=== PATIENT | female | born 1965 | race Caucasian/White ===

== ENCOUNTER 2019-03-12 17:58 | Inpatient (IN) ==
[2019-03-12] MEDS ORDERED: 0.9 % SODIUM CHLORIDE 1,000 ML IV ONE ×2 (18:23→22:12)
[2019-03-12] MEDS ORDERED: INSULIN REGULAR, HUMAN 1 UNIT/0.01 ML UNIT IV ONE (18:41)
[2019-03-12] MEDS ORDERED: cefTRIAXone 1 GM VIAL IV ONE (18:57)
--- NOTE | 2019-03-12 19:05 | Emergency Department Note ---
Weakness HPI - General Chief complaint: Weakness Stated complaint: possible dehydration Time Seen by Provider: 03/12/19 18:20 Source: patient Mode of arrival: wheelchair Limitations: no limitations - History of Present Illness HPI Narrative: Patient is a 54-year-old female who returns to the emergency department today with her with a concern of worsening confusion and weakness for the last 5 days. Patient was seen here in the emergency department yesterday by William and Dr. La. Her states that she has had sepsis in the past. Patient has a history of paraplegia for last 10 years. 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 She has recurrent urinary tract infections and has a suprapubic urinary catheter. She is followed by Dr. Monson and has undergone urinary bladder irrigations in the past with gentamicin. The has noticed that her urine is a little bit more cloudy than normal. The patient apparently developed a fever today and currently has a temperature of 101.3. Her appetite has been decreased. Patient denies any cough, shortness of breath, difficulty breathing, chest pain, sore throat, nausea, or vomiting. - Related Data Home Medications Medication Instructions Recorded Confirmed Acetaminophen [Tylenol] 1,000 mg PO BID 01/23/15 02/17/19 Baclofen 20 mg PO TID 01/23/15 03/12/19 Calcium Polycarbophil [Fibercon] 625 mg PO BID 01/23/15 03/12/19 Cyanocobalamin/Folic Acid [Vitamin 1 each PO BID 01/23/15 03/12/19 [id number] Acid Tablet] Ferrous Gluconate [Iron] 240 mg PO BID 01/23/15 03/12/19 Insulin Aspart [Novolog] 0 unit SQ ACHS 01/23/15 03/12/19 Loperamide [Imodium] 4 mg PO PRN PRN 01/23/15 03/12/19 Metoclopramide [Reglan] 5 mg PO PRN PRN 01/23/15 03/12/19 Omeprazole [PriLOSEC] 20 mg PO BIDAC 01/23/15 03/12/19 Pregabalin [Lyrica] 50 mg PO QIDP 01/23/15 03/12/19 Vitamin D3 1,000 unit PO DAILY 01/23/15 03/12/19 metFORMIN [Glucophage] 500 mg PO BIDCC 01/23/15 03/12/19 Bisacodyl [Magic Bullet] 10 mg RC PRN PRN 02/27/16 03/12/19 nystatin 100,000 unit/gram topical 1 applic TOPICAL BID 10/22/17 03/12/19 ointment silver 1 applic TOPICAL QDAY ml 10/22/17 03/12/19 cyanocobalamin (vitamin B-12) 1,000 mcg PO QDAY 02/18/18 02/17/19 1,000 mcg tablet sertraline 25 mg tablet 50 mg PO QDAY 09/29/18 03/12/19 Furosemide [Lasix] 20 mg PO DAILY 03/12/19 03/12/19 Insulin Detemir [Levemir] 30 unit SQ HS 03/12/19 03/12/19 Ipratropium/Albuterol [Duoneb] 3 ml NEB Q4-6HP PRN 03/12/19 03/12/19 Spironolactone [Aldactone] 50 mg PO DAILY 03/12/19 03/12/19 oxyCODONE HCL [Oxycodone HCl] 5 mg PO Q4-6HP PRN 03/12/19 03/12/19 traMADol [Ultram] 50 - 100 mg PO Q4HP PRN 03/12/19 03/12/19 Previous Rx's Medication Instructions Recorded adhesive tape See Dose Instructions .ROUTE 08/27/16 .MEDSUPPLY #1 each gauze bandage See Dose Instructions .ROUTE 08/27/16 .MEDSUPPLY #100 each MDD 4 urinary bag See Dose Instructions .ROUTE 08/27/16 .MEDSUPPLY #2 each oxybutynin chloride 5 mg 5 mg PO QDAY #30 tab 12/13/18 tablet,extended release 24 hr Allergies Allergy/AdvReac Type Severity Reaction Status Date / Time piperacillin [From Zosyn] Allergy Mild Rash Verified 03/11/19 09:42 tazobactam [From Zosyn] Allergy Mild Rash Verified 03/11/19 09:42 azithromycin AdvReac Mild Nausea Verified 03/11/19 09:42 cefuroxime AdvReac Mild Nausea Verified 03/11/19 09:42 Erythromycin Base AdvReac Mild Vomiting Verified 03/11/19 09:42 nitrofurantoin AdvReac Mild Nausea Verified 03/11/19 09:42 Penicillins AdvReac Mild Nausea Verified 03/11/19 09:42 lorazepam [From Ativan] AdvReac Unknown Unknown Verified 03/11/19 09:42 Review of Systems All systems ED: reviewed and negative except as stated. Past Medical History - Social History smoking status: Never smoker Physical Exam Limitations: no limitations General appearance: alert, in no apparent distress Eye: Present: normal appearance, PERRL ENT: Present: normal oropharynx, mucous membranes moist Neck: Absent: lymphadenopathy Chest: Present: normal inspection, symmetric chest wall rise Respiratory: Present: normal lung sounds bilaterally. Absent: respiratory distress, rales/crackles, wheezes, stridor, accessory muscle use, prolonged expiratory phase Cardiovascular: Present: normal rhythm, tachycardia, +S1, +S2 Abdominal: Present: soft, normal bowel sounds. Absent: distention, tenderness Extremities: Present: normal inspection, normal capillary refill, pedal edema (2+) Back: Present: normal inspection Neurological: Present: alert, oriented X3, CN II-XII intact Psychiatric: Present: normal affect, normal mood Skin: Present: other (There is a small stage II ulcer at the left hip near the gluteal fold. This measures approximately 1 cm x 1 cm. Small amount of serosanguineous drainage. There is a well-defined erythema surrounding the left hip that measures 30 cm x 25 cm. The area is warm to touch.) Course Vital Signs Temperature 101.3 F H 03/12/19 18:00 Pulse Rate 124 H 03/12/19 18:00 Respiratory Rate 17 03/12/19 18:00 Blood Pressure 155/59 03/12/19 18:00 Pulse Oximetry (%) 93 03/12/19 18:00 Temperature 101.4 F H 03/12/19 20:10 Pulse Rate 114 H 03/12/19 21:01 Respiratory Rate 21 03/12/19 21:01 Blood Pressure 107/42 03/12/19 21:01 Pulse Oximetry (%) 92 03/12/19 21:01 Weakness - MDM Narrative Medical decision making narrative: Reviewed the labs and chest x-ray from yesterday as well as the emergency department notes. Patient does have fever here in the emergency department and cellulitis of the left hip. Wound was cultured and sent to the lab. 1 g Rocephin given IV after blood cultures obtained. Blood glucose was 432, and gave the patient 10 units of regular insulin IV. Checked a blood glucose level after insulin given and result of 296. Also ordered a liter of normal saline IV. Patient was given acetaminophen for fever. The lactic acid came back elevated at 4.0. Her white count today is normal but slightly elevated from yesterday. The urinalysis from yesterday shows a urinary tract infection, and the culture is currently pending at this time. With her elevated lactic acid, fever, hyperglycemia, and tachycardia patient will likely need admission to the hospital for IV antibiotics and further management. She also has cellulitis of the left hip which is seen on examination today. Spoke with Dr. Bonner at 2047 who will admit the patient to the ICU. We will order cefepime and vancomycin to be given for better gram-negative coverage. - Lab Data Lab results reviewed: Yes I reviewed the patient's lab results. Result diagrams: 03/12/19 18:25 03/12/19 18:24 Lab Results 03/12/19 03/12/19 03/12/19 Range/Units 18:24 18:24 18:24 WBC (4.5-11.0) K/mcL RBC (4.00-5.20) M/mcL Hgb (12.0-15.0) g/dL Hct (36.0-48.0) % MCV (80.0-100.0) fL MCH (26.0-34.0) pg MCHC (31.0-36.0) g/dL RDW (11.5-14.5) % Plt Count (140-440) K/mcL MPV (7.4-10.4) fL Gran % (38.0-78.0) % Lymph % (Auto) (15.5-49.0) % Reeves % (Auto) (1.0-12.0) % Eos % (Auto) (0.0-7.0) % Baso % (Auto) (0.0-2.0) % Gran # (1.8-8.0) K/mcL Lymph # (Auto) (1.5-4.8) K/mcL Reeves # (Auto) (0.1-0.9) K/mcL Eos # (Auto) (0.0-0.7) K/mcL Baso # (Auto) (0.0-0.3) K/mcL VBG Lactic Acid 4.0 H* (0.5-2.0) mmol/L Sodium 133 (133-145) mmol/L Potassium 4.8 (3.3-5.1) mmol/L Chloride 97 (96-108) mmol/L Carbon Dioxide 21 L (22-30) mmol/L Anion Gap 15.0 (8-16) BUN 28 H (6-20) mg/dl Creatinine 0.7 (0.6-1.1) mg/dl GFR Calculation 98 Glucose 432 H (70-105) mg/dL Calcium 8.7 (8.6-10.4) mg/dl Total Bilirubin 2.0 H (0.0-1.0) mg/dL AST 22 (0-37) U/l ALT 16 (0-40) U/l Alkaline Phosphatase 201 H (39-117) U/L Total Protein 5.8 L (5.9-8.4) gm/dL Albumin 3.1 L (3.2-5.2) gm/dL Globulin 2.7 (2.2-3.7) gm/dL Albumin/Globulin Ratio 1.1 (1.0-2.3) Procalcitonin 0.29 (<0.10) ng/mL 03/12/19 Range/Units 18:25 WBC 7.2 (4.5-11.0) K/mcL RBC 4.17 (4.00-5.20) M/mcL Hgb 11.8 L (12.0-15.0) g/dL Hct 35.4 L (36.0-48.0) % MCV 85.0 (80.0-100.0) fL MCH 28.3 (26.0-34.0) pg MCHC 33.3 (31.0-36.0) g/dL RDW 16.2 H (11.5-14.5) % Plt Count 61 L (140-440) K/mcL MPV 9.3 (7.4-10.4) fL Gran % 89.6 H (38.0-78.0) % Lymph % (Auto) 7.5 L (15.5-49.0) % Reeves % (Auto) 2.8 (1.0-12.0) % Eos % (Auto) 0.1 (0.0-7.0) % Baso % (Auto) 0 (0.0-2.0) % Gran # 6.5 (1.8-8.0) K/mcL Lymph # (Auto) 0.5 L (1.5-4.8) K/mcL Reeves # (Auto) 0.2 (0.1-0.9) K/mcL Eos # (Auto) 0 (0.0-0.7) K/mcL Baso # (Auto) 0 (0.0-0.3) K/mcL VBG Lactic Acid (0.5-2.0) mmol/L Sodium (133-145) mmol/L Potassium (3.3-5.1) mmol/L Chloride (96-108) mmol/L Carbon Dioxide (22-30) mmol/L Anion Gap (8-16) BUN (6-20) mg/dl Creatinine (0.6-1.1) mg/dl GFR Calculation Glucose (70-105) mg/dL Calcium (8.6-10.4) mg/dl Total Bilirubin (0.0-1.0) mg/dL AST (0-37) U/l ALT (0-40) U/l Alkaline Phosphatase (39-117) U/L Total Protein (5.9-8.4) gm/dL Albumin (3.2-5.2) gm/dL Globulin (2.2-3.7) gm/dL Albumin/Globulin Ratio (1.0-2.3) Procalcitonin (<0.10) ng/mL - EKG Data EKG attestation: Yes I reviewed and interpreted this EKG., Yes There are no EKG findings of acute coronary syndrome, Yes This EKG will be read by net application architect EKG shows normal: sinus rhythm Rate: tachycardia Disposition Pt seen by B[employer]AME MAN/PA only: Yes Clinical Impression: Sepsis, Cellulitis, Hyperglycemia due to type 2 diabetes mellitus Disposition: Xfer As Inpt ([facility]) Condition: Fair Referrals: Carole Carrero MD [Primary Care Provider] -
[2019-03-12 19:28] LABS: Basophils # (Auto) 0 K/mcL (0.0-0.3); Basophils % (Auto) 0 % (0.0-2.0); Eosinophils # (Auto) 0 K/mcL (0.0-0.7); Eosinophils % (Auto) 0.1 % (0.0-7.0); Granulocytes % (Auto) 89.6 % (38.0-78.0); Hematocrit 35.4 % (36.0-48.0); Hemoglobin 11.8 g/dL (12.0-15.0); Lymphocytes # (Auto) 0.5 K/mcL (1.5-4.8); Lymphocytes % (Auto) 7.5 % (15.5-49.0); Mean Corpuscular HGB Conc 33.3 g/dL (31.0-36.0); Mean Platelet Volume 9.3 fL (7.4-10.4); Monocytes # (Auto) 0.2 K/mcL (0.1-0.9); Monocytes % (Auto) 2.8 % (1.0-12.0); Platelet Count 61 K/mcL (140-440); RBC 4.17 M/mcL (4.00-5.20); Red Cell Distribution Width 16.2 % (11.5-14.5); WBC 7.2 K/mcL (4.5-11.0)
[2019-03-12] MEDS ORDERED: ACETAMINOPHEN 325 MG TABLET PO ONE (19:39)
[2019-03-12 19:47] LABS: ALT/SGPT 16 U/l (0-40); AST/SGOT 22 U/l (0-37); Albumin 3.1 gm/dL (3.2-5.2); Albumin/Globulin Ratio 1.1 (1.0-2.3); Alkaline Phosphatase 201 U/L (39-117); Blood Urea Nitrogen 28 mg/dl (6-20); Calcium 8.7 mg/dl (8.6-10.4); Carbon Dioxide 21 mmol/L (22-30); Chloride 97 mmol/L (96-108); Globulin 2.7 gm/dL (2.2-3.7); Glomerular Filtration Rate 98; Glucose 432 mg/dL (70-105)
[2019-03-12] MEDS ORDERED: VANCOMYCIN 1,000 MG in 0.9 % SODIUM CHLORIDE 250 ML IV ONE (20:50)
[2019-03-12] MEDS ORDERED: CEFEPIME 1 GM VIAL IV ONE (20:51)
[2019-03-12] MEDS ORDERED: NOREPINEPHRINE BITARTRATE 8 MG in 0.9 % SODIUM CHLORIDE 242 ML IV SCH (21:30)
--- NOTE | 2019-03-12 21:36 | Internal Med History&Physical ---
Medical - H&P: [facility] Patient information: Note initiated : 03/12/19 at 9:31 pm Service Date, if different from initiated Date: [] Patient: Ebony Arroyo a 54 y/o F admitted on for possible dehydration. Chief Complaint: [] Chief complaint: Fever weakness confusion History of present illness: Ms. Arroyo is a 54 year old F with a history of paraplegia 10 years ago and chronically bedridden with suprapubic catheter and recurrent UTIs who presents the second time in 24 hours to the ER along with her Franky with fever weakness change in mental status. She was evaluated the day prior and was found to have UTI. Patient however was stable and was discharged. Her symptoms continued to worsen with increasing confusion lethargy, malaise and fever of 101 prompting her to bring her to the ER. Initial work-up was consistent with severe sepsis with fever , elevated lactate, hypotension and pyuria. She also had right hip bruising and erythema that was noted by her . She denies recent fall. He is the primary caregiver and also receives help from home health services. She transfers with use of Santosh lift. 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 Monson. Her catheter was changed 10 days ago. Hospitalist service was consulted in light of above At the time evaluation patient is accompanied with her . He was able to answer most the question. Patient is fatigued lethargic and was unable to provide a detailed history but was able to participate in review of systems. She denies chest pain or shortness of breath but endorses to diarrhea. Denies abdominal pain headache photophobia. She denies falls. She endorses to loss of appetite Review of systems A 10 point review system was performed and is negative except for ones discussed above Medical - H&P: PMH Medical history: Abdi's syndrome (Chronic) Hyperlipidemia (Chronic) Vitamin B12 deficiency (Chronic) Vitamin D deficiency, unspecified (Chronic) Chronic right shoulder pain (Chronic) Candidiasis of urogenital sites (Chronic) GERD (gastroesophageal reflux disease) (Chronic) Lumbar strain (Chronic) Hyponatremia (Chronic) Sprain shoulder/arm (Chronic) Eustachian tube dysfunction (Chronic) Neurogenic bladder (Chronic) Thoracic back sprain (Chronic) Cervical spondylosis (Chronic) Cervical disc disease (Chronic) frist of 3 sarwat today, return in approx 1 month for next Carpal tunnel syndrome (Chronic) Essential (primary) hypertension (Chronic) Paraplegia (Chronic) Diabetes mellitus type II, controlled (Chronic) Skin abrasion (Chronic) Kidney stone (Acute) 06/2011 Surgical History H/O plastic surgery (Acute) buttocks 11/2009 History of back surgery (Acute) tumor 08/2009 Hx of tonsillectomy (Acute) S/P carpal tunnel release (Acute) right hand S/P cholecystectomy (Acute) 08/2001 Family History Mother Hypertension Social History smoking status: Never smoker alcohol intake frequency: does not drink substance use type: does not use to Franky Pittman Medical - H&P: Meds Home Medications Medication Instructions Recorded Confirmed Type Baclofen 20 mg PO TID 01/23/15 03/13/19 History Calcium Polycarbophil [Fibercon] 625 mg PO BID 01/23/15 03/13/19 History Insulin Aspart [Novolog] 0 unit SQ ACHS 01/23/15 03/13/19 History Loperamide [Imodium] 4 mg PO PRN PRN 01/23/15 03/12/19 History Metoclopramide [Reglan] 5 mg PO QID PRN 01/23/15 03/13/19 History Omeprazole [PriLOSEC] 40 mg PO BIDAC 01/23/15 03/13/19 History Pregabalin [Lyrica] 50 mg PO QIDP 01/23/15 03/13/19 History Vitamin D3 1,000 unit PO DAILY 01/23/15 03/13/19 History metFORMIN [Glucophage] 500 mg PO BIDCC 01/23/15 03/13/19 History Bisacodyl [Magic Bullet] 10 mg RC PRN PRN 02/27/16 03/13/19 History adhesive tape See Dose Instructions .ROUTE 08/27/16 02/17/19 Rx .MEDSUPPLY #1 each gauze bandage See Dose Instructions .ROUTE 08/27/16 02/17/19 Rx .MEDSUPPLY #100 each MDD 4 urinary bag See Dose Instructions .ROUTE 08/27/16 02/17/19 Rx .MEDSUPPLY #2 each nystatin 100,000 unit/gram topical 1 applic TOPICAL BID 10/22/17 03/13/19 Hist ory ointment silver 1 applic TOPICAL QDAY ml 10/22/17 03/13/19 History cyanocobalamin (vitamin B-12) 1,000 mcg PO QDAY 02/18/18 03/13/19 History 1,000 mcg tablet sertraline 25 mg tablet 50 mg PO QDAY 09/29/18 03/13/19 History oxybutynin chloride 5 mg 5 mg PO QDAY #30 tab 12/13/18 03/13/19 Rx tablet,extended release 24 hr Furosemide [Lasix] 20 mg PO DAILY 03/12/19 03/13/19 History Insulin Detemir [Levemir] 0 unit SQ HS 03/12/19 03/13/19 History Ipratropium/Albuterol [Duoneb] 3 ml NEB Q4-6HP PRN 03/12/19 03/13/19 History Spironolactone [Aldactone] 50 mg PO DAILY 03/12/19 03/13/19 History oxyCODONE HCL [Oxycodone HCl] 5 mg PO Q4-6HP PRN 03/12/19 03/13/19 History Benzonatate [Tessalon] 100 mg PO BID PRN 03/13/19 03/13/19 History Ferrous Sulfate [Iron] 325 mg PO BID 03/13/19 03/13/19 History Allergies Allergy/AdvReac Type Severity Reaction Status Date / Time piperacillin [From Zosyn] Allergy Mild Rash Verified 03/11/19 09:42 tazobactam [From Zosyn] Allergy Mild Rash Verified 03/11/19 09:42 azithromycin AdvReac Mild Nausea Verified 03/11/19 09:42 cefuroxime AdvReac Mild Nausea Verified 03/11/19 09:42 Erythromycin Base AdvReac Mild Vomiting Verified 03/11/19 09:42 nitrofurantoin AdvReac Mild Nausea Verified 03/11/19 09:42 Penicillins AdvReac Mild Nausea Verified 03/11/19 09:42 lorazepam [From Ativan] AdvReac Unknown Unknown Verified 03/11/19 09:42 Medical - H&P: Exam - Constitutional Vitals: Temp Pulse Resp BP Pulse Ox 101.4 F H 114 H 21 107/42 92 03/12/19 20:10 03/12/19 21:01 03/12/19 21:01 03/12/19 21:01 03/12/19 21:01 General appearance: no acute distress Exam: Fatigue lethargic Head normocephalic Oral cavity dry No ear nose discharge Neck no lymphadenopathy S1-S2 tachycardia around mid 120s Diminished breath sounds bases Abdomen suprapubic catheter but nontender to palpation Lower extremity right hip area of bruising/petechiae lateral hip. No cyanosis clubbing or joint swelling or erythema Skin no suspicious lesion Psych fatigue lethargic but no agitation anxiety Neuro paraplegic, symmetrical upper extremity movement. Responding to commands Medical - H&P: Reslt - Labs CBC & Chem 7: 03/13/19 03:54 03/13/19 03:54 Labs: Short CBC 03/12/19 Range/Units 18:25 WBC 7.2 (4.5-11.0) K/mcL Hgb 11.8 L (12.0-15.0) g/dL Hct 35.4 L (36.0-48.0) % Plt Count 61 L (140-440) K/mcL BMP 03/12/19 18:24 Sodium 133 Potassium 4.8 Chloride 97 Carbon Dioxide 21 L BUN 28 H Creatinine 0.7 Glucose 432 H Calcium 8.7 Liver Function 03/12/19 Range/Units 18:24 Total Bilirubin 2.0 H (0.0-1.0) mg/dL AST 22 (0-37) U/l ALT 16 (0-40) U/l Alkaline Phosphatase 201 H (39-117) U/L Albumin 3.1 L (3.2-5.2) gm/dL Medical - H&P: A/P (1) Severe sepsis with acute organ dysfunction Current visit: Yes Status: Acute * Septic shock with acute organ dysfunction-elevated lactate at 4/fever tachycardia. Start crystalloids and vasopressors. Broad antibiotic coverage for empiric gram-negative/enterococci coverage. Keep map at goal. Monitor urine output. Secure central venous access * Complicated UTI secondary to hardware-continue antibiotic coverage. Replace catheter * Right lateral hip cellulitis-continue antibiotic coverage * Acute mental status change secondary to sepsis endorgan dysfunction * Poorly controlled diabetes continue basal prandial insulin * Neuropathy continue Lyrica * Anxiety disorder continue sertraline * History of paraplegia continue baclofen for spasm * GERD continue PPI * Full code * Prophylaxis heparin Plan * ICU admit in light of septic shock and acute end organ dysfunction, initial [place] 2 score 16 * Broad antibiotic coverage * Septic shock management guidelines with pressors crystalloids * Central venous access/SCV O2/lactate trending * Prior medical condition management as above Time spent on history and physical 70 minutes Additional 35 minutes critical care time spent on management of septic shock
[2019-03-12] MEDS ORDERED: CEFEPIME 2 GM in DEXTROSE 5% IN WATER 50 ML IV SCH (22:05)
[2019-03-12] MEDS ORDERED: POTASSIUM CHLORIDE 20 MEQ PACKET PO PRN (22:05)
[2019-03-12] MEDS ORDERED: MAGNESIUM SULFATE 2 GM/50 ML BAG IV PRN (22:05)
[2019-03-12] MEDS ORDERED: DEXTROSE 31 GM ORAL.SUSP PO PRN (22:05)
[2019-03-12] MEDS ORDERED: VANCOMYCIN PER PHARMACY IV SCH (22:05)
[2019-03-12] MEDS ORDERED: ACETAMINOPHEN 325 MG TABLET PO PRN (22:05)
[2019-03-12] MEDS ORDERED: BISACODYL 10 MG SUPP.RECT PR PRN (22:05)
[2019-03-12] MEDS ORDERED: ONDANSETRON 4 MG ODT TABLET SL PRN (22:05)
[2019-03-12] MEDS ORDERED: ACETAMINOPHEN 650 MG/65 ML BOTTLE IV PRN (22:05)
[2019-03-12] MEDS ORDERED: MELATONIN 3 MG TABLET PO PRN (22:05)
[2019-03-12] MEDS ORDERED: DEXTROSE 50% 50 ML VIAL IV PRN (22:05)
[2019-03-12] MEDS ORDERED: ONDANSETRON 4 MG/2 ML VIAL IV PRN (22:05)
[2019-03-12] MEDS ORDERED: ACETAMINOPHEN 1,000 MG/100 ML BOTTLE IV ONE (22:26)
[2019-03-12] MEDS: NOREPINEPHRINE BITARTRATE 16 MG in 0.9 % SODIUM CHLORIDE 234 ML IV SCH (22:57)
[2019-03-13] MEDS: 0.9 % SODIUM CHLORIDE 250 ML IV SCH ×3 (01:31→19:13)
[2019-03-13] MEDS: SENNOSIDES/DOCUSATE SODIUM 1 TAB TABLET PO SCH ×2 (01:32→20:40)
[2019-03-13] MEDS: 0.9 % SODIUM CHLORIDE 10 ML SYRINGE IV SCH ×4 (01:33→22:45)
[2019-03-13] MEDS: DOCUSATE SODIUM 100 MG CAPSULE PO SCH ×3 (01:41→20:40)
[2019-03-13] MEDS: 0.9 % SODIUM CHLORIDE 1,000 ML IV SCH ×3 (02:08→22:45)
[2019-03-13] MEDS: INSULIN LISPRO 1 UNIT/0.01 ML UNIT SQ SCH ×5 (02:21→21:05)
[2019-03-13 04:59] LABS: Hemoglobin 11.2 g/dL (12.0-15.0); Mean Platelet Volume 8.2 fL (7.4-10.4); Platelet Count 92 K/mcL (140-440); Red Cell Distribution Width 16.4 % (11.5-14.5); WBC 17.7 K/mcL (4.5-11.0)
[2019-03-13 05:31] LABS: Anisocytosis 1+ (NONE SEEN); Band Neutrophils % 8 % (0-10); Lymphocytes % 1 % (15-49); Metamyelocytes % 1 % (0-0); Platelet Estimate DECREASED (NORMAL); Polychromasia 1+ (NONE SEEN); RBC Morphology ABNORMAL (NORMAL); Segmented Neutrophils % 90 % (38-78)
[2019-03-13] MEDS ORDERED: ACETAMINOPHEN 1,000 MG/100 ML BOTTLE IV ONE (05:35)
--- NOTE | 2019-03-13 05:40 | XRay Report ---
CLINICAL INFORMATION:Central line placement TECHNIQUE: AP portable chest x-ray COMPARISON: Previous examination dated 03/11/2016 FINDINGS:Left central venous catheter with its tip in the superior vena cava. No pneumothorax. Examination is not marked as to whether it is supine or semierect upright. The left pneumothorax is not visualized. Left lung is suboptimally evaluated. Right lung is negative. IMPRESSION: Left central venous catheter with its tip in superior vena cava Interpreted and Authenticated by: David Hilario 03/13/19
[2019-03-13 05:41] LABS: ALT/SGPT 14 U/l (0-40); AST/SGOT 26 U/l (0-37); Albumin 2.6 gm/dL (3.2-5.2); Alkaline Phosphatase 161 U/L (39-117); Bilirubin,Total 2.8 mg/dL (0.0-1.0); Blood Urea Nitrogen 32 mg/dl (6-20); Calcium 7.9 mg/dl (8.6-10.4); Chloride 105 mmol/L (96-108); Glomerular Filtration Rate 109; Glucose 304 mg/dL (70-105); Lactate Dehydrogenase 237 U/L (94-250); Triglycerides 158 mg/dl (<150); Uric Acid 5.1 mg/dL (2.5-8.0)
[2019-03-13 05:43] LABS: Albumin/Globulin Ratio 1.2 (1.0-2.3); Carbon Dioxide 16 mmol/L (22-30); Globulin 2.2 gm/dL (2.2-3.7); Phosphorous 1.2 mg/dL (2.7-4.5)
[2019-03-13] MEDS ORDERED: CEFEPIME 2 GM in DEXTROSE 5% IN WATER 50 ML IV SCH (08:00)
[2019-03-13] MEDS: NOREPINEPHRINE BITARTRATE 16 MG in 0.9 % SODIUM CHLORIDE 234 ML IV SCH (08:38)
[2019-03-13] MEDS: CEFEPIME 2 GM VIAL IV SCH ×3 (08:57→22:45)
[2019-03-13] MEDS: VANCOMYCIN 1,000 MG in 0.9 % SODIUM CHLORIDE 250 ML IV SCH ×2 (09:09→20:39)
--- NOTE | 2019-03-13 09:48 | Ultrasound Report ---
CLINICAL INFORMATION: Renal failure. History of horseshoe kidney and bilateral stones TECHNIQUE: Grayscale and color flow Doppler spectral imaging COMPARISON: Previous CT scan dated 06/11/2018 FINDINGS: Horseshoe kidney configuration with lower pole connection. Right kidney measures 9.5 x 4.4 x 5.8 cm in length. Left kidney measures 8.2 x 4.2 x 5.6 cm in length. Renal parenchyma is echogenic with medical renal disease. No solid or cystic mass. Previous CT scan demonstrated a small nonobstructing right renal stone. A 12 mm nonobstructing left renal stone is also identified. This was in the left renal pelvis. Neither of these calculi are identified on present examination. There is no hydronephrosis. There is a suprapubic bladder catheter in place. Bladder is not evaluated IMPRESSION: 1. Horseshoe kidney. Renal parenchyma is echogenic consistent with medical renal disease 2. Renal calculi were identified on previous CT scan. These are not identified on present examination. There is no hydronephrosis. 3. No solid or cystic renal mass Interpreted and Authenticated by: David Hilario 03/13/19
[2019-03-13] MEDS: HEPARIN 5,000 UNIT/ML VIAL SQ SCH ×2 (10:10→20:40)
[2019-03-13] MEDS: MULTIVIT,THER IRON,CA,FA & MIN 1 TABLET PO SCH (10:10)
[2019-03-13] MEDS: sitaGLIPtin 100 MG TABLET PO SCH (10:10)
--- NOTE | 2019-03-13 10:43 | Procedure Note ---
Procedures - Central Line Placement Left IJ Consent obtained: verbal consent, written consent Time out performed: Yes Patient placed on monitor/pulse ox: Yes MD prep: mask, sterile gown, sterile gloves, cap Central line prep: 2% Chlorhexidine scrub Local anesthesia used: lidocaine 1% Ultrasound used for placement: Yes Central line lumen inserted: quad, 16 cm Post procedure: sutured in place, good blood return, all ports aspirated, flushed, capped Post procedure x-ray: tip of catheter in good position, no pneumothorax seen Patient tolerated procedure: well, no complications Complications: none
--- NOTE | 2019-03-13 10:47 | Internal Med Progress Note ---
Medical - PN: Subj Patient information: Note initiated : 03/13/19 at 10:43 am Service Date, if different from initiated Date: [] Patient: Ebony Arroyo a 54 y/o F admitted on 03/12/19 for possible dehydration. Chief Complaint: [] Interval history: Ms. Arroyo is a 54 year old F with a history of paraplegia 10 years ago and chronically bedridden with suprapubic catheter and recurrent UTIs who presents the second time in 24 hours to the ER along with her Franky with fever weakness change in mental status. She was evaluated the day prior and was found to have UTI. Patient however was stable and was discharged. Her symptoms continued to worsen with increasing confusion lethargy, malaise and fever of 101 prompting her to bring her to the ER. Initial work-up was consistent with severe sepsis with fever , elevated lactate, hypotension and pyuria. She also had right hip bruising and erythema that was noted by her . She denies recent fall. He is the primary caregiver and also receives help from home health services. She transfers with use of Santosh lift. 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 Monson. Her catheter was changed 10 days ago. Hospitalist service was consulted in light of above At the time evaluation patient is accompanied with her . He was able to answer most the question. Patient is fatigued lethargic and was unable to pro vide a detailed history but was able to participate in review of systems. She denies chest pain or shortness of breath but endorses to diarrhea. Denies abdominal pain headache photophobia. She denies falls. She endorses to loss of appetite 03/13-patient remains on vasopressors however clinically improving since previous day. at bedside. Lactic acid down from 6-2.7. White count up to 17.7. Improving BUN/creatinine. Low phosphorus and magnesium currently on replacement. Elevated bilirubin secondary to septic shock. - Constitutional Vitals: Vital Signs Temp Pulse Resp BP Pulse Ox 98.6 F 77 16 106/48 97 03/13/19 10:01 03/13/19 10:01 03/13/19 10:01 03/13/19 10:01 03/13/19 10:01 Period Temp Pulse Resp BP Sys/Porter Pulse Ox Last 24 Hr 55.7 F-103 F 77-124 13-30 72-157/29-110 90-97 Intake and Output 03/12/19 03/13/19 03/13/19 21:59 05:59 13:59 Intake Total 1000 1755 925 Output Total 95 30 Balance 1000 1660 895 Weight 146 lb Intake & Output: Intake & Output 03/12/19 03/13/19 03/13/19 21:59 05:59 13:59 Intake Total 1000 1755 925 Output Total 95 30 Balance 1000 1660 895 Weight 146 lb Intake: IV 1000 1275 205 Sodium Chloride 0.9% 1,000 ml @ 1000 1000 Wide Open IV [facility] Rx#: [id number] OFIRMEV 1,000 mg In 100 ml @ 0 74 mls/hr IV .STK-MED ONE Rx#: [id number] Levophed 16 mg In Sodium 5 140 Chloride 0.9% 234 ml @ 10 MCG/ MIN 9.375 mls/hr IV Q24H [facility] Rx #:[id number] Vancomycin 1,000 mg In Sodium 196 Chloride 0.9% 250 ml @ 250 mls/ hr IV ONCE ONE Rx#:[id number] Oral 480 720 Output: Urine Catheter Amount 95 30 Other: Meal Breakfast Percent of Meal Consumed 100% Feeding Ability Assist with Tray Set Up Urine Appearance Cloudy Cloudy Cloudy Urine Color Bright Yellow Dark Twyla Light Twyla General appearance: no acute distress Exam: Resting comfortably Currently on pressors For his draining clear urine Denies abdominal pain tenderness Paraplegic No telemetry events Medical - PN: Obj Da - Labs CBC & Chem 7: 03/13/19 03:54 03/13/19 03:54 Labs: Abnormal Lab Results 03/13/19 03/13/19 03/13/19 05:47 03:54 03:54 WBC 17.7 H Hgb 11.2 L Hct 34.0 L RDW 16.4 H Plt Count 92 L Gran % Lymph % (Auto) Lymph # (Auto) Seg Neutrophils % 90 H Lymphocytes % 1 L Metamyelocytes % 1 H Polychromasia 1+ A Anisocytosis 1+ A VBG Lactic Acid 2.7 H Carbon Dioxide 16 L BUN 32 H Creatinine 0.5 L Glucose 304 H Calcium 7.9 L Phosphorus 1.2 L Magnesium 1.3 L Total Bilirubin 2.8 H Direct Bilirubin 2.0 H GGT 193 H Alkaline Phosphatase 161 H Total Protein 4.8 L Albumin 2.6 L Triglycerides 158 H 03/13/19 03/12/19 03/12/19 00:49 18:25 18:24 WBC Hgb 11.8 L Hct 35.4 L RDW 16.2 H Plt Count 61 L Gran % 89.6 H Lymph % (Auto) 7.5 L Lymph # (Auto) 0.5 L Seg Neutrophils % Lymphocytes % Metamyelocytes % Polychromasia Anisocytosis VBG Lactic Acid 6.0 H* 4.0 H* Carbon Dioxide BUN Creatinine Glucose Calcium Phosphorus Magnesium Total Bilirubin Direct Bilirubin GGT Alkaline Phosphatase Total Protein Albumin Triglycerides 03/12/19 18:24 WBC Hgb Hct RDW Plt Count Gran % Lymph % (Auto) Lymph # (Auto) Seg Neutrophils % Lymphocytes % Metamyelocytes % Polychromasia Anisocytosis VBG Lactic Acid Carbon Dioxide 21 L BUN 28 H Creatinine Glucose 432 H Calcium Phosphorus Magnesium Total Bilirubin 2.0 H Direct Bilirubin GGT Alkaline Phosphatase 201 H Total Protein 5.8 L Albumin 3.1 L Triglycerides Meds: Medications Acetaminophen (Tylenol) 650 mg PO Q4-6HP PRN; Protocol PRN Reason: Per Pain Protocol/Fever > 101 Bisacodyl (Dulcolax) 10 mg [place] Q2-3DAYS PRN PRN Reason: Constipation Cefepime HCl (Maxipime) 2 gm IV Q8H ON LICENSE OF [facility] Last Admin: 03/13/19 08:57 Dose: 2 gm Documented by: Dextrose (Dextrose 50%) 0 ml IV UD PRN PRN Reason: Hypoglycemia Diagnostic Test (Pha) (Accu-Chek) 1 each FS ACHS ON LICENSE OF [facility] Last Admin: 03/13/19 08:23 Dose: 1 each Documented by: Docusate Sodium (Colace) 100 mg PO BID ON LICENSE OF [facility] Last Admin: 03/13/19 10:10 Dose: 100 mg Documented by: Glucose (Insta-Glucose) 15 gm PO PRN PRN PRN Reason: Hypoglycemia Heparin Sodium (Porcine) (Heparin) 5,000 unit SQ Q12 ON LICENSE OF [facility] Last Admin: 03/13/19 10:10 Dose: 5,000 unit Documented by: Sodium Chloride (Sodium Chloride 0.9%) 250 mls @ 20 mls/hr IV .[id number] ON LICENSE OF [facility] Last Admin: 03/13/19 01:31 Dose: Not Given Documented by: Sodium Chloride (Sodium Chloride 0.9%) 1,000 mls @ 100 mls/hr IV .Q10H ON LICENSE OF [facility] Last Admin: 03/13/19 02:08 Dose: 100 mls/hr Documented by: Acetaminophen (Ofirmev) 650 mg in 65 mls @ 130 mls/hr IV Q6HP PRN; Protocol PRN Reason: Per Pain Protocol/Fever > 101 Last Infusion: 03/13/19 06:18 Dose: Infused Documented by: Magnesium Sulfate (Magnesium Sulfate) 2 gm in 50 mls @ 50 mls/hr IV UD PRN PRN Reason: MG = or < 1.7 Last Admin: 03/13/19 08:24 Dose: 50 mls/hr Documented by: Norepinephrine Bitartrate 16 (mg/ Sodium Chloride) 250 mls @ 9.375 mls/hr IV Q24H ON LICENSE OF [facility]; Protocol Last Titration: 03/13/19 10:11 Dose: 9 mcg/min, 8.438 mls/hr Documented by: Vancomycin HCl 1,000 mg/ (Sodium Chloride) 250 mls @ 250 mls/hr IV Q12H ON LICENSE OF [facility] Last Admin: 03/13/19 09:09 Dose: 250 mls/hr Documented by: Insulin Human Lispro (Humalog) 0 unit SQ ACHS ON LICENSE OF [facility]; Protocol Last Admin: 03/13/19 08:54 Dose: 6 units Documented by: Iron Carb/Multivit/[employer]/Folic Acid (Multivitamin W/Minerals) 1 tab PO DAILY ON LICENSE OF [facility] Last Admin: 03/13/19 10:10 Dose: 1 tab Documented by: Melatonin (Melatonin 3mg Tablet) 3 mg PO HSP PRN PRN Reason: Insomnia Ondansetron HCl (Zofran Odt) 4 mg SL Q4-6HP PRN; Protocol PRN Reason: Nausea And Vomiting Ondansetron HCl (Zofran) 4 mg IV Q4-6HP PRN; Protocol PRN Reason: Nausea And Vomiting Potassium Chloride (Klor-Con) 40 meq PO DAILYP PRN PRN Reason: K+ < 3.5 Senna/Docusate Sodium (Senna Plus Tablet) 1 tab PO HS ON LICENSE OF [facility] Last Admin: 03/13/19 01:32 Dose: Not Given Documented by: Sitagliptin Phosphate (Januvia) 100 mg PO DAILY ON LICENSE OF [facility] Last Admin: 03/13/19 10:10 Dose: 100 mg Documented by: Sodium Chloride (Saline Flush) 10 ml IV Q8 ON LICENSE OF [facility] Last Admin: 03/13/19 06:00 Dose: 10 ml Documented by: Vancomycin HCl (Vancomycin Per Pharmacy) 1 order IV UD ON LICENSE OF [facility]; Protocol Medical - PN: A/P - Time Spent With Patient Total time spent is greater than 50% in coordination of care (as documented) at patient's floor/unit and/or counseling patient: Greater than 35 minutes (Critical care time) (1) Severe sepsis with acute organ dysfunction Status: Acute Assessment and plan: * Septic shock with acute organ dysfunction-downtrending venous lactate from 6- 2.7. White count 17,000. Continue vasopressors. Check venous blood gas broad antibiotic coverage for empiric gram-negative/enterococci coverage. Keep map at goal. Monitor urine output. Secure central venous access * Complicated UTI secondary to hardware-continue antibiotic coverage. Replace catheter * Right lateral hip cellulitis-continue antibiotic coverage * Acute mental status change secondary to sepsis endorgan dysfunction * Poorly controlled diabetes continue basal prandial insulin * Neuropathy continue Lyrica * Anxiety disorder continue sertraline * History of paraplegia continue baclofen for spasm * GERD continue PPI * Full code * Prophylaxis heparin Plan * Continue critical care * Broad antibiotic coverage * SCV O2/lactic acid trending * Continue vasopressors * Broad antibiotic coverage * Prior medical condition management as above Current Visit: Yes Medical - PN: Qual - VTE Deep Vein Thrombosis/Pulmonary Embolism Present on Admission: No
[2019-03-13] MEDS ORDERED: LOPERAMIDE 2 MG CAPSULE PO PRN (11:13)
[2019-03-13] MEDS ORDERED: METOCLOPRAMIDE 10 MG TABLET PO PRN (11:13)
[2019-03-13] MEDS ORDERED: IPRATROPIUM/ALBUTEROL 3 ML AMPUL.NEB NEB PRN (11:13)
[2019-03-13] MEDS ORDERED: BENZONATATE 100 MG CAPSULE PO PRN (11:13)
[2019-03-13] MEDS ORDERED: oxyCODONE HCL 5 MG TABLET PO PRN (11:30)
[2019-03-13 12:01] LABS: ABG Methemoglobin 0.3 % (0.4-1.5); Total Hemoglobin 11.3 gm/dL (12.0-15.0); VBG Base Excess -7.4 (-2.0-2.0); VBG Oxygen Saturation 92.9 % (40.0-70.0); VBG PCO2 30.7 mmHg (41.0-51.0); VBG PH 7.36 U (7.32-7.42); VBG PO2 105 mmHg (25-40); VBG Total CO2 17.9 mmol/L (25.0-29.0)
[2019-03-13] MEDS: INSULIN GLARGINE, HUMAN 1 UNIT/0.01 ML SQ SCH (14:02)
[2019-03-13] MEDS: PREGABALIN 25 MG CAPSULE PO SCH ×3 (14:02→20:39)
[2019-03-13] MEDS: BACLOFEN 10 MG TABLET PO SCH ×2 (15:12→20:39)
[2019-03-13] MEDS: OMEPRAZOLE 20 MG CAPSULE PO SCH (17:22)
[2019-03-14] MEDS: 0.9 % SODIUM CHLORIDE 250 ML IV SCH ×3 (03:08→22:12)
[2019-03-14 05:01] LABS: Hematocrit 32.3 % (36.0-48.0); Mean Cell Volume 82.8 fL (80.0-100.0); Mean Platelet Volume 7.9 fL (7.4-10.4); Platelet Count 74 K/mcL (140-440); Red Cell Distribution Width 16.8 % (11.5-14.5); WBC 12.9 K/mcL (4.5-11.0)
[2019-03-14 05:22] LABS: ALT/SGPT 14 U/l (0-40); AST/SGOT 18 U/l (0-37); Albumin 2.3 gm/dL (3.2-5.2); Albumin/Globulin Ratio 0.9 (1.0-2.3); Alkaline Phosphatase 140 U/L (39-117); Bilirubin,Total 2.1 mg/dL (0.0-1.0); Calcium 7.7 mg/dl (8.6-10.4); Carbon Dioxide 18 mmol/L (22-30); Chloride 106 mmol/L (96-108); Globulin 2.5 gm/dL (2.2-3.7); Glucose 342 mg/dL (70-105); Lactate Dehydrogenase 160 U/L (94-250); Triglycerides 170 mg/dl (<150); Uric Acid 4.4 mg/dL (2.5-8.0)
[2019-03-14 05:26] LABS: Bilirubin,Direct 1.2 mg/dL (0.0-0.3); Blood Urea Nitrogen 23 mg/dl (6-20); Glomerular Filtration Rate 129; Phosphorous 1.2 mg/dL (2.7-4.5)
[2019-03-14] MEDS: CEFEPIME 2 GM VIAL IV SCH ×3 (05:33→22:02)
[2019-03-14] MEDS: 0.9 % SODIUM CHLORIDE 10 ML SYRINGE IV SCH ×3 (05:33→22:02)
[2019-03-14 05:57] LABS: Anisocytosis 1+ (NONE SEEN); Band Neutrophils % 13 % (0-10); Eosinophils % (Manual) 1 % (0-7); Lymphocytes % 9 % (15-49); Monocytes % (Manual) 4 % (1-12); Platelet Estimate DECREASED (NORMAL); RBC Fragments OCC (NONE SEEN); RBC Morphology ABNORM (NORMAL); Segmented Neutrophils % 73 % (38-78)
[2019-03-14] MEDS: OMEPRAZOLE 20 MG CAPSULE PO SCH ×2 (07:33→17:14)
[2019-03-14] MEDS: INSULIN LISPRO 1 UNIT/0.01 ML UNIT SQ SCH ×5 (07:36→21:07)
[2019-03-14] MEDS: 0.9 % SODIUM CHLORIDE 1,000 ML IV SCH (09:24)
[2019-03-14] MEDS: HEPARIN 5,000 UNIT/ML VIAL SQ SCH ×2 (09:25→21:06)
[2019-03-14] MEDS: PREGABALIN 25 MG CAPSULE PO SCH ×4 (09:25→21:07)
[2019-03-14] MEDS: SERTRALINE 50 MG TABLET PO SCH (09:25)
[2019-03-14] MEDS: BACLOFEN 10 MG TABLET PO SCH ×3 (09:25→21:03)
[2019-03-14] MEDS: VANCOMYCIN 1,000 MG in 0.9 % SODIUM CHLORIDE 250 ML IV SCH ×2 (09:25→11:25)
[2019-03-14] MEDS: sitaGLIPtin 100 MG TABLET PO SCH (09:25)
[2019-03-14] MEDS: DOCUSATE SODIUM 100 MG CAPSULE PO SCH ×2 (09:25→21:03)
[2019-03-14] MEDS: INSULIN GLARGINE, HUMAN 1 UNIT/0.01 ML SQ SCH (09:25)
[2019-03-14] MEDS: MULTIVIT,THER IRON,CA,FA & MIN 1 TABLET PO SCH (09:25)
--- NOTE | 2019-03-14 10:00 | Internal Med Progress Note ---
Medical - PN: Subj Patient information: Note initiated : 03/14/19 at 9:57 am Service Date, if different from initiated Date: [] Patient: Ebony Arroyo a 54 y/o F admitted on 03/12/19 for possible dehydration. Chief Complaint: [] Interval history: Ms. Arroyo is a 54 year old F with a history of paraplegia 10 years ago and chronically bedridden with suprapubic catheter and recurrent UTIs who presents the second time in 24 hours to the ER along with her Franky with fever weakness change in mental status. She was evaluated the day prior and was found to have UTI. Patient however was stable and was discharged. Her symptoms continued to worsen with increasing confusion lethargy, malaise and fever of 101 prompting her to bring her to the ER. Initial work-up was consistent with severe sepsis with fever , elevated lactate, hypotension and pyuria. She also had right hip bruising and erythema that was noted by her . She denies recent fall. He is the primary caregiver and also receives help from home health services. She transfers with use of Santosh lift. 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 Monson. Her catheter was changed 10 days ago. Hospitalist service was consulted in light of above At the time evaluation patient is accompanied with her . He was able to answer most the question. Patient is fatigued lethargic and was unable to prov edwin a detailed history but was able to participate in review of systems. She denies chest pain or shortness of breath but endorses to diarrhea. Denies abdominal pain headache photophobia. She denies falls. She endorses to loss of appetite 03/13-patient remains on vasopressors however clinically improving since previous day. at bedside. Lactic acid down from 6-2.7. White count up to 17.7. Improving BUN/creatinine. Low phosphorus and magnesium currently on replacement. Elevated bilirubin secondary to septic shock. 03/14-patient currently on pressors. White count downtrending. Weaning Levophed. More alert lucid and respond to commands. Left hip bruising area progressing. Platelets 74. Central venous oxygen sats 92 at goal. Good urine output. DC IV fluids. Continue ICU care. No family at bedside - Constitutional Vitals: Vital Signs Temp Pulse Resp BP Pulse Ox 98.3 F 89 15 120/59 95 03/14/19 07:31 03/14/19 08:01 03/14/19 08:01 03/14/19 08:01 03/14/19 08:01 Period Temp Pulse Resp BP Sys/Porter Pulse Ox Last 24 Hr 72.6 F-99.7 F 64-89 12-24 92-139/39-69 92-98 Intake and Output 03/13/19 03/14/19 03/14/19 21:59 05:59 13:59 Intake Total 322 1758 1034 Output Total 471 955 95 Balance -149 803 939 Weight 151 lb 11.2 oz Intake & Output: Intake & Output 03/13/19 03/14/19 03/14/19 21:59 05:59 13:59 Intake Total 322 1758 1034 Output Total 471 955 95 Balance -149 803 939 Weight 151 lb 11.2 oz Intake: IV 82 1278 1034 Sodium Chloride 0.9% 1,000 ml @ 995 1000 100 mls/hr IV .Q10H [facility] Rx#: [id number] Sodium Chloride 0.9% 250 ml @ 52 20 mls/hr IV .[id number] [facility] Rx#: [id number] Levophed 16 mg In Sodium 30 33 34 Chloride 0.9% 234 ml @ 10 MCG/ MIN 9.375 mls/hr IV Q24H [facility] Rx #:[id number] Vancomycin 1,000 mg In Sodium 250 Chloride 0.9% 250 ml @ 250 mls/ hr IV Q12H [facility] Rx#:[id number] Oral 240 480 Output: Urine Catheter Amount 471 955 95 Other: Meal Dinner Percent of Meal Consumed 75% Urine Appearance Cloudy Cloudy Urine Color Light Twyla Light Twyla General appearance: no acute distress Exam: Alert oriented Nonlabored breathing No anxiety Nondistended abdomen suprapubic catheter Area of bruising left hip No telemetry events Medical - PN: Obj Da - Labs CBC & Chem 7: 03/14/19 04:05 03/14/19 04:05 Labs: Abnormal Lab Results 03/14/19 03/14/19 03/13/19 04:05 04:05 11:40 WBC 12.9 H RBC 3.90 L Hgb 11.0 L Hct 32.3 L RDW 16.8 H Plt Count 74 L Gran % Lymph % (Auto) Lymph # (Auto) Seg Neutrophils % Band Neutrophils % 13 H Lymphocytes % 9 L Metamyelocytes % RBC Morphology Abnorm A Polychromasia Anisocytosis 1+ A RBC Fragments Occ A ABG Methemoglobin 0.3 L VBG pCO2 30.7 L VBG pO2 105 H VBG HCO3 17.0 L VBG Total CO2 17.9 L VBG O2 Saturation 92.9 H VBG Base Excess -7.4 L VBG Lactic Acid Carboxyhemoglobin 4.8 H Total Hemoglobin 11.3 L Carbon Dioxide 18 L BUN 23 H Creatinine 0.3 L Glucose 342 H Calcium 7.7 L Phosphorus 1.2 L Magnesium Total Bilirubin 2.1 H Direct Bilirubin 1.2 H GGT 165 H Alkaline Phosphatase 140 H Total Protein 4.8 L Albumin 2.3 L Albumin/Globulin Ratio 0.9 L Triglycerides 170 H 03/13/19 03/13/19 03/13/19 05:47 03:54 03:54 WBC 17.7 H RBC Hgb 11.2 L Hct 34.0 L RDW 16.4 H Plt Count 92 L Gran % Lymph % (Auto) Lymph # (Auto) Seg Neutrophils % 90 H Band Neutrophils % Lymphocytes % 1 L Metamyelocytes % 1 H RBC Morphology Polychromasia 1+ A Anisocytosis 1+ A RBC Fragments ABG Methemoglobin VBG pCO2 VBG pO2 VBG HCO3 VBG Total CO2 VBG O2 Saturation VBG Base Excess VBG Lactic Acid 2.7 H Carboxyhemoglobin Total Hemoglobin Carbon Dioxide 16 L BUN 32 H Creatinine 0.5 L Glucose 304 H Calcium 7.9 L Phosphorus 1.2 L Magnesium 1.3 L Total Bilirubin 2.8 H Direct Bilirubin 2.0 H GGT 193 H Alkaline Phosphatase 161 H Total Protein 4.8 L Albumin 2.6 L Albumin/Globulin Ratio Triglycerides 158 H 03/13/19 03/12/19 03/12/19 00:49 18:25 18:24 WBC RBC Hgb 11.8 L Hct 35.4 L RDW 16.2 H Plt Count 61 L Gran % 89.6 H Lymph % (Auto) 7.5 L Lymph # (Auto) 0.5 L Seg Neutrophils % Band Neutrophils % Lymphocytes % Metamyelocytes % RBC Morphology Polychromasia Anisocytosis RBC Fragments ABG Methemoglobin VBG pCO2 VBG pO2 VBG HCO3 VBG Total CO2 VBG O2 Saturation VBG Base Excess VBG Lactic Acid 6.0 H* 4.0 H* Carboxyhemoglobin Total Hemoglobin Carbon Dioxide BUN Creatinine Glucose Calcium Phosphorus Magnesium Total Bilirubin Direct Bilirubin GGT Alkaline Phosphatase Total Protein Albumin Albumin/Globulin Ratio Triglycerides 03/12/19 18:24 WBC RBC Hgb Hct RDW Plt Count Gran % Lymph % (Auto) Lymph # (Auto) Seg Neutrophils % Band Neutrophils % Lymphocytes % Metamyelocytes % RBC Morphology Polychromasia Anisocytosis RBC Fragments ABG Methemoglobin VBG pCO2 VBG pO2 VBG HCO3 VBG Total CO2 VBG O2 Saturation VBG Base Excess VBG Lactic Acid Carboxyhemoglobin Total Hemoglobin Carbon Dioxide 21 L BUN 28 H Creatinine Glucose 432 H Calcium Phosphorus Magnesium Total Bilirubin 2.0 H Direct Bilirubin GGT Alkaline Phosphatase 201 H Total Protein 5.8 L Albumin 3.1 L Albumin/Globulin Ratio Triglycerides Meds: Medications Acetaminophen (Tylenol) 650 mg PO Q4-6HP PRN; Protocol PRN Reason: Per Pain Protocol/Fever > 101 Albuterol/Ipratropium (Duoneb) 3 ml NEB Q4-6HP PRN PRN Reason: Shortness Of Breath Baclofen (Lioresal) 20 mg PO TID [facility] Last Admin: 03/14/19 09:25 Dose: 20 mg Documented by: Benzonatate (Tessalon) 100 mg PO BIDP PRN PRN Reason: Cough Bisacodyl (Dulcolax) 10 mg [place] Q2-3DAYS PRN PRN Reason: Constipation Cefepime HCl (Maxipime) 2 gm IV Q8H [facility] Last Admin: 03/14/19 05:33 Dose: 2 gm Documented by: Dextrose (Dextrose 50%) 0 ml IV UD PRN PRN Reason: Hypoglycemia Diagnostic Test (Pha) (Accu-Chek) 1 each FS ACHS [facility] Last Admin: 03/14/19 07:07 Dose: 1 each Documented by: Docusate Sodium (Colace) 100 mg PO BID [facility] Last Admin: 03/14/19 09:25 Dose: 100 mg Documented by: Glucose (Insta-Glucose) 15 gm PO PRN PRN PRN Reason: Hypoglycemia Heparin Sodium (Porcine) (Heparin) 5,000 unit SQ Q12 [facility] Last Admin: 03/14/19 09:25 Dose: 5,000 unit Documented by: Sodium Chloride (Sodium Chloride 0.9%) 250 mls @ 20 mls/hr IV .[id number] [facility] Last Admin: 03/14/19 03:08 Dose: Not Given Documented by: Sodium Chloride (Sodium Chloride 0.9%) 1,000 mls @ 100 mls/hr IV .Q10H [facility] Last Admin: 03/14/19 09:24 Dose: 100 mls/hr Documented by: Acetaminophen (Ofirmev) 650 mg in 65 mls @ 130 mls/hr IV Q6HP PRN; Protocol PRN Reason: Per Pain Protocol/Fever > 101 Last Infusion: 03/13/19 06:18 Dose: Infused Documented by: Magnesium Sulfate (Magnesium Sulfate) 2 gm in 50 mls @ 50 mls/hr IV UD PRN PRN Reason: MG = or < 1.7 Last Infusion: 03/13/19 09:24 Dose: Infused Documented by: Norepinephrine Bitartrate 16 (mg/ Sodium Chloride) 250 mls @ 9.375 mls/hr IV Q24H [facility]; Protocol Last Titration: 03/14/19 07:10 Dose: 5 mcg/min, 4.688 mls/hr Documented by: Vancomycin HCl 1,000 mg/ (Sodium Chloride) 250 mls @ 250 mls/hr IV DAILY [facility] Last Admin: 03/14/19 09:25 Dose: 250 mls/hr Documented by: Insulin Glargine (Lantus) 15 unit SQ DAILY [facility] Last Admin: 03/14/19 09:25 Dose: 15 units Documented by: Insulin Human Lispro (Humalog) 0 unit SQ ACHS [facility]; Protocol Last Admin: 03/14/19 07:36 Dose: 6 units Documented by: Iron Carb/Multivit/[place]/Folic Acid (Multivitamin W/Minerals) 1 tab PO DAILY [facility] Last Admin: 03/14/19 09:25 Dose: 1 tab Documented by: Loperamide HCl (Imodium) 4 mg PO PRN PRN PRN Reason: Diarrhea Melatonin (Melatonin 3mg Tablet) 3 mg PO HSP PRN PRN Reason: Insomnia Metoclopramide HCl (Reglan) 5 mg PO QIDP PRN PRN Reason: Nausea Omeprazole (Prilosec) 40 mg PO BIDAC [facility] Last Admin: 03/14/19 07:33 Dose: 40 mg Documented by: Ondansetron HCl (Zofran Odt) 4 mg SL Q4-6HP PRN; Protocol PRN Reason: Nausea And Vomiting Ondansetron HCl (Zofran) 4 mg IV Q4-6HP PRN; Protocol PRN Reason: Nausea And Vomiting Oxycodone HCl (Roxicodone) 5 mg PO Q4-6HP PRN PRN Reason: Pain Potassium Chloride (Klor-Con) 40 meq PO DAILYP PRN PRN Reason: K+ < 3.5 Pregabalin (Lyrica) 50 mg PO QID [facility] Last Admin: 03/14/19 09:25 Dose: 50 mg Documented by: Senna/Docusate Sodium (Senna Plus Tablet) 1 tab PO HS [facility] Last Admin: 03/13/19 20:40 Dose: 1 tab Documented by: Sertraline HCl (Zoloft) 50 mg PO DAILY [facility] Last Admin: 03/14/19 09:25 Dose: 50 mg Documented by: Sitagliptin Phosphate (Januvia) 100 mg PO DAILY [facility] Last Admin: 03/14/19 09:25 Dose: 100 mg Documented by: Sodium Chloride (Saline Flush) 10 ml IV Q8 [facility] Last Admin: 03/14/19 05:33 Dose: 10 ml Documented by: Vancomycin HCl (Vancomycin Per Pharmacy) 1 order IV UD [facility]; Protocol - ABG Interpretation ABG results: 03/13/19 11:40 ABG Methemoglobin 0.3 L VBG pH 7.36 VBG pCO2 30.7 L VBG pO2 105 H VBG HCO3 17.0 L VBG Total CO2 17.9 L VBG O2 Saturation 92.9 H VBG Base Excess -7.4 L Medical - PN: A/P - Time Spent With Patient Total time spent is greater than 50% in coordination of care (as documented) at patient's floor/unit and/or counseling patient: 25 - 35 minutes (1) Severe sepsis with acute organ dysfunction Status: Acute Assessment and plan: * Septic shock with acute organ dysfunction-d improved SCV O2/downtrending lactate. Downtrending white count. Weaning pressors. Continue antibiotic coverage. * Complicated UTI secondary to hardware-continue antibiotic coverage. Replace catheter * Pressure ulcer gluteal area-wound care consulted * Right lateral hip cellulitis-continue antibiotic coverage * Acute mental status change - * Poorly controlled diabetes continue basal prandial insulin * Neuropathy continue Lyrica * Anxiety disorder continue sertraline * History of paraplegia continue baclofen for spasm * GERD continue PPI * Full code * Prophylaxis heparin Plan * wean pressors * Broad antibiotic coverage * Wound care * SCV O2/lactic acid trending * Prior medical condition management as above Current Visit: Yes Medical - PN: Qual - VTE Deep Vein Thrombosis/Pulmonary Embolism Present on Admission: No
[2019-03-14 10:52] LABS: ABG Methemoglobin 0.3 % (0.4-1.5); Total Hemoglobin 8.1 gm/dL (12.0-15.0); VBG Base Excess -5.6 (-2.0-2.0); VBG HCO3 19.2 mmol/L (24.0-28.0); VBG Oxygen Saturation 90.5 % (40.0-70.0); VBG PCO2 34.6 mmHg (41.0-51.0); VBG PH 7.36 U (7.32-7.42); VBG PO2 74 mmHg (25-40); VBG Total CO2 20.3 mmol/L (25.0-29.0)
[2019-03-14] MEDS: NOREPINEPHRINE BITARTRATE 16 MG in 0.9 % SODIUM CHLORIDE 234 ML IV SCH (12:06)
[2019-03-14] MEDS: SENNOSIDES/DOCUSATE SODIUM 1 TAB TABLET PO SCH (21:03)
[2019-03-15 05:37] LABS: Hematocrit 29.1 % (36.0-48.0); Hemoglobin 9.8 g/dL (12.0-15.0); Mean Corpuscular HGB Conc 33.8 g/dL (31.0-36.0); Mean Platelet Volume 7.6 fL (7.4-10.4); Platelet Count 68 K/mcL (140-440); RBC 3.51 M/mcL (4.00-5.20); Red Cell Distribution Width 17.1 % (11.5-14.5); WBC 7.6 K/mcL (4.5-11.0)
[2019-03-15 05:50] LABS: ALT/SGPT 16 U/l (0-40); AST/SGOT 25 U/l (0-37); Albumin 2.4 gm/dL (3.2-5.2); Albumin/Globulin Ratio 1.1 (1.0-2.3); Alkaline Phosphatase 152 U/L (39-117); Bilirubin,Total 1.3 mg/dL (0.0-1.0); Blood Urea Nitrogen 22 mg/dl (6-20); Calcium 7.6 mg/dl (8.6-10.4); Carbon Dioxide 20 mmol/L (22-30); Globulin 2.2 gm/dL (2.2-3.7); Glomerular Filtration Rate 129; Glucose 174 mg/dL (70-105); Lactate Dehydrogenase 175 U/L (94-250); Triglycerides 209 mg/dl (<150); Uric Acid 4.3 mg/dL (2.5-8.0)
[2019-03-15 05:52] LABS: Bilirubin,Direct 0.7 mg/dL (0.0-0.3); Chloride 111 mmol/L (96-108)
[2019-03-15] MEDS: CEFEPIME 2 GM VIAL IV SCH ×3 (06:00→22:37)
[2019-03-15] MEDS: 0.9 % SODIUM CHLORIDE 10 ML SYRINGE IV SCH ×3 (06:00→22:37)
[2019-03-15 08:33] LABS: Anisocytosis 1+ (NONE SEEN); Band Neutrophils % 2 % (0-10); Eosinophils % (Manual) 1 % (0-7); Hypochromasia FEW (NONE SEEN); Lymphocytes % 10 % (15-49); Monocytes % (Manual) 3 % (1-12); Ovalocytes FEW (NONE SEEN); Platelet Estimate DECREASED (NORMAL); RBC Morphology ABNORM (NORMAL); Segmented Neutrophils % 84 % (38-78)
[2019-03-15] MEDS ORDERED: FUROSEMIDE 20 MG/2 ML VIAL IV ONE (08:58)
[2019-03-15] MEDS: OMEPRAZOLE 20 MG CAPSULE PO SCH ×2 (09:37→17:14)
[2019-03-15] MEDS: SERTRALINE 50 MG TABLET PO SCH (09:37)
[2019-03-15] MEDS: sitaGLIPtin 100 MG TABLET PO SCH (09:37)
[2019-03-15] MEDS: PREGABALIN 25 MG CAPSULE PO SCH ×4 (09:37→20:20)
[2019-03-15] MEDS: BACLOFEN 10 MG TABLET PO SCH ×3 (09:37→20:20)
[2019-03-15] MEDS: VANCOMYCIN 1,000 MG in 0.9 % SODIUM CHLORIDE 250 ML IV SCH (09:37)
[2019-03-15] MEDS: INSULIN GLARGINE, HUMAN 1 UNIT/0.01 ML SQ SCH (09:37)
[2019-03-15] MEDS: MULTIVIT,THER IRON,CA,FA & MIN 1 TABLET PO SCH (09:37)
[2019-03-15] MEDS: DOCUSATE SODIUM 100 MG CAPSULE PO SCH ×2 (09:37→20:20)
[2019-03-15] MEDS: INSULIN LISPRO 1 UNIT/0.01 ML UNIT SQ SCH ×4 (09:38→21:03)
[2019-03-15] MEDS: HEPARIN 5,000 UNIT/ML VIAL SQ SCH (10:00)
--- NOTE | 2019-03-15 10:24 | Internal Med Progress Note ---
Medical - PN: Subj Patient information: Note initiated : 03/15/19 at 10:21 am Service Date, if different from initiated Date: [] Patient: Ebony Arroyo a 54 y/o F admitted on 03/12/19 for possible dehydration. Chief Complaint: [] Interval history: Ms. Arroyo is a 54 year old F with a history of paraplegia 10 years ago and chronically bedridden with suprapubic catheter and recurrent UTIs who presents the second time in 24 hours to the ER along with her Franky with fever weakness change in mental status. She was evaluated the day prior and was found to have UTI. Patient however was stable and was discharged. Her symptoms continued to worsen with increasing confusion lethargy, malaise and fever of 101 prompting her to bring her to the ER. Initial work-up was consistent with severe sepsis with fever , elevated lactate, hypotension and pyuria. She also had right hip bruising and erythema that was noted by her . She denies recent fall. He is the primary caregiver and also receives help from home health services. She transfers with use of Santosh lift. 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 Monson. Her catheter was changed 10 days ago. Hospitalist service was consulted in light of above At the time evaluation patient is accompanied with her . He was able to answer most the question. Patient is fatigued lethargic and was unable to pro vide a detailed history but was able to participate in review of systems. She denies chest pain or shortness of breath but endorses to diarrhea. Denies abdominal pain headache photophobia. She denies falls. She endorses to loss of appetite 03/13-patient remains on vasopressors however clinically improving since previous day. at bedside. Lactic acid down from 6-2.7. White count up to 17.7. Improving BUN/creatinine. Low phosphorus and magnesium currently on replacement. Elevated bilirubin secondary to septic shock. 03/14-patient currently on pressors. White count downtrending. Weaning Levophed. More alert lucid and respond to commands. Left hip bruising area progressing. Platelets 74. Central venous oxygen sats 92 at goal. Good urine output. DC IV fluids. Continue ICU care. No family at bedside 03/15-patient is clinically stabilizing. Weaning vasopressors. On 3 mics Levophed. Continue antibiotic coverage. Bandemia resolved from 13% to 2%. White count down to 7.6. Central venous oxygen sats 90 improved blood sugars. Improved creatinine. Bilirubin down to 1.3 from 2.8. Phosphorus 1 on replacement - Constitutional Vitals: Vital Signs Temp Pulse Resp BP Pulse Ox 98 F 66 16 122/59 94 03/15/19 08:01 03/15/19 05:01 03/15/19 10:01 03/15/19 10:01 03/15/19 08:01 Period Temp Pulse Resp BP Sys/Porter Pulse Ox Last 24 Hr 98 F-98.4 F 66-100 11-22 75-159/44-90 93-99 Intake and Output 03/14/19 03/15/19 03/15/19 21:59 05:59 13:59 Intake Total 480 259 257 Output Total 382 1566 165 Balance 98 -1307 92 Weight 153 lb 11.2 oz Intake & Output: Intake & Output 03/14/19 03/15/19 03/15/19 21:59 05:59 13:59 Intake Total 480 259 257 Output Total 382 1566 165 Balance 98 -1307 92 Weight 153 lb 11.2 oz Intake: IV 259 17 Sodium Chloride 0.9% 250 ml @ 225 20 mls/hr IV .[id number] [facility] Rx#: [id number] Levophed 16 mg In Sodium 34 17 Chloride 0.9% 234 ml @ 10 MCG/ MIN 9.375 mls/hr IV Q24H [facility] Rx #:[id number] Oral 480 240 Output: Urine Catheter Amount 382 1566 165 Other: Meal Dinner Breakfast Percent of Meal Consumed 75% 85 Feeding Ability Assist with Tray Set Up Urine Appearance Clear Clear Suprapubic Sediment Urine Color Pale # Bowel Movements 1 # of times incontinent of 1 Bowels Medical - PN: Obj Da - Labs CBC & Chem 7: 03/15/19 03:45 03/15/19 03:45 Labs: Abnormal Lab Results 03/15/19 03/15/19 03/14/19 03:45 03:45 10:28 WBC RBC 3.51 L Hgb 9.8 L Hct 29.1 L RDW 17.1 H Plt Count 68 L Gran % Lymph % (Auto) Lymph # (Auto) Seg Neutrophils % 84 H Band Neutrophils % Lymphocytes % 10 L Metamyelocytes % RBC Morphology Abnorm A Polychromasia Hypochromasia Few A Anisocytosis 1+ A Ovalocytes Few A RBC Fragments ABG Methemoglobin 0.3 L VBG pCO2 34.6 L VBG pO2 74 H VBG HCO3 19.2 L VBG Total CO2 20.3 L VBG O2 Saturation 90.5 H VBG Base Excess -5.6 L VBG Lactic Acid Carboxyhemoglobin 4.2 H Total Hemoglobin 8.1 L Chloride 111 H Carbon Dioxide 20 L Anion Gap 6.0 L BUN 22 H Creatinine 0.3 L Glucose 174 H Calcium 7.6 L Phosphorus 1.0 L Magnesium Total Bilirubin 1.3 H Direct Bilirubin 0.7 H GGT 172 H Alkaline Phosphatase 152 H Total Protein 4.6 L Albumin 2.4 L Albumin/Globulin Ratio Triglycerides 209 H 03/14/19 03/14/19 03/13/19 04:05 04:05 11:40 WBC 12.9 H RBC 3.90 L Hgb 11.0 L Hct 32.3 L RDW 16.8 H Plt Count 74 L Gran % Lymph % (Auto) Lymph # (Auto) Seg Neutrophils % Band Neutrophils % 13 H Lymphocytes % 9 L Metamyelocytes % RBC Morphology Abnorm A Polychromasia Hypochromasia Anisocytosis 1+ A Ovalocytes RBC Fragments Occ A ABG Methemoglobin 0.3 L VBG pCO2 30.7 L VBG pO2 105 H VBG HCO3 17.0 L VBG Total CO2 17.9 L VBG O2 Saturation 92.9 H VBG Base Excess -7.4 L VBG Lactic Acid Carboxyhemoglobin 4.8 H Total Hemoglobin 11.3 L Chloride Carbon Dioxide 18 L Anion Gap BUN 23 H Creatinine 0.3 L Glucose 342 H Calcium 7.7 L Phosphorus 1.2 L Magnesium Total Bilirubin 2.1 H Direct Bilirubin 1.2 H GGT 165 H Alkaline Phosphatase 140 H Total Protein 4.8 L Albumin 2.3 L Albumin/Globulin Ratio 0.9 L Triglycerides 170 H 03/13/19 03/13/19 03/13/19 05:47 03:54 03:54 WBC 17.7 H RBC Hgb 11.2 L Hct 34.0 L RDW 16.4 H Plt Count 92 L Gran % Lymph % (Auto) Lymph # (Auto) Seg Neutrophils % 90 H Band Neutrophils % Lymphocytes % 1 L Metamyelocytes % 1 H RBC Morphology Polychromasia 1+ A Hypochromasia Anisocytosis 1+ A Ovalocytes RBC Fragments ABG Methemoglobin VBG pCO2 VBG pO2 VBG HCO3 VBG Total CO2 VBG O2 Saturation VBG Base Excess VBG Lactic Acid 2.7 H Carboxyhemoglobin Total Hemoglobin Chloride Carbon Dioxide 16 L Anion Gap BUN 32 H Creatinine 0.5 L Glucose 304 H Calcium 7.9 L Phosphorus 1.2 L Magnesium 1.3 L Total Bilirubin 2.8 H Direct Bilirubin 2.0 H GGT 193 H Alkaline Phosphatase 161 H Total Protein 4.8 L Albumin 2.6 L Albumin/Globulin Ratio Triglycerides 158 H 03/13/19 03/12/19 03/12/19 00:49 18:25 18:24 WBC RBC Hgb 11.8 L Hct 35.4 L RDW 16.2 H Plt Count 61 L Gran % 89.6 H Lymph % (Auto) 7.5 L Lymph # (Auto) 0.5 L Seg Neutrophils % Band Neutrophils % Lymphocytes % Metamyelocytes % RBC Morphology Polychromasia Hypochromasia Anisocytosis Ovalocytes RBC Fragments ABG Methemoglobin VBG pCO2 VBG pO2 VBG HCO3 VBG Total CO2 VBG O2 Saturation VBG Base Excess VBG Lactic Acid 6.0 H* 4.0 H* Carboxyhemoglobin Total Hemoglobin Chloride Carbon Dioxide Anion Gap BUN Creatinine Glucose Calcium Phosphorus Magnesium Total Bilirubin Direct Bilirubin GGT Alkaline Phosphatase Total Protein Albumin Albumin/Globulin Ratio Triglycerides 03/12/19 18:24 WBC RBC Hgb Hct RDW Plt Count Gran % Lymph % (Auto) Lymph # (Auto) Seg Neutrophils % Band Neutrophils % Lymphocytes % Metamyelocytes % RBC Morphology Polychromasia Hypochromasia Anisocytosis Ovalocytes RBC Fragments ABG Methemoglobin VBG pCO2 VBG pO2 VBG HCO3 VBG Total CO2 VBG O2 Saturation VBG Base Excess VBG Lactic Acid Carboxyhemoglobin Total Hemoglobin Chloride Carbon Dioxide 21 L Anion Gap BUN 28 H Creatinine Glucose 432 H Calcium Phosphorus Magnesium Total Bilirubin 2.0 H Direct Bilirubin GGT Alkaline Phosphatase 201 H Total Protein 5.8 L Albumin 3.1 L Albumin/Globulin Ratio Triglycerides Meds: Medications Acetaminophen (Tylenol) 650 mg PO Q4-6HP PRN; Protocol PRN Reason: Per Pain Protocol/Fever > 101 Albuterol/Ipratropium (Duoneb) 3 ml NEB Q4-6HP PRN PRN Reason: Shortness Of Breath Baclofen (Lioresal) 20 mg PO TID [facility] Last Admin: 03/15/19 09:37 Dose: 20 mg Documented by: Benzonatate (Tessalon) 100 mg PO BIDP PRN PRN Reason: Cough Bisacodyl (Dulcolax) 10 mg ME Q2-3DAYS PRN PRN Reason: Constipation Cefepime HCl (Maxipime) 2 gm IV Q8H [facility] Last Admin: 03/15/19 06:00 Dose: 2 gm Documented by: Dextrose (Dextrose 50%) 0 ml IV UD PRN PRN Reason: Hypoglycemia Diagnostic Test (Pha) (Accu-Chek) 1 each FS ACHS [facility] Last Admin: 03/15/19 07:23 Dose: 1 each Documented by: Docusate Sodium (Colace) 100 mg PO BID [facility] Last Admin: 03/15/19 09:37 Dose: 100 mg Documented by: Fondaparinux (Arixtra) 2.5 mg SQ DAILY [facility] Glucose (Insta-Glucose) 15 gm PO PRN PRN PRN Reason: Hypoglycemia Sodium Chloride (Sodium Chloride 0.9%) 250 mls @ 20 mls/hr IV .[id number] [facility] Last Admin: 03/14/19 22:12 Dose: 20 mls/hr Documented by: Acetaminophen (Ofirmev) 650 mg in 65 mls @ 130 mls/hr IV Q6HP PRN; Protocol PRN Reason: Per Pain Protocol/Fever > 101 Last Infusion: 03/13/19 06:18 Dose: Infused Documented by: Magnesium Sulfate (Magnesium Sulfate) 2 gm in 50 mls @ 50 mls/hr IV UD PRN PRN Reason: MG = or < 1.7 Last Infusion: 03/13/19 09:24 Dose: Infused Documented by: Norepinephrine Bitartrate 16 (mg/ Sodium Chloride) 250 mls @ 9.375 mls/hr IV Q24H [facility]; Protocol Last Titration: 03/15/19 07:22 Dose: 2 mcg/min, 1.875 mls/hr Documented by: Vancomycin HCl 1,000 mg/ (Sodium Chloride) 250 mls @ 250 mls/hr IV DAILY [facility] Last Admin: 03/15/19 09:37 Dose: 250 mls/hr Documented by: Insulin Glargine (Lantus) 15 unit SQ DAILY [facility] Last Admin: 03/15/19 09:37 Dose: 15 units Documented by: Insulin Human Lispro (Humalog) 0 unit SQ [facility]; Protocol Last Admin: 03/15/19 09:38 Dose: 2 units Documented by: Iron Carb/Multivit/Stryker/Folic Acid (Multivitamin W/Minerals) 1 tab PO DAILY [facility] Last Admin: 03/15/19 09:37 Dose: 1 tab Documented by: Loperamide HCl (Imodium) 4 mg PO PRN PRN PRN Reason: Diarrhea Melatonin (Melatonin 3mg Tablet) 3 mg PO HSP PRN PRN Reason: Insomnia Metoclopramide HCl (Reglan) 5 mg PO QIDP PRN PRN Reason: Nausea Omeprazole (Prilosec) 40 mg PO BIDAC [facility] Last Admin: 03/15/19 09:37 Dose: 40 mg Documented by: Ondansetron HCl (Zofran Odt) 4 mg SL Q4-6HP PRN; Protocol PRN Reason: Nausea And Vomiting Ondansetron HCl (Zofran) 4 mg IV Q4-6HP PRN; Protocol PRN Reason: Nausea And Vomiting Oxycodone HCl (Roxicodone) 5 mg PO Q4-6HP PRN PRN Reason: Pain Potassium Chloride (Klor-Con) 40 meq PO DAILYP PRN PRN Reason: K+ < 3.5 Potassium/Phosphorus/Sodium (Neutra Phos) 2 packet PO TID [facility] Pregabalin (Lyrica) 50 mg PO QID [facility] Last Admin: 03/15/19 09:37 Dose: 50 mg Documented by: Senna/Docusate Sodium (Senna Plus Tablet) 1 tab PO HS [facility] Last Admin: 03/14/19 21:03 Dose: 1 tab Documented by: Sertraline HCl (Zoloft) 50 mg PO DAILY [facility] Last Admin: 03/15/19 09:37 Dose: 50 mg Documented by: Sitagliptin Phosphate (Januvia) 100 mg PO DAILY [facility] Last Admin: 03/15/19 09:37 Dose: 100 mg Documented by: Sodium Chloride (Saline Flush) 10 ml IV Q8 [facility] Last Admin: 03/15/19 06:00 Dose: 10 ml Documented by: Vancomycin HCl (Vancomycin Per Pharmacy) 1 order IV UD [facility]; Protocol - ABG Interpretation ABG results: 03/13/19 03/14/19 11:40 10:28 ABG Methemoglobin 0.3 L 0.3 L VBG pH 7.36 7.36 VBG pCO2 30.7 L 34.6 L VBG pO2 105 H 74 H VBG HCO3 17.0 L 19.2 L VBG Total CO2 17.9 L 20.3 L VBG O2 Saturation 92.9 H 90.5 H VBG Base Excess -7.4 L -5.6 L Medical - PN: A/P - Time Spent With Patient Total time spent is greater than 50% in coordination of care (as documented) at patient's floor/unit and/or counseling patient: Greater than 35 minutes (Critical care time) (1) Severe sepsis with acute organ dysfunction Status: Acute Assessment and plan: * Septic shock with acute organ dysfunction including OLU/elevated bilirubin and AMS-clinically improved SCV O2/downtrending WBCs. Continue weaning pressors. Continue antibiotic coverage. * Complicated GNR UTI secondary to hardware-on ABX * Pressure ulcer gluteal area-wound care managing * Low phosphorus-start 3 times daily phosphorus * Right lateral hip cellulitis-clinically improving. Continue antibiotic cove rage * Acute mental status change -now back at baseline * Poorly controlled diabetes continue basal prandial insulin. Much improved blood sugars * Neuropathy continue Lyrica * Anxiety disorder continue sertraline * History of paraplegia continue baclofen for spasm * GERD continue PPI * Full code * Prophylaxis switched to fondaparinux in light of low platelets Plan * wean pressors * De-escalate ABX based on sensitivities * Phosphorus replacement * Wound care * May transition to medical floor once off pressors Current Visit: Yes Medical - PN: Qual - VTE Deep Vein Thrombosis/Pulmonary Embolism Present on Admission: No
[2019-03-15] MEDS: NEUTRA PHOS 1 PACKET PO SCH ×3 (12:01→20:21)
[2019-03-15] MEDS: NOREPINEPHRINE BITARTRATE 16 MG in 0.9 % SODIUM CHLORIDE 234 ML IV SCH (13:14)
[2019-03-15] MEDS: 0.9 % SODIUM CHLORIDE 250 ML IV SCH (15:02)
[2019-03-15] MEDS: SENNOSIDES/DOCUSATE SODIUM 1 TAB TABLET PO SCH (22:37)
[2019-03-16] MEDS: 0.9 % SODIUM CHLORIDE 250 ML IV SCH ×2 (02:37→12:52)
[2019-03-16 05:55] LABS: ALT/SGPT 27 U/l (0-40); AST/SGOT 48 U/l (0-37); Albumin 2.2 gm/dL (3.2-5.2); Alkaline Phosphatase 208 U/L (39-117); Bilirubin,Direct 0.7 mg/dL (0.0-0.3); Bilirubin,Total 1.3 mg/dL (0.0-1.0); Blood Urea Nitrogen 18 mg/dl (6-20); Calcium 7.4 mg/dl (8.6-10.4); Carbon Dioxide 21 mmol/L (22-30); Chloride 107 mmol/L (96-108); Globulin 2.2 gm/dL (2.2-3.7); Glomerular Filtration Rate 147; Glucose 102 mg/dL (70-105); Lactate Dehydrogenase 131 U/L (94-250); Phosphorous 2.5 mg/dL (2.7-4.5); Triglycerides 190 mg/dl (<150); Uric Acid 4.2 mg/dL (2.5-8.0)
[2019-03-16] MEDS: CEFEPIME 2 GM VIAL IV SCH (06:24)
[2019-03-16] MEDS: 0.9 % SODIUM CHLORIDE 10 ML SYRINGE IV SCH ×6 (06:24→20:37)
[2019-03-16 06:36] LABS: Hematocrit 26.6 % (36.0-48.0); Hemoglobin 8.9 g/dL (12.0-15.0); Mean Cell Volume 82.3 fL (80.0-100.0); Mean Corpuscular HGB Conc 33.6 g/dL (31.0-36.0); Mean Platelet Volume 8.4 fL (7.4-10.4); Platelet Count 47 K/mcL (140-440); RBC 3.23 M/mcL (4.00-5.20); Red Cell Distribution Width 17.5 % (11.5-14.5); WBC 2.6 K/mcL (4.5-11.0)
[2019-03-16 06:41] LABS: Anisocytosis 1+ (NONE SEEN); Eosinophils % (Manual) 8 % (0-7); Lymphocytes % 18 % (15-49); Monocytes % (Manual) 8 % (1-12); Ovalocytes 1+ (NONE SEEN); Platelet Estimate MK DECR (NORMAL); Polychromasia 1+ (NONE SEEN); RBC Morphology ABNORM (NORMAL); Segmented Neutrophils % 66 % (38-78)
[2019-03-16] MEDS: INSULIN LISPRO 1 UNIT/0.01 ML UNIT SQ SCH ×4 (07:54→20:40)
[2019-03-16] MEDS: OMEPRAZOLE 20 MG CAPSULE PO SCH ×2 (07:55→16:55)
[2019-03-16] MEDS ORDERED: FUROSEMIDE 20 MG/2 ML VIAL IV SCH (08:00)
[2019-03-16] MEDS ORDERED: NOREPINEPHRINE BITARTRATE 16 MG in 0.9 % SODIUM CHLORIDE 234 ML IV PRN (08:00)
[2019-03-16] MEDS: sitaGLIPtin 100 MG TABLET PO SCH (08:06)
[2019-03-16] MEDS: PREGABALIN 25 MG CAPSULE PO SCH ×4 (08:06→20:36)
[2019-03-16] MEDS: BACLOFEN 10 MG TABLET PO SCH ×4 (08:08→20:36)
[2019-03-16] MEDS: MULTIVIT,THER IRON,CA,FA & MIN 1 TABLET PO SCH (08:30)
[2019-03-16] MEDS: NEUTRA PHOS 1 PACKET PO SCH ×4 (08:30→20:37)
[2019-03-16] MEDS: INSULIN GLARGINE, HUMAN 1 UNIT/0.01 ML SQ SCH (08:31)
[2019-03-16] MEDS: DOCUSATE SODIUM 100 MG CAPSULE PO SCH ×2 (08:31→20:37)
[2019-03-16] MEDS: SERTRALINE 50 MG TABLET PO SCH (09:19)
[2019-03-16] MEDS ORDERED: FONDAPARINUX SODIUM 2.5 MG/0.5 ML SYRINGE SQ SCH (09:54)
[2019-03-16] MEDS ORDERED: cefTRIAXone 2 GM in DEXTROSE 5% IN WATER 50 ML IV SCH (10:30)
[2019-03-16] MEDS: VANCOMYCIN 1,000 MG in 0.9 % SODIUM CHLORIDE 250 ML IV SCH (11:03)
--- NOTE | 2019-03-16 12:36 | Internal Med Progress Note ---
Medical - PN: Subj Patient information: Note initiated : 03/16/19 at 12:33 pm Service Date, if different from initiated Date: [] Patient: Ebony Arroyo a 54 y/o F admitted on 03/12/19 for possible dehydration. Chief Complaint: [] Interval history: Ms. Arroyo is a 54 year old F with a history of paraplegia 10 years ago and chronically bedridden with suprapubic catheter and recurrent UTIs who presents the second time in 24 hours to the ER along with her Franky with fever weakness change in mental status. She was evaluated the day prior and was found to have UTI. Patient however was stable and was discharged. Her symptoms continued to worsen with increasing confusion lethargy, malaise and fever of 101 prompting her to bring her to the ER. Initial work-up was consistent with severe sepsis with fever , elevated lactate, hypotension and pyuria. She also had right hip bruising and erythema that was noted by her . She denies recent fall. He is the primary caregiver and also receives help from home health services. She transfers with use of Santosh lift. 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 Monson. Her catheter was changed 10 days ago. Hospitalist service was consulted in light of above At the time evaluation patient is accompanied with her . He was able to answer most the question. Patient is fatigued lethargic and was unable to pro vide a detailed history but was able to participate in review of systems. She denies chest pain or shortness of breath but endorses to diarrhea. Denies abdominal pain headache photophobia. She denies falls. She endorses to loss of appetite 03/13-patient remains on vasopressors however clinically improving since previous day. at bedside. Lactic acid down from 6-2.7. White count up to 17.7. Improving BUN/creatinine. Low phosphorus and magnesium currently on replacement. Elevated bilirubin secondary to septic shock. 03/14-patient currently on pressors. White count downtrending. Weaning Levophed. More alert lucid and respond to commands. Left hip bruising area progressing. Platelets 74. Central venous oxygen sats 92 at goal. Good urine output. DC IV fluids. Continue ICU care. No family at bedside 03/15-patient is clinically stabilizing. Weaning vasopressors. On 3 mics Levophed. Continue antibiotic coverage. Bandemia resolved from 13% to 2%. White count down to 7.6. Central venous oxygen sats 90 improved blood sugars. Improved creatinine. Bilirubin down to 1.3 from 2.8. Phosphorus 1 on replacement 03/16-patient off vasopressors. Doing well. E. coli on cultures. De-escalate to Rocephin for empiric coverage of cellulitis/E. coli UTI. We will further de- escalate on discharge to oral antibiotics. Continue PT OT/discharge planning per case management. - Constitutional Vitals: Vital Signs Temp Pulse Resp BP Pulse Ox 98.5 F 87 12 116/57 99 03/16/19 08:01 03/16/19 12:01 03/16/19 12:01 03/16/19 12:01 03/16/19 12:01 Period Temp Pulse Resp BP Sys/Porter Pulse Ox Last 24 Hr 97.5 F-98.5 F 61-112 10-20 84-118/43-82 89-100 Intake and Output 03/15/19 03/16/19 03/16/19 21:59 05:59 13:59 Intake Total 480 410 Output Total 342 765 280 Balance -342 -285 130 Weight 153 lb 14.4 oz Intake & Output: Intake & Output 03/15/19 03/16/19 03/16/19 21:59 05:59 13:59 Intake Total 480 410 Output Total 342 765 280 Balance -342 -285 130 Weight 153 lb 14.4 oz Intake: IV 50 Vancomycin 1,000 mg In Sodium 0 Chloride 0.9% 250 ml @ 250 mls/ hr IV DAILY [facility] Rx#:[id number] Rocephin 2 gm In Dextrose 5% in 50 Water 50 ml @ 100 mls/hr IV Q24H [facility] Rx#:[id number] Oral 480 360 Output: Urine Catheter Amount 342 765 280 Other: Meal Breakfast Percent of Meal Consumed 75% Feeding Ability Assist with Tray Set Up Urine Appearance Clear Clear Clear Urine Color Bright Yellow Pale Bright Yellow Urine Odor Suprapubic Normal Stool Size Small Moderate Stool Color Brown Brown Stool Consistency Soft Soft # Bowel Movements 1 # of times incontinent of 1 Bowels General appearance: no acute distress Exam: Alert and respond to commands Nonlabored breathing No anxiety Nontender abdomen, nondistended Medical - PN: Obj Da - Labs CBC & Chem 7: 03/16/19 04:00 03/16/19 04:00 Labs: Abnormal Lab Results 03/16/19 03/16/19 03/15/19 04:00 04:00 03:45 WBC 2.6 L RBC 3.23 L Hgb 8.9 L Hct 26.6 L RDW 17.5 H Plt Count 47 L* Seg Neutrophils % Band Neutrophils % Lymphocytes % Eosinophils % (Manual) 8 H Platelet Estimate Mk decr A RBC Morphology Abnorm A Polychromasia 1+ A Hypochromasia Anisocytosis 1+ A Ovalocytes 1+ A RBC Fragments ABG Methemoglobin VBG pCO2 VBG pO2 VBG HCO3 VBG Total CO2 VBG O2 Saturation VBG Base Excess Carboxyhemoglobin Total Hemoglobin Chloride 111 H Carbon Dioxide 21 L 20 L Anion Gap 6.0 L BUN 22 H Creatinine 0.2 L 0.3 L Glucose 174 H Calcium 7.4 L 7.6 L Phosphorus 2.5 L 1.0 L Total Bilirubin 1.3 H 1.3 H Direct Bilirubin 0.7 H 0.7 H GGT 269 H 172 H AST 48 H Alkaline Phosphatase 208 H 152 H Total Protein 4.4 L 4.6 L Albumin 2.2 L 2.4 L Albumin/Globulin Ratio Triglycerides 190 H 209 H 03/15/19 03/14/19 03/14/19 03:45 10:28 04:05 WBC RBC 3.51 L Hgb 9.8 L Hct 29.1 L RDW 17.1 H Plt Count 68 L Seg Neutrophils % 84 H Band Neutrophils % Lymphocytes % 10 L Eosinophils % (Manual) Platelet Estimate RBC Morphology Abnorm A Polychromasia Hypochromasia Few A Anisocytosis 1+ A Ovalocytes Few A RBC Fragments ABG Methemoglobin 0.3 L VBG pCO2 34.6 L VBG pO2 74 H VBG HCO3 19.2 L VBG Total CO2 20.3 L VBG O2 Saturation 90.5 H VBG Base Excess -5.6 L Carboxyhemoglobin 4.2 H Total Hemoglobin 8.1 L Chloride Carbon Dioxide 18 L Anion Gap BUN 23 H Creatinine 0.3 L Glucose 342 H Calcium 7.7 L Phosphorus 1.2 L Total Bilirubin 2.1 H Direct Bilirubin 1.2 H GGT 165 H AST Alkaline Phosphatase 140 H Total Protein 4.8 L Albumin 2.3 L Albumin/Globulin Ratio 0.9 L Triglycerides 170 H 03/14/19 04:05 WBC 12.9 H RBC 3.90 L Hgb 11.0 L Hct 32.3 L RDW 16.8 H Plt Count 74 L Seg Neutrophils % Band Neutrophils % 13 H Lymphocytes % 9 L Eosinophils % (Manual) Platelet Estimate RBC Morphology Abnorm A Polychromasia Hypochromasia Anisocytosis 1+ A Ovalocytes RBC Fragments Occ A ABG Methemoglobin VBG pCO2 VBG pO2 VBG HCO3 VBG Total CO2 VBG O2 Saturation VBG Base Excess Carboxyhemoglobin Total Hemoglobin Chloride Carbon Dioxide Anion Gap BUN Creatinine Glucose Calcium Phosphorus Total Bilirubin Direct Bilirubin GGT AST Alkaline Phosphatase Total Protein Albumin Albumin/Globulin Ratio Triglycerides Meds: Medications Acetaminophen (Tylenol) 650 mg PO Q4-6HP PRN; Protocol PRN Reason: Per Pain Protocol/Fever > 101 Last Admin: 03/15/19 19:09 Dose: 650 mg Documented by: Albuterol/Ipratropium (Duoneb) 3 ml NEB Q4-6HP PRN PRN Reason: Shortness Of Breath Baclofen (Lioresal) 20 mg PO TID [facility] Last Admin: 03/16/19 08:08 Dose: 20 mg Documented by: Benzonatate (Tessalon) 100 mg PO BIDP PRN PRN Reason: Cough Last Admin: 03/16/19 07:57 Dose: 100 mg Documented by: Bisacodyl (Dulcolax) 10 mg DE Q2-3DAYS PRN PRN Reason: Constipation Dextrose (Dextrose 50%) 0 ml IV UD PRN PRN Reason: Hypoglycemia Diagnostic Test (Pha) (Accu-Chek) 1 each FS ACHS [facility] Last Admin: 03/16/19 11:36 Dose: 1 each Documented by: Docusate Sodium (Colace) 100 mg PO BID [facility] Last Admin: 03/16/19 08:31 Dose: 100 mg Documented by: Fondaparinux (Arixtra) 2.5 mg SQ DAILY [facility] Last Admin: 03/16/19 07:56 Dose: 2.5 mg Documented by: Furosemide (Lasix) 20 mg IV BIDD [facility] Last Admin: 03/16/19 11:00 Dose: 20 mg Documented by: Glucose (Insta-Glucose) 15 gm PO PRN PRN PRN Reason: Hypoglycemia Sodium Chloride (Sodium Chloride 0.9%) 250 mls @ 20 mls/hr IV .[id number] [facility] Last Admin: 03/16/19 02:37 Dose: Not Given Documented by: Acetaminophen (Ofirmev) 650 mg in 65 mls @ 130 mls/hr IV Q6HP PRN; Protocol PRN Reason: Per Pain Protocol/Fever > 101 Last Infusion: 03/13/19 06:18 Dose: Infused Documented by: Magnesium Sulfate (Magnesium Sulfate) 2 gm in 50 mls @ 50 mls/hr IV UD PRN PRN Reason: MG = or < 1.7 Last Infusion: 03/13/19 09:24 Dose: Infused Documented by: Norepinephrine Bitartrate 16 (mg/ Sodium Chloride) 250 mls @ 9.375 mls/hr IV Q24HP PRN; Protocol PRN Reason: Hypotension Ceftriaxone Sodium 2 gm/ (Dextrose) 50 mls @ 100 mls/hr IV Q24H [facility]; Protocol Last Infusion: 03/16/19 11:36 Dose: Infused Documented by: Insulin Glargine (Lantus) 15 unit SQ DAILY [facility] Last Admin: 03/16/19 08:31 Dose: 15 units Documented by: Insulin Human Lispro (Humalog) 0 unit SQ ACHS [facility]; Protocol Last Admin: 03/16/19 11:37 Dose: 4 units Documented by: Iron Carb/Multivit/Heeia/Folic Acid (Multivitamin W/Minerals) 1 tab PO DAILY [facility] Last Admin: 03/16/19 08:30 Dose: 1 tab Documented by: Loperamide HCl (Imodium) 4 mg PO PRN PRN PRN Reason: Diarrhea Melatonin (Melatonin 3mg Tablet) 3 mg PO HSP PRN PRN Reason: Insomnia Metoclopramide HCl (Reglan) 5 mg PO QIDP PRN PRN Reason: Nausea Last Admin: 03/16/19 08:30 Dose: 5 mg Documented by: Omeprazole (Prilosec) 40 mg PO BIDAC [facility] Last Admin: 03/16/19 07:55 Dose: 40 mg Documented by: Ondansetron HCl (Zofran Odt) 4 mg SL Q4-6HP PRN; Protocol PRN Reason: Nausea And Vomiting Ondansetron HCl (Zofran) 4 mg IV Q4-6HP PRN; Protocol PRN Reason: Nausea And Vomiting Oxycodone HCl (Roxicodone) 5 mg PO Q4-6HP PRN PRN Reason: Pain Potassium Chloride (Klor-Con) 40 meq PO DAILYP PRN PRN Reason: K+ < 3.5 Potassium/Phosphorus/Sodium (Neutra Phos) 2 packet PO TID [facility] Last Admin: 03/16/19 08:30 Dose: 2 packet Documented by: Pregabalin (Lyrica) 50 mg PO QID [facility] Last Admin: 03/16/19 08:06 Dose: 50 mg Documented by: Senna/Docusate Sodium (Senna Plus Tablet) 1 tab PO HS [facility] Last Admin: 03/15/19 22:37 Dose: 1 tab Documented by: Sertraline HCl (Zoloft) 50 mg PO DAILY [facility] Last Admin: 03/16/19 09:19 Dose: 50 mg Documented by: Sitagliptin Phosphate (Januvia) 100 mg PO DAILY [facility] Last Admin: 03/16/19 08:06 Dose: 100 mg Documented by: Sodium Chloride (Saline Flush) 10 ml IV Q8 [facility] Last Admin: 03/16/19 11:00 Dose: 10 ml Documented by: - ABG Interpretation ABG results: 03/13/19 03/14/19 11:40 10:28 ABG Methemoglobin 0.3 L 0.3 L VBG pH 7.36 7.36 VBG pCO2 30.7 L 34.6 L VBG pO2 105 H 74 H VBG HCO3 17.0 L 19.2 L VBG Total CO2 17.9 L 20.3 L VBG O2 Saturation 92.9 H 90.5 H VBG Base Excess -7.4 L -5.6 L Medical - PN: A/P - Time Spent With Patient Total time spent is greater than 50% in coordination of care (as documented) at patient's floor/unit and/or counseling patient: 25 - 35 minutes (1) Severe sepsis with acute organ dysfunction Status: Acute Assessment and plan: * Septic shock with acute organ dysfunction clinically improved now off pressors. Continue antibiotic coverage. De-escalate to Rocephin * Complicated E. coli UTI secondary to hardware-on Rocephin * Pressure ulcer gluteal area-wound care managing * Low phosphorus-improving with replacement. Now 2.5 * Right lateral hip cellulitis-clinically improving. Continue Rocephin * Thrombocytopenia-chronic since 2014. Further drop due to sepsis. No signs of bleeding * Acute mental status change -now back at baseline * Poorly controlled diabetes continue basal prandial insulin. Blood sugars at goal now * Neuropathy continue Lyrica * Anxiety disorder continue sertraline * History of paraplegia continue baclofen for spasm * GERD continue PPI * Full code * Prophylaxis switched to fondaparinux in light of low platelets Plan * Transfer to medical floor * De-escalate Rocephin and further de-escalate to p.o. on discharge * Wound care * Discharge planning likely home Current Visit: Yes Medical - PN: Qual - VTE Deep Vein Thrombosis/Pulmonary Embolism Present on Admission: No
[2019-03-16] MEDS ORDERED: MELATONIN 3 MG TABLET PO PRN (14:24)
[2019-03-16] MEDS ORDERED: IPRATROPIUM/ALBUTEROL 3 ML AMPUL.NEB NEB PRN (14:24)
[2019-03-16] MEDS ORDERED: ACETAMINOPHEN 325 MG TABLET PO PRN (14:24)
[2019-03-16] MEDS ORDERED: DEXTROSE 31 GM ORAL.SUSP PO PRN (14:24)
[2019-03-16] MEDS ORDERED: METOCLOPRAMIDE 10 MG TABLET PO PRN (14:24)
[2019-03-16] MEDS ORDERED: ONDANSETRON 4 MG ODT TABLET SL PRN (14:24)
[2019-03-16] MEDS ORDERED: BENZONATATE 100 MG CAPSULE PO PRN (14:24)
[2019-03-16] MEDS ORDERED: DEXTROSE 50% 50 ML VIAL IV PRN (14:24)
[2019-03-16] MEDS ORDERED: POTASSIUM CHLORIDE 20 MEQ PACKET PO PRN (14:24)
[2019-03-16] MEDS ORDERED: 0.9 % SODIUM CHLORIDE 250 ML IV SCH (14:24)
[2019-03-16] MEDS ORDERED: MAGNESIUM SULFATE 2 GM/50 ML BAG IV PRN (14:24)
[2019-03-16] MEDS ORDERED: LOPERAMIDE 2 MG CAPSULE PO PRN (14:24)
[2019-03-16] MEDS ORDERED: ONDANSETRON 4 MG/2 ML VIAL IV PRN (14:24)
[2019-03-16] MEDS ORDERED: BISACODYL 10 MG SUPP.RECT PR PRN (14:24)
[2019-03-16] MEDS ORDERED: ACETAMINOPHEN 650 MG/65 ML BOTTLE IV PRN (14:24)
[2019-03-16] MEDS: FUROSEMIDE 20 MG/2 ML VIAL IV SCH (16:01)
[2019-03-16] MEDS ORDERED: SENNOSIDES/DOCUSATE SODIUM 1 TAB TABLET PO SCH (21:00)
[2019-03-16] MEDS: oxyCODONE HCL 5 MG TABLET PO PRN (22:03)
[2019-03-17] MEDS: 0.9 % SODIUM CHLORIDE 10 ML SYRINGE IV SCH (05:02)
[2019-03-17] MEDS: oxyCODONE HCL 5 MG TABLET PO PRN (05:49)
[2019-03-17 06:43] LABS: Hemoglobin 9.2 g/dL (12.0-15.0); Mean Cell Volume 83.3 fL (80.0-100.0); Mean Corpuscular HGB Conc 32.8 g/dL (31.0-36.0); Mean Platelet Volume 8.7 fL (7.4-10.4); Platelet Count 64 K/mcL (140-440); RBC 3.36 M/mcL (4.00-5.20); Red Cell Distribution Width 17.5 % (11.5-14.5)
[2019-03-17 07:01] LABS: ALT/SGPT 25 U/l (0-40); AST/SGOT 33 U/l (0-37); Albumin 2.4 gm/dL (3.2-5.2); Albumin/Globulin Ratio 1.1 (1.0-2.3); Alkaline Phosphatase 226 U/L (39-117); Blood Urea Nitrogen 21 mg/dl (6-20); Calcium 7.4 mg/dl (8.6-10.4); Carbon Dioxide 23 mmol/L (22-30); Chloride 105 mmol/L (96-108); Globulin 2.1 gm/dL (2.2-3.7); Glomerular Filtration Rate 147; Glucose 105 mg/dL (70-105); Lactate Dehydrogenase 147 U/L (94-250); Triglycerides 171 mg/dl (<150); Uric Acid 4.2 mg/dL (2.5-8.0)
[2019-03-17 07:08] LABS: Bilirubin,Direct 0.5 mg/dL (0.0-0.3); Phosphorous 3.6 mg/dL (2.7-4.5)
[2019-03-17] MEDS: OMEPRAZOLE 20 MG CAPSULE PO SCH (07:14)
[2019-03-17] MEDS: INSULIN LISPRO 1 UNIT/0.01 ML UNIT SQ SCH (07:14)
[2019-03-17] MEDS: FUROSEMIDE 20 MG/2 ML VIAL IV SCH (07:14)
[2019-03-17] MEDS: DOCUSATE SODIUM 100 MG CAPSULE PO SCH (08:21)
[2019-03-17] MEDS: BACLOFEN 10 MG TABLET PO SCH (08:22)
[2019-03-17] MEDS: NEUTRA PHOS 1 PACKET PO SCH (08:22)
[2019-03-17] MEDS: PREGABALIN 25 MG CAPSULE PO SCH (08:22)
[2019-03-17] MEDS ORDERED: INSULIN GLARGINE, HUMAN 1 UNIT/0.01 ML SQ SCH (09:00)
[2019-03-17] MEDS ORDERED: SERTRALINE 50 MG TABLET PO SCH (09:00)
[2019-03-17] MEDS ORDERED: cefTRIAXone 2 GM in DEXTROSE 5% IN WATER 50 ML IV SCH (09:00)
[2019-03-17] MEDS ORDERED: FONDAPARINUX SODIUM 2.5 MG/0.5 ML SYRINGE SQ SCH (09:00)
[2019-03-17] MEDS ORDERED: sitaGLIPtin 100 MG TABLET PO SCH (09:00)
[2019-03-17] MEDS ORDERED: MULTIVIT,THER IRON,CA,FA & MIN 1 TABLET PO SCH (09:00)
[2019-03-17 09:45] LABS: Anisocytosis 1+ (NONE SEEN); Eosinophils % (Manual) 3 % (0-7); Hypochromasia FEW (NONE SEEN); Lymphocytes % 24 % (15-49); Microcytosis FEW (NONE SEEN); Monocytes % (Manual) 8 % (1-12); Platelet Estimate DECREASED (NORMAL); RBC Morphology ABNORM (NORMAL); Segmented Neutrophils % 65 % (38-78)
--- NOTE | 2019-03-17 10:07 | Discharge Summary ---
Medical - DS: Prov Patient information: Note initiated : 03/17/19 at 10:04 am Service Date, if different from initiated Date: [] Patient: Ebony Arroyo 54 y/o F admitted on 03/12/19 for possible dehydration. Chief Complaint: [] Date of admission: 03/12/19 21:54 Discharge date: 03/17/19 Primary care physician: Carole Carrero Consults: 03/12/19 Consult to Physician [CONS] Stat Comment: Consulting Provider: Robert Laguna Reason For Exam: Physician to Consult Medical - DS: Meds - Discharge Medications Prescriptions: Amoxicillin/Potassium Clav [Augmentin] 875 mg PO Q12H #8 tab Transmission Status: Pending to [facility] Active and Home Medications: Home Medications Baclofen 20 mg PO TID 01/23/15 [History Confirmed 03/13/19 Last Taken 02/27/16] Calcium Polycarbophil [Fibercon] 625 mg PO BID 01/23/15 [History Confirmed 03/13/19 Last Taken 02/27/16] Insulin Aspart [Novolog] 0 unit SQ ACHS 01/23/15 [History Confirmed 03/13/19 Last Taken 02/27/16] Loperamide [Imodium] 4 mg PO PRN PRN 01/23/15 [History Confirmed 03/12/19 Last Taken 02/27/16] Metoclopramide [Reglan] 5 mg PO QID PRN 01/23/15 [History Confirmed 03/13/19 Last Taken 02/27/16] Omeprazole [Prilosec] 40 mg PO BIDAC 01/23/15 [History Confirmed 03/13/19 Last Taken 02/27/16] Pregabalin [Lyrica] 50 mg PO QIDP 01/23/15 [History Confirmed 03/13/19 Last Take n 02/27/16] Vitamin D3 1,000 unit PO DAILY 01/23/15 [History Confirmed 03/13/19 Last Taken 02/27/16] metFORMIN [Glucophage] 500 mg PO BIDCC 01/23/15 [History Confirmed 03/13/19 Last Taken 02/27/16] Bisacodyl [Magic Bullet] 10 mg RC PRN PRN 02/27/16 [History Confirmed 03/13/19 Last Taken 02/27/16] nystatin 100,000 unit/gram topical ointment 1 applic TOPICAL BID 10/22/17 [History Confirmed 03/13/19 Last Taken Unknown] silver 1 applic TOPICAL QDAY ml 10/22/17 [History Confirmed 03/13/19 Last Taken Unknown] cyanocobalamin (vitamin B-12) 1,000 mcg tablet 1,000 mcg PO QDAY 02/18/18 [History Confirmed 03/13/19 Last Taken Unknown] sertraline 25 mg tablet 50 mg PO QDAY 09/29/18 [History Confirmed 03/13/19 Last Taken Unknown] oxybutynin chloride 5 mg tablet,extended release 24 hr 5 mg PO QDAY #30 tab 12/13/18 [Rx Confirmed 03/13/19 Last Taken Unknown] Furosemide [Lasix] 20 mg PO DAILY 03/12/19 [History Confirmed 03/13/19 Last Taken Unknown] Ipratropium/Albuterol [Duoneb] 3 ml NEB Q4-6HP PRN 03/12/19 [History Confirmed 03/13/19 Last Taken Unknown] Spironolactone [Aldactone] 50 mg PO DAILY 03/12/19 [History Confirmed 03/13/19 Last Taken Unknown] oxyCODONE HCL [Oxycodone HCl] 5 mg PO Q4-6HP PRN 03/12/19 [History Confirmed 03/13/19 Last Taken Unknown] Adhesive Tape [Durapore] 0 unit .ROUTE .MEDSUPPLY 03/13/19 [History Confirmed 03/13/19 Last Taken Unknown] Benzonatate [Tessalon] 100 mg PO BID PRN 03/13/19 [History Confirmed 03/13/19 Last Taken Unknown] Ferrous Sulfate [Iron] 325 mg PO BID 03/13/19 [History Confirmed 03/13/19 Last Taken Unknown] Gauze Bandage [Band-Aid Gauze Pads] 0 unit .ROUTE .MEDSUPPLY MDD 4 03/13/19 [History Confirmed 03/13/19 Last Taken Unknown] Insulin Glargine,Hum.rec.anlog [Basaglar Kwikpen U-100] 15 unit SQ DAILY 03/13/19 [History Confirmed 03/13/19 Last Taken Unknown] Urinary Bag [[place]-C-Uns Leg Bag Small] 0 units .ROUTE .MEDSUPPLY 03/13/19 [History Confirmed 03/13/19 Last Taken Unknown] Amoxicillin/Potassium Clav [Augmentin] 875 mg PO Q12H #8 tab 03/17/19 [Rx Last Taken Unknown] Medical - DS: Hosp Hospital Course: Discharge diagnosis * Septic shock with acute organ dysfunction clinically resolved after initial treatment on pressors/crystalloids. Antibiotic de-escalate to Augmentin for additional 4 days based on E. coli on culture. * Complicated E. coli UTI secondary to hardware * Left lateral hip cellulitis-clinically improving. Likely streptococcal. Clinically improved. Continue additional 4 days Augmentin * Pressure ulcer gluteal area-patient was aggressively managed by wound care/offloading * Low phosphorus-resolved with replacement * Thrombocytopenia-chronic since 2014. Further drop due to sepsis. No signs of bleeding * Acute mental status change -now back at baseline * Poorly controlled diabetes continue basal prandial insulin. Blood sugars at goal now * Neuropathy continue Lyrica * Anxiety disorder continue sertraline * History of paraplegia continue baclofen for spasm * GERD continue PPI Brief hospital course Ms. Arroyo is a 54 year old F with a history of paraplegia 10 years ago and chronically bedridden with suprapubic catheter and recurrent UTIs who presents the second time in 24 hours to the ER along with her Franky with fever weakness change in mental status. She was evaluated the day prior and was found to have UTI. Patient however was stable and was discharged. Her symptoms continued to worsen with increasing confusion lethargy, malaise and fever of 101 prompting her to bring her to the ER. Initial work-up was consistent with severe sepsis with fever , elevated lactate, hypotension and pyuria. She also had right hip bruising and erythema that was noted by her . She denies recent fall. He is the primary caregiver and also receives help from home health services. She transfers with use of Santosh lift. 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 Monson. Her catheter was changed 10 days ago. Hospitalist service was consulted in light of above At the time evaluation patient is accompanied with her . He was able to answer most the question. Patient is fatigued lethargic and was unable to provide a detailed history but was able to participate in review of systems. She denies chest pain or shortness of breath but endorses to diarrhea. Denies abdominal pain headache photophobia. She denies falls. She endorses to loss of appetite 03/13-patient remains on vasopressors however clinically improving since previous day. at bedside. Lactic acid down from 6-2.7. White count up to 17.7. Improving BUN/creatinine. Low phosphorus and magnesium currently on replacement. Elevated bilirubin secondary to septic shock. 03/14-patient currently on pressors. White count downtrending. Weaning Levophed. More alert lucid and respond to commands. Left hip bruising area progressing. Platelets 74. Central venous oxygen sats 92 at goal. Good urine output. DC IV fluids. Continue ICU care. No family at bedside 03/15-patient is clinically stabilizing. Weaning vasopressors. On 3 mics Levophed. Continue antibiotic coverage. Bandemia resolved from 13% to 2%. White count down to 7.6. Central venous oxygen sats 90 improved blood sugars. Improved creatinine. Bilirubin down to 1.3 from 2.8. Phosphorus 1 on replacement 03/16-patient off vasopressors. Doing well. E. coli on cultures. De-escalate to Rocephin for empiric coverage of cellulitis/E. coli UTI. We will further de- escalate on discharge to oral antibiotics. Continue PT OT/discharge planning per case management. 03/17-patient doing better. No overnight events. No concerns per staff. No fever chills nausea vomiting. Discharging home suprapubic catheter in place. Discharging home with advised to continue antibiotic for additional 4 days along with follow-up primary care physician in 5 to 7 days. Discharge diagnosis: . - Time Spent with Patient Total time spent providing and/or coordinating discharge services: Greater than 30 minutes Medical - DS: Exam - Constitutional Vitals: Vital Signs Temp Pulse Pulse Resp BP BP BP 03/17/19 04:45 98.7 F 86 20 108/56 03/16/19 23:37 97.2 F 70 12 104/53 03/16/19 18:52 98.5 F 94 H 20 97/50 03/16/19 16:45 90 18 123/46 03/16/19 13:01 102 H 13 126/52 03/16/19 12:01 87 12 116/57 03/16/19 11:01 69 12 101/46 03/16/19 10:31 71 12 Pulse Ox 03/17/19 04:45 97 03/16/19 23:37 96 03/16/19 18:52 96 03/16/19 16:45 96 03/16/19 13:01 98 03/16/19 12:01 99 03/16/19 11:01 97 03/16/19 10:31 97 Intake and Output 03/16/19 03/17/19 03/17/19 21:59 05:59 13:59 Intake Total 700 420 Output Total 1050 Balance 700 -630 Intake: IV 500 Sodium Chloride 0.9% 250 ml @ 250 20 mls/hr IV .[id number] [facility] Rx#: [id number] Vancomycin 1,000 mg In Sodium 250 Chloride 0.9% 250 ml @ 250 mls/ hr IV DAILY [facility] Rx#:[id number] Oral 200 420 Output: Urine Catheter Amount 1050 Other: Meal Dinner Percent of Meal Consumed 100% Feeding Ability Assist with Tray Set Up Urine Appearance Suprapubic Sediment Urine Color Dark Yellow Suprapubic Pale Stool Size Moderate Large Stool Color Brown Brown Stool Consistency Soft Soft Loose # of times incontinent of 1 Bowels Weight 154 lb 4.8 oz Medical - DS: Data Labs on day of discharge: Labs from last 24 hours 03/17/19 03/17/19 04:00 04:00 WBC 4.0 L RBC 3.36 L Hgb 9.2 L Hct 28.0 L MCV 83.3 MCH 27.4 MCHC 32.8 RDW 17.5 H Plt Count 64 L MPV 8.7 Total Counted 100 Seg Neutrophils % 65 Band Neutrophils % Not Reportable Lymphocytes % 24 Monocytes % (Manual) 8 Eosinophils % (Manual) 3 Platelet Estimate Decreased RBC Morphology Abnorm A Hypochromasia Few A Anisocytosis 1+ A Microcytosis Few A Sodium 136 Potassium 3.4 Chloride 105 Carbon Dioxide 23 Anion Gap 8.0 BUN 21 H Creatinine 0.2 L GFR Calculation 147 Glucose 105 Uric Acid 4.2 Calcium 7.4 L Phosphorus 3.6 Magnesium 1.8 Total Bilirubin 1.0 Direct Bilirubin 0.5 H GGT 273 H AST 33 ALT 25 Alkaline Phosphatase 226 H Lactate Dehydrogenase 147 Total Protein 4.5 L Albumin 2.4 L Globulin 2.1 L Albumin/Globulin Ratio 1.1 Triglycerides 171 H Preliminary micro results at discharge 03/12/19 20:24 Blood Culture - Preliminary Blood 03/12/19 18:59 Blood Culture - Preliminary Blood 03/12/19 04:06 Urine Culture - Preliminary Urine - U-Bag Gram negative bacillus Gram negative bacillus#2 Enterococcus species Medical - DS: A/P - Patient/Caregiver Discharge Instructions Activity: increase activity as tolerated Diet: Consistent Carbohydrate Additional Instructions: Continue Augmentin for additional 4 days Frequent offloading and decubitus care Suprapubic catheter care Follow-up PCP in 5 to 7 days Return to ER if nausea vomiting diarrhea/abdominal pain fever Prescriptions: Amoxicillin/Potassium Clav [Augmentin] 875 mg PO Q12H #8 tab Transmission Status: Pending to [facility] - Problem Maintenance (1) Severe sepsis with acute organ dysfunction Status: Acute - Follow up Plan Follow up with: Carole Carrero MD [Primary Care Provider] - Disposition: Home, Self-Care Prognosis: Fair Rehab Potential: Fair I certify that the patient requires SNF services: No Overall status at discharge: patient is progressing back to baseline Medical - DS: Qual - VTE Deep Vein Thrombosis/Pulmonary Embolism Present on Admission: No
== END 2019-03-17 11:26 | disposition home or self-care (01) | DRG 871 ==
LOC: ED 17:58 → ICU 21:54 → MEDSUR 03-16 16:30
PROVIDERS: ADMIT Internal Medicine; ATTEND Internal Medicine

== ENCOUNTER 2019-04-07 23:33 | Inpatient (IN) ==
[2019-04-07] MEDS ORDERED: IOPAMIDOL 100 ML BOTTLE IV ONE (23:34)
--- NOTE | 2019-04-07 23:47 | Emergency Department Note ---
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 Patient is currently on antibiotics for infection, does not know for what but today she was suddenly having more shortness of breath. The. Home health visited with her today, they didn't think that she had pneumonia. His been given antibiotics for that. He was she was suddenly a lot more short of breath and they called the ambulance. The. When ambulance arrived, she her O2 sats were in the 70s. No nausea, vomiting, she does take oxycodone 4 times a day for pain, she seems a little somnolent at this time. History of any vomiting, she does have chronic indwelling [place]. The hospital one month ago for sepsis, then seen again a week ago, placed on antibiotics again. No further history obtainable from the patient. She denies chest pain, she's not verbalizing much. Occasionally coughs up phlegm when she is on her side. No fevers today. She denies chest pain, does feel short of breath and oxygen seems to help MD Complaint: shortness of breath - Related Data Home Medications Medication Instructions Recorded Confirmed Baclofen 20 mg PO TID 01/23/15 03/13/19 Calcium Polycarbophil [Fibercon] 625 mg PO BID 01/23/15 03/13/19 Insulin Aspart [Novolog] 0 unit SQ ACHS 01/23/15 03/13/19 Loperamide [Imodium] 4 mg PO PRN PRN 01/23/15 03/12/19 Metoclopramide [Reglan] 5 mg PO QID PRN 01/23/15 03/13/19 Omeprazole [Prilosec] 40 mg PO BIDAC 01/23/15 03/13/19 Pregabalin [Lyrica] 50 mg PO QIDP 01/23/15 03/13/19 Vitamin D3 1,000 unit PO DAILY 01/23/15 03/13/19 metFORMIN [Glucophage] 500 mg PO BIDCC 01/23/15 03/13/19 Bisacodyl [Magic Bullet] 10 mg RC PRN PRN 02/27/16 03/13/19 nystatin 100,000 unit/gram topical 1 applic TOPICAL BID 10/22/17 03/13/19 ointment silver 1 applic TOPICAL QDAY ml 10/22/17 03/13/19 cyanocobalamin (vitamin B-12) 1,000 mcg PO QDAY 02/18/18 03/13/19 1,000 mcg tablet sertraline 25 mg tablet 50 mg PO QDAY 09/29/18 03/13/19 Furosemide [Lasix] 20 mg PO DAILY 03/12/19 03/13/19 Ipratropium/Albuterol [Duoneb] 3 ml NEB Q4-6HP PRN 03/12/19 03/13/19 Spironolactone [Aldactone] 50 mg PO DAILY 03/12/19 03/13/19 oxyCODONE HCL [Oxycodone HCl] 5 mg PO Q4-6HP PRN 03/12/19 03/13/19 Adhesive Tape [Durapore] 0 unit .ROUTE .MEDSUPPLY 03/13/19 03/13/19 Benzonatate [Tessalon] 100 mg PO BID PRN 03/13/19 03/13/19 Ferrous Sulfate [Iron] 325 mg PO BID 03/13/19 03/13/19 Gauze Bandage [Band-Aid Gauze Pads] 0 unit .ROUTE .MEDSUPPLY MDD 4 03/13/19 03/13/19 Insulin Glargine,Hum.rec.anlog 15 unit SQ DAILY 03/13/19 03/13/19 [Basaglar Kwikpen U-100] Urinary Bag [Ilczlu-E-Jaa Leg Bag 0 units .ROUTE .MEDSUPPLY 03/13/19 03/13/19 Small] Previous Rx's Medication Instructions Recorded oxybutynin chloride 5 mg 5 mg PO QDAY #30 tab 12/13/18 tablet,extended release 24 hr Amoxicillin/Potassium Clav 875 mg PO Q12H #8 tab 03/17/19 [Augmentin] Levofloxacin [Levaquin] 500 mg PO DAILY #10 tab 04/03/19 Allergies Allergy/AdvReac Type Severity Reaction Status Date / Time piperacillin [From Zosyn] Allergy Mild Rash Verified 03/11/19 09:42 tazobactam [From Zosyn] Allergy Mild Rash Verified 03/11/19 09:42 azithromycin AdvReac Mild Nausea Verified 03/11/19 09:42 cefuroxime AdvReac Mild Nausea Verified 03/11/19 09:42 Erythromycin Base AdvReac Mild Vomiting Verified 03/11/19 09:42 nitrofurantoin AdvReac Mild Nausea Verified 03/11/19 09:42 Penicillins AdvReac Mild Nausea Verified 03/11/19 09:42 lorazepam [From Ativan] AdvReac Unknown Unknown Verified 03/11/19 09:42 Macrolide Antibiotics AdvReac Verified 04/07/19 23:34 Review of Systems Limitations: ROS unobtainable due to patients medical condition Constitutional: Reports: weakness. Denies: fever, chills Past Medical History - Past Medical History Source: nursing notes reviewed Medical history: Reports: chronic narcotics, pneumonia, other (Paraplegic since back surgery on her thoracic spine) Surgical history ED: Reports: back surgery, orthopedic, other Family history: Reports: non-contributory - Social History smoking status: Never smoker Alcohol use: Reports: None Drug use: Reports: none Physical Exam Limitations: no limitations General appearance: alert, grimacing, in distress, sleepy Head: atraumatic, normocephalic, normal inspection Eye: Present: normal appearance, PERRL, EOMI, visual frances intact, other (conjunctival pallor). Absent: scleral icterus, conjunctival injection, periorbital swelling, periorbital tenderness ENT: Present: normal exam, normal oropharynx, mucous membranes moist, TM's normal bilaterally Neck: Present: normal inspection, full ROM, trachea midline. Absent: tenderness, meningismus Chest: Present: normal inspection, symmetric chest wall rise. Absent: tenderness Respiratory: Present: respiratory distress, rales/crackles, accessory muscle use, decreased breath sounds. Absent: wheezes, stridor Cardiovascular: Present: regular rate, normal rhythm, tachycardia Abdominal: Present: soft, hypoactive bowel sounds. Absent: distention, tenderness, guarding Extremities: Present: pedal edema, other (chronic flexion contractures in her ankles/feet associated with flaccid lower extremities) Back: Present: normal inspection. Absent: vertebral tenderness Neurological: Present: alert, motor sensory deficit. Absent: reflexes normal Psychiatric: Present: flat affect Skin: Present: warm, dry, pallor. Absent: diaphoretic Course - Reevaluation(s) Reevaluation #1: pt is on BiPAP at this time. Did seem to help her breathing. She is resting more comfortably. More alert and responsive although she cannot talk with the IPAP mask on. Initially there was concern that she was somnolent on arrival that she had maybe taken too much of her oxycodone but she is indicating that claudio carmona wants more oxycodone. I recommended to hold off on that for now. Discussed hospital admission with Dr. Borjas Vital Signs Temperature 97.7 F 04/07/19 23:34 Pulse Rate 116 H 04/07/19 23:34 Respiratory Rate 18 04/07/19 23:34 Blood Pressure 126/56 04/07/19 23:34 Pulse Oximetry (%) 86 L 04/07/19 23:34 Temperature 97.7 F 04/07/19 23:34 Pulse Rate 110 H 04/08/19 02:01 Respiratory Rate 10 L 04/08/19 02:01 Blood Pressure 153/57 04/08/19 02:01 Pulse Oximetry (%) 94 04/08/19 02:01 Shortness of Breath/Dyspnea - Lab Data Lab results reviewed: Yes I reviewed the patient's lab results. Result diagrams: 04/07/19 23:59 04/07/19 23:59 Lab Results 04/07/19 04/07/19 04/07/19 Range/Units 23:59 23:59 23:59 WBC 4.9 (4.50-11.00) K/mcL RBC 4.21 (3.59-5.38) M/mcL Hgb 11.4 (11.2-15.7) g/dL Hct 37.8 (34.1-44.9) % MCV 89.8 (80.0-100.0) fL MCH 27.1 (26.0-34.0) pg MCHC 30.2 L (31.0-36.0) g/dL RDW 16.6 H (11.5-14.5) % Plt Count 95 L (140-440) K/mcL MPV 11.7 H (7.4-10.4) fL Gran % 70.1 (38.0-78.0) % Lymph % (Auto) 23.3 (15.5-49.0) % [place] % (Auto) 5.6 (1.0-12.0) % Eos % (Auto) 0.6 (0.0-7.0) % Baso % (Auto) 0.4 (0.0-2.0) % Gran # 3.41 (1.80-8.00) K/mcL Lymph # (Auto) 1.13 L (1.50-4.80) K/mcL [place] # (Auto) 0.27 (0.10-0.90) K/mcL Eos # (Auto) 0.03 (0.00-0.70) K/mcL Baso # (Auto) 0.02 (0.00-0.30) K/mcL D-Dimer (0.00-0.40) ug/ml Sodium 137 (133-145) mmol/L Potassium 3.6 (3.3-5.1) mmol/L Chloride 99 (96-108) mmol/L Carbon Dioxide 23 (22-30) mmol/L Anion Gap 15.0 (8-16) BUN 30 H (6-20) mg/dl Creatinine 0.5 L (0.6-1.1) mg/dl GFR Calculation 109 Glucose 321 H (70-105) mg/dL Calcium 8.4 L (8.6-10.4) mg/dl Total Bilirubin 0.9 (0.0-1.0) mg/dL AST 35 (0-37) U/l ALT 18 (0-40) U/l Alkaline Phosphatase 259 H (39-117) U/L Troponin T < 0.01 (0-0.03) ng/ml C-Reactive Protein (0.0-0.8) mg/dl NT-Pro-B Natriuret Pep 413.7 H (0-125) pg/ml Total Protein 5.4 L (5.9-8.4) gm/dL Albumin 2.8 L (3.2-5.2) gm/dL Globulin 2.6 (2.2-3.7) gm/dL Albumin/Globulin Ratio 1.1 (1.0-2.3) Procalcitonin (<0.10) ng/mL Urine Color Urine Appearance Urine pH (5.0-9.0) Ur Specific [place] (1.000-1.035) Urine Protein (NEG) mg/dL Urine Glucose (UA) (NEG) mg/dL Urine Ketones (NEG) mg/dL Urine Occult Blood (<0.03) mg/dL Urine Nitrate (NEG) Urine Bilirubin (NEG) mg/dL Urine Urobilinogen (NEG) mg/dL Ur Leukocyte Esterase (NEG) /uL Urine RBC (0-1) /hpf Urine WBC (0-4) /hpf Ur Squamous Epith Cells (0-4) /hpf Urine Bacteria (0) /hpf Hyaline Casts (0-2) /lpf Urine Mucus (0) /hpf Ur Culture Indicated? 04/07/19 04/08/19 04/08/19 Range/Units 23:59 00:02 00:02 WBC (4.50-11.00) K/mcL RBC (3.59-5.38) M/mcL Hgb (11.2-15.7) g/dL Hct (34.1-44.9) % MCV (80.0-100.0) fL MCH (26.0-34.0) pg MCHC (31.0-36.0) g/dL RDW (11.5-14.5) % Plt Count (140-440) K/mcL MPV (7.4-10.4) fL Gran % (38.0-78.0) % Lymph % (Auto) (15.5-49.0) % [place] % (Auto) (1.0-12.0) % Eos % (Auto) (0.0-7.0) % Baso % (Auto) (0.0-2.0) % Gran # (1.80-8.00) K/mcL Lymph # (Auto) (1.50-4.80) K/mcL [place] # (Auto) (0.10-0.90) K/mcL Eos # (Auto) (0.00-0.70) K/mcL Baso # (Auto) (0.00-0.30) K/mcL D-Dimer 1.62 H (0.00-0.40) ug/ml Sodium (133-145) mmol/L Potassium (3.3-5.1) mmol/L Chloride (96-108) mmol/L Carbon Dioxide (22-30) mmol/L Anion Gap (8-16) BUN (6-20) mg/dl Creatinine (0.6-1.1) mg/dl GFR Calculation Glucose (70-105) mg/dL Calcium (8.6-10.4) mg/dl Total Bilirubin (0.0-1.0) mg/dL AST (0-37) U/l ALT (0-40) U/l Alkaline Phosphatase (39-117) U/L Troponin T (0-0.03) ng/ml C-Reactive Protein 1.7 H (0.0-0.8) mg/dl NT-Pro-B Natriuret Pep (0-125) pg/ml Total Protein (5.9-8.4) gm/dL Albumin (3.2-5.2) gm/dL Globulin (2.2-3.7) gm/dL Albumin/Globulin Ratio (1.0-2.3) Procalcitonin 0.12 (<0.10) ng/mL Urine Color Urine Appearance Urine pH (5.0-9.0) Ur Specific [place] (1.000-1.035) Urine Protein (NEG) mg/dL Urine Glucose (UA) (NEG) mg/dL Urine Ketones (NEG) mg/dL Urine Occult Blood (<0.03) mg/dL Urine Nitrate (NEG) Urine Bilirubin (NEG) mg/dL Urine Urobilinogen (NEG) mg/dL Ur Leukocyte Esterase (NEG) /uL Urine RBC (0-1) /hpf Urine WBC (0-4) /hpf Ur Squamous Epith Cells (0-4) /hpf Urine Bacteria (0) /hpf Hyaline Casts (0-2) /lpf Urine Mucus (0) /hpf Ur Culture Indicated? 04/08/19 Range/Units 01:13 WBC (4.50-11.00) K/mcL RBC (3.59-5.38) M/mcL Hgb (11.2-15.7) g/dL Hct (34.1-44.9) % MCV (80.0-100.0) fL MCH (26.0-34.0) pg MCHC (31.0-36.0) g/dL RDW (11.5-14.5) % Plt Count (140-440) K/mcL MPV (7.4-10.4) fL Gran % (38.0-78.0) % Lymph % (Auto) (15.5-49.0) % [place] % (Auto) (1.0-12.0) % Eos % (Auto) (0.0-7.0) % Baso % (Auto) (0.0-2.0) % Gran # (1.80-8.00) K/mcL Lymph # (Auto) (1.50-4.80) K/mcL [place] # (Auto) (0.10-0.90) K/mcL Eos # (Auto) (0.00-0.70) K/mcL Baso # (Auto) (0.00-0.30) K/mcL D-Dimer (0.00-0.40) ug/ml Sodium (133-145) mmol/L Potassium (3.3-5.1) mmol/L Chloride (96-108) mmol/L Carbon Dioxide (22-30) mmol/L Anion Gap (8-16) BUN (6-20) mg/dl Creatinine (0.6-1.1) mg/dl GFR Calculation Glucose (70-105) mg/dL Calcium (8.6-10.4) mg/dl Total Bilirubin (0.0-1.0) mg/dL AST (0-37) U/l ALT (0-40) U/l Alkaline Phosphatase (39-117) U/L Troponin T (0-0.03) ng/ml C-Reactive Protein (0.0-0.8) mg/dl NT-Pro-B Natriuret Pep (0-125) pg/ml Total Protein (5.9-8.4) gm/dL Albumin (3.2-5.2) gm/dL Globulin (2.2-3.7) gm/dL Albumin/Globulin Ratio (1.0-2.3) Procalcitonin (<0.10) ng/mL Urine Color Yellow Urine Appearance Clear Urine pH 5.0 (5.0-9.0) Ur Specific [place] 1.026 (1.000-1.035) Urine Protein 30 A (NEG) mg/dL Urine Glucose (UA) 50 A (NEG) mg/dL Urine Ketones Neg (NEG) mg/dL Urine Occult Blood >=1.0 A (<0.03) mg/dL Urine Nitrate Neg (NEG) Urine Bilirubin Neg (NEG) mg/dL Urine Urobilinogen Neg (NEG) mg/dL Ur Leukocyte Esterase 250 A (NEG) /uL Urine RBC 58 H (0-1) /hpf Urine WBC 94 H (0-4) /hpf Ur Squamous Epith Cells 0 (0-4) /hpf Urine Bacteria 0 (0) /hpf Hyaline Casts 10 H (0-2) /lpf Urine Mucus Many A (0) /hpf Ur Culture Indicated? Yes - Radiology Data Radiology results reviewed: Yes I reviewed the patient's radiology results. - EKG Data EKG attestation: Yes I reviewed and interpreted this EKG., Yes There are no EKG findings of acute coronary syndrome EKG shows normal: Reports: sinus rhythm Rate: Reports: tachycardia Rhythm: Reports: NSR Disposition Pt seen by [facility]/PA only: No Clinical Impression: Community acquired pneumonia Disposition: Xfer As Inpt ([facility]) Condition: Fair Referrals: Carole Carrero MD [Primary Care Provider] -
[2019-04-08 00:28] LABS: Basophils # (Auto) 0.02 K/mcL (0.00-0.30); Basophils % (Auto) 0.4 % (0.0-2.0); Eosinophils # (Auto) 0.03 K/mcL (0.00-0.70); Eosinophils % (Auto) 0.6 % (0.0-7.0); Granulocytes % (Auto) 70.1 % (38.0-78.0); Hematocrit 37.8 % (34.1-44.9); Hemoglobin 11.4 g/dL (11.2-15.7); Lymphocytes # (Auto) 1.13 K/mcL (1.50-4.80); Lymphocytes % (Auto) 23.3 % (15.5-49.0); Mean Cell Volume 89.8 fL (80.0-100.0); Mean Corpuscular HGB Conc 30.2 g/dL (31.0-36.0); Mean Platelet Volume 11.7 fL (7.4-10.4); Monocytes # (Auto) 0.27 K/mcL (0.10-0.90); Monocytes % (Auto) 5.6 % (1.0-12.0); Platelet Count 95 K/mcL (140-440); RBC 4.21 M/mcL (3.59-5.38); Red Cell Distribution Width 16.6 % (11.5-14.5); WBC 4.9 K/mcL (4.50-11.00)
[2019-04-08 00:53] LABS: proBNP 413.7 pg/ml (0-125)
[2019-04-08 00:55] LABS: ALT/SGPT 18 U/l (0-40); AST/SGOT 35 U/l (0-37); Albumin 2.8 gm/dL (3.2-5.2); Albumin/Globulin Ratio 1.1 (1.0-2.3); Alkaline Phosphatase 259 U/L (39-117); Bilirubin,Total 0.9 mg/dL (0.0-1.0); Blood Urea Nitrogen 30 mg/dl (6-20); Calcium 8.4 mg/dl (8.6-10.4); Carbon Dioxide 23 mmol/L (22-30); Chloride 99 mmol/L (96-108); Globulin 2.6 gm/dL (2.2-3.7); Glomerular Filtration Rate 109; Glucose 321 mg/dL (70-105)
[2019-04-08] MEDS ORDERED: 0.9 % SODIUM CHLORIDE 500 ML IV ONE (01:02)
[2019-04-08 01:13] LABS: C-Reactive Protein 1.7 mg/dl (0.0-0.8)
[2019-04-08 02:00] LABS: Appearance,Urine CLEAR; Bacteria,Urine 0 /hpf (0); Bilirubin,Urine NEG (NEG); Color,Urine YELLOW; Culture Indicated,Urine YES; Glucose,Urine (UA) 50 mg/dL (NEG); Ketones,Urine NEG (NEG); Leukocyte Esterase,Urine 250 /uL (NEG); Mucus,Urine MANY /hpf (0); Nitrate,Urine NEG (NEG); Protein,Urine 30 mg/dL (NEG); Specific Gravity,Urine 1.026 (1.000-1.035); Urine Blood >=1.0 mg/dL (<0.03); Urine Hyaline Cast 10 /lpf (0-2); Urine RBC 58 /hpf (0-1); Urine Squamous Epithelial Cell 0 /hpf (0-4); Urine WBC 94 /hpf (0-4); Urobilinogen,Urine NEG (NEG)
[2019-04-08] MEDS ORDERED: PREGABALIN 25 MG CAPSULE PO ONE (02:11)
[2019-04-08] MEDS ORDERED: LEVOFLOXACIN 500 MG/100 ML BAG IV ONE (02:14)
[2019-04-08] MEDS ORDERED: cefTRIAXone 1 GM VIAL IV SCH ×2 (02:15→17:00)
[2019-04-08] MEDS ORDERED: NALOXONE HCL 0.4 MG/ML VIAL IV PRN (02:20)
[2019-04-08] MEDS ORDERED: ACETAMINOPHEN 325 MG TABLET PO PRN (02:20)
[2019-04-08] MEDS ORDERED: HYDROcodone/APAP 5/325MG TABLET PO PRN (02:20)
[2019-04-08] MEDS ORDERED: LACTATED RINGERS 1,000 ML IV SCH (02:30)
--- NOTE | 2019-04-08 04:01 | XRay Report ---
CLINICAL INFORMATION: dyspnea COMPARISON: 04/03/2019 FINDINGS: Heart size, mediastinum and pulmonary vessels are normal. Small patchy infiltrates noted in the right upper and both lower lungs. No effusions IMPRESSION: Small patchy infiltrates right upper and both lower lungs. Interpreted and Authenticated by: David Neal 04/08/19
--- NOTE | 2019-04-08 06:49 | Cat Scan Report ---
CLINICAL INFORMATION: Dyspnea COMPARISON: None. TECHNIQUE: ml of Isovue-370 were injected intravenously. Using SmartPrep to maximize pulmonary artery opacification, .625mm helical slices were obtained from the lung apices through the lung bases. Following reconstruction, 2.5 mm sagittal, coronal, and axial reformations were processed. The exam was reviewed at mediastinal, lung, and bone windows. The exam was performed using radiation dose optimization techniques including, but not limited to, automated exposure control, adjustment of the mA and/or kV according to patient size and use of iterative reconstruction technique. FINDINGS: Pulmonary artery opacification is suboptimal due to patient size and incooperation. Central pulmonary arteries are well-opacified without evidence of embolus. Pulmonary arteries are normal caliber. Thoracic aorta is normal diameter with diffuse intimal thickening. The heart is normal in size moderate fibrofatty calcific atherosclerotic plaque in the coronary arteries. Esophagus is mildly dilated to the level of the GE junction. A probable 10 mm diverticulum projects from the left lateral esophagus near the cervicothoracic junction. Thyroid is unremarkable. Pulmonary right normal windows show moderate patchy peribronchovascular infiltrates in the right upper and lower lobes with consolidation the posterior right lower lobe. There is also mild patchy bronchovascular infiltrates in the right middle and posterior left lower lobes. Very minimal scattered groundglass airspace disease seen in the left upper lobe.Consider aspiration or infection. No effusions. Bones and soft tissues of the chest wall unremarkable. Abdominal images show moderate cirrhosis with evidence for portal hypertension with enlargement of the portal veins and mild splenic varices. Spleen is moderately enlarged spanning 17 cm in length. Moderate ascites appreciated. Stomach is poorly evaluated due to incomplete distention does appear to be at least mild wall thickening in the gastric antrum pylorus likely due to peptic disease. IMPRESSION: 1. No evidence of pulmonary embolus. 2. Moderate patchy peribronchovascular infiltrates in the right upper and lower lobes with minimal patchy peribronchovascular infiltrates in the right middle, left lower and left upper lobes. Consider aspiration or infection. 3. Moderate dilatation of the esophagus to the level of the GE junction. Patient may have a stricture in this region. This would predispose to aspiration. 4. Moderate cirrhosis with enlargement of portal vein and tributaries and splenomegaly compatible with associated portal hypertension. Moderate ascites has increased considerably since an abdominal CT from 06/11/2018 5. Possible wall thickening of the gastric antrum and pylorus. This also merely be an artifact of under distention Suggest: referral to gastroenterology for upper endoscopy to evaluate a potential peptic stricture, Moreno's esophagus or malignancy at the GE junction and also to evaluate potential infiltrative pathology in the gastric antrum and pylorus. Interpreted and Authenticated by: David Neal 04/08/19
[2019-04-08] MEDS ORDERED: DEXTROSE 50% 50 ML VIAL IV PRN (07:50)
[2019-04-08] MEDS ORDERED: DEXTROSE 31 GM ORAL.SUSP PO PRN (07:50)
[2019-04-08] MEDS ORDERED: VANCOMYCIN PER PHARMACY IV SCH (07:50)
--- NOTE | 2019-04-08 08:14 | Internal Med History&Physical ---
Medical - H&P: HPI Patient information: Note initiated : 04/08/19 at 8:12 am Service Date, if different from initiated Date: [] Patient: Ebony Arroyo a 54 y/o F admitted on 04/08/19 for shortness of breath. Chief Complaint: [] History of present illness: Ms. Arroyo is a 54 year old F History is obtained mostly from the as patient is currently on BiPAP. Per history patient doing well yesterday morning but then yesterday afternoon she started gurgling per becoming more short of breath and more let hargic thus patient brought in the ED. She is had hospitalization for aspiration pneumonia at [facility] this year and was in the hospital January for sepsis from urinary tract infection. When EMS arrived her sats were in 70s. No reported nausea vomiting. Quite somnolent in ED. Did have a lot of sputum production ED. The ED she is eventually put on BiPAP. Review of systems. 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) use of opiate analgesic (Chronic) History of sepsis (Chronic) Diabetes mellitus type II, controlled (Chronic) NAFLD (nonalcoholic fatty liver disease) (Chronic) Anemia (Chronic) Allergy to multiple antibiotics (Chronic) Abdi's syndrome (Chronic) Essential (primary) hypertension (Chronic) Suprapubic catheter (Chronic) Rectal abnormality (Chronic) Neurogenic bladder (Chronic) Hyperlipidemia (Chronic) Vitamin B12 deficiency (Chronic) Vitamin D deficiency, unspecified (Chronic) Chronic right shoulder pain (Chronic) GERD (gastroesophageal reflux disease) (Chronic) Cervical spondylosis (Chronic) Cervical disc disease (Chronic) Paraplegia (Chronic) Kidney stone (Acute) Candidiasis of urogenital sites (Resolved) Carpal tunnel syndrome (Resolved) Lumbar strain (Resolved) Urinary tract infection associated with catheterization of urinary tract (Resolved) Past Surgical History (Last Reviewed 12/13/18 @ 10:18 by Kenyatta Feliz RN) H/O plastic surgery (Acute) History of back surgery (Acute) Hx of tonsillectomy (Acute) S/P carpal tunnel release (Acute) S/P cholecystectomy (Acute) Family History (Last Reviewed 12/13/18 @ 10:19 by Kenyatta Feliz RN) Mother Hypertension Social History (Last Updated 12/13/18 @ 11:06 by Olivier Monson MD) Denies tobacco or alcohol He is wheelchair as she is paraplegic Lives at home with her Medical - H&P: Meds Home Medications Medication Instructions Recorded Confirmed Type Baclofen 20 mg PO TID 01/23/15 04/08/19 History Insulin Aspart [Novolog] 0 unit SQ ACHS 01/23/15 04/08/19 History Metoclopramide [Reglan] 5 mg PO QID PRN 01/23/15 04/08/19 History Omeprazole [Prilosec] 20 mg PO BIDAC 01/23/15 04/08/19 History Pregabalin [Lyrica] 50 mg PO QIDP 01/23/15 04/08/19 History metFORMIN [Glucophage] 500 mg PO BIDCC 01/23/15 04/08/19 History nystatin 100,000 unit/gram topical 1 applic TOPICAL BID 10/22/17 04/08/19 History ointment sertraline 25 mg tablet 25 mg PO BID 09/29/18 04/08/19 History oxybutynin chloride 5 mg 5 mg PO QDAY #30 tab 12/13/18 04/08/19 Rx tablet,extended release 24 hr Furosemide [Lasix] 20 mg PO DAILY 03/12/19 04/08/19 History Ipratropium/Albuterol [Duoneb] 3 ml NEB Q4-6HP PRN 03/12/19 04/08/19 History Spironolactone [Aldactone] 50 mg PO DAILY 03/12/19 04/08/19 History oxyCODONE HCL [Oxycodone HCl] 5 mg PO Q6HP PRN 03/12/19 04/08/19 History Adhesive Tape [Durapore] 0 unit .ROUTE .MEDSUPPLY 03/13/19 03/13/19 History Benzonatate [Tessalon] 100 mg PO BID PRN 03/13/19 04/08/19 History Ferrous Sulfate [Iron] 325 mg PO BID 03/13/19 04/08/19 History Gauze Bandage [Band-Aid Gauze Pads] 0 unit .ROUTE .MEDSUPPLY MDD 4 03/13/19 03/13/19 History Insulin Glargine,Hum.rec.anlog 15 unit SQ DAILY 03/13/19 04/08/19 History [Basaglar Kwikpen U-100] Urinary Bag [[id number]-[id number] Leg Bag 0 units .ROUTE .MEDSUPPLY 03/13/19 03/13/19 History Small] Amoxicillin/Potassium Clav 875 mg PO Q12H #8 tab 03/17/19 04/08/19 Rx [Augmentin] Cefuroxime Axetil [Cefuroxime] 500 mg PO BID 04/08/19 04/08/19 History Fluconazole [Diflucan] 150 mg PO 2-3XW 04/08/19 04/08/19 History Pen Needle, Diabetic [Carefine Pen 04/08/19 04/08/19 History Needle] metroNIDAZOLE (PP) [Flagyl (Pp)] 500 mg PO TID 04/08/19 04/08/19 History traMADol [Ultram] 50 mg PO QIDP PRN 04/08/19 04/08/19 History Allergies Allergy/AdvReac Type Severity Reaction Status Date / Time piperacillin [From Zosyn] Allergy Mild Rash Verified 03/11/19 09:42 tazobactam [From Zosyn] Allergy Mild Rash Verified 03/11/19 09:42 azithromycin AdvReac Mild Nausea Verified 03/11/19 09:42 cefuroxime AdvReac Mild Nausea Verified 03/11/19 09:42 Erythromycin Base AdvReac Mild Vomiting Verified 03/11/19 09:42 nitrofurantoin AdvReac Mild Nausea Verified 03/11/19 09:42 Penicillins AdvReac Mild Nausea Verified 03/11/19 09:42 lorazepam [From Ativan] AdvReac Unknown Unknown Verified 03/11/19 09:42 Macrolide Antibiotics AdvReac Verified 04/07/19 23:34 Medical - H&P: Exam - Constitutional Vitals: Temp Pulse Resp BP Pulse Ox 98.0 F 80 10 L 97/50 100 04/08/19 03:45 04/08/19 07:29 04/08/19 07:29 04/08/19 06:15 04/08/19 07:29 Exam: General: Somnolent, No acute Distress Eyes/N/T: EOMI, PERRL, Head/Neck: neck supple, normocephalic atraumatic CV: RRR, No murmurs, normal s1/s2 Pulm: Diminished b/l, no wheezing Abd: soft, nontender, +BS x4 Ext: no clubbing/cyanosis, 2-3+ b/l LE edema Neuro: Somnolent but does open eyes to voice and follows commands , paraplegic lower extremities Skin: warm/dry Medical - H&P: Reslt - Labs CBC & Chem 7: 04/07/19 23:59 04/07/19 23:59 Labs: Short CBC 04/07/19 Range/Units 23:59 WBC 4.9 (4.50-11.00) K/mcL Hgb 11.4 (11.2-15.7) g/dL Hct 37.8 (34.1-44.9) % Plt Count 95 L (140-440) K/mcL BMP 04/07/19 23:59 Sodium 137 Potassium 3.6 Chloride 99 Carbon Dioxide 23 BUN 30 H Creatinine 0.5 L Glucose 321 H Calcium 8.4 L Cardiac Enzymes 04/07/19 Range/Units 23:59 Troponin T < 0.01 (0-0.03) ng/ml Liver Function 04/07/19 Range/Units 23:59 Total Bilirubin 0.9 (0.0-1.0) mg/dL AST 35 (0-37) U/l ALT 18 (0-40) U/l Alkaline Phosphatase 259 H (39-117) U/L Albumin 2.8 L (3.2-5.2) gm/dL Urine 04/08/19 Range/Units 01:13 Urine Color Yellow Urine Appearance Clear Urine pH 5.0 (5.0-9.0) Ur Specific [place] 1.026 (1.000-1.035) Urine Protein 30 A (NEG) mg/dL Urine Glucose (UA) 50 A (NEG) mg/dL Medical - H&P: A/P - Narrative A/P Narrative: A: *PNA, Aspiration: *Sepsis: *Encephalopathy: 2/2 above + possible narcotic use *Acute hypoxic respiratory failure: -on bipap *Volume depletion: *Paraplegic lower extremities with neurogenic bladder (suprapubic catheter): *cirrhosis w/thrombocytopenia: *Anxiety/depression: *GERD: * P: -cefepime/flagyl/vanco -pending BC/SC -NPO, ST eval, Barium swallow when able to also r/o stricture -f/u ABG -IVF's, f/u lactate -hold narcotics today -hold diuretics -basal and SSI -ppx: lovenox/home ppi full code Medical - H&P: Qual - Stroke Symptom Onset Unknown: No - VTE Deep Vein Thrombosis/Pulmonary Embolism Present on Admission: No
[2019-04-08] MEDS ORDERED: POLYETHYLENE GLYCOL 3350 17 GM PACKET PO PRN (08:22)
[2019-04-08] MEDS ORDERED: POTASSIUM CHLORIDE 20 MEQ TABLET PO PRN ×2 (08:22)
[2019-04-08] MEDS ORDERED: POTASSIUM CHLORIDE 40 MEQ in DEXTROSE 5% IN WATER 500 ML IV PRN (08:22)
[2019-04-08] MEDS ORDERED: MAGNESIUM SULFATE 2 GM/50 ML BAG IV PRN (08:22)
[2019-04-08] MEDS ORDERED: ONDANSETRON 4 MG/2 ML VIAL IV PRN (08:22)
[2019-04-08] MEDS ORDERED: SENNOSIDES 1 TABLET PO PRN (08:22)
[2019-04-08] MEDS: CEFEPIME 2 GM VIAL IV SCH ×3 (08:30→23:07)
[2019-04-08] MEDS: metroNIDAZOLE 500 MG/100 ML BAG IV SCH ×3 (08:58→23:19)
[2019-04-08] MEDS ORDERED: ENOXAPARIN 40 MG/0.4 ML SYRINGE SQ SCH (09:00)
[2019-04-08] MEDS: DOCUSATE SODIUM 100 MG CAPSULE PO SCH ×2 (09:32→20:53)
[2019-04-08 09:42] LABS: Anisocytosis FEW (NONE SEEN); Band Neutrophils % 3 % (0-10); Lymphocytes % 17 % (15-49); Monocytes % (Manual) 5 % (1-12); Platelet Estimate DECREASED (NORMAL); RBC Morphology ABNORM (NORMAL); Segmented Neutrophils % 75 % (38-78)
[2019-04-08] MEDS: VANCOMYCIN 1,250 MG in 0.9 % SODIUM CHLORIDE 500 ML IV SCH ×2 (10:07→20:52)
[2019-04-08] MEDS: INSULIN LISPRO 1 UNIT/0.01 ML UNIT SQ SCH ×3 (11:53→20:53)
[2019-04-08] MEDS: ONDANSETRON 4 MG/2 ML VIAL IV PRN (12:03)
[2019-04-08] MEDS: LACTATED RINGERS 1,000 ML IV SCH (12:42)
[2019-04-08] MEDS ORDERED: ALBUMIN HUMAN 12.5 GM/50 ML BAG IV ONE ×3 (13:03→22:30)
[2019-04-08] MEDS ORDERED: FUROSEMIDE 20 MG/2 ML VIAL IV ONE ×2 (13:03→22:30)
[2019-04-08] MEDS: IPRATROPIUM/ALBUTEROL 3 ML AMPUL.NEB NEB SCH ×2 (14:02→18:25)
[2019-04-08] MEDS: 0.9 % SODIUM CHLORIDE 10 ML SYRINGE IV SCH ×2 (15:00→23:07)
[2019-04-08] MEDS ORDERED: METOCLOPRAMIDE 10 MG TABLET PO PRN (22:32)
[2019-04-08] MEDS: FAMOTIDINE 20 MG TABLET PO SCH (23:15)
[2019-04-08] MEDS ORDERED: INSULIN GLARGINE, HUMAN 1 UNIT/0.01 ML SQ ONE (23:25)
[2019-04-09] MEDS ORDERED: FUROSEMIDE 20 MG/2 ML VIAL IV ONE (00:20)
[2019-04-09] MEDS ORDERED: ALBUMIN HUMAN 50 ML IV ONE (00:21)
[2019-04-09] MEDS: IPRATROPIUM/ALBUTEROL 3 ML AMPUL.NEB NEB SCH ×4 (01:51→18:48)
[2019-04-09] MEDS: LACTATED RINGERS 1,000 ML IV SCH (04:10)
[2019-04-09] MEDS: CEFEPIME 2 GM VIAL IV SCH ×3 (05:44→21:47)
[2019-04-09] MEDS: metroNIDAZOLE 500 MG/100 ML BAG IV SCH ×3 (05:44→21:47)
[2019-04-09] MEDS: 0.9 % SODIUM CHLORIDE 10 ML SYRINGE IV SCH ×3 (05:46→21:47)
[2019-04-09 07:03] LABS: Basophils # (Auto) 0.01 K/mcL (0.00-0.30); Basophils % (Auto) 0.3 % (0.0-2.0); Eosinophils # (Auto) 0.01 K/mcL (0.00-0.70); Eosinophils % (Auto) 0.3 % (0.0-7.0); Granulocytes % (Auto) 80.6 % (38.0-78.0); Hematocrit 27.2 % (34.1-44.9); Hemoglobin 8.2 g/dL (11.2-15.7); Lymphocytes # (Auto) 0.43 K/mcL (1.50-4.80); Lymphocytes % (Auto) 11.4 % (15.5-49.0); Mean Cell Volume 88.3 fL (80.0-100.0); Mean Corpuscular HGB Conc 30.1 g/dL (31.0-36.0); Mean Platelet Volume 11.8 fL (7.4-10.4); Monocytes # (Auto) 0.28 K/mcL (0.10-0.90); Monocytes % (Auto) 7.4 % (1.0-12.0); Platelet Count 58 K/mcL (140-440); RBC 3.08 M/mcL (3.59-5.38); Red Cell Distribution Width 16.8 % (11.5-14.5); WBC 3.8 K/mcL (4.50-11.00)
[2019-04-09 07:15] LABS: ALT/SGPT 11 U/l (0-40); AST/SGOT 22 U/l (0-37); Albumin 2.8 gm/dL (3.2-5.2); Albumin/Globulin Ratio 1.4 (1.0-2.3); Alkaline Phosphatase 145 U/L (39-117); Bilirubin,Direct 0.3 mg/dL (0.0-0.3); Bilirubin,Total 0.7 mg/dL (0.0-1.0); Blood Urea Nitrogen 29 mg/dl (6-20); Calcium 7.9 mg/dl (8.6-10.4); Carbon Dioxide 23 mmol/L (22-30); Chloride 103 mmol/L (96-108); Glomerular Filtration Rate 117; Glucose 229 mg/dL (70-105); Lactate Dehydrogenase 148 U/L (94-250); Phosphorous 2.9 mg/dL (2.7-4.5); Triglycerides 78 mg/dl (<150); Uric Acid 7.2 mg/dL (2.5-8.0)
[2019-04-09] MEDS: INSULIN LISPRO 1 UNIT/0.01 ML UNIT SQ SCH ×4 (07:34→20:43)
--- NOTE | 2019-04-09 07:48 | Internal Med Progress Note ---
Medical - PN: Subj Patient information: Note initiated : 04/09/19 at 7:43 am Service Date, if different from initiated Date: [] Patient: Ebony Arroyo a 54 y/o F admitted on 04/08/19 for shortness of breath. Chief Complaint: [] Interval history: Ms. Arroyo is a 54 year old F History is obtained mostly from the as patient is currently on BiPAP. Per history patient doing well yesterday morning but then yesterday afternoon she started gurgling per becoming more short of breath and more lethargic thus patient brought in the ED. She is had hospitalization for aspiration pneumonia at [facility] earlier this year and was in the hospital January for sepsis from urinary tract infection. When EMS arrived her sats were in 70s. No reported nausea vomiting. Quite somnolent in ED. Did have a lot o f sputum production ED. The ED she is eventually put on BiPAP. / Willing better. More energy. Mentation much improved. She is on 1 L nasal cannula and has good oxygen saturations. Barium swallow today. Review of Systems: denies headache/fever/chills/nausea/vomiting/chest or abdominal pain/c ough/dyspnea/diarrhea. Otherwise see above. - Constitutional Vitals: Vital Signs Temp Pulse Resp BP Pulse Ox 98.1 F 86 14 118/56 99 04/09/19 00:00 04/09/19 07:26 04/09/19 07:26 04/09/19 04:00 04/09/19 07:18 Period Temp Pulse Resp BP Sys/Porter Pulse Ox Last 24 Hr 97.5 F-98.5 F 71-111 9-21 85-122/39-65 90-100 Intake and Output 04/08/19 04/09/19 04/09/19 21:59 05:59 13:59 Intake Total 390 1705 Output Total 354 437 105 Balance 36 1268 -105 Weight 78.88 kg Intake & Output: Intake & Output 04/08/19 04/09/19 04/09/19 21:59 05:59 13:59 Intake Total 390 1705 Output Total 354 437 105 Balance 36 1268 -105 Weight 78.88 kg Intake: IV 150 1345 Lactated Ringers 1,000 ml @ 100 595 mls/hr IV .Q10H [facility] Rx#: [id number] Vancomycin 1,250 mg In Sodium 500 Chloride 0.9% 500 ml @ 333.3 mls/hr IV Q12H [facility] Rx#: [id number] Oral 240 360 Output: Urine Catheter Amount 354 437 105 Other: Meal Dinner Percent of Meal Consumed 75% Feeding Ability Total Assistance Urine Appearance Clear Clear Suprapubic Cloudy Urine Color Dark Yellow Bright Yellow Suprapubic Straw Urine Odor Normal Normal Stool Size Moderate Small Stool Color Brown Brown Stool Consistency Soft Soft Formed Formed Exam: General: awake, No acute Distress Eyes/N/T: EOMI, Head/Neck: neck supple, normocephalic atraumatic CV: RRR, No murmurs, Pulm: Diminished b/l, mild bibase rales, no wheezing Abd: soft, nontender, +BS x4 Ext: no clubbing/cyanosis, 2-3+ b/l LE edema Neuro: alert, mentation improved, paraplegic lower extremities Skin: warm/dry Medical - PN: Obj Da - Labs CBC & Chem 7: 04/09/19 05:44 04/09/19 05:44 Labs: Abnormal Lab Results 04/09/19 04/09/19 04/08/19 05:44 05:44 02:32 WBC 3.8 L RBC 3.08 L Hgb 8.2 L Hct 27.2 L MCHC 30.1 L RDW 16.8 H Plt Count 58 L MPV 11.8 H Gran % 80.6 H Lymph % (Auto) 11.4 L Lymph # (Auto) 0.43 L RBC Morphology Anisocytosis D-Dimer VBG Lactic Acid 3.3 H BUN 29 H Creatinine 0.4 L Glucose 229 H Calcium 7.9 L GGT 139 H Alkaline Phosphatase 145 H C-Reactive Protein NT-Pro-B Natriuret Pep Total Protein 4.8 L Albumin 2.8 L Globulin 2.0 L Urine Protein Urine Glucose (UA) Urine Occult Blood Ur Leukocyte Esterase Urine RBC Urine WBC Hyaline Casts Urine Mucus 04/08/19 04/08/19 04/08/19 01:13 00:02 00:02 WBC RBC Hgb Hct MCHC RDW Plt Count MPV Gran % Lymph % (Auto) Lymph # (Auto) RBC Morphology Anisocytosis D-Dimer 1.62 H VBG Lactic Acid BUN Creatinine Glucose Calcium GGT Alkaline Phosphatase C-Reactive Protein 1.7 H NT-Pro-B Natriuret Pep Total Protein Albumin Globulin Urine Protein 30 A Urine Glucose (UA) 50 A Urine Occult Blood >=1.0 A Ur Leukocyte Esterase 250 A Urine RBC 58 H Urine WBC 94 H Hyaline Casts 10 H Urine Mucus Many A 04/07/19 04/07/19 04/07/19 23:59 23:59 23:59 WBC RBC Hgb Hct MCHC 30.2 L RDW 16.6 H Plt Count 95 L MPV 11.7 H Gran % Lymph % (Auto) Lymph # (Auto) 1.13 L RBC Morphology Abnorm A Anisocytosis Few A D-Dimer VBG Lactic Acid BUN 30 H Creatinine 0.5 L Glucose 321 H Calcium 8.4 L GGT Alkaline Phosphatase 259 H C-Reactive Protein NT-Pro-B Natriuret Pep 413.7 H Total Protein 5.4 L Albumin 2.8 L Globulin Urine Protein Urine Glucose (UA) Urine Occult Blood Ur Leukocyte Esterase Urine RBC Urine WBC Hyaline Casts Urine Mucus Meds: Medications Acetaminophen (Tylenol) 650 mg PO Q6HP PRN PRN Reason: PAIN/FEVER > 101 Albuterol/Ipratropium (Duoneb) 3 ml NEB Q6HRT [facility] Last Admin: 04/09/19 07:18 Dose: 3 ml Documented by: Cefepime HCl (Maxipime) 2 gm IV Q8H [facility]; Protocol Last Admin: 04/09/19 05:44 Dose: 2 gm Documented by: Dextrose (Dextrose 50%) 0 ml IV UD PRN PRN Reason: Hypoglycemia Diagnostic Test (Pha) (Accu-Chek) 1 each FS ACHS [facility] Last Admin: 04/09/19 07:33 Dose: 1 each Documented by: Docusate Sodium (Colace) 100 mg PO BID [facility] Last Admin: 04/08/19 20:53 Dose: Not Given Documented by: Enoxaparin Sodium (Lovenox) 40 mg SQ DAILY [facility] Last Admin: 04/08/19 09:34 Dose: 40 mg Documented by: Famotidine (Pepcid) 20 mg PO BID [facility] Last Admin: 04/08/19 23:15 Dose: Not Given Documented by: Glucose (Insta-Glucose) 15 gm PO PRN PRN PRN Reason: Hypoglycemia Metronidazole (Flagyl) 500 mg in 100 mls @ 100 mls/hr IV Q8H [facility]; Protocol Last Admin: 04/09/19 05:44 Dose: 100 mls/hr Documented by: Vancomycin HCl 1,250 mg/ (Sodium Chloride) 500 mls @ 333.3 mls/hr IV Q12H [facility] Last Infusion: 04/08/19 23:00 Dose: Infused Documented by: Potassium Chloride 40 meq/ (Dextrose) 520 mls @ 130 mls/hr IV UD PRN PRN Reason: Potassium < 3 Magnesium Sulfate (Magnesium Sulfate) 2 gm in 50 mls @ 50 mls/hr IV UD PRN PRN Reason: Magnesium </= 1.6 Last Infusion: 04/08/19 15:00 Dose: Infused Documented by: Lactated Ringer's (Lactated Ringers) 1,000 mls @ 75 mls/hr IV .[id number] [facility] Stop: 04/09/19 11:02 Last Admin: 04/09/19 04:10 Dose: 75 mls/hr Documented by: Insulin Glargine (Lantus) 15 unit SQ DAILY [facility] Insulin Human Lispro (Humalog) 0 unit SQ ACHS [facility]; Protocol Last Admin: 04/09/19 07:34 Dose: 4 unit Documented by: Metoclopramide HCl (Reglan) 5 mg PO QIDP PRN PRN Reason: Nausea Naloxone HCl (Narcan) 0.1 mg IV Q2MIN PRN PRN Reason: Opiate Reversal Non-Formulary Medication (Baclofen) 20 mg PO TID [facility] Non-Formulary Medication (Pregabalin) 50 mg PO QIDP [facility] Ondansetron HCl (Zofran) 4 mg IV Q4HP PRN PRN Reason: Nausea And Vomiting Last Admin: 04/08/19 12:03 Dose: 4 mg Documented by: Ondansetron HCl (Zofran) 4 mg IV Q4HP PRN PRN Reason: Nausea And Vomiting Oxybutynin Chloride (Ditropan Xl) 5 mg PO QDAY [facility] Polyethylene Glycol (Miralax) 17 gm PO DAILYP PRN PRN Reason: Constipation Potassium Chloride (Kdur) 40 meq PO UD PRN PRN Reason: Potssium is 3-3.5 Potassium Chloride (Kdur) 40 meq PO UD PRN PRN Reason: Potassium < 3 Senna (Senokot) 2 tab PO DAILYP PRN PRN Reason: Constipation Sertraline HCl (Zoloft) 25 mg PO BID [facility] Sodium Chloride (Saline Flush) 10 ml IV Q8 [facility] Last Admin: 04/09/19 05:46 Dose: Not Given Documented by: Vancomycin HCl (Vancomycin Per Pharmacy) 1 order IV UD [facility]; Protocol Medical - PN: A/P - Time Spent With Patient Total time spent is greater than 50% in coordination of care (as documented) at patient's floor/unit and/or counseling patient: - Narrative A/P Narrative: A: *PNA, Aspiration: *Sepsis: improved *Encephalopathy: 2/2 above + possible narcotic use. IMproved *Acute hypoxic respiratory failure: -on bipap initially, now 1L NC *Volume depletion: resolved *Paraplegic lower extremities with neurogenic bladder (suprapubic catheter): *cirrhosis w/thrombocytopenia: *Anemia, chronic: *Anxiety/depression: *GERD: *Left buttock unstageable pressure ulcer on admission: P: -cefepime/flagyl/vanco(d/c soon) -pending BC/SC -Barium swallow -IS/Acapella -prn diuretics -hold narcotics -basal and SSI -wound care -ppx: lovenox (hold for PLT<50k)/home ppi full code Medical - PN: Qual - Stroke Symptom Onset Unknown: No - VTE Deep Vein Thrombosis/Pulmonary Embolism Present on Admission: No
[2019-04-09] MEDS ORDERED: PREGABALIN 25 MG CAPSULE PO PRN (09:00)
[2019-04-09] MEDS: ENOXAPARIN 40 MG/0.4 ML SYRINGE SQ SCH (10:13)
[2019-04-09] MEDS: DOCUSATE SODIUM 100 MG CAPSULE PO SCH ×2 (10:13→21:34)
[2019-04-09] MEDS: VANCOMYCIN 1,250 MG in 0.9 % SODIUM CHLORIDE 500 ML IV SCH (10:14)
--- NOTE | 2019-04-09 10:17 | XRay Report ---
CLINICAL INFORMATION: Esophageal stricture TECHNIQUE: Single contrast barium was administered under fluoroscopic observation while spot films were obtained of the esophagus during deglutition in both the upright and prone positions. FINDINGS: Tongue elevation and palate depression are normal resulting in propulsion of the barium bolus into the pharynx. The nasopharyngeus closes normally. The epiglottis and vocal cords closed normally - no evidence of ascending aspiration. Pharyngeal stripping and cricopharyngeal opening are normal. The primary peristaltic wave is disrupted by multiple high amplitude irregular discoordinated tertiary contraction suggesting nutcracker esophagus. There is a high-grade stricture at the GE junction which impeded passage of barium bolus. 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 Interpreted and Authenticated by: David Neal 04/09/19
--- NOTE | 2019-04-09 10:46 | Discharge Summary ---
Medical - DS: Prov Patient information: Note initiated : 04/09/19 at 10:43 am Service Date, if different from initiated Date: [] Patient: Ebony Arroyo 54 y/o F admitted on 04/08/19 for shortness of breath. Chief Complaint: [] Date of admission: 04/08/19 03:45 Discharge date: 04/12/19 Primary care physician: Carole Carrero Consults: 04/08/19 Consult to Physician [CONS] Stat Comment: Consulting Provider: Joshua Colvin Reason For Exam: Physician to Consult 04/08/19 11:15 Consult to Physician [CONS] Routine Comment: pressure ulcer left buttock Consulting Provider: Eliud Montaño Reason For Exam: Physician to Consult Medical - DS: Meds - Discharge Medications Prescriptions: Amoxicillin/Potassium Clav [Augmentin] 875 mg PO Q12H #8 tab Amoxicillin/Potassium Clav [Augmentin] 875 mg PO Q12H #5 tab Transmission Status: Pending to [facility] Active and Home Medications: Home Medications Baclofen 20 mg PO TID 01/23/15 [History Confirmed 04/08/19 Last Taken 02/27/16] Insulin Aspart [Novolog] 0 unit SQ ACHS 01/23/15 [History Confirmed 04/08/19 Last Taken 02/27/16] Metoclopramide [Reglan] 5 mg PO QID PRN 01/23/15 [History Confirmed 04/08/19 Last Taken 02/27/16] Omeprazole [Prilosec] 20 mg PO BIDAC 01/23/15 [History Confirmed 04/08/19 Last Taken 02/27/16] Pregabalin [Lyrica] 50 mg PO QIDP 01/23/15 [History Confirmed 04/08/19 Last Taken 02/27/16] metFORMIN [Glucophage] 500 mg PO BIDCC 01/23/15 [History Confirmed 04/08/19 Last Taken 02/27/16] nystatin 100,000 unit/gram topical ointment 1 applic TOPICAL BID 10/22/17 [History Confirmed 04/08/19 Last Taken Unknown] sertraline 25 mg tablet 25 mg PO BID 09/29/18 [History Confirmed 04/08/19 Last Taken Unknown] oxybutynin chloride 5 mg tablet,extended release 24 hr 5 mg PO QDAY #30 tab 12/13/18 [Rx Confirmed 04/08/19 Last Taken Unknown] Furosemide [Lasix] 20 mg PO DAILY 03/12/19 [History Confirmed 04/08/19 Last Taken Unknown] Ipratropium/Albuterol [Duoneb] 3 ml NEB Q4-6HP PRN 03/12/19 [History Confirmed 04/08/19 Last Taken Unknown] Spironolactone [Aldactone] 50 mg PO DAILY 03/12/19 [History Confirmed 04/08/19 Last Taken Unknown] oxyCODONE HCL [Oxycodone HCl] 5 mg PO Q6HP PRN 03/12/19 [History Confirmed 04/08/19 Last Taken Unknown] Adhesive Tape [Durapore] 0 unit .ROUTE .MEDSUPPLY 03/13/19 [History Confirmed 04/09/19 Last Taken Unknown] Benzonatate [Tessalon] 100 mg PO BID PRN 03/13/19 [History Confirmed 04/08/19 Last Taken Unknown] Ferrous Sulfate [Iron] 325 mg PO BID 03/13/19 [History Confirmed 04/08/19 Last Taken Unknown] Gauze Bandage [Band-Aid Gauze Pads] 0 unit .ROUTE .MEDSUPPLY MDD 4 03/13/19 [History Confirmed 04/09/19 Last Taken Unknown] Insulin Glargine,Hum.rec.anlog [Basaglar Kwikpen U-100] 15 unit SQ DAILY 03/13/19 [History Confirmed 04/08/19 Last Taken Unknown] Urinary Bag [Xpecgl-P-Hib Leg Bag Small] 0 units .ROUTE .MEDSUPPLY 03/13/19 [History Confirmed 04/09/19 Last Taken Unknown] Amoxicillin/Potassium Clav [Augmentin] 875 mg PO Q12H #8 tab 03/17/19 [Rx Confirmed 04/08/19 Last Taken Unknown] Cefuroxime Axetil [Cefuroxime] 500 mg PO BID 04/08/19 [History Confirmed 04/08/19 Last Taken Unknown] Fluconazole [Diflucan] 150 mg PO 2-3XW 04/08/19 [History Confirmed 04/08/19 Last Taken Unknown] Pen Needle, Diabetic [Carefine Pen Needle] 1 each MISC DAILY 04/08/19 [History Confirmed 04/09/19 Last Taken Unknown] metroNIDAZOLE (PP) [Flagyl (Pp)] 500 mg PO TID 04/08/19 [History Confirmed 04/08/19 Last Taken Unknown] traMADol [Ultram] 50 mg PO QIDP PRN 04/08/19 [History Confirmed 04/08/19 Last Taken Unknown] Medical - DS: Hosp Hospital Course: Ms. Arroyo is a 54 year old F History is obtained mostly from the as patient is currently on BiPAP. Per history patient doing well yesterday morning but then yesterday afternoon she started gurgling per becoming more short of breath and more lethargic thus patient brought in the ED. She is had hospitalization for aspiration pneumonia at [facility] earlier this year and was in the hospital January for sepsis from urinary tract infection. When EMS arrived her sats were in 70s. No reported nausea vomiting. Quite somnolent in ED. Did have a lot of sputum production ED. The ED she is eventually put on BiPAP. 04/09 Feeling better. More energy. Mentation much improved. She is on 1 L nasal cannula and has good oxygen saturations. Barium swallow showing high-grade stricture of the GE junction. Patient tolerating pured liquid diet. Will need to follow-up with GI for dilatation. 04/10 Patient did not sleep as well last night. Her chronic pain is acting up. Lyrica was entered as PRN home medications this was corrected yesterday started last night with regular dosing. Is feeling better this morning after emotional night. C. difficile pending. Poor urine output. Occasional nausea but no other complaints. Restart pain medications but at lower dose. She is on room air now. 04/11 Kneeling well. Good diuresis after Bumex yesterday. No new complaints. Slept well. some nausea 04/12 Doing well and stable for discharge. A: *PNA, Aspiration: *?UTI, on admit vs chronic findings given suprpubic cath: *Esophageal Stricture, High-grade & GE Junction: *Sepsis: improved *Encephalopathy: 2/2 above + possible narcotic use. IMproved *Acute hypoxic respiratory failure: -on bipap initially, now on room air *Volume depletion: resolved *Hypokalemia: *Paraplegic lower extremities with neurogenic bladder (suprapubic catheter): *cirrhosis w/thrombocytopenia: *Anemia, chronic: *Anxiety/depression: *GERD: *Left buttock unstageable pressure ulcer on admission: *Diarrhea: Discharge diagnosis: Aspiration pneumonia acute hypoxic respiratory failure sepsis cephalopathy Secondary discharge diagnosis: Cirrhosis anemia anxiety depression GERD volume depletion. Esophageal stricture - Time Spent with Patient Total time spent providing and/or coordinating discharge services: Greater than 30 minutes Medical - DS: Exam - Constitutional Vitals: Vital Signs Temp Pulse Pulse Resp BP Pulse Ox 04/09/19 08:01 98.1 F 99 H 15 96/41 97 04/09/19 08:00 15 97 04/09/19 07:31 83 13 97/43 100 04/09/19 07:26 86 14 04/09/19 07:18 99 04/09/19 07:01 88 13 99/47 98 04/09/19 06:31 85 13 104/53 98 04/09/19 06:01 87 13 112/60 100 04/09/19 05:30 88 19 100/52 99 04/09/19 05:00 89 13 99/51 99 04/09/19 04:46 94 H 11 L 99 04/09/19 04:00 95 H 14 118/56 98 04/09/19 03:30 95 H 20 109/54 98 04/09/19 03:00 104 H 17 121/54 96 04/09/19 02:30 111 H 21 122/56 96 04/09/19 02:00 85 18 90/52 100 04/09/19 01:30 85 17 101/49 97 04/09/19 01:00 84 18 89/47 98 04/09/19 00:30 89 15 101/46 98 04/09/19 00:00 98.1 F 80 10 L 88/45 95 04/08/19 23:30 99 H 17 108/54 96 04/08/19 22:30 97 H 19 112/54 97 04/08/19 22:24 100 H 20 108/55 97 04/08/19 22:00 88 21 97/52 99 04/08/19 21:55 86 17 97/49 98 04/08/19 21:30 95 H 21 109/52 96 04/08/19 21:00 81 18 111/52 90 04/08/19 20:30 87 13 96/53 96 04/08/19 20:13 89 18 96 04/08/19 20:00 97.8 F 94 H 13 96/48 94 04/08/19 19:34 94 H 12 93/42 96 04/08/19 19:30 95 H 13 97/40 96 04/08/19 19:00 94 H 14 91/43 97 04/08/19 18:31 94 H 18 102/46 99 04/08/19 18:30 101 H 15 04/08/19 18:01 100 H 15 113/49 97 04/08/19 17:31 74 13 104/47 97 04/08/19 17:17 82 16 96/46 97 04/08/19 17:10 83 16 85/46 95 04/08/19 17:03 75 11 L 87/42 96 04/08/19 17:01 75 12 89/44 97 04/08/19 16:31 86 12 108/50 96 04/08/19 16:01 98.5 F 84 13 101/43 95 04/08/19 15:35 87 12 95/42 96 04/08/19 15:06 109 H 17 107/53 93 04/08/19 15:04 89 20 99/42 95 04/08/19 15:01 91 H 14 96/39 95 04/08/19 14:31 99 H 14 110/44 94 04/08/19 14:23 85 15 98 04/08/19 14:02 91 H 15 04/08/19 14:01 83 15 119/65 97 04/08/19 14:00 96 H 12 97 04/08/19 13:31 71 14 92/50 97 04/08/19 13:01 73 11 L 96/49 96 04/08/19 12:31 79 9 L 100/57 96 04/08/19 11:30 73 10 L 100/54 97 04/08/19 11:00 81 12 100/56 99 Intake and Output 04/08/19 04/09/19 04/09/19 21:59 05:59 13:59 Intake Total 390 1705 Output Total 354 437 125 Balance 36 1268 -125 Intake: IV 150 1345 Lactated Ringers 1,000 ml @ 100 595 mls/hr IV .Q10H [facility] Rx#: [id number] Vancomycin 1,250 mg In Sodium 500 Chloride 0.9% 500 ml @ 333.3 mls/hr IV Q12H [facility] Rx#: [id number] Oral 240 360 Output: Urine Catheter Amount 354 437 125 Other: Meal Dinner Percent of Meal Consumed 75% Feeding Ability Total Assistance Urine Appearance Clear Clear Clear Suprapubic Cloudy Urine Color Dark Yellow Bright Yellow Bright Yellow Suprapubic Straw Urine Odor Normal Normal Normal Stool Size Moderate Small Small Stool Color Brown Brown Brown Stool Consistency Soft Soft Soft Formed Formed Formed Weight 78.88 kg Medical - DS: Data Labs on day of discharge: Labs from last 24 hours 04/09/19 04/09/19 04/09/19 08:08 05:44 05:44 WBC 3.8 L RBC 3.08 L Hgb 8.2 L Hct 27.2 L MCV 88.3 MCH 26.6 MCHC 30.1 L RDW 16.8 H Plt Count 58 L MPV 11.8 H Gran % 80.6 H Lymph % (Auto) 11.4 L [place] % (Auto) 7.4 Eos % (Auto) 0.3 Baso % (Auto) 0.3 Gran # 3.03 Lymph # (Auto) 0.43 L [place] # (Auto) 0.28 Eos # (Auto) 0.01 Baso # (Auto) 0.01 Sodium 140 Potassium 3.4 Chloride 103 Carbon Dioxide 23 Anion Gap 14.0 BUN 29 H Creatinine 0.4 L GFR Calculation 117 Glucose 229 H Uric Acid 7.2 Calcium 7.9 L Phosphorus 2.9 Magnesium 1.8 Total Bilirubin 0.7 Direct Bilirubin 0.3 GGT 139 H AST 22 ALT 11 Alkaline Phosphatase 145 H Lactate Dehydrogenase 148 Total Protein 4.8 L Albumin 2.8 L Globulin 2.0 L Albumin/Globulin Ratio 1.4 Triglycerides 78 Vancomycin Trough 20.3 H* Preliminary micro results at discharge 04/08/19 01:13 Urine Culture - Preliminary Urine - Catheterized 04/08/19 02:42 Blood Culture - Preliminary Blood 04/08/19 02:32 Blood Culture - Preliminary Blood Medical - DS: A/P - Patient/Caregiver Discharge Instructions Activity: increase activity as tolerated Diet: Dysphagia Level 4 Pureed Foods Additional Instructions: Referral to see salesperson yard goods in 5 to 10 days for esophageal dilation Prescriptions: Amoxicillin/Potassium Clav [Augmentin] 875 mg PO Q12H #8 tab Other Amb Orders: OT Discharge Order Location: None Selected Physical Therapy at Discharge - General Location: None Selected ST Discharge Order Location: None Selected - Follow up Plan Follow up with: Carole Carrero MD [Primary Care Provider] - Eliud Montaño MD [Physician] - Disposition: Home Health Service Prognosis: Undetermined Rehab Potential: Fair Overall status at discharge: patient is progressing back to baseline Medical - DS: Qual - VTE Deep Vein Thrombosis/Pulmonary Embolism Present on Admission: No
[2019-04-09] MEDS: BACLOFEN 10 MG TABLET PO SCH ×3 (10:58→21:34)
[2019-04-09] MEDS: OXYBUTYNIN CHLORIDE 5 MG TAB.XL.24H PO SCH (10:58)
[2019-04-09] MEDS: SERTRALINE 50 MG TABLET PO SCH ×2 (10:59→20:44)
[2019-04-09] MEDS: FAMOTIDINE 20 MG TABLET PO SCH ×2 (10:59→21:34)
[2019-04-09] MEDS: INSULIN GLARGINE, HUMAN 1 UNIT/0.01 ML SQ SCH (11:10)
--- NOTE | 2019-04-09 18:27 | General Surgery Consult Note ---
History of Present Illness Patient information: Note initiated : 04/09/19 at 6:20 pm Service Date, if different from initiated Date: [] Patient: Ebony Arroyo a 54 y/o F admitted on 04/08/19 for shortness of breath. Chief Complaint: [] Consult date: 04/09/19 Requesting physician: Joshua Colvin (Pressure ulcers ISCHIAL ) History of present illness: I reviewed EHR and examined this patient in ICU 120-C, along with Faustina, [employer]. This is a 54/F with paraplegia and dysphagia due to high esophageal stricture. She was emergently admitted with hypoxia and AMS due to pneumonia. She has responded well to aggressive supportive care and treatment. AMS and hypoxia has improved and she is now swallowing soft pureed diet. She will need GI evaluation and esophageal dilatation later. Patient was noted to have chronic Grade 3 Left and Grade 2 right ischial pres sure ulcers. Medications and Allergies Home Medications Medication Instructions Recorded Confirmed Type Baclofen 20 mg PO TID 01/23/15 04/08/19 History Insulin Aspart [Novolog] 0 unit SQ ACHS 01/23/15 04/08/19 History Metoclopramide [Reglan] 5 mg PO QID PRN 01/23/15 04/08/19 History Omeprazole [Prilosec] 20 mg PO BIDAC 01/23/15 04/08/19 History Pregabalin [Lyrica] 50 mg PO QIDP 01/23/15 04/08/19 History metFORMIN [Glucophage] 500 mg PO BIDCC 01/23/15 04/08/19 History nystatin 100,000 unit/gram topical 1 applic TOPICAL BID 10/22/17 04/08/19 History ointment sertraline 25 mg tablet 25 mg PO BID 09/29/18 04/08/19 History oxybutynin chloride 5 mg 5 mg PO QDAY #30 tab 12/13/18 04/08/19 Rx tablet,extended release 24 hr Furosemide [Lasix] 20 mg PO DAILY 03/12/19 04/08/19 History Ipratropium/Albuterol [Duoneb] 3 ml NEB Q4-6HP PRN 03/12/19 04/08/19 History Spironolactone [Aldactone] 50 mg PO DAILY 03/12/19 04/08/19 History oxyCODONE HCL [Oxycodone HCl] 5 mg PO Q6HP PRN 03/12/19 04/08/19 History Adhesive Tape [Durapore] 0 unit .ROUTE .MEDSUPPLY 03/13/19 04/09/19 History Benzonatate [Tessalon] 100 mg PO BID PRN 03/13/19 04/08/19 History Ferrous Sulfate [Iron] 325 mg PO BID 03/13/19 04/08/19 History Gauze Bandage [Band-Aid Gauze Pads] 0 unit .ROUTE .MEDSUPPLY MDD 4 03/13/19 04/09/19 History Insulin Glargine,Hum.rec.anlog 15 unit SQ DAILY 03/13/19 04/08/19 History [Basaglar Kwikpen U-100] Urinary Bag [Yrakhz-A-Sxr Leg Bag 0 units .ROUTE .MEDSUPPLY 03/13/19 04/09/19 History Small] Fluconazole [Diflucan] 150 mg PO 2-3XW 04/08/19 04/08/19 History Pen Needle, Diabetic [Carefine Pen 1 each MISC DAILY 04/08/19 04/09/19 History Needle] traMADol [Ultram] 50 mg PO QIDP PRN 04/08/19 04/08/19 History Amoxicillin/Potassium Clav 875 mg PO Q12H #8 tab 04/09/19 Rx [Augmentin] Allergies Allergy/AdvReac Type Severity Reaction Status Date / Time piperacillin [From Zosyn] Allergy Mild Rash Verified 03/11/19 09:42 tazobactam [From Zosyn] Allergy Mild Rash Verified 03/11/19 09:42 azithromycin AdvReac Mild Nausea Verified 03/11/19 09:42 cefuroxime AdvReac Mild Nausea Verified 03/11/19 09:42 Erythromycin Base AdvReac Mild Vomiting Verified 03/11/19 09:42 nitrofurantoin AdvReac Mild Nausea Verified 03/11/19 09:42 Penicillins AdvReac Mild Nausea Verified 03/11/19 09:42 lorazepam [From Ativan] AdvReac Unknown Unknown Verified 03/11/19 09:42 Macrolide Antibiotics AdvReac Verified 04/07/19 23:34 Exam Temp Pulse Resp BP Pulse Ox 98.2 F 102 H 16 108/48 96 04/09/19 16:01 04/09/19 16:46 04/09/19 16:01 04/09/19 16:01 04/09/19 16:46 - General physical appearance well developed, well nourished, no distress - Eyes PERRL, normal ocular movement - ENT normal nares, normal mucosa, no congestion - Head Head exam IM: Present: atraumatic, normocephalic - Neck trachea midline, no venous distension - Cardiovascular Cardiovascular exam IM: Present: normal rate and rhythm - Respiratory normal expansion, normal respiratory effort, clear to auscultation - Abdomen Abdomen: Present: soft, non tender, bowel sounds - Genitourinary Present: other (Lockhart catheter ; clear urine) - Rectum Rectum: Present: other (Patient had a large BM. Well formed soft stool.) - Integumentary Present: other (Grade 3 Pressure ulcer Left ischial spine and Grade 2 over Right ischial spine. Periwound skin and subcutaneous texture is at baseline for this patient. Mepilex border foam is covering this area and preventing fecal contamination.) - Neurologic Present: other (Bed confined. Paraplegia.) - Musculoskeletal Present: other (Bed confined paraplegic. ) - Psychiatric Present: oriented to person, speech is normal Results - Labs 04/09/19 05:44 04/09/19 05:44 Abnormal lab results 04/09/19 04/09/19 04/09/19 Range/Units 05:44 05:44 08:08 WBC 3.8 L (4.50-11.00) K/mcL RBC 3.08 L (3.59-5.38) M/mcL Hgb 8.2 L (11.2-15.7) g/dL Hct 27.2 L (34.1-44.9) % MCHC 30.1 L (31.0-36.0) g/dL RDW 16.8 H (11.5-14.5) % Plt Count 58 L (140-440) K/mcL MPV 11.8 H (7.4-10.4) fL Gran % 80.6 H (38.0-78.0) % Lymph % (Auto) 11.4 L (15.5-49.0) % Lymph # (Auto) 0.43 L (1.50-4.80) K/mcL BUN 29 H (6-20) mg/dl Creatinine 0.4 L (0.6-1.1) mg/dl Glucose 229 H (70-105) mg/dL Calcium 7.9 L (8.6-10.4) mg/dl GGT 139 H (5-36) U/L Alkaline Phosphatase 145 H (39-117) U/L Total Protein 4.8 L (5.9-8.4) gm/dL Albumin 2.8 L (3.2-5.2) gm/dL Globulin 2.0 L (2.2-3.7) gm/dL Vancomycin Trough 20.3 H* ug/mL Diabetes panel 04/09/19 Range/Units 05:44 Sodium 140 (133-145) mmol/L Potassium 3.4 (3.3-5.1) mmol/L Chloride 103 (96-108) mmol/L Carbon Dioxide 23 (22-30) mmol/L BUN 29 H (6-20) mg/dl Creatinine 0.4 L (0.6-1.1) mg/dl Glucose 229 H (70-105) mg/dL Calcium 7.9 L (8.6-10.4) mg/dl AST 22 (0-37) U/l ALT 11 (0-40) U/l Alkaline Phosphatase 145 H (39-117) U/L Total Protein 4.8 L (5.9-8.4) gm/dL Albumin 2.8 L (3.2-5.2) gm/dL Triglycerides 78 (<150) mg/dl Calcium panel 04/09/19 Range/Units 05:44 Calcium 7.9 L (8.6-10.4) mg/dl Phosphorus 2.9 (2.7-4.5) mg/dL Albumin 2.8 L (3.2-5.2) gm/dL Pituitary panel 04/09/19 Range/Units 05:44 Sodium 140 (133-145) mmol/L Potassium 3.4 (3.3-5.1) mmol/L Chloride 103 (96-108) mmol/L Carbon Dioxide 23 (22-30) mmol/L BUN 29 H (6-20) mg/dl Creatinine 0.4 L (0.6-1.1) mg/dl Glucose 229 H (70-105) mg/dL Calcium 7.9 L (8.6-10.4) mg/dl Adrenal panel 04/09/19 Range/Units 05:44 Sodium 140 (133-145) mmol/L Potassium 3.4 (3.3-5.1) mmol/L Chloride 103 (96-108) mmol/L Carbon Dioxide 23 (22-30) mmol/L BUN 29 H (6-20) mg/dl Creatinine 0.4 L (0.6-1.1) mg/dl Glucose 229 H (70-105) mg/dL Calcium 7.9 L (8.6-10.4) mg/dl Total Bilirubin 0.7 (0.0-1.0) mg/dL AST 22 (0-37) U/l ALT 11 (0-40) U/l Alkaline Phosphatase 145 H (39-117) U/L Total Protein 4.8 L (5.9-8.4) gm/dL Albumin 2.8 L (3.2-5.2) gm/dL All other labs normal. Assessment and Plan (1) Pressure ulcer of buttock Status: Chronic Priority: Low Comment: Assessment:Pressure Ulcers Left ischial Grade 3 and Right Grade 2. Plan: Mepilex border foam to cover and the site and assist with avoidance of fecal contamination. May remove this for clensing after BM. Avoid pressure TAPS when in bed per schedule and use ROHO cushion for chair. TO change or shift position in chair q 15-20 minuts.
[2019-04-09] MEDS ORDERED: ALBUMIN HUMAN 12.5 GM/50 ML BAG IV ONE (18:54)
[2019-04-09] MEDS ORDERED: INSULIN GLARGINE, HUMAN 1 UNIT/0.01 ML SQ ONE (18:56)
[2019-04-09] MEDS ORDERED: METOPROLOL TARTRATE 25 MG TABLET PO ONE (19:52)
[2019-04-10] MEDS ORDERED: 0.9 % SODIUM CHLORIDE 250 ML IV ONE (00:12)
[2019-04-10] MEDS: IPRATROPIUM/ALBUTEROL 3 ML AMPUL.NEB NEB SCH ×4 (00:14→18:50)
[2019-04-10 00:19] LABS: Hemoglobin A1C 5.8 % HGB (4.0-6.0)
[2019-04-10] MEDS: ONDANSETRON 4 MG/2 ML VIAL IV PRN ×2 (01:04→05:16)
[2019-04-10] MEDS: CEFEPIME 2 GM VIAL IV SCH ×3 (05:56→21:39)
[2019-04-10] MEDS: metroNIDAZOLE 500 MG/100 ML BAG IV SCH ×3 (05:57→21:40)
[2019-04-10] MEDS: 0.9 % SODIUM CHLORIDE 10 ML SYRINGE IV SCH ×3 (06:17→23:10)
[2019-04-10 06:29] LABS: Basophils # (Auto) 0 K/mcL (0.00-0.30); Basophils % (Auto) 0 % (0.0-2.0); Eosinophils # (Auto) 0.05 K/mcL (0.00-0.70); Eosinophils % (Auto) 1.5 % (0.0-7.0); Granulocytes % (Auto) 74.5 % (38.0-78.0); Hematocrit 25.8 % (34.1-44.9); Hemoglobin 7.9 g/dL (11.2-15.7); Lymphocytes # (Auto) 0.57 K/mcL (1.50-4.80); Lymphocytes % (Auto) 17.3 % (15.5-49.0); Mean Cell Volume 88.1 fL (80.0-100.0); Mean Corpuscular HGB Conc 30.6 g/dL (31.0-36.0); Mean Platelet Volume 11.7 fL (7.4-10.4); Monocytes # (Auto) 0.22 K/mcL (0.10-0.90); Monocytes % (Auto) 6.7 % (1.0-12.0); Platelet Count 57 K/mcL (140-440); RBC 2.93 M/mcL (3.59-5.38); Red Cell Distribution Width 16.7 % (11.5-14.5); WBC 3.3 K/mcL (4.50-11.00)
[2019-04-10 06:45] LABS: Blood Urea Nitrogen 27 mg/dl (6-20); Calcium 7.9 mg/dl (8.6-10.4); Carbon Dioxide 24 mmol/L (22-30); Chloride 102 mmol/L (96-108); Glomerular Filtration Rate 117; Glucose 111 mg/dL (70-105)
[2019-04-10] MEDS: INSULIN LISPRO 1 UNIT/0.01 ML UNIT SQ SCH ×4 (08:00→21:42)
[2019-04-10] MEDS ORDERED: POTASSIUM CHLORIDE 20 MEQ TABLET PO ONE (08:19)
--- NOTE | 2019-04-10 08:21 | Internal Med Progress Note ---
Medical - PN: Subj Patient information: Note initiated : 04/10/19 at 8:16 am Service Date, if different from initiated Date: [] Patient: Ebony Arroyo a 54 y/o F admitted on 04/08/19 for shortness of breath. Chief Complaint: [] Interval history: Ms. Arroyo is a 54 year old F History is obtained mostly from the as patient is currently on BiPAP. Per history patient doing well yesterday morning but then yesterday afternoon she started gurgling per becoming more short of breath and more lethargic thus patient brought in the ED. She is had hospitalization for aspiration pneumonia at [facility] earlier this year and was in the hospital January for sepsis from urinary tract infection. When EMS arrived her sats were in 70s. No reported nausea vomiting. Quite somnolent in ED. Did have a lot o f sputum production ED. The ED she is eventually put on BiPAP. 04/09 Willing better. More energy. Mentation much improved. She is on 1 L nasal cannula and has good oxygen saturations. Barium swallow today. 04/10 Patient did not sleep as well last night. Her chronic pain is acting up. Lyrica was entered as PRN home medications this was corrected yesterday started last night with regular dosing. Is feeling better this morning after emotional night. C. difficile pending. Poor urine output. Occasional nausea but no other complaints. Restart pain medications but at lower dose. She is on room air now. Review of Systems: denies headache/fever/chills/vomiting/chest or abdominal pain/cough /dyspnea/diarrhea. Otherwise see above. - Constitutional Vitals: Vital Signs Temp Pulse Resp BP Pulse Ox 98.2 F 85 16 103/56 96 04/09/19 16:01 04/10/19 07:10 04/10/19 07:10 04/10/19 04:01 04/10/19 06:59 Period Temp Pulse Resp BP Sys/Porter Pulse Ox Last 24 Hr 98.2 F-98.6 F 77-123 11-20 91-119/40-60 92-100 Intake and Output 04/09/19 04/10/19 04/10/19 21:59 05:59 13:59 Intake Total 820 1760 100 Output Total 175 160 25 Balance 645 1600 75 Weight 78.88 kg Intake & Output: Intake & Output 04/09/19 04/10/19 04/10/19 21:59 05:59 13:59 Intake Total 820 1760 100 Output Total 175 160 25 Balance 645 1600 75 Weight 78.88 kg Intake: IV 100 1400 100 Sodium Chloride 0.9% 250 ml @ 250 Wide Open IV [facility] ONE Rx#: [id number] Lactated Ringers 1,000 ml @ 75 1000 mls/hr IV .[id number] [facility] Rx#: [id number] Oral 720 360 Output: Urine Catheter Amount 175 160 25 Other: Urine Appearance Clear Clear Urine Color Dark Twyla Dark Yellow Urine Odor Normal Normal Stool Size Moderate Small Moderate Stool Color Brown Brown Brown Stool Consistency Soft Soft Soft Exam: General: awake, No acute Distress Eyes/N/T: EOMI, Head/Neck: neck supple, normocephalic atraumatic CV: RRR, No murmurs, Pulm: Diminished b/l, mild bibase rales, no wheezing Abd: soft, nontender, +BS x4 Ext: no clubbing/cyanosis, 2+ b/l LE edema Neuro: alert, mentation improved, paraplegic lower extremities Skin: warm/dry Medical - PN: Obj Da - Labs CBC & Chem 7: 04/10/19 05:13 04/10/19 05:13 Labs: Abnormal Lab Results 04/10/19 04/10/19 04/09/19 05:13 05:13 08:08 WBC 3.3 L RBC 2.93 L Hgb 7.9 L Hct 25.8 L MCHC 30.6 L RDW 16.7 H Plt Count 57 L MPV 11.7 H Gran % Lymph % (Auto) Lymph # (Auto) 0.57 L RBC Morphology Anisocytosis D-Dimer VBG Lactic Acid Potassium 3.2 L BUN 27 H Creatinine 0.4 L Glucose 111 H Calcium 7.9 L GGT Alkaline Phosphatase C-Reactive Protein NT-Pro-B Natriuret Pep Total Protein Albumin Globulin Urine Protein Urine Glucose (UA) Urine Occult Blood Ur Leukocyte Esterase Urine RBC Urine WBC Hyaline Casts Urine Mucus Vancomycin Trough 20.3 H* 04/09/19 04/09/19 04/08/19 05:44 05:44 02:32 WBC 3.8 L RBC 3.08 L Hgb 8.2 L Hct 27.2 L MCHC 30.1 L RDW 16.8 H Plt Count 58 L MPV 11.8 H Gran % 80.6 H Lymph % (Auto) 11.4 L Lymph # (Auto) 0.43 L RBC Morphology Anisocytosis D-Dimer VBG Lactic Acid 3.3 H Potassium BUN 29 H Creatinine 0.4 L Glucose 229 H Calcium 7.9 L GGT 139 H Alkaline Phosphatase 145 H C-Reactive Protein NT-Pro-B Natriuret Pep Total Protein 4.8 L Albumin 2.8 L Globulin 2.0 L Urine Protein Urine Glucose (UA) Urine Occult Blood Ur Leukocyte Esterase Urine RBC Urine WBC Hyaline Casts Urine Mucus Vancomycin Trough 04/08/19 04/08/19 04/08/19 01:13 00:02 00:02 WBC RBC Hgb Hct MCHC RDW Plt Count MPV Gran % Lymph % (Auto) Lymph # (Auto) RBC Morphology Anisocytosis D-Dimer 1.62 H VBG Lactic Acid Potassium BUN Creatinine Glucose Calcium GGT Alkaline Phosphatase C-Reactive Protein 1.7 H NT-Pro-B Natriuret Pep Total Protein Albumin Globulin Urine Protein 30 A Urine Glucose (UA) 50 A Urine Occult Blood >=1.0 A Ur Leukocyte Esterase 250 A Urine RBC 58 H Urine WBC 94 H Hyaline Casts 10 H Urine Mucus Many A Vancomycin Trough 04/07/19 04/07/19 04/07/19 23:59 23:59 23:59 WBC RBC Hgb Hct MCHC 30.2 L RDW 16.6 H Plt Count 95 L MPV 11.7 H Gran % Lymph % (Auto) Lymph # (Auto) 1.13 L RBC Morphology Abnorm A Anisocytosis Few A D-Dimer VBG Lactic Acid Potassium BUN 30 H Creatinine 0.5 L Glucose 321 H Calcium 8.4 L GGT Alkaline Phosphatase 259 H C-Reactive Protein NT-Pro-B Natriuret Pep 413.7 H Total Protein 5.4 L Albumin 2.8 L Globulin Urine Protein Urine Glucose (UA) Urine Occult Blood Ur Leukocyte Esterase Urine RBC Urine WBC Hyaline Casts Urine Mucus Vancomycin Trough Meds: Medications Acetaminophen (Tylenol) 650 mg PO Q6HP PRN PRN Reason: PAIN/FEVER > 101 Last Admin: 04/09/19 22:19 Dose: 650 mg Documented by: Albuterol/Ipratropium (Duoneb) 3 ml NEB Q6HRT [facility] Last Admin: 04/10/19 06:58 Dose: 3 ml Documented by: Baclofen (Lioresal) 20 mg PO TID [facility] Last Admin: 04/09/19 21:34 Dose: 20 mg Documented by: Cefepime HCl (Maxipime) 2 gm IV Q8H [facility]; Protocol Last Admin: 04/10/19 05:56 Dose: 2 gm Documented by: Dextrose (Dextrose 50%) 0 ml IV UD PRN PRN Reason: Hypoglycemia Diagnostic Test (Pha) (Accu-Chek) 1 each FS [facility] Last Admin: 04/10/19 07:59 Dose: 1 each Documented by: Docusate Sodium (Colace) 100 mg PO BID [facility] Last Admin: 04/09/19 21:34 Dose: Not Given Documented by: Enoxaparin Sodium (Lovenox) 40 mg SQ DAILY [facility] Last Admin: 04/09/19 10:13 Dose: Not Given Documented by: Famotidine (Pepcid) 20 mg PO BID [facility] Last Admin: 04/09/19 21:34 Dose: 20 mg Documented by: Glucose (Insta-Glucose) 15 gm PO PRN PRN PRN Reason: Hypoglycemia Metronidazole (Flagyl) 500 mg in 100 mls @ 100 mls/hr IV Q8H [facility]; Protocol Last Infusion: 04/10/19 07:00 Dose: Infused Documented by: Potassium Chloride 40 meq/ (Dextrose) 520 mls @ 130 mls/hr IV UD PRN PRN Reason: Potassium < 3 Magnesium Sulfate (Magnesium Sulfate) 2 gm in 50 mls @ 50 mls/hr IV UD PRN PRN Reason: Magnesium </= 1.6 Last Infusion: 04/08/19 15:00 Dose: Infused Documented by: Vancomycin HCl 1,500 mg/ (Sodium Chloride) 500 mls @ 333.3 mls/hr IV DAILY [facility] Insulin Glargine (Lantus) 15 unit SQ DAILY [facility] Last Admin: 04/09/19 11:10 Dose: 15 unit Documented by: Insulin Human Lispro (Humalog) [address] [facility]; Protocol Last Admin: 04/10/19 08:00 Dose: Not Given Documented by: Metoclopramide HCl (Reglan) 5 mg PO QIDP PRN PRN Reason: Nausea Last Admin: 04/10/19 06:17 Dose: 5 mg Documented by: Naloxone HCl (Narcan) 0.1 mg IV Q2MIN PRN PRN Reason: Opiate Reversal Ondansetron HCl (Zofran) 4 mg IV Q4HP PRN PRN Reason: Nausea And Vomiting Last Admin: 04/10/19 05:16 Dose: 4 mg Documented by: Ondansetron HCl (Zofran) 4 mg IV Q4HP PRN PRN Reason: Nausea And Vomiting Oxybutynin Chloride (Ditropan Xl) 5 mg PO QDAY [facility] Last Admin: 04/09/19 10:58 Dose: 5 mg Documented by: Polyethylene Glycol (Miralax) 17 gm PO DAILYP PRN PRN Reason: Constipation Potassium Chloride (Kdur) 40 meq PO UD PRN PRN Reason: Potssium is 3-3.5 Potassium Chloride (Kdur) 40 meq PO UD PRN PRN Reason: Potassium < 3 Pregabalin (Lyrica) 50 mg PO QIDP PRN PRN Reason: NEUROPATHIC PAIN Last Admin: 04/09/19 21:34 Dose: 50 mg Documented by: Senna (Senokot) 2 tab PO DAILYP PRN PRN Reason: Constipation Sertraline HCl (Zoloft) 25 mg PO BID [facility] Last Admin: 04/09/19 20:44 Dose: 25 mg Documented by: Sodium Chloride (Saline Flush) 10 ml IV Q8 [facility] Last Admin: 04/10/19 06:17 Dose: 10 ml Documented by: Vancomycin HCl (Vancomycin Per Pharmacy) 1 order IV UD [facility]; Protocol Medical - PN: A/P - Time Spent With Patient Total time spent is greater than 50% in coordination of care (as documented) at patient's floor/unit and/or counseling patient: - Narrative A/P Narrative: A: *PNA, Aspiration: *?UTI, on admit vs chronic findings given suprpubic cath: *Esophageal Stricture, High-grade & GE Junction: *Sepsis: improved *Encephalopathy: 2/2 above + possible narcotic use. IMproved *Acute hypoxic respiratory failure: -on bipap initially, now on room air *Volume depletion: resolved *Hypokalemia: *Paraplegic lower extremities with neurogenic bladder (suprapubic catheter): *cirrhosis w/thrombocytopenia: *Anemia, chronic: *Anxiety/depression: *GERD: *Left buttock unstageable pressure ulcer on admission: *Diarrhea: P: -modified diet, will need to f/u with GI soon for esophageal dilation -cefepime/flagyl/vanco - deescalate, -pending BC/SC/UC -IS/Acapella -prn diuretics -restart narcotics at lower dose d/t pain and avoid w/d -basal and SSI -wound care -potassium replacement -c. diff pending, monitor for bloody stool -ppx: lovenox (hold for PLT<50k)/home ppi full code Medical - PN: Qual - Stroke Symptom Onset Unknown: No - VTE Deep Vein Thrombosis/Pulmonary Embolism Present on Admission: No
[2019-04-10] MEDS: OXYBUTYNIN CHLORIDE 5 MG TAB.XL.24H PO SCH (08:36)
[2019-04-10] MEDS: DOCUSATE SODIUM 100 MG CAPSULE PO SCH ×2 (08:36→21:43)
[2019-04-10] MEDS: BACLOFEN 10 MG TABLET PO SCH ×3 (08:37→21:40)
[2019-04-10] MEDS: SERTRALINE 50 MG TABLET PO SCH ×2 (08:37→21:41)
[2019-04-10] MEDS: ENOXAPARIN 40 MG/0.4 ML SYRINGE SQ SCH (08:37)
[2019-04-10] MEDS: FAMOTIDINE 20 MG TABLET PO SCH ×2 (08:37→21:40)
[2019-04-10] MEDS: INSULIN GLARGINE, HUMAN 1 UNIT/0.01 ML SQ SCH (08:40)
[2019-04-10] MEDS ORDERED: VANCOMYCIN 1,500 MG in 0.9 % SODIUM CHLORIDE 500 ML IV SCH (09:00)
[2019-04-10] MEDS ORDERED: BUMETANIDE 0.25 MG/ML VIAL IV ONE ×2 (09:23→16:00)
[2019-04-10] MEDS: LACTOBACILLUS 1 CAPSULE PO SCH (10:21)
[2019-04-10] MEDS: HYDROcodone/APAP 5/325MG TABLET PO PRN ×2 (11:42→21:41)
[2019-04-10] MEDS: PREGABALIN 25 MG CAPSULE PO SCH ×3 (13:02→21:41)
[2019-04-10] MEDS ORDERED: LOPERAMIDE 2 MG CAPSULE PO PRN (14:51)
[2019-04-11] MEDS: LACTOBACILLUS 1 CAPSULE PO SCH ×3 (00:09→23:19)
[2019-04-11] MEDS: IPRATROPIUM/ALBUTEROL 3 ML AMPUL.NEB NEB SCH ×4 (01:08→19:25)
[2019-04-11] MEDS: CEFEPIME 2 GM VIAL IV SCH (05:36)
[2019-04-11] MEDS: metroNIDAZOLE 500 MG/100 ML BAG IV SCH (05:36)
[2019-04-11] MEDS: 0.9 % SODIUM CHLORIDE 10 ML SYRINGE IV SCH ×3 (06:09→23:53)
[2019-04-11] MEDS: HYDROcodone/APAP 5/325MG TABLET PO PRN (06:19)
[2019-04-11 07:07] LABS: Basophils # (Auto) 0 K/mcL (0.00-0.30); Basophils % (Auto) 0 % (0.0-2.0); Eosinophils # (Auto) 0.05 K/mcL (0.00-0.70); Eosinophils % (Auto) 1.9 % (0.0-7.0); Granulocytes % (Auto) 67.2 % (38.0-78.0); Hematocrit 27.3 % (34.1-44.9); Hemoglobin 8.1 g/dL (11.2-15.7); Lymphocytes # (Auto) 0.58 K/mcL (1.50-4.80); Lymphocytes % (Auto) 22.1 % (15.5-49.0); Mean Cell Volume 87.8 fL (80.0-100.0); Mean Corpuscular HGB Conc 29.7 g/dL (31.0-36.0); Mean Platelet Volume 12.1 fL (7.4-10.4); Monocytes # (Auto) 0.23 K/mcL (0.10-0.90); Monocytes % (Auto) 8.8 % (1.0-12.0); Platelet Count 55 K/mcL (140-440); RBC 3.11 M/mcL (3.59-5.38); Red Cell Distribution Width 16.5 % (11.5-14.5); WBC 2.6 K/mcL (4.50-11.00)
[2019-04-11 07:16] LABS: ALT/SGPT 8 U/l (0-40); AST/SGOT 17 U/l (0-37); Albumin 2.2 gm/dL (3.2-5.2); Albumin/Globulin Ratio 1.2 (1.0-2.3); Alkaline Phosphatase 113 U/L (39-117); Bilirubin,Direct 0.4 mg/dL (0.0-0.3); Bilirubin,Total 0.9 mg/dL (0.0-1.0); Blood Urea Nitrogen 27 mg/dl (6-20); Calcium 7.7 mg/dl (8.6-10.4); Carbon Dioxide 24 mmol/L (22-30); Chloride 104 mmol/L (96-108); Globulin 1.8 gm/dL (2.2-3.7); Glomerular Filtration Rate 117; Glucose 138 mg/dL (70-105); Lactate Dehydrogenase 149 U/L (94-250); Phosphorous 2.6 mg/dL (2.7-4.5); Triglycerides 69 mg/dl (<150); Uric Acid 6.6 mg/dL (2.5-8.0)
[2019-04-11] MEDS: INSULIN LISPRO 1 UNIT/0.01 ML UNIT SQ SCH ×4 (07:34→23:24)
--- NOTE | 2019-04-11 07:38 | Internal Med Progress Note ---
Medical - PN: Subj Patient information: Note initiated : 04/11/19 at 7:35 am Service Date, if different from initiated Date: [] Patient: Ebony Arroyo a 54 y/o F admitted on 04/08/19 for shortness of breath. Chief Complaint: [] Interval history: Ms. Arroyo is a 54 year old F History is obtained mostly from the as patient is currently on BiPAP. Per history patient doing well yesterday morning but then yesterday afternoon she started gurgling per becoming more short of breath and more lethargic thus patient brought in the ED. She is had hospitalization for aspiration pneumonia at [facility] earlier this year and was in the hospital January for sepsis from urinary tract infection. When EMS arrived her sats were in 70s. No reported nausea vomiting. Quite somnolent in ED. Did have a lot o f sputum production ED. The ED she is eventually put on BiPAP. 04/09 Willing better. More energy. Mentation much improved. She is on 1 L nasal cannula and has good oxygen saturations. Barium swallow today. 04/10 Patient did not sleep as well last night. Her chronic pain is acting up. Lyrica was entered as PRN home medications this was corrected yesterday started last night with regular dosing. Is feeling better this morning after emotional night. C. difficile pending. Poor urine output. Occasional nausea but no other complaints. Restart pain medications but at lower dose. She is on room air now. 04/11 Kneeling well. Good diuresis after Bumex yesterday. No new complaints. Slept well. some nausea Review of Systems: denies headache/fever/chills/vomiting/chest or abdominal pain/c ough/dyspnea/diarrhea. Otherwise see above. - Constitutional Vitals: Vital Signs Temp Pulse Resp BP Pulse Ox 98.7 F 91 H 16 103/51 93 04/10/19 14:00 04/11/19 07:30 04/11/19 07:30 04/11/19 03:01 04/11/19 07:22 Period Temp Pulse Resp BP Sys/Porter Pulse Ox Last 24 Hr 98.7 F 76-101 14-20 89-114/43-71 89-100 Intake and Output 04/10/19 04/11/19 04/11/19 21:59 05:59 13:59 Intake Total 220 340 Output Total 1201 233 15 Balance -981 107 -15 Weight 78.88 kg Intake & Output: Intake & Output 04/10/19 04/11/19 04/11/19 21:59 05:59 13:59 Intake Total 220 340 Output Total 1201 233 15 Balance -981 107 -15 Weight 78.88 kg Intake: IV 100 100 Oral 120 240 Output: Urine Catheter Amount 1201 233 15 Other: Urine Appearance Clear Clear Urine Color Bright Yellow Bright Yellow Urine Odor Normal Normal Stool Size Moderate Small Small Stool Color Brown Brown Brown Stool Consistency Soft Soft Soft # Bowel Movements 1 1 # of times incontinent of 1 Bowels Exam: General: awake, No acute Distress Eyes/N/T: EOMI, Head/Neck: neck supple, normocephalic atraumatic CV: RRR, No murmurs, Pulm: b/l rales, no wheezing Abd: soft, nontender, +BS x4 Ext: no clubbing/cyanosis, 2+ b/l LE edema and UE edema Neuro: alert, mentation good, paraplegic lower extremities Skin: warm/dry Medical - PN: Obj Da - Labs CBC & Chem 7: 04/11/19 05:11 04/11/19 05:11 Labs: Abnormal Lab Results 04/11/19 04/11/19 04/10/19 05:11 05:11 05:13 WBC 2.6 L RBC 3.11 L Hgb 8.1 L Hct 27.3 L MCHC 29.7 L RDW 16.5 H Plt Count 55 L MPV 12.1 H Gran % Lymph % (Auto) Gran # 1.76 L Lymph # (Auto) 0.58 L RBC Morphology Anisocytosis Potassium 3.2 L BUN 27 H 27 H Creatinine 0.4 L 0.4 L Glucose 138 H 111 H Calcium 7.7 L 7.9 L Phosphorus 2.6 L Direct Bilirubin 0.4 H GGT 120 H Alkaline Phosphatase Total Protein 4.0 L Albumin 2.2 L Globulin 1.8 L Vancomycin Trough 04/10/19 04/09/19 04/09/19 05:13 08:08 05:44 WBC 3.3 L RBC 2.93 L Hgb 7.9 L Hct 25.8 L MCHC 30.6 L RDW 16.7 H Plt Count 57 L MPV 11.7 H Gran % Lymph % (Auto) Gran # Lymph # (Auto) 0.57 L RBC Morphology Anisocytosis Potassium BUN 29 H Creatinine 0.4 L Glucose 229 H Calcium 7.9 L Phosphorus Direct Bilirubin GGT 139 H Alkaline Phosphatase 145 H Total Protein 4.8 L Albumin 2.8 L Globulin 2.0 L Vancomycin Trough 20.3 H* 04/09/19 04/07/19 05:44 23:59 WBC 3.8 L RBC 3.08 L Hgb 8.2 L Hct 27.2 L MCHC 30.1 L RDW 16.8 H Plt Count 58 L MPV 11.8 H Gran % 80.6 H Lymph % (Auto) 11.4 L Gran # Lymph # (Auto) 0.43 L RBC Morphology Abnorm A Anisocytosis Few A Potassium BUN Creatinine Glucose Calcium Phosphorus Direct Bilirubin GGT Alkaline Phosphatase Total Protein Albumin Globulin Vancomycin Trough Meds: Medications Acetaminophen (Tylenol) 650 mg PO Q6HP PRN PRN Reason: PAIN/FEVER > 101 Last Admin: 04/09/19 22:19 Dose: 650 mg Documented by: Hydrocodone Bitart/Acetaminophen ([place] 5/325mg) 1 tab PO Q4-6HP PRN; Protocol PRN Reason: Per Pain Protocol Last Admin: 04/11/19 06:19 Dose: 1 tab Documented by: Albuterol/Ipratropium (Duoneb) 3 ml NEB Q6HRT [facility] Last Admin: 04/11/19 07:22 Dose: 3 ml Documented by: Baclofen (Lioresal) 20 mg PO TID [facility] Last Admin: 04/10/19 21:40 Dose: 20 mg Documented by: Cefepime HCl (Maxipime) 2 gm IV Q8H [facility]; Protocol Last Admin: 04/11/19 05:36 Dose: 2 gm Documented by: Dextrose (Dextrose 50%) 0 ml IV UD PRN PRN Reason: Hypoglycemia Diagnostic Test (Pha) (Accu-Chek) 1 each FS ACHS [facility] Last Admin: 04/11/19 07:33 Dose: 1 each Documented by: Docusate Sodium (Colace) 100 mg PO BID [facility] Last Admin: 04/10/19 21:43 Dose: Not Given Documented by: Enoxaparin Sodium (Lovenox) 40 mg SQ DAILY [facility] Last Admin: 04/10/19 08:37 Dose: 40 mg Documented by: Famotidine (Pepcid) 20 mg PO BID [facility] Last Admin: 04/10/19 21:40 Dose: 20 mg Documented by: Glucose (Insta-Glucose) 15 gm PO PRN PRN PRN Reason: Hypoglycemia Metronidazole (Flagyl) 500 mg in 100 mls @ 100 mls/hr IV Q8H [facility]; Protocol Last Admin: 04/11/19 05:36 Dose: 100 mls/hr Documented by: Potassium Chloride 40 meq/ (Dextrose) 520 mls @ 130 mls/hr IV UD PRN PRN Reason: Potassium < 3 Magnesium Sulfate (Magnesium Sulfate) 2 gm in 50 mls @ 50 mls/hr IV UD PRN PRN Reason: Magnesium </= 1.6 Last Infusion: 04/08/19 15:00 Dose: Infused Documented by: Vancomycin HCl 1,500 mg/ (Sodium Chloride) 500 mls @ 333.3 mls/hr IV DAILY [facility] Last Infusion: 04/10/19 10:15 Dose: Infused Documented by: Insulin Glargine (Lantus) 15 unit SQ DAILY [facility] Last Admin: 04/10/19 08:40 Dose: 15 unit Documented by: Insulin Human Lispro (Humalog) 0 unit SQ ACHS [facility]; Protocol Last Admin: 04/11/19 07:34 Dose: Not Given Documented by: Lactobacillus Rhamnosus (Culturelle) 1 cap PO BID [facility] Last Admin: 04/11/19 00:09 Dose: 1 cap Documented by: Loperamide HCl (Imodium) 2 mg PO PRN PRN PRN Reason: Diarrhea Last Admin: 04/11/19 06:09 Dose: 2 mg Documented by: Metoclopramide HCl (Reglan) 5 mg PO QIDP PRN PRN Reason: Nausea Last Admin: 04/10/19 06:17 Dose: 5 mg Documented by: Naloxone HCl (Narcan) 0.1 mg IV Q2MIN PRN PRN Reason: Opiate Reversal Ondansetron HCl (Zofran) 4 mg IV Q4HP PRN PRN Reason: Nausea And Vomiting Last Admin: 04/11/19 00:42 Dose: 4 mg Documented by: Oxybutynin Chloride (Ditropan Xl) 5 mg PO QDAY [facility] Last Admin: 04/10/19 08:36 Dose: 5 mg Documented by: Polyethylene Glycol (Miralax) 17 gm PO DAILYP PRN PRN Reason: Constipation Potassium Chloride (Kdur) 40 meq PO UD PRN PRN Reason: Potssium is 3-3.5 Potassium Chloride (Kdur) 40 meq PO UD PRN PRN Reason: Potassium < 3 Pregabalin (Lyrica) 50 mg PO QID [facility] Last Admin: 04/10/19 21:41 Dose: 50 mg Documented by: Senna (Senokot) 2 tab PO DAILYP PRN PRN Reason: Constipation Sertraline HCl (Zoloft) 25 mg PO BID [facility] Last Admin: 04/10/19 21:41 Dose: 25 mg Documented by: Sodium Chloride (Saline Flush) 10 ml IV Q8 [facility] Last Admin: 04/11/19 06:09 Dose: 10 ml Documented by: Vancomycin HCl (Vancomycin Per Pharmacy) 1 order IV UD [facility]; Protocol Medical - PN: A/P - Time Spent With Patient Total time spent is greater than 50% in coordination of care (as documented) at patient's floor/unit and/or counseling patient: - Narrative A/P Narrative: A: *PNA, Aspiration: *?UTI, on admit vs chronic findings given suprpubic cath: *Esophageal Stricture, High-grade & GE Junction: *Sepsis: improved *Encephalopathy: 2/2 above + possible narcotic use. IMproved *Acute hypoxic respiratory failure: -on bipap initially, now on room air *Volume depletion: resolved *Hypokalemia: resolved *Paraplegic lower extremities with neurogenic bladder (suprapubic catheter): *cirrhosis w/thrombocytopenia: *Anemia, chronic: *Anxiety/depression: *GERD: *Left buttock unstageable pressure ulcer on admission: *Diarrhea: c. diff neg P: -modified diet, will need to f/u with GI soon for esophageal dilation -cefepime/flagyl/vanco - deescalate to augmentin -pending BC/SC/UC -IS/Acapella -prn diuretics -restart narcotics at lower dose d/t pain and avoid w/d -basal and SSI -wound care -potassium replacement -ppx: lovenox (hold for PLT<50k)/home ppi full code Medical - PN: Qual - Stroke Symptom Onset Unknown: No - VTE Deep Vein Thrombosis/Pulmonary Embolism Present on Admission: No
[2019-04-11] MEDS ORDERED: AMOXICILLIN/POTASSIUM CLAV 875 MG TABLET PO SCH (08:00)
[2019-04-11] MEDS: DOCUSATE SODIUM 100 MG CAPSULE PO SCH ×2 (08:24→23:20)
[2019-04-11] MEDS: BACLOFEN 10 MG TABLET PO SCH ×3 (08:28→23:21)
[2019-04-11] MEDS: INSULIN GLARGINE, HUMAN 1 UNIT/0.01 ML SQ SCH (08:28)
[2019-04-11] MEDS: OXYBUTYNIN CHLORIDE 5 MG TAB.XL.24H PO SCH (08:28)
[2019-04-11] MEDS: FAMOTIDINE 20 MG TABLET PO SCH ×2 (08:29→23:21)
[2019-04-11] MEDS: PREGABALIN 25 MG CAPSULE PO SCH ×4 (08:29→23:20)
[2019-04-11] MEDS: SERTRALINE 50 MG TABLET PO SCH ×2 (08:29→23:21)
[2019-04-11] MEDS: ENOXAPARIN 40 MG/0.4 ML SYRINGE SQ SCH (08:29)
[2019-04-11] MEDS ORDERED: ALBUMIN HUMAN 12.5 GM/50 ML BAG IV ONE (09:19)
[2019-04-11] MEDS ORDERED: BUMETANIDE 0.25 MG/ML VIAL IV ONE ×3 (09:19→16:00)
[2019-04-11] MEDS ORDERED: MAGNESIUM SULFATE 2 GM/50 ML BAG IV PRN (10:57)
[2019-04-11] MEDS ORDERED: POTASSIUM CHLORIDE 40 MEQ in DEXTROSE 5% IN WATER 500 ML IV PRN (10:57)
[2019-04-11] MEDS ORDERED: POTASSIUM CHLORIDE 20 MEQ TABLET PO PRN ×2 (10:57)
[2019-04-11] MEDS ORDERED: METOCLOPRAMIDE 10 MG TABLET PO PRN (10:57)
[2019-04-11] MEDS ORDERED: SENNOSIDES 1 TABLET PO PRN (10:57)
[2019-04-11] MEDS ORDERED: HYDROcodone/APAP 5/325MG TABLET PO PRN (10:57)
[2019-04-11] MEDS ORDERED: ONDANSETRON 4 MG/2 ML VIAL IV PRN (10:57)
[2019-04-11] MEDS ORDERED: DEXTROSE 50% 50 ML VIAL IV PRN (10:57)
[2019-04-11] MEDS ORDERED: ACETAMINOPHEN 325 MG TABLET PO PRN (10:57)
[2019-04-11] MEDS ORDERED: NALOXONE HCL 0.4 MG/ML VIAL IV PRN (10:57)
[2019-04-11] MEDS ORDERED: DEXTROSE 31 GM ORAL.SUSP PO PRN (10:57)
[2019-04-11] MEDS ORDERED: POLYETHYLENE GLYCOL 3350 17 GM PACKET PO PRN (10:57)
[2019-04-11] MEDS: AMOXICILLIN/POTASSIUM CLAV 875 MG TABLET PO SCH (16:52)
--- NOTE | 2019-04-11 17:17 | General Surgery Progress Note ---
Subjective Narrative: Note initiated : 04/11/19 at 5:14 pm Service Date, if different from initiated Date: [] Patient: Ebony Arroyo 54 y/o F admitted on 04/08/19 for shortness of breath. Chief Complaint: [] Patient seen along with Roxana Batres wound care nurse. Objective Temp Pulse Resp BP Pulse Ox 98.1 F 87 18 106/55 94 04/11/19 12:00 04/11/19 13:20 04/11/19 14:00 04/11/19 11:00 04/11/19 11:00 AVSS. More alert and responsive. Out of ICU and now on MED/ Surg floor. L/E: Ischial pressure ulcer sites examined. Granulating wounds . Local skin and periulcer hygiene is satisfactory. NO fecal or urinary contamination. - Additional Data Intake & Output - Last 24 hours: Intake & Output 04/09/19 04/10/19 04/11/19 04/12/19 05:59 05:59 05:59 05:59 Intake Total 3100 3040 1640 390 Output Total 166 358 5831 925 Balance 2164 2450 -909 -535 Weight 173 lb 14.4 oz 173 lb 14.4 oz 173 lb 14.4 oz 173 lb 14.4 oz - Labs 04/11/19 05:11 04/11/19 05:11 Diabetes panel 04/11/19 Range/Units 05:11 Sodium 136 (133-145) mmol/L Potassium 3.5 (3.3-5.1) mmol/L Chloride 104 (96-108) mmol/L Carbon Dioxide 24 (22-30) mmol/L BUN 27 H (6-20) mg/dl Creatinine 0.4 L (0.6-1.1) mg/dl Glucose 138 H (70-105) mg/dL Calcium 7.7 L (8.6-10.4) mg/dl AST 17 (0-37) U/l ALT 8 (0-40) U/l Alkaline Phosphatase 113 (39-117) U/L Total Protein 4.0 L (5.9-8.4) gm/dL Albumin 2.2 L (3.2-5.2) gm/dL Triglycerides 69 (<150) mg/dl Calcium panel 04/11/19 Range/Units 05:11 Calcium 7.7 L (8.6-10.4) mg/dl Phosphorus 2.6 L (2.7-4.5) mg/dL Albumin 2.2 L (3.2-5.2) gm/dL Pituitary panel 04/11/19 Range/Units 05:11 Sodium 136 (133-145) mmol/L Potassium 3.5 (3.3-5.1) mmol/L Chloride 104 (96-108) mmol/L Carbon Dioxide 24 (22-30) mmol/L BUN 27 H (6-20) mg/dl Creatinine 0.4 L (0.6-1.1) mg/dl Glucose 138 H (70-105) mg/dL Calcium 7.7 L (8.6-10.4) mg/dl Adrenal panel 04/11/19 Range/Units 05:11 Sodium 136 (133-145) mmol/L Potassium 3.5 (3.3-5.1) mmol/L Chloride 104 (96-108) mmol/L Carbon Dioxide 24 (22-30) mmol/L BUN 27 H (6-20) mg/dl Creatinine 0.4 L (0.6-1.1) mg/dl Glucose 138 H (70-105) mg/dL Calcium 7.7 L (8.6-10.4) mg/dl Total Bilirubin 0.9 (0.0-1.0) mg/dL AST 17 (0-37) U/l ALT 8 (0-40) U/l Alkaline Phosphatase 113 (39-117) U/L Total Protein 4.0 L (5.9-8.4) gm/dL Albumin 2.2 L (3.2-5.2) gm/dL Assessment and Plan (1) Pressure ulcer of buttock Problem details: Assessment:Pressure Ulcers Left ischial Grade 3 and Right Grade 2. Plan: Mepilex border foam to cover and the site and assist with avoidance of fecal contamination. May remove this for clensing after BM. Avoid pressure TAPS when in bed per schedule and use ROHO cushion for chair. TO change or shift position in chair q 15-20 minuts. Status: Chronic Current Visit: Yes - Narrative A/P Narrative: Assessment: Satisfactory progress from wound care point of view. Plan: Continue current treatment. - Time Spent With Patient Total time spent is greater than 50% in coordination of care (as documented) at patient's floor/unit and/or counseling patient: 15 - 24 minutes
[2019-04-12] MEDS: IPRATROPIUM/ALBUTEROL 3 ML AMPUL.NEB NEB SCH ×3 (01:56→13:13)
[2019-04-12] MEDS: 0.9 % SODIUM CHLORIDE 10 ML SYRINGE IV SCH ×3 (06:14→14:39)
[2019-04-12] MEDS ORDERED: ALBUMIN HUMAN 12.5 GM/50 ML BAG IV ONE ×2 (07:40→09:15)
[2019-04-12] MEDS ORDERED: BUMETANIDE 0.25 MG/ML VIAL IV ONE (07:40)
[2019-04-12] MEDS: INSULIN LISPRO 1 UNIT/0.01 ML UNIT SQ SCH ×2 (08:13→12:56)
[2019-04-12] MEDS: AMOXICILLIN/POTASSIUM CLAV 875 MG TABLET PO SCH (08:38)
[2019-04-12] MEDS: BACLOFEN 10 MG TABLET PO SCH ×2 (08:39→14:39)
[2019-04-12] MEDS: LACTOBACILLUS 1 CAPSULE PO SCH (08:39)
[2019-04-12] MEDS: FAMOTIDINE 20 MG TABLET PO SCH (08:39)
[2019-04-12] MEDS: SERTRALINE 50 MG TABLET PO SCH (08:40)
[2019-04-12] MEDS: PREGABALIN 25 MG CAPSULE PO SCH ×2 (08:40→12:55)
[2019-04-12] MEDS: LOPERAMIDE 2 MG CAPSULE PO PRN ×2 (08:40→10:49)
[2019-04-12] MEDS: DOCUSATE SODIUM 100 MG CAPSULE PO SCH (09:00)
[2019-04-12] MEDS ORDERED: ENOXAPARIN 40 MG/0.4 ML SYRINGE SQ SCH (09:00)
[2019-04-12] MEDS ORDERED: OXYBUTYNIN CHLORIDE 5 MG TAB.XL.24H PO SCH (09:00)
[2019-04-12] MEDS ORDERED: INSULIN GLARGINE, HUMAN 1 UNIT/0.01 ML SQ SCH (09:00)
== END 2019-04-12 15:25 | disposition home health service (06) | DRG 871 ==
LOC: ED 23:33 → ICU 04-08 03:35 → MEDSUR 04-11 10:47
PROVIDERS: ADMIT Internal Medicine; ATTEND Internal Medicine

== ENCOUNTER 2019-04-23 21:26 | Inpatient (IN) ==
[2019-04-23] MEDS ORDERED: IOPAMIDOL 100 ML BOTTLE IV ONE (21:27)
--- NOTE | 2019-04-23 22:01 | Emergency Department Note ---
SOB HPI - General Chief Complaint: Shortness of Breath/Dyspnea Stated Complaint: shortness of b reathe Time Seen by Provider: 04/23/19 21:30 Mode of arrival: wheelchair - History of Present Illness I saw this patient 2 days ago with bilateral flank pain and a urine that looked infected although the culture is been no growth. She does have a suprapubic catheter in place due to hemiplegia and she is wheelchair-bound. At that visit she had no other symptoms but tonight she has developed some shortness of breath with a slight cough. No chest pain of significance. - Related Data Home Medications Medication Instructions Recorded Confirmed Baclofen 20 mg PO TID 01/23/15 04/24/19 Insulin Aspart [Novolog] 0 unit SQ ACHS 01/23/15 04/08/19 Metoclopramide [Reglan] 5 mg PO QID PRN 01/23/15 04/24/19 Omeprazole [Prilosec] 20 mg PO BIDAC 01/23/15 04/24/19 Pregabalin [Lyrica] 50 mg PO QIDP 01/23/15 04/24/19 metFORMIN [Glucophage] 500 mg PO BIDCC 01/23/15 04/24/19 nystatin 100,000 unit/gram topical 1 applic TOPICAL BID 10/22/17 04/24/19 ointment sertraline 25 mg tablet 25 mg PO BID 09/29/18 04/24/19 Furosemide [Lasix] 20 mg PO DAILY 03/12/19 04/24/19 Ipratropium/Albuterol [Duoneb] 3 ml NEB Q4-6HP PRN 03/12/19 04/24/19 Spironolactone [Aldactone] 50 mg PO DAILY 03/12/19 04/24/19 oxyCODONE HCL [Oxycodone HCl] 5 mg PO Q6HP PRN 03/12/19 04/24/19 Adhesive Tape [Durapore] 0 unit .ROUTE .MEDSUPPLY 03/13/19 04/09/19 Benzonatate [Tessalon] 100 mg PO BID PRN 03/13/19 04/24/19 Ferrous Sulfate [Iron] 325 mg PO BID 03/13/19 04/24/19 Gauze Bandage [Band-Aid Gauze Pads] 0 unit .ROUTE .MEDSUPPLY MDD 4 03/13/19 04/09/19 Insulin Glargine,Hum.rec.anlog 15 unit SQ DAILY 03/13/19 04/24/19 [Basaglar Kwikpen U-100] Urinary Bag [Vjzrgk-T-Akn Leg Bag 0 units .ROUTE .MEDSUPPLY 03/13/19 04/09/19 Small] Fluconazole [Diflucan] 150 mg PO 2-3XW 04/08/19 04/24/19 Pen Needle, Diabetic [Carefine Pen 1 each MISC DAILY 04/08/19 04/09/19 Needle] traMADol [Ultram] 50 mg PO QIDP PRN 04/08/19 04/24/19 Previous Rx's Medication Instructions Recorded oxybutynin chloride 5 mg 5 mg PO QDAY #30 tab 12/13/18 tablet,extended release 24 hr Amoxicillin/Potassium Clav 875 mg PO Q12H #5 tab 04/12/19 [Augmentin] Levofloxacin [Levaquin] 750 mg PO DAILY #7 tab 04/21/19 Allergies Allergy/AdvReac Type Severity Reaction Status Date / Time azithromycin AdvReac Mild Nausea Verified 03/11/19 09:42 cefuroxime AdvReac Mild Nausea Verified 03/11/19 09:42 Erythromycin Base AdvReac Mild Vomiting Verified 03/11/19 09:42 nitrofurantoin AdvReac Mild Nausea Verified 03/11/19 09:42 Penicillins AdvReac Mild Nausea Verified 03/11/19 09:42 lorazepam [From Ativan] AdvReac Unknown Unknown Verified 03/11/19 09:42 Macrolide Antibiotics AdvReac Verified 04/07/19 23:34 Review of Systems All systems ED: reviewed and negative except as stated. 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) use of opiate analgesic (Chronic) History of sepsis (Chronic) Diabetes mellitus type II, controlled (Chronic) NAFLD (nonalcoholic fatty liver disease) (Chronic) Anemia (Chronic) Allergy to multiple antibiotics (Chronic) Abdi's syndrome (Chronic) Essential (primary) hypertension (Chronic) Suprapubic catheter (Chronic) Rectal abnormality (Chronic) Neurogenic bladder (Chronic) Hyperlipidemia (Chronic) Vitamin B12 deficiency (Chronic) Vitamin D deficiency, unspecified (Chronic) Chronic right shoulder pain (Chronic) GERD (gastroesophageal reflux disease) (Chronic) Cervical spondylosis (Chronic) Cervical disc disease (Chronic) Paraplegia (Chronic) Kidney stone (Acute) Candidiasis of urogenital sites (Resolved) Carpal tunnel syndrome (Resolved) Lumbar strain (Resolved) Urinary tract infection associated with catheterization of urinary tract (Resolved) Past Surgical History (Last Reviewed 12/13/18 @ 10:18 by Kenyatta Feliz RN) H/O plastic surgery (Acute) History of back surgery (Acute) Hx of tonsillectomy (Acute) S/P carpal tunnel release (Acute) S/P cholecystectomy (Acute) Family History (Last Reviewed 12/13/18 @ 10:19 by Kenyatta Feliz RN) Mother Hypertension Medical history: Reports: chronic narcotics, pneumonia, other (Paraplegic since back surgery on her thoracic spine) Surgical history ED: Reports: back surgery, orthopedic, other - Social History smoking status: Never smoker Alcohol use: Reports: None Drug use: Reports: none Physical Exam Limitations: no limitations General appearance: alert Head: atraumatic Eye: Present: normal appearance ENT: Present: normal exam Neck: Present: normal inspection Chest: Present: normal inspection Respiratory: Present: normal lung sounds bilaterally Cardiovascular: Present: regular rate, normal rhythm, normal heart sounds Abdominal: Present: soft. Absent: distention, tenderness Extremities: Present: pedal edema, pretibial edema Neurological: Present: alert Psychiatric: Present: normal affect Skin: Present: warm, dry Course Vital Signs Temperature 97.9 F 04/23/19 21:27 Pulse Rate 95 H 04/23/19 21:27 Respiratory Rate 15 04/23/19 21:27 Pulse Oximetry (%) 95 04/23/19 21:27 Temperature 97.6 F 04/24/19 07:36 Pulse Rate 75 04/24/19 07:36 Respiratory Rate 13 04/24/19 07:36 Blood Pressure 103/54 04/24/19 07:36 Pulse Oximetry (%) 95 04/24/19 07:36 Shortness of Breath/Dyspnea - MDM Narrative Medical decision making narrative: We are unable to wean the patient off oxygen so we did further work-up that show ed a slightly elevated d-dimer. CT angiogram shows no pulmonary embolus but is suggestive of aspiration. Despite hydration the patient's lactic acid david from 2.9-3.3. Her blood pressure also dropped slightly. I discussed case with Dr. Bonner and she will be admitted to the ICU. We did start Levophed low-dose to support her blood pressure. I gave her Levaquin again 750 mg IV as she has a number of allergies which make treatment difficult. - Lab Data Lab results reviewed: Yes I reviewed the patient's lab results. Result diagrams: 04/23/19 22:09 04/23/19 22:09 Lab Results 04/23/19 04/23/19 04/23/19 Range/Units 22:09 22:09 22:09 WBC 3.9 L (4.50-11.00) K/mcL RBC 3.64 (3.59-5.38) M/mcL Hgb 9.5 L (11.2-15.7) g/dL Hct 31.6 L (34.1-44.9) % MCV 86.8 (80.0-100.0) fL MCH 26.1 (26.0-34.0) pg MCHC 30.1 L (31.0-36.0) g/dL RDW 16.5 H (11.5-14.5) % Plt Count 61 L (140-440) K/mcL MPV 12.8 H (7.4-10.4) fL Gran % 66.5 (38.0-78.0) % Lymph % (Auto) 21.8 (15.5-49.0) % [place] % (Auto) 10.4 (1.0-12.0) % Eos % (Auto) 1.0 (0.0-7.0) % Baso % (Auto) 0.3 (0.0-2.0) % Gran # 2.57 (1.80-8.00) K/mcL Lymph # (Auto) 0.84 L (1.50-4.80) K/mcL [place] # (Auto) 0.40 (0.10-0.90) K/mcL Eos # (Auto) 0.04 (0.00-0.70) K/mcL Baso # (Auto) 0.01 (0.00-0.30) K/mcL D-Dimer (0.00-0.40) ug/ml VBG Lactic Acid 2.9 H (0.5-2.0) mmol/L Sodium 145 (133-145) mmol/L Potassium 4.0 (3.3-5.1) mmol/L Chloride 105 (96-108) mmol/L Carbon Dioxide 25 (22-30) mmol/L Anion Gap 15.0 (8-16) BUN 36 H (6-20) mg/dl Creatinine 0.4 L (0.6-1.1) mg/dl GFR Calculation 117 Glucose 150 H (70-105) mg/dL Calcium 8.4 L (8.6-10.4) mg/dl Total Bilirubin 0.6 (0.0-1.0) mg/dL AST 26 (0-37) U/l ALT 9 (0-40) U/l Alkaline Phosphatase 220 H (39-117) U/L Troponin T (0-0.03) ng/ml NT-Pro-B Natriuret Pep (0-125) pg/ml Total Protein 4.8 L (5.9-8.4) gm/dL Albumin 2.7 L (3.2-5.2) gm/dL Globulin 2.1 L (2.2-3.7) gm/dL Albumin/Globulin Ratio 1.3 (1.0-2.3) 04/24/19 04/24/19 04/24/19 Range/Units 00:54 02:00 02:00 WBC (4.50-11.00) K/mcL RBC (3.59-5.38) M/mcL Hgb (11.2-15.7) g/dL Hct (34.1-44.9) % MCV (80.0-100.0) fL MCH (26.0-34.0) pg MCHC (31.0-36.0) g/dL RDW (11.5-14.5) % Plt Count (140-440) K/mcL MPV (7.4-10.4) fL Gran % (38.0-78.0) % Lymph % (Auto) (15.5-49.0) % [place] % (Auto) (1.0-12.0) % Eos % (Auto) (0.0-7.0) % Baso % (Auto) (0.0-2.0) % Gran # (1.80-8.00) K/mcL Lymph # (Auto) (1.50-4.80) K/mcL [place] # (Auto) (0.10-0.90) K/mcL Eos # (Auto) (0.00-0.70) K/mcL Baso # (Auto) (0.00-0.30) K/mcL D-Dimer (0.00-0.40) ug/ml VBG Lactic Acid 3.3 H (0.5-2.0) mmol/L Sodium (133-145) mmol/L Potassium (3.3-5.1) mmol/L Chloride (96-108) mmol/L Carbon Dioxide (22-30) mmol/L Anion Gap (8-16) BUN (6-20) mg/dl Creatinine (0.6-1.1) mg/dl GFR Calculation Glucose (70-105) mg/dL Calcium (8.6-10.4) mg/dl Total Bilirubin (0.0-1.0) mg/dL AST (0-37) U/l ALT (0-40) U/l Alkaline Phosphatase (39-117) U/L Troponin T 0.02 (0-0.03) ng/ml NT-Pro-B Natriuret Pep 522.6 H (0-125) pg/ml Total Protein (5.9-8.4) gm/dL Albumin (3.2-5.2) gm/dL Globulin (2.2-3.7) gm/dL Albumin/Globulin Ratio (1.0-2.3) 04/24/19 Range/Units 02:00 WBC (4.50-11.00) K/mcL RBC (3.59-5.38) M/mcL Hgb (11.2-15.7) g/dL Hct (34.1-44.9) % MCV (80.0-100.0) fL MCH (26.0-34.0) pg MCHC (31.0-36.0) g/dL RDW (11.5-14.5) % Plt Count (140-440) K/mcL MPV (7.4-10.4) fL Gran % (38.0-78.0) % Lymph % (Auto) (15.5-49.0) % [place] % (Auto) (1.0-12.0) % Eos % (Auto) (0.0-7.0) % Baso % (Auto) (0.0-2.0) % Gran # (1.80-8.00) K/mcL Lymph # (Auto) (1.50-4.80) K/mcL [place] # (Auto) (0.10-0.90) K/mcL Eos # (Auto) (0.00-0.70) K/mcL Baso # (Auto) (0.00-0.30) K/mcL D-Dimer 1.02 H (0.00-0.40) ug/ml VBG Lactic Acid (0.5-2.0) mmol/L Sodium (133-145) mmol/L Potassium (3.3-5.1) mmol/L Chloride (96-108) mmol/L Carbon Dioxide (22-30) mmol/L Anion Gap (8-16) BUN (6-20) mg/dl Creatinine (0.6-1.1) mg/dl GFR Calculation Glucose (70-105) mg/dL Calcium (8.6-10.4) mg/dl Total Bilirubin (0.0-1.0) mg/dL AST (0-37) U/l ALT (0-40) U/l Alkaline Phosphatase (39-117) U/L Troponin T (0-0.03) ng/ml NT-Pro-B Natriuret Pep (0-125) pg/ml Total Protein (5.9-8.4) gm/dL Albumin (3.2-5.2) gm/dL Globulin (2.2-3.7) gm/dL Albumin/Globulin Ratio (1.0-2.3) - Radiology Data Radiology results reviewed: Yes I reviewed the patient's radiology results. Disposition Pt seen by [facility]/PA only: No Clinical Impression: Urinary tract infection, Dehydration, Acute aspiration pneumonia Disposition: Xfer As Outpt/Obs ([facility]) Condition: Good Time of Disposition: 00:41
[2019-04-23] MEDS: LACTATED RINGERS 1,000 ML IV SCH (22:19)
[2019-04-23 23:17] LABS: Basophils # (Auto) 0.01 K/mcL (0.00-0.30); Basophils % (Auto) 0.3 % (0.0-2.0); Eosinophils # (Auto) 0.04 K/mcL (0.00-0.70); Granulocytes % (Auto) 66.5 % (38.0-78.0); Hematocrit 31.6 % (34.1-44.9); Hemoglobin 9.5 g/dL (11.2-15.7); Lymphocytes # (Auto) 0.84 K/mcL (1.50-4.80); Lymphocytes % (Auto) 21.8 % (15.5-49.0); Mean Cell Volume 86.8 fL (80.0-100.0); Mean Corpuscular HGB Conc 30.1 g/dL (31.0-36.0); Mean Platelet Volume 12.8 fL (7.4-10.4); Monocytes % (Auto) 10.4 % (1.0-12.0); Platelet Count 61 K/mcL (140-440); RBC 3.64 M/mcL (3.59-5.38); Red Cell Distribution Width 16.5 % (11.5-14.5); WBC 3.9 K/mcL (4.50-11.00)
[2019-04-23 23:27] LABS: ALT/SGPT 9 U/l (0-40); AST/SGOT 26 U/l (0-37); Albumin 2.7 gm/dL (3.2-5.2); Albumin/Globulin Ratio 1.3 (1.0-2.3); Alkaline Phosphatase 220 U/L (39-117); Bilirubin,Total 0.6 mg/dL (0.0-1.0); Blood Urea Nitrogen 36 mg/dl (6-20); Calcium 8.4 mg/dl (8.6-10.4); Carbon Dioxide 25 mmol/L (22-30); Chloride 105 mmol/L (96-108); Globulin 2.1 gm/dL (2.2-3.7); Glomerular Filtration Rate 117; Glucose 150 mg/dL (70-105)
[2019-04-24] MEDS ORDERED: LACTATED RINGERS 1,000 ML IV ONE (02:28)
[2019-04-24 02:55] LABS: proBNP 522.6 pg/ml (0-125)
[2019-04-24] MEDS ORDERED: LEVOFLOXACIN 750 MG/150 ML BAG IV ONE (03:24)
[2019-04-24] MEDS ORDERED: NOREPINEPHRINE BITARTRATE 16 MG in 0.9 % SODIUM CHLORIDE 234 ML IV SCH (05:00)
[2019-04-24] MEDS ORDERED: ONDANSETRON 4 MG/2 ML VIAL IV PRN ×2 (05:59→08:24)
[2019-04-24] MEDS ORDERED: LACTATED RINGERS 1,000 ML IV SCH (06:00)
[2019-04-24] MEDS ORDERED: ONDANSETRON 4 MG/2 ML VIAL ONE (06:01)
[2019-04-24] MEDS: LACTATED RINGERS 1,000 ML IV SCH (06:08)
--- NOTE | 2019-04-24 07:43 | XRay Report ---
CLINICAL INFORMATION: Shortness of breath COMPARISON: 04/08/2019 and 04/21/2019 FINDINGS: The heart size, mediastinum and pulmonary vessels are unremarkable. The lungs are clear. There are no effusions. The bones and soft tissues are within normal limits. IMPRESSION: Normal chest. Interpreted and Authenticated by: David Neal 04/24/19
--- NOTE | 2019-04-24 08:14 | Cat Scan Report ---
CLINICAL INFORMATION: Elevated d-dimer and shortness of breath COMPARISON: CT pulmonary angiogram over two weeks prior 04/08/2019 TECHNIQUE: 80ml of Isovue-370 were injected intravenously. A portion of intravenous contrast infiltrated the subcutaneous tissue surrounding IV. Using SmartPrep to maximize pulmonary artery opacification, .625mm helical slices were obtained from the lung apices through the lung bases. Following reconstruction, 2.5 mm sagittal, coronal, and axial reformations were processed. The exam was reviewed at mediastinal, lung, and bone windows. The exam was performed using radiation dose optimization techniques including, but not limited to, automated exposure control, adjustment of the mA and/or kV according to patient size and use of iterative reconstruction technique. FINDINGS: Pulmonary parenchymal windows again show widespread peribronchovascular alveolar infiltrates in both upper, right middle and lower lobes. These show marked improvement from the previous study particularly in both upper, right middle and left lower lobes which show only minimal residual disease. There is persistent consolidation in the posterior right lower lobe. There are multiple small granulomas in the periphery of both lower lobes - as previously seen. Tiny bilateral pleural effusions noted. Mediastinal windows show suboptimal opacification of the pulmonary arteries, but no emboli identified. The thoracic aorta is normal diameter. The heart is normal in size with heavy calcific plaque in the coronary arteries. Esophagus is mildly dilated to the GE junction. Diffuse esophageal wall thickening, suggesting esophagitis or other infiltrative pathology, is again noted. Abdominal images show moderate cirrhosis with splenomegaly. Large amount of ascites is unchanged. There is moderate edema in the subcutaneous fat of the chest and abdomen which is unchanged. Bone windows show no significant abnormality. IMPRESSION: 1. No evidence of pulmonary embolus - pulmonary artery opacification is suboptimal 2. Moderate improvement in bilateral infiltrates with near complete resolution in both upper, right middle lobe and left lower lobe components. There is persistent moderate consolidation posterior right lower lobe. Tiny bilateral pleural effusions persist. 3. Moderate esophageal dilatation with diffuse wall thickening. The patient could have a benign or malignant stricture at the GE junction or esophagitis - suggest endoscopic correlation. Patient is at risk for aspiration pneumonia. 4. Moderate cirrhosis, splenomegaly and a large amount of ascites - unchanged. 5. Premature atherosclerotic calcific plaque in the coronary arteries. Consider cardiology referral for stress testing to exclude ischemic heart disease Interpreted and Authenticated by: David Neal 04/24/19
[2019-04-24] MEDS ORDERED: ACETAMINOPHEN 650 MG/65 ML BOTTLE IV PRN (08:24)
[2019-04-24] MEDS ORDERED: BISACODYL 10 MG SUPP.RECT PR PRN (08:24)
[2019-04-24] MEDS ORDERED: POTASSIUM CHLORIDE 20 MEQ PACKET PO PRN (08:24)
[2019-04-24] MEDS ORDERED: ACETAMINOPHEN 325 MG TABLET PO PRN (08:24)
[2019-04-24] MEDS ORDERED: POLYETHYLENE GLYCOL 3350 17 GM PACKET PO PRN (08:24)
[2019-04-24] MEDS ORDERED: ONDANSETRON 4 MG ODT TABLET SL PRN (08:24)
[2019-04-24] MEDS ORDERED: MELATONIN 3 MG TABLET PO PRN (08:24)
--- NOTE | 2019-04-24 08:33 | Internal Med History&Physical ---
Medical - H&P: HPI Patient information: Note initiated : 04/24/19 at 8:28 am Service Date, if different from initiated Date: [] Patient: Ebony Arroyo a 54 y/o F admitted on 04/24/19 for shortness of b reathe. Chief Complaint: [] Chief complaint: Weakness/generalized swelling and shortness of breath History of present illness: Ms. Arroyo is a 54 year old F with a history of paraplegia, chronically bedridden with suprapubic catheter and recurrent hardware related UTIs who presents with her Franky with shortness of breath, weakness and weight gain over 20 pounds in the last 1 month. Symptoms associated with increasing bilateral flank pain. She was recently in the ER for above symptoms however has failed to improve. During today's visit work-up was consistent with elevated lactate,/pyuria consistent with complicated UTI. Hospitalist service was consulted for as above At the time evaluation patient is accompanied with her . She was able to answer most the question. She endorses to increasing fluid stimulation and weight gain. Endorses to history as above. Denies recent medication changes. Denies shaking chills fever but endorses loss of appetite. Review of systems A 10 point review system was performed and is negative except for ones cussed above Medical - H&P: PMH Medical history: Abdi's syndrome (Chronic) Hyperlipidemia (Chronic) Vitamin B12 deficiency (Chronic) Vitamin D deficiency, unspecified (Chronic) Chronic right shoulder pain (Chronic) Candidiasis of urogenital sites (Chronic) GERD (gastroesophageal reflux disease) (Chronic) Lumbar strain (Chronic) Hyponatremia (Chronic) Sprain shoulder/arm (Chronic) Eustachian tube dysfunction (Chronic) Neurogenic bladder (Chronic) Thoracic back sprain (Chronic) Cervical spondylosis (Chronic) Cervical disc disease (Chronic) frist of 3 sarwat today, return in approx 1 month for next Carpal tunnel syndrome (Chronic) Essential (primary) hypertension (Chronic) Paraplegia (Chronic) Diabetes mellitus type II, controlled (Chronic) Skin abrasion (Chronic) Kidney stone (Acute) 06/2011 Surgical History H/O plastic surgery (Acute) buttocks 11/2009 History of back surgery (Acute) tumor 08/2009 Hx of tonsillectomy (Acute) S/P carpal tunnel release (Acute) right hand S/P cholecystectomy (Acute) 08/2001 Family History Mother Hypertension Social History smoking status: Never smoker alcohol intake frequency: does not drink substance use type: does not use to Franky [facility] Medical - H&P: Meds Home Medications Medication Instructions Recorded Confirmed Type Baclofen 20 mg PO TID 01/23/15 04/24/19 History Insulin Aspart [Novolog] 0 unit SQ ACHS 01/23/15 04/24/19 History Metoclopramide [Reglan] 5 mg PO QID PRN 01/23/15 04/24/19 History Omeprazole [Prilosec] 20 mg PO BIDAC 01/23/15 04/24/19 History Pregabalin [Lyrica] 50 mg PO QIDP 01/23/15 04/24/19 History metFORMIN [Glucophage] 500 mg PO BIDCC 01/23/15 04/24/19 History nystatin 100,000 unit/gram topical 1 applic TOPICAL BID 10/22/17 04/24/19 History ointment sertraline 25 mg tablet 25 mg PO BID 09/29/18 04/24/19 History oxybutynin chloride 5 mg 5 mg PO QDAY #30 tab 12/13/18 04/24/19 Rx tablet,extended release 24 hr Furosemide [Lasix] 20 mg PO DAILY 03/12/19 04/24/19 History Ipratropium/Albuterol [Duoneb] 3 ml NEB Q4-6HP PRN 03/12/19 04/24/19 History Spironolactone [Aldactone] 50 mg PO DAILY 03/12/19 04/24/19 History oxyCODONE HCL [Oxycodone HCl] 5 mg PO Q6HP PRN 03/12/19 04/24/19 History Adhesive Tape [Durapore] 0 unit .ROUTE .MEDSUPPLY 03/13/19 04/24/19 History Benzonatate [Tessalon] 100 mg PO BID PRN 03/13/19 04/24/19 History Ferrous Sulfate [Iron] 325 mg PO BID 03/13/19 04/24/19 History Gauze Bandage [Band-Aid Gauze Pads] 0 unit .ROUTE .MEDSUPPLY MDD 4 03/13/19 04/09/19 History Insulin Glargine,Hum.rec.anlog 15 unit SQ DAILY 03/13/19 04/24/19 History [Basaglar Kwikpen U-100] Urinary Bag [Bxczus-F-Sec Leg Bag 0 units .ROUTE .MEDSUPPLY 03/13/19 04/09/19 History Small] Fluconazole [Diflucan] 150 mg PO 2-3XW 04/08/19 04/24/19 History Pen Needle, Diabetic [Carefine Pen 1 each MISC DAILY 04/08/19 04/09/19 History Needle] traMADol [Ultram] 50 mg PO QIDP PRN 04/08/19 04/24/19 History Amoxicillin/Potassium Clav 875 mg PO Q12H #5 tab 04/12/19 04/24/19 Rx [Augmentin] Allergies Allergy/AdvReac Type Severity Reaction Status Date / Time azithromycin AdvReac Mild Nausea Verified 03/11/19 09:42 cefuroxime AdvReac Mild Nausea Verified 03/11/19 09:42 Erythromycin Base AdvReac Mild Vomiting Verified 03/11/19 09:42 nitrofurantoin AdvReac Mild Nausea Verified 03/11/19 09:42 Penicillins AdvReac Mild Nausea Verified 03/11/19 09:42 lorazepam [From Ativan] AdvReac Unknown Unknown Verified 03/11/19 09:42 Medical - H&P: Exam - Constitutional Vitals: Temp Pulse Resp BP Pulse Ox 97.6 F 75 13 103/54 95 04/24/19 07:36 04/24/19 07:36 04/24/19 07:36 04/24/19 07:36 04/24/19 07:36 General appearance: no acute distress Exam: Alert head normocephalic Oral cavity dry No ear nose discharge Eye movement symmetrical Neck no lymphadenopathy S1-S2 regular rhythm Diminished breath sounds bases Abdomen suprapubic catheter but nontender to palpation, distention with dependent edema Lower extremity right hip area of bruising/petechiae lateral hip. No cyanosis clubbing or joint swelling or erythema Bilateral lower extremity 2+ pitting edema Skin no suspicious lesion Psych fatigued and lethargic but no agitation anxiety Neuro paraplegic, symmetrical upper extremity movement. Responding to commands Medical - H&P: Reslt - Labs CBC & Chem 7: 04/23/19 22:09 04/23/19 22:09 Labs: Short CBC 04/23/19 Range/Units 22:09 WBC 3.9 L (4.50-11.00) K/mcL Hgb 9.5 L (11.2-15.7) g/dL Hct 31.6 L (34.1-44.9) % Plt Count 61 L (140-440) K/mcL BMP 04/23/19 22:09 Sodium 145 Potassium 4.0 Chloride 105 Carbon Dioxide 25 BUN 36 H Creatinine 0.4 L Glucose 150 H Calcium 8.4 L Cardiac Enzymes 04/24/19 Range/Units 02:00 Troponin T 0.02 (0-0.03) ng/ml Liver Function 04/23/19 Range/Units 22:09 Total Bilirubin 0.6 (0.0-1.0) mg/dL AST 26 (0-37) U/l ALT 9 (0-40) U/l Alkaline Phosphatase 220 H (39-117) U/L Albumin 2.7 L (3.2-5.2) gm/dL Medical - H&P: A/P (1) Septic shock Current visit: Yes Status: Acute * Complicated hardware related UTI-continue antibiotic coverage on cefepime/Levaquin. De-escalate based on culture sensitivities * Anasarca-check echocardiogram. Aggressive diuresis * Pressure ulcer gluteal area during recent visit-continue offloading/close monitoring * Thrombocytopenia-chronic since 2014. 60 , no evidence of bleeding * Poorly controlled diabetes continue basal prandial insulin/sitagliptin/CCd * Anxiety disorder continue sertraline * History of paraplegia start baclofen for spasm * GERD continue PPI * Full code * Prophylaxis fondaparinux Plan * Inpatient admission, anticipate a minimum 2 midnight hospitalization * Antibiotic/vasopressors needed * Start diuresis * Prior medical condition management on home meds * Wound care * PT OT nutrition support * Discharge planning
[2019-04-24] MEDS ORDERED: PIPERACILLIN SODIUM/TAZOBACTAM 3.375 GM in DEXTROSE 5% IN WATER 50 ML IV SCH (09:00)
[2019-04-24] MEDS ORDERED: HEPARIN 5,000 UNIT/ML VIAL SQ SCH (09:00)
[2019-04-24] MEDS ORDERED: FUROSEMIDE 40 MG/4 ML VIAL IV ONE (09:22)
[2019-04-24] MEDS: CEFEPIME 2 GM VIAL IV SCH ×3 (09:30→22:18)
[2019-04-24] MEDS ORDERED: traMADol 50 MG TABLET PO PRN (10:01)
[2019-04-24] MEDS ORDERED: BENZONATATE 100 MG CAPSULE PO PRN (10:01)
[2019-04-24] MEDS ORDERED: METOCLOPRAMIDE 10 MG TABLET PO PRN (10:01)
[2019-04-24] MEDS ORDERED: IPRATROPIUM/ALBUTEROL 3 ML AMPUL.NEB NEB PRN (10:01)
[2019-04-24] MEDS: BUDESONIDE 0.5 MG/2 ML AMPUL.NEB NEB SCH ×2 (10:31→18:40)
[2019-04-24] MEDS: IPRATROPIUM/ALBUTEROL 3 ML AMPUL.NEB NEB SCH ×4 (10:31→22:48)
[2019-04-24] MEDS: FONDAPARINUX SODIUM 2.5 MG/0.5 ML SYRINGE SQ SCH (12:45)
[2019-04-24] MEDS: INSULIN LISPRO 1 UNIT/0.01 ML UNIT SQ SCH ×3 (12:46→22:18)
[2019-04-24] MEDS: DOCUSATE SODIUM 100 MG CAPSULE PO SCH ×2 (12:53→22:18)
--- NOTE | 2019-04-24 13:04 | Ultrasound Report ---
CLINICAL INFORMATION: liver /gb COMPARISON: None. FINDINGS: The gallbladder certainly absent. Common bile duct is mildly dilated - 8 mm compatible with post cholecystectomy state. The liver is decreased in size in the vertical dimension of 14 cm and a nodular cortex with inhomogeneous echotexture compatible with known cirrhosis. No focal hepatic lesions. The umbilical vein is recanalized patible with portal hypertension. Moderate ascites noted. IMPRESSION: Cirrhotic changes. Moderate ascites Cholecystectomy. Common bile duct is mildly dilated compatible with post cholecystectomy state. Interpreted and Authenticated by: David Neal 04/24/19
[2019-04-24] MEDS: METOLAZONE 2.5 MG TABLET PO SCH (14:00)
[2019-04-24] MEDS: 0.9 % SODIUM CHLORIDE 250 ML IV SCH ×2 (14:24→17:27)
[2019-04-24] MEDS: BACLOFEN 10 MG TABLET PO SCH ×2 (14:32→22:18)
[2019-04-24] MEDS: FUROSEMIDE 40 MG/4 ML VIAL IV SCH ×2 (14:33→22:18)
[2019-04-24] MEDS: 0.9 % SODIUM CHLORIDE 10 ML SYRINGE IV SCH ×2 (14:33→22:19)
[2019-04-24] MEDS: PREGABALIN 25 MG CAPSULE PO SCH ×3 (14:33→22:17)
[2019-04-24] MEDS ORDERED: NOREPINEPHRINE BITARTRATE 16 MG in 0.9 % SODIUM CHLORIDE 234 ML IV PRN (15:30)
[2019-04-24] MEDS: FERROUS SULFATE 325 MG TABLET PO SCH (17:23)
[2019-04-24] MEDS: OMEPRAZOLE 20 MG CAPSULE PO SCH (17:23)
[2019-04-24] MEDS ORDERED: NYSTATIN TOPICAL SCH (21:00)
[2019-04-24] MEDS: SERTRALINE 50 MG TABLET PO SCH (22:17)
[2019-04-24] MEDS: SENNOSIDES/DOCUSATE SODIUM 1 TAB TABLET PO SCH (22:18)
[2019-04-24] MEDS: oxyCODONE HCL 5 MG TABLET PO PRN (23:40)
[2019-04-25] MEDS: IPRATROPIUM/ALBUTEROL 3 ML AMPUL.NEB NEB SCH ×6 (02:11→22:45)
[2019-04-25] MEDS: FUROSEMIDE 40 MG/4 ML VIAL IV SCH ×3 (05:45→21:31)
[2019-04-25] MEDS: 0.9 % SODIUM CHLORIDE 10 ML SYRINGE IV SCH ×4 (05:46→20:39)
[2019-04-25] MEDS: CEFEPIME 2 GM VIAL IV SCH (05:48)
[2019-04-25] MEDS: oxyCODONE HCL 5 MG TABLET PO PRN ×3 (06:07→18:03)
[2019-04-25] MEDS: 0.9 % SODIUM CHLORIDE 250 ML IV SCH ×2 (06:15→18:44)
[2019-04-25] MEDS: BUDESONIDE 0.5 MG/2 ML AMPUL.NEB NEB SCH ×2 (07:06→19:29)
[2019-04-25 07:32] LABS: ALT/SGPT 9 U/l (0-40); AST/SGOT 25 U/l (0-37); Albumin 2.5 gm/dL (3.2-5.2); Albumin/Globulin Ratio 1.1 (1.0-2.3); Alkaline Phosphatase 197 U/L (39-117); Bilirubin,Direct 0.3 mg/dL (0.0-0.3); Bilirubin,Total 0.7 mg/dL (0.0-1.0); Blood Urea Nitrogen 33 mg/dl (6-20); Calcium 8.2 mg/dl (8.6-10.4); Carbon Dioxide 26 mmol/L (22-30); Chloride 102 mmol/L (96-108); Globulin 2.2 gm/dL (2.2-3.7); Glomerular Filtration Rate 109; Glucose 186 mg/dL (70-105); Lactate Dehydrogenase 152 U/L (94-250); Triglycerides 110 mg/dl (<150); Uric Acid 6.7 mg/dL (2.5-8.0)
[2019-04-25 07:37] LABS: Hematocrit 28.7 % (34.1-44.9); Hemoglobin 8.6 g/dL (11.2-15.7); Mean Cell Volume 85.2 fL (80.0-100.0); Platelet Count 50 K/mcL (140-440); RBC 3.37 M/mcL (3.59-5.38); Red Cell Distribution Width 16.6 % (11.5-14.5); WBC 3.8 K/mcL (4.50-11.00)
[2019-04-25] MEDS: OMEPRAZOLE 20 MG CAPSULE PO SCH ×2 (07:53→18:03)
[2019-04-25] MEDS: INSULIN LISPRO 1 UNIT/0.01 ML UNIT SQ SCH ×4 (08:03→21:31)
[2019-04-25] MEDS: FERROUS SULFATE 325 MG TABLET PO SCH ×2 (08:23→18:03)
[2019-04-25] MEDS: SERTRALINE 50 MG TABLET PO SCH ×3 (08:25→20:37)
[2019-04-25] MEDS: BACLOFEN 10 MG TABLET PO SCH ×3 (08:27→20:34)
[2019-04-25] MEDS: OXYBUTYNIN CHLORIDE 5 MG TAB.XL.24H PO SCH (08:28)
[2019-04-25] MEDS: sitaGLIPtin 100 MG TABLET PO SCH (08:28)
[2019-04-25] MEDS: SPIRONOLACTONE 25 MG TABLET PO SCH (08:28)
[2019-04-25] MEDS: DOCUSATE SODIUM 100 MG CAPSULE PO SCH ×2 (08:28→20:38)
[2019-04-25] MEDS: PREGABALIN 25 MG CAPSULE PO SCH ×4 (08:29→20:35)
[2019-04-25] MEDS: INSULIN GLARGINE, HUMAN 1 UNIT/0.01 ML SQ SCH (08:29)
[2019-04-25] MEDS: FONDAPARINUX SODIUM 2.5 MG/0.5 ML SYRINGE SQ SCH (08:30)
[2019-04-25 08:32] LABS: Anisocytosis 2+ (NONE SEEN); Band Neutrophils % 11 % (0-10); Lymphocytes % 6 % (15-49); Monocytes % (Manual) 8 % (1-12); Ovalocytes 1+ (NONE SEEN); Platelet Estimate DECREASED (NORMAL); RBC Morphology ABNORM (NORMAL); Segmented Neutrophils % 75 % (38-78)
[2019-04-25] MEDS ORDERED: LOPERAMIDE 2 MG CAPSULE PO PRN (09:02)
[2019-04-25] MEDS: MAGNESIUM SULFATE 2 GM/50 ML BAG IV PRN (09:06)
--- NOTE | 2019-04-25 09:48 | XRay Report ---
CLINICAL INFORMATION: Cough COMPARISON: 04/23/2019 FINDINGS: Heart size, mediastinum and pulmonary vessels are normal. There is mild interstitial disease in both lung bases which could indicate developing aspiration pneumonia or infiltrate. No effusion. IMPRESSION: Mild bibasilar interstitial disease which could indicate developing aspiration pneumonia or other inflammatory process. Interpreted and Authenticated by: David Neal 04/25/19
--- NOTE | 2019-04-25 10:24 | Internal Med Progress Note ---
Medical - PN: Subj Patient information: Note initiated : 04/25/19 at 10:22 am Service Date, if different from initiated Date: [] Patient: Ebony Arroyo a 54 y/o F admitted on 04/24/19 for shortness of b reathe. Chief Complaint: [] Interval history: Ms. Arroyo is a 54 year old F with a history of paraplegia, chronically bedridden with suprapubic catheter and recurrent hardware related UTIs who presents with her Franky with shortness of breath, weakness and weight gain over 20 pounds in the last 1 month. Symptoms associated with increasing bilateral flank pain. She was recently in the ER for above symptoms however has failed to improve. During today's visit work-up was consistent with elevated lactate,/pyuria consistent with complicated UTI. Hospitalist service was consulted for as above At the time evaluation patient is accompanied with her . She was able to answer most the question. She endorses to increasing fluid stimulation and weight gain. Endorses to history as above. Denies recent medication changes. Denies shaking chills fever but endorses loss of appetite. 04/25 worsening hypoxia and increased oxygen requirement. Chest x-ray bibasilar interstitial disease likely worsening aspiration. Nursing staff suctioned excessive oral secretions. Patient started on CoughAssist maneuvers to prevent further aspiration. Ongoing diuresis. Platelets of 50 white count 3.8, lactate 3.3, BUN 33, replace magnesium today. Continue PT OT/nutrition support - Constitutional Vitals: Vital Signs Temp Pulse Resp BP Pulse Ox 98.9 F 94 H 13 100/47 96 04/25/19 06:12 04/25/19 09:01 04/25/19 09:52 04/25/19 09:01 04/25/19 09:01 Period Temp Pulse Resp BP Sys/Porter Pulse Ox Last 24 Hr 97.4 F-98.9 F 69-129 5-20 63-136/39-84 88-100 Intake and Output 04/24/19 04/25/19 04/25/19 21:59 05:59 13:59 Intake Total 360 640 Output Total 600 1290 30 Balance -240 -650 -30 Weight 190 lb Intake & Output: Intake & Output 04/24/19 04/25/19 04/25/19 21:59 05:59 13:59 Intake Total 360 640 Output Total 600 1290 30 Balance -240 -650 -30 Weight 190 lb Intake: Oral 360 640 Output: Urine Catheter Amount 600 1290 30 Other: Meal Dinner Breakfast Percent of Meal Consumed 75% 50% Urine Appearance Clear Clear Clear Urine Color Bright Yellow Bright Yellow Pale Dark Yellow Dark Yellow Urine Odor Normal Normal General appearance: no acute distress Exam: Alert and respond to commands Nonlabored breathing No anxiety Nondistended abdomen Suprapubic cath Medical - PN: Obj Da - Labs CBC & Chem 7: 04/25/19 04:38 04/25/19 04:38 Labs: Abnormal Lab Results 04/25/19 04/25/19 04/24/19 04:38 04:38 02:00 WBC 3.8 L RBC 3.37 L Hgb 8.6 L Hct 28.7 L MCH 25.5 L MCHC 30.0 L RDW 16.6 H Plt Count 50 L* MPV Lymph # (Auto) Band Neutrophils % 11 H Lymphocytes % 6 L RBC Morphology Abnorm A Anisocytosis 2+ A Ovalocytes 1+ A D-Dimer 1.02 H VBG Lactic Acid BUN 33 H Creatinine 0.5 L Glucose 186 H Calcium 8.2 L Magnesium 1.4 L GGT 193 H Alkaline Phosphatase 197 H NT-Pro-B Natriuret Pep Total Protein 4.7 L Albumin 2.5 L Globulin 04/24/19 04/24/19 04/23/19 02:00 00:54 22:09 WBC RBC Hgb Hct MCH MCHC RDW Plt Count MPV Lymph # (Auto) Band Neutrophils % Lymphocytes % RBC Morphology Anisocytosis Ovalocytes D-Dimer VBG Lactic Acid 3.3 H 2.9 H BUN Creatinine Glucose Calcium Magnesium GGT Alkaline Phosphatase NT-Pro-B Natriuret Pep 522.6 H Total Protein Albumin Globulin 04/23/19 04/23/19 22:09 22:09 WBC 3.9 L RBC Hgb 9.5 L Hct 31.6 L MCH MCHC 30.1 L RDW 16.5 H Plt Count 61 L MPV 12.8 H Lymph # (Auto) 0.84 L Band Neutrophils % Lymphocytes % RBC Morphology Anisocytosis Ovalocytes D-Dimer VBG Lactic Acid BUN 36 H Creatinine 0.4 L Glucose 150 H Calcium 8.4 L Magnesium GGT Alkaline Phosphatase 220 H NT-Pro-B Natriuret Pep Total Protein 4.8 L Albumin 2.7 L Globulin 2.1 L Meds: Medications Acetaminophen (Tylenol) 650 mg PO Q4-6HP PRN; Protocol PRN Reason: Per Pain Protocol/Fever > 101 Albuterol/Ipratropium (Duoneb) 3 ml NEB Q4HRT [facility] Last Admin: 04/25/19 07:06 Dose: 3 ml Documented by: Albuterol/Ipratropium (Duoneb) 3 ml NEB Q4-6HP PRN PRN Reason: Shortness Of Breath Baclofen (Lioresal) 20 mg PO TID [facility] Last Admin: 04/25/19 08:27 Dose: 20 mg Documented by: Benzonatate (Tessalon) 100 mg PO BIDP PRN PRN Reason: Cough Bisacodyl (Dulcolax) 10 mg [place] Q2-3DAYS PRN PRN Reason: Constipation Budesonide (Pulmicort) 0.5 mg NEB Q12 [facility] Last Admin: 04/25/19 07:06 Dose: 0.5 mg Documented by: Cefepime HCl (Maxipime) 2 gm IV Q8H [facility]; Protocol Last Admin: 04/25/19 05:48 Dose: 2 gm Documented by: Diagnostic Test (Pha) (Accu-Chek) 1 each FS ACHS [facility] Last Admin: 04/25/19 07:52 Dose: 1 each Documented by: Docusate Sodium (Colace) 100 mg PO BID [facility] Last Admin: 04/25/19 08:28 Dose: 100 mg Documented by: Ferrous Sulfate (Ferrous Sulfate) 325 mg PO BIDCC [facility] Last Admin: 04/25/19 08:23 Dose: 325 mg Documented by: Fondaparinux (Arixtra) 2.5 mg SQ DAILY [facility] Last Admin: 04/25/19 08:30 Dose: 2.5 mg Documented by: Furosemide (Lasix) 40 mg IV Q8 [facility] Last Admin: 04/25/19 05:45 Dose: 40 mg Documented by: Sodium Chloride (Sodium Chloride 0.9%) 250 mls @ 20 mls/hr IV .[id number] [facility] Last Admin: 04/25/19 06:15 Dose: Not Given Documented by: Acetaminophen (Ofirmev) 650 mg in 65 mls @ 130 mls/hr IV Q6HP PRN; Protocol PRN Reason: Per Pain Protocol/Fever > 101 Magnesium Sulfate (Magnesium Sulfate) 2 gm in 50 mls @ 50 mls/hr IV UD PRN PRN Reason: MG = or < 1.7 Last Admin: 04/25/19 09:06 Dose: 50 mls/hr Documented by: Norepinephrine Bitartrate 16 (mg/ Sodium Chloride) 250 mls @ 9.375 mls/hr IV Q24HP PRN; Protocol PRN Reason: Hypotension Insulin Glargine (Lantus) 15 unit SQ DAILY [facility] Last Admin: 04/25/19 08:29 Dose: 15 unit Documented by: Insulin Human Lispro (Humalog) 0 unit SQ ACHS [facility]; Protocol Last Admin: 04/25/19 08:03 Dose: 2 unit Documented by: Loperamide HCl (Imodium) 2 mg PO PRN PRN PRN Reason: Diarrhea Melatonin (Melatonin 3mg Tablet) 3 mg PO HSP PRN PRN Reason: Insomnia Metoclopramide HCl (Reglan) 5 mg PO QIDP PRN PRN Reason: Nausea Metolazone (Zaroxolyn) 2.5 mg PO DAILY@1330 [facility] Last Admin: 04/24/19 14:00 Dose: 2.5 mg Documented by: Omeprazole (Prilosec) 20 mg PO BIDAC [facility] Last Admin: 04/25/19 07:53 Dose: 20 mg Documented by: Ondansetron HCl (Zofran) 4 mg IV Q4-6HP PRN PRN Reason: Nausea And Vomiting Last Admin: 04/24/19 06:07 Dose: 4 mg Documented by: Ondansetron HCl (Zofran Odt) 4 mg SL Q4-6HP PRN; Protocol PRN Reason: Nausea And Vomiting Oxybutynin Chloride (Ditropan Xl) 5 mg PO QDAY [facility] Last Admin: 04/25/19 08:28 Dose: 5 mg Documented by: Oxycodone HCl (Roxicodone) 5 mg PO Q6HP PRN PRN Reason: Pain Last Admin: 04/25/19 06:07 Dose: 5 mg Documented by: Polyethylene Glycol (Miralax) 17 gm PO DAILYP PRN PRN Reason: Constipation Potassium Chloride (Klor-Con) 40 meq PO DAILYP PRN PRN Reason: K+ < 3.5 Pregabalin (Lyrica) 50 mg PO QID [facility] Last Admin: 04/25/19 08:29 Dose: 50 mg Documented by: Senna/Docusate Sodium (Senna Plus Tablet) 1 tab PO HS [facility] Last Admin: 04/24/19 22:18 Dose: Not Given Documented by: Sertraline HCl (Zoloft) 25 mg PO BID [facility] Last Admin: 04/25/19 08:25 Dose: 25 mg Documented by: Sertraline HCl (Zoloft) 50 mg PO DAILY [facility] Sitagliptin Phosphate (Januvia) 100 mg PO DAILY [facility] Last Admin: 04/25/19 08:28 Dose: 100 mg Documented by: Sodium Chloride (Saline Flush) 10 ml IV Q8 [facility] Last Admin: 04/25/19 05:46 Dose: 10 ml Documented by: Spironolactone (Aldactone) 50 mg PO DAILY [facility] Last Admin: 04/25/19 08:28 Dose: 50 mg Documented by: Tramadol HCl (Ultram) 50 mg PO QIDP PRN PRN Reason: Pain Medical - PN: A/P - Time Spent With Patient Total time spent is greater than 50% in coordination of care (as documented) at patient's floor/unit and/or counseling patient: 25 - 35 minutes (1) Septic shock Status: Acute Assessment and plan: * Complicated hardware related GNR UTI-continue cefepime/Levaquin. De-escalate based on culture sensitivities * Aspiration pneumonia on chest imaging-continue aspiration precautions/frequent CoughAssist/ST eval/dysphagia diet * Anasarca-await echocardiogram. Aggressive diuresis * Pressure ulcer gluteal area-continue offloading/close monitoring/wound care consult * Thrombocytopenia-chronic since 2014. 49, no evidence of bleeding. Arixtra for prophylaxis * Poorly controlled diabetes continue basal prandial insulin/sitagliptin/CCd * Anxiety disorder continue sertraline * History of paraplegia continue baclofen for spasm * GERD continue PPI * Full code * Prophylaxis fondaparinux Plan * Antibiotic * CoughAssist/pulmonary toilet/aspiration precautions/ST eval * Continue diuresis * PICC line placement * Prior medical condition management on home meds * Wound care consult * PT OT nutrition support * Discharge planning Current Visit: Yes Medical - PN: Qual - VTE Deep Vein Thrombosis/Pulmonary Embolism Present on Admission: No
[2019-04-25] MEDS: LEVOFLOXACIN 750 MG/150 ML BAG IV SCH (12:57)
[2019-04-25] MEDS: METOLAZONE 2.5 MG TABLET PO SCH (13:00)
[2019-04-25] MEDS: metroNIDAZOLE 500 MG/100 ML BAG IV SCH ×2 (15:04→21:31)
--- NOTE | 2019-04-25 15:45 | XRay Report ---
CLINICAL INFORMATION: PICC PLACEMENT COMPARISON: 04/25/2019 FINDINGS: Right PICC line is distally positioned overlying the infrahepatic IVC. Cardiomediastinal silhouette and pulmonary vessels are normal. Mild bibasilar infiltrates are unchanged. No effusion IMPRESSION: Mild bibasilar infiltrates - stable Right PICC line is distally positioned. The nurses were instructed to withdraw the line 8.5 cm Interpreted and Authenticated by: David Neal 04/25/19
[2019-04-25] MEDS: SENNOSIDES/DOCUSATE SODIUM 1 TAB TABLET PO SCH (20:39)
[2019-04-26] MEDS: IPRATROPIUM/ALBUTEROL 3 ML AMPUL.NEB NEB SCH ×6 (03:39→23:09)
[2019-04-26] MEDS: FUROSEMIDE 40 MG/4 ML VIAL IV SCH ×3 (05:30→21:55)
[2019-04-26] MEDS: metroNIDAZOLE 500 MG/100 ML BAG IV SCH ×3 (05:30→21:54)
[2019-04-26] MEDS: 0.9 % SODIUM CHLORIDE 10 ML SYRINGE IV SCH ×5 (05:31→21:59)
[2019-04-26 07:18] LABS: ALT/SGPT 8 U/l (0-40); AST/SGOT 19 U/l (0-37); Albumin 2.4 gm/dL (3.2-5.2); Albumin/Globulin Ratio 1.1 (1.0-2.3); Alkaline Phosphatase 177 U/L (39-117); Bilirubin,Total 0.7 mg/dL (0.0-1.0); Blood Urea Nitrogen 33 mg/dl (6-20); Calcium 8.2 mg/dl (8.6-10.4); Carbon Dioxide 27 mmol/L (22-30); Chloride 97 mmol/L (96-108); Globulin 2.2 gm/dL (2.2-3.7); Glomerular Filtration Rate 109; Glucose 134 mg/dL (70-105); Lactate Dehydrogenase 136 U/L (94-250); Phosphorous 2.8 mg/dL (2.7-4.5); Triglycerides 100 mg/dl (<150); Uric Acid 6.9 mg/dL (2.5-8.0)
[2019-04-26] MEDS: BUDESONIDE 0.5 MG/2 ML AMPUL.NEB NEB SCH ×2 (07:18→23:21)
[2019-04-26 07:23] LABS: Bilirubin,Direct 0.4 mg/dL (0.0-0.3)
[2019-04-26] MEDS: INSULIN LISPRO 1 UNIT/0.01 ML UNIT SQ SCH ×4 (07:28→21:54)
[2019-04-26] MEDS: OMEPRAZOLE 20 MG CAPSULE PO SCH ×2 (07:28→17:08)
[2019-04-26] MEDS: 0.9 % SODIUM CHLORIDE 250 ML IV SCH ×2 (07:29→12:04)
[2019-04-26] MEDS: MAGNESIUM SULFATE 2 GM/50 ML BAG IV PRN (07:51)
[2019-04-26] MEDS: INSULIN GLARGINE, HUMAN 1 UNIT/0.01 ML SQ SCH (08:08)
--- NOTE | 2019-04-26 08:08 | XRay Report ---
CLINICAL INFORMATION: Follow-up bibasilar infiltrates COMPARISON: 04/25/2019 FINDINGS: Right PICC line remains too far distal - it should be withdrawn 3 cm. The heart is normal in size. Mediastinum and pulmonary vessels are unremarkable. Bibasilar airspace disease has nearly cleared with minimal residual. No effusion. Mild subglottic narrowing noted IMPRESSION: 1. Malpositioned right PICC line. Lines line should be withdrawn 3 cm. 2. Near complete interval clearance of bibasilar airspace disease - only minimal residual 3. Mild subglottic narrowing Interpreted and Authenticated by: David Neal 04/26/19
[2019-04-26] MEDS: OXYBUTYNIN CHLORIDE 5 MG TAB.XL.24H PO SCH (08:09)
[2019-04-26] MEDS: sitaGLIPtin 100 MG TABLET PO SCH (08:10)
[2019-04-26] MEDS: FERROUS SULFATE 325 MG TABLET PO SCH ×2 (08:10→17:09)
[2019-04-26] MEDS: oxyCODONE HCL 5 MG TABLET PO PRN ×2 (08:11→16:00)
[2019-04-26] MEDS: DOCUSATE SODIUM 100 MG CAPSULE PO SCH ×2 (08:11→21:56)
[2019-04-26] MEDS: SERTRALINE 50 MG TABLET PO SCH ×2 (08:11→08:13)
[2019-04-26] MEDS: BACLOFEN 10 MG TABLET PO SCH ×3 (08:11→21:59)
[2019-04-26] MEDS: PREGABALIN 25 MG CAPSULE PO SCH ×4 (08:12→21:58)
[2019-04-26] MEDS: SPIRONOLACTONE 25 MG TABLET PO SCH (08:12)
[2019-04-26 08:15] LABS: Anisocytosis 1+ (NONE SEEN); Band Neutrophils % 7 % (0-10); Eosinophils % (Manual) 1 % (0-7); Hypochromasia 2+ (NONE SEEN); Lymphocytes % 23 % (15-49); Monocytes % (Manual) 9 % (1-12); Platelet Estimate DECREASED (NORMAL); RBC Morphology ABNORM (NORMAL); Segmented Neutrophils % 60 % (38-78)
[2019-04-26] MEDS: LEVOFLOXACIN 750 MG/150 ML BAG IV SCH (09:09)
[2019-04-26 10:14] LABS: Hematocrit 26.2 % (34.1-44.9); Mean Cell Volume 84.2 fL (80.0-100.0); Mean Corpuscular HGB Conc 30.5 g/dL (31.0-36.0); Platelet Count 60 K/mcL (140-440); RBC 3.11 M/mcL (3.59-5.38); Red Cell Distribution Width 16.6 % (11.5-14.5); WBC 2.3 K/mcL (4.50-11.00)
[2019-04-26] MEDS: FONDAPARINUX SODIUM 2.5 MG/0.5 ML SYRINGE SQ SCH (10:15)
[2019-04-26] MEDS ORDERED: BISACODYL 10 MG SUPP.RECT PR PRN (11:56)
[2019-04-26] MEDS ORDERED: POTASSIUM CHLORIDE 20 MEQ PACKET PO PRN (11:56)
[2019-04-26] MEDS ORDERED: IPRATROPIUM/ALBUTEROL 3 ML AMPUL.NEB NEB PRN (11:56)
[2019-04-26] MEDS ORDERED: LOPERAMIDE 2 MG CAPSULE PO PRN (11:56)
[2019-04-26] MEDS ORDERED: METOCLOPRAMIDE 10 MG TABLET PO PRN (11:56)
[2019-04-26] MEDS ORDERED: MAGNESIUM SULFATE 2 GM/50 ML BAG IV PRN (11:56)
[2019-04-26] MEDS ORDERED: BENZONATATE 100 MG CAPSULE PO PRN (11:56)
[2019-04-26] MEDS ORDERED: POLYETHYLENE GLYCOL 3350 17 GM PACKET PO PRN (11:56)
[2019-04-26] MEDS ORDERED: LEVOFLOXACIN 750 MG/150 ML BAG IV SCH (12:00)
[2019-04-26] MEDS ORDERED: METOLAZONE 2.5 MG TABLET PO SCH (13:30)
--- NOTE | 2019-04-26 14:31 | Internal Med Progress Note ---
Medical - PN: Subj Patient information: Note initiated : 04/26/19 at 2:27 pm Service Date, if different from initiated Date: [] Patient: Ebony Arroyo a 54 y/o F admitted on 04/24/19 for shortness of breathe. Chief Complaint: [] Interval history: Ms. Arroyo is a 54 year old F with a history of paraplegia, chronically bedridden with suprapubic catheter and recurrent hardware related UTIs who presents with her Franky with shortness of breath, weakness and weight gain over 20 pounds in the last 1 month. Symptoms associated with increasing bilateral flank pain. She was recently in the ER for above symptoms however has failed to improve. During today's visit work-up was consistent with elevated lactate,/pyuria consistent with complicated UTI. Hospitalist service was consulted for as above At the time evaluation patient is accompanied with her . She was able to answer most the question. She endorses to increasing fluid stimulation and weight gain. Endorses to history as above. Denies recent medication changes. Denies shaking chills fever but endorses loss of appetite. 04/25 worsening hypoxia and increased oxygen requirement. Chest x-ray bibasilar interstitial disease likely worsening aspiration. Nursing staff suctioned excessive oral secretions. Patient started on CoughAssist maneuvers to prevent further aspiration. Ongoing diuresis. Platelets of 50 white count 3.8, lactate 3.3, BUN 33, replace magnesium today. Continue PT OT/nutrition support 04/26- Pt doing well, no overnight events. Flat affect. No telemetry events. Blood pressure stable. Lockhart is draining clear urine. Persistent lymphedema. Diminished breath sounds bases. No family at bedside. Ongoing wound care. - Constitutional Vitals: Vital Signs Temp Pulse Resp BP Pulse Ox 98.1 F 88 12 102/50 96 04/26/19 12:01 04/26/19 14:01 04/26/19 14:01 04/26/19 14:01 04/26/19 14:01 Period Temp Pulse Resp BP Sys/Porter Pulse Ox Last 24 Hr 98.1 F-98.6 F 73-106 7-22 92-114/43-61 91-100 Intake and Output 04/26/19 04/26/19 04/26/19 05:59 13:59 21:59 Intake Total 100 460 Output Total 560 780 Balance -460 -320 Weight 190 lb Patient Weight 04/27/19 05:59 Weight 190 lb Intake & Output: Intake & Output 04/26/19 04/26/19 04/26/19 05:59 13:59 21:59 Intake Total 100 460 Output Total 560 780 Balance -460 -320 Weight 190 lb Intake: IV 100 100 Oral 360 Output: Urine Catheter Amount 560 780 Other: Percent of Meal Consumed 100% Feeding Ability Total Assistance Urine Appearance Clear Urine Color Pale General appearance: no acute distress Exam: Paraplegic Flat affect No anxiety Lockhart draining clear urine Lymphedema Medical - PN: Obj Da - Labs CBC & Chem 7: 04/26/19 05:00 04/26/19 05:00 Labs: Abnormal Lab Results 04/26/19 04/26/19 04/25/19 05:00 05:00 04:38 WBC 2.3 L RBC 3.11 L Hgb 8.0 L Hct 26.2 L MCH 25.7 L MCHC 30.5 L RDW 16.6 H Plt Count 60 L MPV Lymph # (Auto) Band Neutrophils % Lymphocytes % RBC Morphology Abnorm A Hypochromasia 2+ A Anisocytosis 1+ A Ovalocytes D-Dimer VBG Lactic Acid BUN 33 H 33 H Creatinine 0.5 L 0.5 L Glucose 134 H 186 H Calcium 8.2 L 8.2 L Magnesium 1.4 L Direct Bilirubin 0.4 H GGT 168 H 193 H Alkaline Phosphatase 177 H 197 H NT-Pro-B Natriuret Pep Total Protein 4.6 L 4.7 L Albumin 2.4 L 2.5 L Globulin 04/25/19 04/24/19 04/24/19 04:38 02:00 02:00 WBC 3.8 L RBC 3.37 L Hgb 8.6 L Hct 28.7 L MCH 25.5 L MCHC 30.0 L RDW 16.6 H Plt Count 50 L* MPV Lymph # (Auto) Band Neutrophils % 11 H Lymphocytes % 6 L RBC Morphology Abnorm A Hypochromasia Anisocytosis 2+ A Ovalocytes 1+ A D-Dimer 1.02 H VBG Lactic Acid BUN Creatinine Glucose Calcium Magnesium Direct Bilirubin GGT Alkaline Phosphatase NT-Pro-B Natriuret Pep 522.6 H Total Protein Albumin Globulin 04/24/19 04/23/19 04/23/19 00:54 22:09 22:09 WBC RBC Hgb Hct MCH MCHC RDW Plt Count MPV Lymph # (Auto) Band Neutrophils % Lymphocytes % RBC Morphology Hypochromasia Anisocytosis Ovalocytes D-Dimer VBG Lactic Acid 3.3 H 2.9 H BUN 36 H Creatinine 0.4 L Glucose 150 H Calcium 8.4 L Magnesium Direct Bilirubin GGT Alkaline Phosphatase 220 H NT-Pro-B Natriuret Pep Total Protein 4.8 L Albumin 2.7 L Globulin 2.1 L 04/23/19 22:09 WBC 3.9 L RBC Hgb 9.5 L Hct 31.6 L MCH MCHC 30.1 L RDW 16.5 H Plt Count 61 L MPV 12.8 H Lymph # (Auto) 0.84 L Band Neutrophils % Lymphocytes % RBC Morphology Hypochromasia Anisocytosis Ovalocytes D-Dimer VBG Lactic Acid BUN Creatinine Glucose Calcium Magnesium Direct Bilirubin GGT Alkaline Phosphatase NT-Pro-B Natriuret Pep Total Protein Albumin Globulin Meds: Medications Acetaminophen (Tylenol) 650 mg PO Q4-6HP PRN; Protocol PRN Reason: Per Pain Protocol/Fever > 101 Albuterol/Ipratropium (Duoneb) 3 ml NEB Q4-6HP PRN PRN Reason: Shortness Of Breath Albuterol/Ipratropium (Duoneb) 3 ml NEB Q4HRT [facility] Baclofen (Lioresal) 20 mg PO TID [facility] Benzonatate (Tessalon) 100 mg PO BIDP PRN PRN Reason: Cough Bisacodyl (Dulcolax) 10 mg NM Q2-3DAYS PRN PRN Reason: Constipation Budesonide (Pulmicort) 0.5 mg NEB Q12 [facility] Diagnostic Test (Pha) (Accu-Chek) 1 each FS ACHS [facility] Docusate Sodium (Colace) 100 mg PO BID [facility] Ferrous Sulfate (Ferrous Sulfate) 325 mg PO BIDCC [facility] Fondaparinux (Arixtra) 2.5 mg SQ DAILY [facility] Furosemide (Lasix) 40 mg IV Q8 [facility] Last Admin: 04/26/19 14:09 Dose: 40 mg Documented by: Heparin Sodium (Porcine) (Heparin Flush) 2 ml IV Q12 [facility] Magnesium Sulfate (Magnesium Sulfate) 2 gm in 50 mls @ 50 mls/hr IV UD PRN PRN Reason: MG = or < 1.7 Metronidazole (Flagyl) 500 mg in 100 mls @ 100 mls/hr IV Q8H [facility] Last Admin: 04/26/19 14:09 Dose: 100 mls/hr Documented by: Norepinephrine Bitartrate 16 (mg/ Sodium Chloride) 250 mls @ 9.375 mls/hr IV Q24HP PRN; Protocol PRN Reason: Hypotension Sodium Chloride (Sodium Chloride 0.9%) 250 mls @ 20 mls/hr IV .[id number] [facility] Last Admin: 04/26/19 12:04 Dose: Not Given Documented by: Acetaminophen (Ofirmev) 650 mg in 65 mls @ 130 mls/hr IV Q6HP PRN; Protocol PRN Reason: Per Pain Protocol/Fever > 101 Levofloxacin (Levaquin) 750 mg in 150 mls @ 100 mls/hr IV DAILY [facility] Insulin Glargine (Lantus) 15 unit SQ DAILY [facility] Insulin Human Lispro (Humalog) 0 unit SQ ACHS [facility]; Protocol Loperamide HCl (Imodium) 2 mg PO PRN PRN PRN Reason: Diarrhea Melatonin (Melatonin 3mg Tablet) 3 mg PO HSP PRN PRN Reason: Insomnia Metoclopramide HCl (Reglan) 5 mg PO QIDP PRN PRN Reason: Nausea Metolazone (Zaroxolyn) 2.5 mg PO DAILY@1330 [facility] Last Admin: 04/26/19 13:36 Dose: 2.5 mg Documented by: Omeprazole (Prilosec) 20 mg PO BIDAC [facility] Ondansetron HCl (Zofran) 4 mg IV Q4-6HP PRN PRN Reason: Nausea And Vomiting Ondansetron HCl (Zofran Odt) 4 mg SL Q4-6HP PRN; Protocol PRN Reason: Nausea And Vomiting Oxybutynin Chloride (Ditropan Xl) 5 mg PO QDAY [facility] Oxycodone HCl (Roxicodone) 5 mg PO Q6HP PRN PRN Reason: Pain Polyethylene Glycol (Miralax) 17 gm PO DAILYP PRN PRN Reason: Constipation Potassium Chloride (Klor-Con) 40 meq PO DAILYP PRN PRN Reason: K+ < 3.5 Pregabalin (Lyrica) 50 mg PO QID [facility] Last Admin: 04/26/19 13:36 Dose: 50 mg Documented by: Senna/Docusate Sodium (Senna Plus Tablet) 1 tab PO HS [facility] Sertraline HCl (Zoloft) 50 mg PO DAILY [facility] Sitagliptin Phosphate (Januvia) 100 mg PO DAILY [facility] Sodium Chloride (Saline Flush) 10 ml IV Q8 [facility] Last Admin: 04/26/19 14:10 Dose: 10 ml Documented by: Sodium Chloride (Saline Flush) 10 ml IV Q12 [facility] Spironolactone (Aldactone) 50 mg PO DAILY [facility] Tramadol HCl (Ultram) 50 mg PO QIDP PRN PRN Reason: Pain Medical - PN: A/P - Time Spent With Patient Total time spent is greater than 50% in coordination of care (as documented) at patient's floor/unit and/or counseling patient: 25 - 35 minutes (1) Septic shock Status: Acute Assessment and plan: * Complicated hardware related GNR UTI- on antibiotic coverage * Aspiration pneumonia on chest imaging-continue aspiration precautions/frequent CoughAssist/ST eval/dysphagia diet * Anasarca-65% EF, diastolic dysfunction * Decubitus pressure ulcer gluteal area-continue offloading/close monitoring/wound care consult * Thrombocytopenia-chronic since 2014. 49, no evidence of bleeding. Arixtra for prophylaxis * Poorly controlled diabetes continue basal prandial insulin/sitagliptin/CCd * Anxiety disorder continue sertraline * History of paraplegia continue baclofen for spasm * GERD continue PPI * Full code * Prophylaxis fondaparinux Plan * Continue antibiotics * Continue CoughAssist/pulmonary toilet/aspiration precautions/ST eval * Diuresis * PICC line placement * Prior medical condition management on home meds * Wound care/decubitus care * PT OT nutrition support * Discharge planning likely in 24 to 48 hours Current Visit: Yes Medical - PN: Qual - VTE Deep Vein Thrombosis/Pulmonary Embolism Present on Admission: No
[2019-04-26] MEDS ORDERED: MELATONIN 3 MG TABLET PO PRN (21:00)
[2019-04-26] MEDS ORDERED: SERTRALINE 50 MG TABLET PO SCH (21:00)
[2019-04-26] MEDS: SENNOSIDES/DOCUSATE SODIUM 1 TAB TABLET PO SCH (21:56)
[2019-04-27] MEDS: oxyCODONE HCL 5 MG TABLET PO PRN ×2 (00:04→05:40)
[2019-04-27] MEDS: 0.9 % SODIUM CHLORIDE 250 ML IV SCH ×2 (01:03→12:05)
[2019-04-27] MEDS: IPRATROPIUM/ALBUTEROL 3 ML AMPUL.NEB NEB SCH ×6 (03:46→23:22)
[2019-04-27] MEDS: FUROSEMIDE 40 MG/4 ML VIAL IV SCH ×3 (05:39→22:51)
[2019-04-27] MEDS: 0.9 % SODIUM CHLORIDE 10 ML SYRINGE IV SCH ×5 (05:41→20:53)
[2019-04-27] MEDS: metroNIDAZOLE 500 MG/100 ML BAG IV SCH ×3 (05:43→22:51)
[2019-04-27] MEDS: ONDANSETRON 4 MG/2 ML VIAL IV PRN (05:53)
[2019-04-27] MEDS: BUDESONIDE 0.5 MG/2 ML AMPUL.NEB NEB SCH ×2 (07:04→19:23)
[2019-04-27 07:41] LABS: Hematocrit 27.2 % (34.1-44.9); Hemoglobin 8.3 g/dL (11.2-15.7); Mean Cell Volume 83.4 fL (80.0-100.0); Mean Corpuscular HGB Conc 30.5 g/dL (31.0-36.0); Platelet Count 48 K/mcL (140-440); RBC 3.26 M/mcL (3.59-5.38); Red Cell Distribution Width 16.5 % (11.5-14.5); WBC 2.7 K/mcL (4.50-11.00)
[2019-04-27 07:49] LABS: ALT/SGPT 7 U/l (0-40); AST/SGOT 18 U/l (0-37); Albumin 2.3 gm/dL (3.2-5.2); Alkaline Phosphatase 224 U/L (39-117); Bilirubin,Direct 0.4 mg/dL (0.0-0.3); Bilirubin,Total 0.8 mg/dL (0.0-1.0); Blood Urea Nitrogen 34 mg/dl (6-20); Calcium 8.1 mg/dl (8.6-10.4); Carbon Dioxide 28 mmol/L (22-30); Chloride 96 mmol/L (96-108); Globulin 2.4 gm/dL (2.2-3.7); Glomerular Filtration Rate 109; Glucose 227 mg/dL (70-105); Lactate Dehydrogenase 133 U/L (94-250); Phosphorous 2.8 mg/dL (2.7-4.5); Triglycerides 89 mg/dl (<150); Uric Acid 6.9 mg/dL (2.5-8.0)
[2019-04-27 08:14] LABS: Anisocytosis 1+ (NONE SEEN); Hypochromasia 1+ (NONE SEEN); Lymphocytes % 11 % (15-49); Monocytes % (Manual) 9 % (1-12); Platelet Estimate MK DECR (NORMAL); RBC Morphology ABNORM (NORMAL); Segmented Neutrophils % 80 % (38-78)
[2019-04-27] MEDS: OMEPRAZOLE 20 MG CAPSULE PO SCH ×2 (08:21→16:56)
[2019-04-27] MEDS: FERROUS SULFATE 325 MG TABLET PO SCH ×2 (08:21→16:56)
[2019-04-27] MEDS: INSULIN LISPRO 1 UNIT/0.01 ML UNIT SQ SCH ×4 (08:21→20:52)
[2019-04-27] MEDS ORDERED: CHLOROTHIAZIDE SODIUM 500 MG VIAL IV ONE (09:43)
[2019-04-27] MEDS: LEVOFLOXACIN 750 MG/150 ML BAG IV SCH (09:58)
[2019-04-27] MEDS: DOCUSATE SODIUM 100 MG CAPSULE PO SCH ×2 (09:59→20:51)
[2019-04-27] MEDS: SPIRONOLACTONE 25 MG TABLET PO SCH (09:59)
[2019-04-27] MEDS: sitaGLIPtin 100 MG TABLET PO SCH (09:59)
[2019-04-27] MEDS: OXYBUTYNIN CHLORIDE 5 MG TAB.XL.24H PO SCH (09:59)
[2019-04-27] MEDS: BACLOFEN 10 MG TABLET PO SCH ×3 (10:00→20:52)
[2019-04-27] MEDS: PREGABALIN 25 MG CAPSULE PO SCH ×4 (10:00→20:52)
[2019-04-27] MEDS: INSULIN GLARGINE, HUMAN 1 UNIT/0.01 ML SQ SCH (10:00)
[2019-04-27] MEDS: SERTRALINE 50 MG TABLET PO SCH (10:01)
[2019-04-27] MEDS: FONDAPARINUX SODIUM 2.5 MG/0.5 ML SYRINGE SQ SCH (10:05)
--- NOTE | 2019-04-27 15:35 | Internal Med Progress Note ---
Medical - PN: Subj Patient information: Note initiated : 04/27/19 at 3:33 pm Service Date, if different from initiated Date: [] Patient: Ebony Arroyo a 54 y/o F admitted on 04/24/19 for shortness of breathe. Chief Complaint: [] Interval history: Ms. Arroyo is a 54 year old F with a history of paraplegia, chronically bedridden with suprapubic catheter and recurrent hardware related UTIs who presents with her Franky with shortness of breath, weakness and weight gain over 20 pounds in the last 1 month. Symptoms associated with increasing bilateral flank pain. She was recently in the ER for above symptoms however has failed to improve. During today's visit work-up was consistent with elevated lactate,/pyuria consistent with complicated UTI. Hospitalist service was consulted for as above At the time evaluation patient is accompanied with her . She was able to answer most the question. She endorses to increasing fluid stimulation and weight gain. Endorses to history as above. Denies recent medication changes. Denies shaking chills fever but endorses loss of appetite. 04/25 worsening hypoxia and increased oxygen requirement. Chest x-ray bibasilar interstitial disease likely worsening aspiration. Nursing staff suctioned excessive oral secretions. Patient started on CoughAssist maneuvers to prevent further aspiration. Ongoing diuresis. Platelets of 50 white count 3.8, lactate 3.3, BUN 33, replace magnesium today. Continue PT OT/nutrition support 04/26- Pt doing well, no overnight events. Flat affect. No telemetry events. Blood pressure stable. Lockhart is draining clear urine. Persistent lymphedema. Diminished breath sounds bases. No family at bedside. Ongoing wound care. 04/27-patient had major aspiration episode. Aggressive suctioning performed. However patient hypoxic requiring 8 L oxygen. No family at bedside. White count 2.7. Continue antibiotic coverage. Continue PT OT. Lockhart is draining clear urine - Constitutional Vitals: Vital Signs Temp Pulse Resp BP Pulse Ox 98.2 F 87 17 107/46 99 04/27/19 13:01 04/27/19 15:09 04/27/19 15:09 04/27/19 15:01 04/27/19 15:09 Period Temp Pulse Resp BP Sys/Porter Pulse Ox Last 24 Hr 97.8 F-98.5 F 69-120 5-21 99-127/46-93 91-100 Intake and Output 04/27/19 04/27/19 04/27/19 05:59 13:59 21:59 Intake Total 100 400 Output Total 790 540 200 Balance -690 -140 -200 Intake & Output: Intake & Output 04/27/19 04/27/19 04/27/19 05:59 13:59 21:59 Intake Total 100 400 Output Total 790 540 200 Balance -690 -140 -200 Intake: IV 100 250 Oral 150 Output: Urine Catheter Amount 790 540 200 Other: Meal Breakfast Percent of Meal Consumed 50% Feeding Ability Total Assistance Urine Appearance Clear Clear Clear Urine Color Pale Pale Bright Yellow Urine Odor Normal Normal Stool Size Moderate Moderate Stool Color Brown Brown Stool Consistency Soft Soft Formed Formed General appearance: no acute distress Exam: Alert but anxious Labored breathing No telemetry events Nondistended abdomen Significant lymphedema from mid thigh to ankle Lockhart is draining clear urine Medical - PN: Obj Da - Labs CBC & Chem 7: 04/27/19 05:00 04/27/19 05:00 Labs: Abnormal Lab Results 04/27/19 04/27/19 04/26/19 05:00 05:00 05:00 WBC 2.7 L RBC 3.26 L Hgb 8.3 L Hct 27.2 L MCH 25.5 L MCHC 30.5 L RDW 16.5 H Plt Count 48 L* Seg Neutrophils % 80 H Band Neutrophils % Lymphocytes % 11 L Platelet Estimate Mk decr A RBC Morphology Abnorm A Hypochromasia 1+ A Anisocytosis 1+ A Ovalocytes BUN 34 H 33 H Creatinine 0.5 L 0.5 L Glucose 227 H 134 H Calcium 8.1 L 8.2 L Magnesium Direct Bilirubin 0.4 H 0.4 H GGT 196 H 168 H Alkaline Phosphatase 224 H 177 H Total Protein 4.7 L 4.6 L Albumin 2.3 L 2.4 L 04/26/19 04/25/19 04/25/19 05:00 04:38 04:38 WBC 2.3 L 3.8 L RBC 3.11 L 3.37 L Hgb 8.0 L 8.6 L Hct 26.2 L 28.7 L MCH 25.7 L 25.5 L MCHC 30.5 L 30.0 L RDW 16.6 H 16.6 H Plt Count 60 L 50 L* Seg Neutrophils % Band Neutrophils % 11 H Lymphocytes % 6 L Platelet Estimate RBC Morphology Abnorm A Abnorm A Hypochromasia 2+ A Anisocytosis 1+ A 2+ A Ovalocytes 1+ A BUN 33 H Creatinine 0.5 L Glucose 186 H Calcium 8.2 L Magnesium 1.4 L Direct Bilirubin GGT 193 H Alkaline Phosphatase 197 H Total Protein 4.7 L Albumin 2.5 L Meds: Medications Acetaminophen (Tylenol) 650 mg PO Q4-6HP PRN; Protocol PRN Reason: Per Pain Protocol/Fever > 101 Albuterol/Ipratropium (Duoneb) 3 ml NEB Q4-6HP PRN PRN Reason: Shortness Of Breath Albuterol/Ipratropium (Duoneb) 3 ml NEB Q4HRT [facility] Last Admin: 04/27/19 11:40 Dose: 3 ml Documented by: Baclofen (Lioresal) 20 mg PO TID [facility] Last Admin: 04/27/19 14:32 Dose: Not Given Documented by: Benzonatate (Tessalon) 100 mg PO BIDP PRN PRN Reason: Cough Bisacodyl (Dulcolax) 10 mg DC Q2-3DAYS PRN PRN Reason: Constipation Budesonide (Pulmicort) 0.5 mg NEB Q12 [facility] Last Admin: 04/27/19 07:04 Dose: 0.5 mg Documented by: Diagnostic Test (Pha) (Accu-Chek) 1 each FS ACHS [facility] Last Admin: 04/27/19 12:06 Dose: 1 each Documented by: Docusate Sodium (Colace) 100 mg PO BID [facility] Last Admin: 04/27/19 09:59 Dose: Not Given Documented by: Ferrous Sulfate (Ferrous Sulfate) 325 mg PO BIDCC [facility] Last Admin: 04/27/19 08:21 Dose: 325 mg Documented by: Fondaparinux (Arixtra) 2.5 mg SQ DAILY [facility] Last Admin: 04/27/19 10:05 Dose: 2.5 mg Documented by: Furosemide (Lasix) 40 mg IV Q8 [facility] Last Admin: 04/27/19 14:31 Dose: 40 mg Documented by: Heparin Sodium (Porcine) (Heparin Flush) 2 ml IV Q12 [facility] Last Admin: 04/27/19 09:59 Dose: 2 ml Documented by: Magnesium Sulfate (Magnesium Sulfate) 2 gm in 50 mls @ 50 mls/hr IV UD PRN PRN Reason: MG = or < 1.7 Metronidazole (Flagyl) 500 mg in 100 mls @ 100 mls/hr IV Q8H [facility] Last Admin: 04/27/19 14:30 Dose: 100 mls/hr Documented by: Norepinephrine Bitartrate 16 (mg/ Sodium Chloride) 250 mls @ 9.375 mls/hr IV Q24HP PRN; Protocol PRN Reason: Hypotension Sodium Chloride (Sodium Chloride 0.9%) 250 mls @ 20 mls/hr IV .[id number] [facility] Last Admin: 04/27/19 12:05 Dose: Not Given Documented by: Acetaminophen (Ofirmev) 650 mg in 65 mls @ 130 mls/hr IV Q6HP PRN; Protocol PRN Reason: Per Pain Protocol/Fever > 101 Levofloxacin (Levaquin) 750 mg in 150 mls @ 100 mls/hr IV DAILY [facility] Last Infusion: 04/27/19 11:54 Dose: Infused Documented by: Insulin Glargine (Lantus) 15 unit SQ DAILY [facility] Last Admin: 04/27/19 10:00 Dose: 15 unit Documented by: Insulin Human Lispro (Humalog) 0 unit SQ ACHS [facility]; Protocol Last Admin: 04/27/19 12:05 Dose: 4 unit Documented by: Loperamide HCl (Imodium) 2 mg PO PRN PRN PRN Reason: Diarrhea Melatonin (Melatonin 3mg Tablet) 3 mg PO HSP PRN PRN Reason: Insomnia Metoclopramide HCl (Reglan) 5 mg PO QIDP PRN PRN Reason: Nausea Omeprazole (Prilosec) 20 mg PO BIDAC [facility] Last Admin: 04/27/19 08:21 Dose: 20 mg Documented by: Ondansetron HCl (Zofran) 4 mg IV Q4-6HP PRN PRN Reason: Nausea And Vomiting Last Admin: 04/27/19 05:53 Dose: 4 mg Documented by: Ondansetron HCl (Zofran Odt) 4 mg SL Q4-6HP PRN; Protocol PRN Reason: Nausea And Vomiting Oxybutynin Chloride (Ditropan Xl) 5 mg PO QDAY [facility] Last Admin: 04/27/19 09:59 Dose: Not Given Documented by: Oxycodone HCl (Roxicodone) 5 mg PO Q6HP PRN PRN Reason: Pain Last Admin: 04/27/19 05:40 Dose: 5 mg Documented by: Polyethylene Glycol (Miralax) 17 gm PO DAILYP PRN PRN Reason: Constipation Last Admin: 04/26/19 17:17 Dose: 17 gm Documented by: Potassium Chloride (Klor-Con) 40 meq PO DAILYP PRN PRN Reason: K+ < 3.5 Pregabalin (Lyrica) 50 mg PO QID [facility] Last Admin: 04/27/19 12:05 Dose: Not Given Documented by: Senna/Docusate Sodium (Senna Plus Tablet) 1 tab PO HS [facility] Last Admin: 04/26/19 21:56 Dose: 1 tab Documented by: Sertraline HCl (Zoloft) 50 mg PO DAILY [facility] Last Admin: 04/27/19 10:01 Dose: Not Given Documented by: Sitagliptin Phosphate (Januvia) 100 mg PO DAILY [facility] Last Admin: 04/27/19 09:59 Dose: Not Given Documented by: Sodium Chloride (Saline Flush) 10 ml IV Q8 [facility] Last Admin: 04/27/19 14:31 Dose: 10 ml Documented by: Sodium Chloride (Saline Flush) 10 ml IV Q12 [facility] Last Admin: 04/27/19 10:05 Dose: 10 ml Documented by: Spironolactone (Aldactone) 50 mg PO DAILY [facility] Last Admin: 04/27/19 09:59 Dose: Not Given Documented by: Tramadol HCl (Ultram) 50 mg PO QIDP PRN PRN Reason: Pain Medical - PN: A/P - Time Spent With Patient Total time spent is greater than 50% in coordination of care (as documented) at patient's floor/unit and/or counseling patient: 25 - 35 minutes (1) Septic shock Status: Acute Assessment and plan: * Aspiration pneumonia on chest imaging-continue aspiration precautions/frequent CoughAssist/ST eval/dysphagia diet * Acute hypoxic respiratory failure-secondary to aspiration. Continue aspiration precautions/elevate HOB/antibiotic coverage * Complicated hardware related Pseudomonas UTI-continue antibiotic coverage and de-escalate based on cultures * Anasarca-65% EF, diastolic dysfunction * Decubitus pressure ulcer gluteal area-continue offloading/close monitoring/wound care consult * Thrombocytopenia-chronic since 2014. 49, no evidence of bleeding. Arixtra for prophylaxis * Poorly controlled diabetes continue basal prandial insulin/sitagliptin/CCd * Anxiety disorder continue sertraline * History of paraplegia continue baclofen for spasm * GERD continue PPI * Full code * Prophylaxis fondaparinux Plan * ST eval/diet per ST recommendation/elevate HOB * Antibiotic coverage * Continue CoughAssist/pulmonary toilet/aspiration precautions/ST eval * Continue diuresis * Wound care/decubitus care * PT OT nutrition support * Clinically deteriorated last 24 hours. Discharge planning on hold. Current Visit: Yes Medical - PN: Qual - VTE Deep Vein Thrombosis/Pulmonary Embolism Present on Admission: No
[2019-04-27] MEDS: SENNOSIDES/DOCUSATE SODIUM 1 TAB TABLET PO SCH (20:53)
[2019-04-28] MEDS: 0.9 % SODIUM CHLORIDE 250 ML IV SCH (01:20)
[2019-04-28] MEDS: IPRATROPIUM/ALBUTEROL 3 ML AMPUL.NEB NEB SCH ×6 (03:04→22:21)
[2019-04-28] MEDS: metroNIDAZOLE 500 MG/100 ML BAG IV SCH ×3 (05:24→22:10)
[2019-04-28] MEDS: 0.9 % SODIUM CHLORIDE 10 ML SYRINGE IV SCH ×5 (05:25→22:05)
[2019-04-28] MEDS: FUROSEMIDE 40 MG/4 ML VIAL IV SCH ×3 (05:25→22:10)
[2019-04-28 07:05] LABS: ALT/SGPT 7 U/l (0-40); AST/SGOT 18 U/l (0-37); Albumin 2.3 gm/dL (3.2-5.2); Alkaline Phosphatase 182 U/L (39-117); Bilirubin,Direct 0.4 mg/dL (0.0-0.3); Bilirubin,Total 0.9 mg/dL (0.0-1.0); Blood Urea Nitrogen 34 mg/dl (6-20); Calcium 8.1 mg/dl (8.6-10.4); Carbon Dioxide 30 mmol/L (22-30); Chloride 96 mmol/L (96-108); Globulin 2.4 gm/dL (2.2-3.7); Glomerular Filtration Rate 109; Glucose 111 mg/dL (70-105); Lactate Dehydrogenase 149 U/L (94-250); Phosphorous 2.9 mg/dL (2.7-4.5); Triglycerides 81 mg/dl (<150); Uric Acid 7.1 mg/dL (2.5-8.0)
[2019-04-28 07:10] LABS: Hematocrit 27.1 % (34.1-44.9); Hemoglobin 8.3 g/dL (11.2-15.7); Mean Cell Volume 82.9 fL (80.0-100.0); Mean Corpuscular HGB Conc 30.6 g/dL (31.0-36.0); Platelet Count 50 K/mcL (140-440); RBC 3.27 M/mcL (3.59-5.38); Red Cell Distribution Width 16.8 % (11.5-14.5); WBC 3.1 K/mcL (4.50-11.00)
[2019-04-28 07:13] LABS: Anisocytosis 1+ (NONE SEEN); Eosinophils % (Manual) 1 % (0-7); Hypochromasia 1+ (NONE SEEN); Lymphocytes % 23 % (15-49); Microcytosis FEW (NONE SEEN); Monocytes % (Manual) 11 % (1-12); Platelet Estimate DECREASED (NORMAL); RBC Morphology ABNORM (NORMAL); Segmented Neutrophils % 65 % (38-78)
[2019-04-28] MEDS: BUDESONIDE 0.5 MG/2 ML AMPUL.NEB NEB SCH ×3 (07:20→21:00)
[2019-04-28] MEDS ORDERED: POTASSIUM CHLORIDE 80 MEQ in DEXTROSE 5% IN WATER 500 ML IV ONE (07:39)
[2019-04-28] MEDS: LEVOFLOXACIN 750 MG/150 ML BAG IV SCH (09:00)
[2019-04-28] MEDS: SPIRONOLACTONE 25 MG TABLET PO SCH (09:19)
[2019-04-28] MEDS: FERROUS SULFATE 325 MG TABLET PO SCH ×2 (09:19→15:43)
[2019-04-28] MEDS: OMEPRAZOLE 20 MG CAPSULE PO SCH ×2 (09:19→15:43)
[2019-04-28] MEDS: sitaGLIPtin 100 MG TABLET PO SCH (09:20)
[2019-04-28] MEDS: PREGABALIN 25 MG CAPSULE PO SCH ×4 (09:20→22:05)
[2019-04-28] MEDS: OXYBUTYNIN CHLORIDE 5 MG TAB.XL.24H PO SCH (09:20)
[2019-04-28] MEDS: DOCUSATE SODIUM 100 MG CAPSULE PO SCH ×2 (09:20→22:04)
[2019-04-28] MEDS: BACLOFEN 10 MG TABLET PO SCH ×3 (09:20→22:04)
[2019-04-28] MEDS: SERTRALINE 50 MG TABLET PO SCH (09:20)
[2019-04-28] MEDS: INSULIN LISPRO 1 UNIT/0.01 ML UNIT SQ SCH ×4 (09:59→22:04)
[2019-04-28] MEDS: INSULIN GLARGINE, HUMAN 1 UNIT/0.01 ML SQ SCH (10:06)
[2019-04-28] MEDS: FONDAPARINUX SODIUM 2.5 MG/0.5 ML SYRINGE SQ SCH (10:15)
[2019-04-28] MEDS ORDERED: CHLOROTHIAZIDE SODIUM 500 MG VIAL IV ONE (11:09)
--- NOTE | 2019-04-28 11:11 | Internal Med Progress Note ---
Medical - PN: Subj Patient information: Note initiated : 04/28/19 at 11:07 am Service Date, if different from initiated Date: [] Patient: Ebony Arroyo a 54 y/o F admitted on 04/24/19 for shortness of breathe. Chief Complaint: [] Interval history: Ms. Arroyo is a 54 year old F with a history of paraplegia, chronically bedridden with suprapubic catheter and recurrent hardware related UTIs who presents with her Franky with shortness of breath, weakness and weight gain over 20 pounds in the last 1 month. Symptoms associated with increasing bilateral flank pain. She was recently in the ER for above symptoms however has failed to improve. During today's visit work-up was consistent with elevated lactate,/pyuria consistent with complicated UTI. Hospitalist service was consulted for as above At the time evaluation patient is accompanied with her . She was able to answer most the question. She endorses to increasing fluid stimulation and weight gain. Endorses to history as above. Denies recent medication changes. Denies shaking chills fever but endorses loss of appetite. 04/25 worsening hypoxia and increased oxygen requirement. Chest x-ray bibasilar interstitial disease likely worsening aspiration. Nursing staff suctioned excessive oral secretions. Patient started on CoughAssist maneuvers to prevent further aspiration. Ongoing diuresis. Platelets of 50 white count 3.8, lactate 3.3, BUN 33, replace magnesium today. Continue PT OT/nutrition support 04/26- Pt doing well, no overnight events. Flat affect. No telemetry events. Blood pressure stable. Lockhart is draining clear urine. Persistent lymphedema. Diminished breath sounds bases. No family at bedside. Ongoing wound care. 04/27-patient had major aspiration episode. Aggressive suctioning performed. However patient hypoxic requiring 8 L oxygen. No family at bedside. White count 2.7. Continue antibiotic coverage. Continue PT OT. Lockhart is draining clear urine 04/28 patient continues to aspirate intermittently. Currently n.p.o. Modified barium swallow today per ST recommendations. On IV potassium/diuretics. Dobbhoff tube feeding to start in light of esophageal stricture. GI consult for esophageal dilatation. Continuing antibiotic coverage/CoughAssist and aspiration precautions. On 2 L oxygen. Repeat chest imaging today. Improving lymphedema. Potassium 2.8. Continue diuresis with aggressive potassium replacement. Start liquid potassium placement per Dobbhoff tube. Lockhart is draining clear urine. Abdominal ultrasound shows cirrhotic changes with moderate ascites. Echocardiogram EF 60% with normal LV function. Would not be a good candidate for PEG placement in light of ascites/cirrhosis - Constitutional Vitals: Vital Signs Temp Pulse Resp BP Pulse Ox 98.8 F 96 H 16 110/52 98 04/28/19 08:01 04/28/19 10:45 04/28/19 10:45 04/28/19 10:01 04/28/19 10:48 Period Temp Pulse Resp BP Sys/Porter Pulse Ox Last 24 Hr 98.2 F-99.0 F 82-101 7-19 93-118/42-62 89-100 Intake and Output 04/27/19 04/28/19 04/28/19 21:59 05:59 13:59 Intake Total 100 100 100 Output Total 500 990 360 Balance -400 -890 -260 Weight 179 lb 8 oz Intake & Output: Intake & Output 04/27/19 04/28/19 04/28/19 21:59 05:59 13:59 Intake Total 100 100 100 Output Total 500 990 360 Balance -400 -890 -260 Weight 179 lb 8 oz Intake: IV 100 100 100 Output: Urine Catheter Amount 500 990 360 Other: Urine Appearance Clear Clear Clear Urine Color Bright Yellow Pale Straw Urine Odor Normal Stool Size Moderate Stool Color Brown Stool Consistency Soft Formed # Bowel Movements 1 General appearance: no acute distress Exam: Fatigued and lethargic Respond to commands Minimally labored breathing Lymphedema improved Lockhart is draining clear urine Abdomen soft Medical - PN: Obj Da - Labs CBC & Chem 7: 04/28/19 05:30 04/28/19 05:30 Labs: Abnormal Lab Results 04/28/19 04/28/19 04/27/19 05:30 05:30 05:00 WBC 3.1 L RBC 3.27 L Hgb 8.3 L Hct 27.1 L MCH 25.4 L MCHC 30.6 L RDW 16.8 H Plt Count 50 L* Seg Neutrophils % Lymphocytes % Platelet Estimate RBC Morphology Abnorm A Hypochromasia 1+ A Anisocytosis 1+ A Microcytosis Few A Potassium 2.8 L* BUN 34 H 34 H Creatinine 0.5 L 0.5 L Glucose 111 H 227 H Calcium 8.1 L 8.1 L Direct Bilirubin 0.4 H 0.4 H GGT 173 H 196 H Alkaline Phosphatase 182 H 224 H Total Protein 4.7 L 4.7 L Albumin 2.3 L 2.3 L 04/27/19 04/26/19 04/26/19 05:00 05:00 05:00 WBC 2.7 L 2.3 L RBC 3.26 L 3.11 L Hgb 8.3 L 8.0 L Hct 27.2 L 26.2 L MCH 25.5 L 25.7 L MCHC 30.5 L 30.5 L RDW 16.5 H 16.6 H Plt Count 48 L* 60 L Seg Neutrophils % 80 H Lymphocytes % 11 L Platelet Estimate Mk decr A RBC Morphology Abnorm A Abnorm A Hypochromasia 1+ A 2+ A Anisocytosis 1+ A 1+ A Microcytosis Potassium BUN 33 H Creatinine 0.5 L Glucose 134 H Calcium 8.2 L Direct Bilirubin 0.4 H GGT 168 H Alkaline Phosphatase 177 H Total Protein 4.6 L Albumin 2.4 L Meds: Medications Acetaminophen (Tylenol) 650 mg PO Q4-6HP PRN; Protocol PRN Reason: Per Pain Protocol/Fever > 101 Albuterol/Ipratropium (Duoneb) 3 ml NEB Q4-6HP PRN PRN Reason: Shortness Of Breath Albuterol/Ipratropium (Duoneb) 3 ml NEB Q4HRT [facility] Last Admin: 04/28/19 10:43 Dose: 3 ml Documented by: Baclofen (Lioresal) 20 mg PO TID [facility] Last Admin: 04/28/19 09:20 Dose: Not Given Documented by: Benzonatate (Tessalon) 100 mg PO BIDP PRN PRN Reason: Cough Bisacodyl (Dulcolax) 10 mg MN Q2-3DAYS PRN PRN Reason: Constipation Budesonide (Pulmicort) 0.5 mg NEB Q12 [facility] Last Admin: 04/28/19 07:20 Dose: 0.5 mg Documented by: Diagnostic Test (Pha) (Accu-Chek) 1 each FS ACHS [facility] Last Admin: 04/28/19 09:59 Dose: 1 each Documented by: Docusate Sodium (Colace) 100 mg PO BID [facility] Last Admin: 04/28/19 09:20 Dose: Not Given Documented by: Ferrous Sulfate (Ferrous Sulfate) 325 mg PO BIDCC [facility] Last Admin: 04/28/19 09:19 Dose: Not Given Documented by: Fondaparinux (Arixtra) 2.5 mg SQ DAILY [facility] Last Admin: 04/28/19 10:15 Dose: 2.5 mg Documented by: Furosemide (Lasix) 40 mg IV Q8 [facility] Last Admin: 04/28/19 05:25 Dose: 40 mg Documented by: Heparin Sodium (Porcine) (Heparin Flush) 2 ml IV Q12 [facility] Last Admin: 04/28/19 10:06 Dose: 2 ml Documented by: Magnesium Sulfate (Magnesium Sulfate) 2 gm in 50 mls @ 50 mls/hr IV UD PRN PRN Reason: MG = or < 1.7 Last Admin: 04/28/19 07:30 Dose: 50 mls/hr Documented by: Metronidazole (Flagyl) 500 mg in 100 mls @ 100 mls/hr IV Q8H [facility] Last Infusion: 04/28/19 06:30 Dose: Infused Documented by: Norepinephrine Bitartrate 16 (mg/ Sodium Chloride) 250 mls @ 9.375 mls/hr IV Q24HP PRN; Protocol PRN Reason: Hypotension Acetaminophen (Ofirmev) 650 mg in 65 mls @ 130 mls/hr IV Q6HP PRN; Protocol PRN Reason: Per Pain Protocol/Fever > 101 Levofloxacin (Levaquin) 750 mg in 150 mls @ 100 mls/hr IV DAILY [facility] Last Admin: 04/28/19 09:00 Dose: 100 mls/hr Documented by: Potassium Chloride 80 meq/ (Dextrose) 540 mls @ 67.5 mls/hr IV ONCE ONE Stop: 04/28/19 15:38 Last Admin: 04/28/19 07:45 Dose: 67.5 mls/hr Documented by: Insulin Glargine (Lantus) 15 unit SQ DAILY [facility] Last Admin: 04/28/19 10:06 Dose: 15 unit Documented by: Insulin Human Lispro (Humalog) 0 unit SQ ACHS [facility]; Protocol Last Admin: 04/28/19 09:59 Dose: Not Given Documented by: Loperamide HCl (Imodium) 2 mg PO PRN PRN PRN Reason: Diarrhea Melatonin (Melatonin 3mg Tablet) 3 mg PO HSP PRN PRN Reason: Insomnia Metoclopramide HCl (Reglan) 5 mg PO QIDP PRN PRN Reason: Nausea Omeprazole (Prilosec) 20 mg PO BIDAC [facility] Last Admin: 04/28/19 09:19 Dose: Not Given Documented by: Ondansetron HCl (Zofran) 4 mg IV Q4-6HP PRN PRN Reason: Nausea And Vomiting Last Admin: 04/27/19 05:53 Dose: 4 mg Documented by: Ondansetron HCl (Zofran Odt) 4 mg SL Q4-6HP PRN; Protocol PRN Reason: Nausea And Vomiting Oxybutynin Chloride (Ditropan Xl) 5 mg PO QDAY [facility] Last Admin: 04/28/19 09:20 Dose: Not Given Documented by: Oxycodone HCl (Roxicodone) 5 mg PO Q6HP PRN PRN Reason: Pain Last Admin: 04/27/19 05:40 Dose: 5 mg Documented by: Polyethylene Glycol (Miralax) 17 gm PO DAILYP PRN PRN Reason: Constipation Last Admin: 04/26/19 17:17 Dose: 17 gm Documented by: Potassium Chloride (Klor-Con) 40 meq PO DAILYP PRN PRN Reason: K+ < 3.5 Pregabalin (Lyrica) 50 mg PO QID [facility] Last Admin: 04/28/19 09:20 Dose: Not Given Documented by: Senna/Docusate Sodium (Senna Plus Tablet) 1 tab PO HS [facility] Last Admin: 04/27/19 20:53 Dose: Not Given Documented by: Sertraline HCl (Zoloft) 50 mg PO DAILY [facility] Last Admin: 04/28/19 09:20 Dose: Not Given Documented by: Sitagliptin Phosphate (Januvia) 100 mg PO DAILY [facility] Last Admin: 04/28/19 09:20 Dose: Not Given Documented by: Sodium Chloride (Saline Flush) 10 ml IV Q8 [facility] Last Admin: 04/28/19 05:25 Dose: 10 ml Documented by: Sodium Chloride (Saline Flush) 10 ml IV Q12 [facility] Last Admin: 04/28/19 09:00 Dose: 10 ml Documented by: Spironolactone (Aldactone) 50 mg PO DAILY [facility] Last Admin: 04/28/19 09:19 Dose: Not Given Documented by: Tramadol HCl (Ultram) 50 mg PO QIDP PRN PRN Reason: Pain Medical - PN: A/P - Time Spent With Patient Total time spent is greater than 50% in coordination of care (as documented) at patient's floor/unit and/or counseling patient: 25 - 35 minutes (1) Septic shock Status: Acute Assessment and plan: * Recurrent aspiration pneumonia likely secondary esophageal stricture-GI c onsult. Continue aspiration precautions/frequent CoughAssist/ST eval recommends n.p.o./modified barium. Dobbhoff tube placement post barium study * Acute hypoxic respiratory failure-secondary to aspiration. Continue aspiration precautions/elevate HOB/antibiotic coverage * Complicated hardware related Pseudomonas UTI-continue antibiotic coverage and de-escalate based on cultures * Anasarca-65% EF, diastolic dysfunction * Decubitus pressure ulcer gluteal area-continue offloading/close monitoring/wo und care consult * Thrombocytopenia-chronic since 2014. 49, no evidence of bleeding. Arixtra for prophylaxis * Poorly controlled diabetes continue basal prandial insulin/sitagliptin/CCd * Anxiety disorder continue sertraline * History of paraplegia continue baclofen for spasm * GERD continue PPI * Full code * Prophylaxis fondaparinux Plan * Modified barium. ST eval/n.p.o. * Elevate HOB * Antibiotic coverage * Continue CoughAssist/pulmonary toilet * Continue diuresis * Dobbhoff tube placement post barium study for nutrition support/electrolyte replacement/medication * Aggressive potassium replacement * Sequential nephron blockade diuresis with Diuril/Lasix and Diamox * Wound care/decubitus care * Clinically deteriorating Current Visit: Yes Medical - PN: Qual - VTE Deep Vein Thrombosis/Pulmonary Embolism Present on Admission: No
[2019-04-28] MEDS ORDERED: acetaZOLAMIDE SOD 500 MG VIAL IV ONE (15:09)
--- NOTE | 2019-04-28 17:00 | XRay Report ---
CLINICAL INFORMATION: dobhoff placement verification COMPARISON: None. FINDINGS: Dobbhoff tip overlies the proximal gastric body. Gas pattern is unremarkable. No free air or soft tissue mass. Large pannus noted IMPRESSION: Dobbhoff tip overlying the proximal gastric body no acute disease Interpreted and Authenticated by: David Neal 04/28/19
[2019-04-28] MEDS: CHLORHEXIDINE GLUCONATE 1 ML ORAL.SOL SWABMOUTH SCH (22:04)
[2019-04-28] MEDS: SENNOSIDES/DOCUSATE SODIUM 1 TAB TABLET PO SCH (22:05)
[2019-04-28 22:42] LABS: ALT/SGPT 7 U/l (0-40); AST/SGOT 20 U/l (0-37); Albumin 2.5 gm/dL (3.2-5.2); Albumin/Globulin Ratio 1.1 (1.0-2.3); Alkaline Phosphatase 173 U/L (39-117); Bilirubin,Direct 0.4 mg/dL (0.0-0.3); Bilirubin,Total 0.9 mg/dL (0.0-1.0); Blood Urea Nitrogen 32 mg/dl (6-20); Calcium 8.4 mg/dl (8.6-10.4); Carbon Dioxide 31 mmol/L (22-30); Globulin 2.2 gm/dL (2.2-3.7); Glomerular Filtration Rate 103; Glucose 114 mg/dL (70-105); Lactate Dehydrogenase 144 U/L (94-250); Phosphorous 2.8 mg/dL (2.7-4.5); Triglycerides 97 mg/dl (<150); Uric Acid 7.2 mg/dL (2.5-8.0)
[2019-04-28 22:43] LABS: Chloride 94 mmol/L (96-108)
[2019-04-29] MEDS: IPRATROPIUM/ALBUTEROL 3 ML AMPUL.NEB NEB SCH ×3 (03:09→11:12)
[2019-04-29] MEDS: ACETAMINOPHEN 650 MG/65 ML BOTTLE IV PRN (05:44)
[2019-04-29] MEDS: 0.9 % SODIUM CHLORIDE 10 ML SYRINGE IV SCH ×5 (05:45→22:16)
[2019-04-29] MEDS: metroNIDAZOLE 500 MG/100 ML BAG IV SCH ×3 (06:23→22:33)
[2019-04-29] MEDS: FUROSEMIDE 40 MG/4 ML VIAL IV SCH ×3 (06:24→22:33)
[2019-04-29] MEDS: BUDESONIDE 0.5 MG/2 ML AMPUL.NEB NEB SCH (06:47)
[2019-04-29 06:55] LABS: Hematocrit 26.5 % (34.1-44.9); Hemoglobin 8.1 g/dL (11.2-15.7); Mean Cell Volume 82.8 fL (80.0-100.0); Mean Corpuscular HGB Conc 30.6 g/dL (31.0-36.0); Platelet Count 54 K/mcL (140-440); WBC 3.2 K/mcL (4.50-11.00)
[2019-04-29 07:08] LABS: ALT/SGPT 7 U/l (0-40); AST/SGOT 19 U/l (0-37); Albumin 2.3 gm/dL (3.2-5.2); Alkaline Phosphatase 190 U/L (39-117); Bilirubin,Direct 0.4 mg/dL (0.0-0.3); Bilirubin,Total 0.8 mg/dL (0.0-1.0); Blood Urea Nitrogen 33 mg/dl (6-20); Calcium 8.5 mg/dl (8.6-10.4); Carbon Dioxide 31 mmol/L (22-30); Chloride 93 mmol/L (96-108); Globulin 2.2 gm/dL (2.2-3.7); Glomerular Filtration Rate 103; Glucose 129 mg/dL (70-105); Lactate Dehydrogenase 138 U/L (94-250); Phosphorous 3.1 mg/dL (2.7-4.5); Triglycerides 77 mg/dl (<150); Uric Acid 7.3 mg/dL (2.5-8.0)
[2019-04-29] MEDS: DOCUSATE SODIUM 100 MG CAPSULE PO SCH ×2 (07:18→20:23)
[2019-04-29 07:22] LABS: Anisocytosis 1+ (NONE SEEN); Eosinophils % (Manual) 4 % (0-7); Hypochromasia 1+ (NONE SEEN); Lymphocytes % 9 % (15-49); Microcytosis 1+ (NONE SEEN); Monocytes % (Manual) 8 % (1-12); Platelet Estimate DECREASED (NORMAL); RBC Morphology ABNORM (NORMAL); Segmented Neutrophils % 79 % (38-78)
[2019-04-29] MEDS: LEVOFLOXACIN 750 MG/150 ML BAG IV SCH (09:00)
[2019-04-29] MEDS: CHLORHEXIDINE GLUCONATE 1 ML ORAL.SOL SWABMOUTH SCH ×2 (10:00→20:40)
[2019-04-29] MEDS: INSULIN GLARGINE, HUMAN 1 UNIT/0.01 ML SQ SCH (10:02)
[2019-04-29] MEDS: SPIRONOLACTONE 25 MG TABLET PO SCH (10:02)
[2019-04-29] MEDS: SERTRALINE 50 MG TABLET PO SCH (10:02)
[2019-04-29] MEDS: OMEPRAZOLE 20 MG CAPSULE PO SCH ×2 (10:03→15:45)
[2019-04-29] MEDS: ACETAMINOPHEN 325 MG TABLET PO PRN ×2 (10:03→17:20)
[2019-04-29] MEDS: BACLOFEN 10 MG TABLET PO SCH ×4 (10:04→20:39)
[2019-04-29] MEDS: PREGABALIN 25 MG CAPSULE PO SCH ×4 (10:04→20:13)
[2019-04-29] MEDS: INSULIN LISPRO 1 UNIT/0.01 ML UNIT SQ SCH ×4 (10:15→20:41)
[2019-04-29] MEDS: FERROUS SULFATE 325 MG TABLET PO SCH ×2 (10:19→17:27)
[2019-04-29] MEDS: FONDAPARINUX SODIUM 2.5 MG/0.5 ML SYRINGE SQ SCH (10:19)
[2019-04-29] MEDS: OXYBUTYNIN CHLORIDE 5 MG TAB.XL.24H PO SCH (10:19)
[2019-04-29] MEDS: sitaGLIPtin 100 MG TABLET PO SCH (10:19)
[2019-04-29] MEDS: ONDANSETRON 4 MG ODT TABLET SL PRN (10:20)
--- NOTE | 2019-04-29 10:40 | Internal Med Progress Note ---
Medical - PN: Subj Patient information: Note initiated : 04/29/19 at 10:36 am Service Date, if different from initiated Date: [] Patient: Ebony Arroyo a 54 y/o F admitted on 04/24/19 for shortness of breathe. Chief Complaint: [] Interval history: Ms. Arroyo is a 54 year old F with a history of paraplegia, chronically bedridden with suprapubic catheter and recurrent hardware related UTIs who presents with her Franky with shortness of breath, weakness and weight gain over 20 pounds in the last 1 month. Symptoms associated with increasing bilateral flank pain. She was recently in the ER for above symptoms however has failed to improve. During today's visit work-up was consistent with elevated lactate,/pyuria consistent with complicated UTI. Hospitalist service was consulted for as above At the time evaluation patient is accompanied with her . She was able to answer most the question. She endorses to increasing fluid stimulation and weight gain. Endorses to history as above. Denies recent medication changes. Denies shaking chills fever but endorses loss of appetite. 04/25 worsening hypoxia and increased oxygen requirement. Chest x-ray bibasilar interstitial disease likely worsening aspiration. Nursing staff suctioned excessive oral secretions. Patient started on CoughAssist maneuvers to prevent further aspiration. Ongoing diuresis. Platelets of 50 white count 3.8, lactate 3.3, BUN 33, replace magnesium today. Continue PT OT/nutrition support 04/26- Pt doing well, no overnight events. Flat affect. No telemetry events. Blood pressure stable. Lockhart is draining clear urine. Persistent lymphedema. Diminished breath sounds bases. No family at bedside. Ongoing wound care. 04/27-patient had major aspiration episode. Aggressive suctioning performed. However patient hypoxic requiring 8 L oxygen. No family at bedside. White count 2.7. Continue antibiotic coverage. Continue PT OT. Lockhart is draining clear urine 04/28 patient continues to aspirate intermittently. Currently n.p.o. Modified barium swallow today per ST recommendations. On IV potassium/diuretics. Dobbhoff tube feeding to start in light of esophageal stricture. GI consult for esophageal dilatation. Continuing antibiotic coverage/CoughAssist and aspiration precautions. On 2 L oxygen. Repeat chest imaging today. Improving lymphedema. Potassium 2.8. Continue diuresis with aggressive potassium replacement. Start liquid potassium placement per Dobbhoff tube. Lockhart is draining clear urine. Abdominal ultrasound shows cirrhotic changes with moderate ascites. Echocardiogram EF 60% with normal LV function. Would not be a good candidate for PEG placement in light of ascites/cirrhosis 04/29-patient doing well. Currently on tube feeds 20 cc an hour. White count 3.2. More alert and respond to commands. Nonlabored breathing. No overnight episodes of aspiration. On 1 L oxygen. Continue PT OT, potassium improved to 3.7. Ongoing diuresis. Creatinine stable. Net negative fluid balance over 5000 cc. Continue diuresing. at bedside. Also discussed case with GI, patient has had 3 endoscopies in the last year and GI does not recommend any further evaluation. In light of ascites she would not be a candidate for PEG tube placement. Goal is to provide nutrition and rehab for the next few days followed by discontinuation of Dobbhoff, swallow eval/barium studies and initiation of oral diet. - Constitutional Vitals: Vital Signs Temp Pulse Resp BP Pulse Ox 97.8 F 104 H 19 121/59 95 04/29/19 10:01 04/29/19 10:13 04/29/19 10:13 04/29/19 10:01 04/29/19 10:13 Period Temp Pulse Resp BP Sys/Porter Pulse Ox Last 24 Hr 97.1 F-98.7 F 90-113 11-22 97-126/43-63 92-100 Intake and Output 04/28/19 04/29/19 04/29/19 21:59 05:59 13:59 Intake Total 640 461 245 Output Total 1700 1120 Balance -1060 -659 245 Weight 179 lb 8 oz 176 lb 3.2 oz Intake & Output: Intake & Output 04/28/19 04/29/19 04/29/19 21:59 05:59 13:59 Intake Total 640 461 245 Output Total 1700 1120 Balance -1060 -659 245 Weight 179 lb 8 oz 176 lb 3.2 oz Intake: IV 640 100 165 Potassium Chloride 80 Meq In 540 Dextrose 5% in Water 500 ml @ 67.5 mls/hr IV ONCE ONE Rx#: [id number] Tube Feeding 271 80 GI Tube Flush 90 Output: Urine Catheter Amount 1700 1120 Other: Urine Appearance Clear Sediment Sediment Suprapubic Clear Sediment Sediment Urine Color Dark Yellow Bright Yellow Bright Yellow Suprapubic Pale Bright Yellow Bright Yellow Urine Odor Normal Normal Suprapubic Normal Normal Stool Size Large Large Stool Color Brown Brown Stool Consistency Soft Soft Loose Loose # Bowel Movements 1 General appearance: no acute distress Exam: Dobbhoff feeding ongoing No anxiety Lymphedema improved Lockhart is draining clear urine Improved work of breathing Diminished breath sounds bases Medical - PN: Obj Da - Labs CBC & Chem 7: 04/29/19 05:00 04/29/19 05:00 Labs: Abnormal Lab Results 04/29/19 04/29/19 04/28/19 05:00 05:00 20:35 WBC 3.2 L RBC 3.20 L Hgb 8.1 L Hct 26.5 L MCH 25.3 L MCHC 30.6 L RDW 17.0 H Plt Count 54 L Seg Neutrophils % 79 H Lymphocytes % 9 L Platelet Estimate RBC Morphology Abnorm A Hypochromasia 1+ A Anisocytosis 1+ A Microcytosis 1+ A Potassium Chloride 93 L 94 L Carbon Dioxide 31 H 31 H BUN 33 H 32 H Creatinine Glucose 129 H 114 H Calcium 8.5 L 8.4 L Direct Bilirubin 0.4 H 0.4 H GGT 181 H 170 H Alkaline Phosphatase 190 H 173 H Total Protein 4.5 L 4.7 L Albumin 2.3 L 2.5 L 04/28/19 04/28/19 04/27/19 05:30 05:30 05:00 WBC 3.1 L RBC 3.27 L Hgb 8.3 L Hct 27.1 L MCH 25.4 L MCHC 30.6 L RDW 16.8 H Plt Count 50 L* Seg Neutrophils % Lymphocytes % Platelet Estimate RBC Morphology Abnorm A Hypochromasia 1+ A Anisocytosis 1+ A Microcytosis Few A Potassium 2.8 L* Chloride Carbon Dioxide BUN 34 H 34 H Creatinine 0.5 L 0.5 L Glucose 111 H 227 H Calcium 8.1 L 8.1 L Direct Bilirubin 0.4 H 0.4 H GGT 173 H 196 H Alkaline Phosphatase 182 H 224 H Total Protein 4.7 L 4.7 L Albumin 2.3 L 2.3 L 04/27/19 05:00 WBC 2.7 L RBC 3.26 L Hgb 8.3 L Hct 27.2 L MCH 25.5 L MCHC 30.5 L RDW 16.5 H Plt Count 48 L* Seg Neutrophils % 80 H Lymphocytes % 11 L Platelet Estimate Mk decr A RBC Morphology Abnorm A Hypochromasia 1+ A Anisocytosis 1+ A Microcytosis Potassium Chloride Carbon Dioxide BUN Creatinine Glucose Calcium Direct Bilirubin GGT Alkaline Phosphatase Total Protein Albumin Meds: Medications Acetaminophen (Tylenol) 650 mg PO Q4-6HP PRN; Protocol PRN Reason: Per Pain Protocol/Fever > 101 Last Admin: 04/29/19 10:03 Dose: 650 mg Documented by: Albuterol/Ipratropium (Duoneb) 3 ml NEB Q4-6HP PRN PRN Reason: Shortness Of Breath Albuterol/Ipratropium (Duoneb) 3 ml NEB Q4HRT [facility] Last Admin: 04/29/19 06:47 Dose: 3 ml Documented by: Baclofen (Lioresal) 20 mg PO TID [facility] [place] Last Admin: 04/29/19 10:04 Dose: Not Given Documented by: Benzonatate (Tessalon) 100 mg PO BIDP PRN PRN Reason: Cough Bisacodyl (Dulcolax) 10 mg RI Q2-3DAYS PRN PRN Reason: Constipation Budesonide (Pulmicort) 0.5 mg NEB Q12 [facility] [place] Last Admin: 04/29/19 06:47 Dose: 0.5 mg Documented by: Chlorhexidine Gluconate (Peridex) 15 ml SWABMOUTH BID [facility] [place] Last Admin: 04/29/19 10:00 Dose: 15 ml Documented by: Diagnostic Test (Pha) (Accu-Chek) 1 each FS ACHS [facility] Last Admin: 04/29/19 10:06 Dose: 1 each Documented by: Docusate Sodium (Colace) 100 mg PO BID [facility] [place] Last Admin: 04/29/19 07:18 Dose: Not Given Documented by: Ferrous Sulfate (Ferrous Sulfate) 325 mg PO BIDCC [facility] [place] Last Admin: 04/29/19 10:19 Dose: 325 mg Documented by: Fondaparinux (Arixtra) 2.5 mg SQ DAILY [facility] [place] Last Admin: 04/29/19 10:19 Dose: 2.5 mg Documented by: Furosemide (Lasix) 40 mg IV Q8 [facility] [place] Last Admin: 04/29/19 06:24 Dose: 40 mg Documented by: Heparin Sodium (Porcine) (Heparin Flush) 2 ml IV Q12 [facility] [place] Last Admin: 04/29/19 10:02 Dose: 2 ml Documented by: Magnesium Sulfate (Magnesium Sulfate) 2 gm in 50 mls @ 50 mls/hr IV UD PRN PRN Reason: MG = or < 1.7 Last Infusion: 04/28/19 08:30 Dose: Infused Documented by: Metronidazole (Flagyl) 500 mg in 100 mls @ 100 mls/hr IV Q8H [facility] [place] Last Infusion: 04/29/19 07:25 Dose: Infused Documented by: Norepinephrine Bitartrate 16 (mg/ Sodium Chloride) 250 mls @ 9.375 mls/hr IV Q24HP PRN; Protocol PRN Reason: Hypotension Acetaminophen (Ofirmev) 650 mg in 65 mls @ 130 mls/hr IV Q6HP PRN; Protocol PRN Reason: Per Pain Protocol/Fever > 101 Last Infusion: 04/29/19 06:23 Dose: Infused Documented by: Levofloxacin (Levaquin) 750 mg in 150 mls @ 100 mls/hr IV DAILY [facility] [place] Last Admin: 04/29/19 09:00 Dose: 100 mls/hr Documented by: Insulin Glargine (Lantus) 15 unit SQ DAILY [facility] [place] Last Admin: 04/29/19 10:02 Dose: 15 unit Documented by: Insulin Human Lispro ([facility]alog) [facility]; Protocol Last Admin: 04/29/19 10:15 Dose: 1 unit Documented by: Loperamide HCl (Imodium) 2 mg PO PRN PRN PRN Reason: Diarrhea Melatonin (Melatonin 3mg Tablet) 3 mg PO HSP PRN PRN Reason: Insomnia Metoclopramide HCl (Reglan) 5 mg PO QIDP PRN PRN Reason: Nausea Omeprazole (Prilosec) 20 mg PO BIDAC [facility] [place] Last Admin: 04/29/19 10:03 Dose: Not Given Documented by: Ondansetron HCl (Zofran) 4 mg IV Q4-6HP PRN PRN Reason: Nausea And Vomiting Last Admin: 04/27/19 05:53 Dose: 4 mg Documented by: Ondansetron HCl (Zofran Odt) 4 mg SL Q4-6HP PRN; Protocol PRN Reason: Nausea And Vomiting Last Admin: 04/29/19 10:20 Dose: 4 mg Documented by: Oxybutynin Chloride (Ditropan Xl) 5 mg PO QDAY [facility] [place] Last Admin: 04/29/19 10:19 Dose: 5 mg Documented by: Oxycodone HCl (Roxicodone) 5 mg PO Q6HP PRN PRN Reason: Pain Last Admin: 04/27/19 05:40 Dose: 5 mg Documented by: Polyethylene Glycol (Miralax) 17 gm PO DAILYP PRN PRN Reason: Constipation Last Admin: 04/26/19 17:17 Dose: 17 gm Documented by: Potassium Chloride (Klor-Con) 40 meq PO DAILYP PRN PRN Reason: K+ < 3.5 Pregabalin (Lyrica) 50 mg PO QID [facility] Last Admin: 04/29/19 10:04 Dose: Not Given Documented by: Senna/Docusate Sodium (Senna Plus Tablet) 1 tab PO HS [facility] Last Admin: 04/28/19 22:05 Dose: Not Given Documented by: Sertraline HCl (Zoloft) 50 mg PO DAILY [facility] Last Admin: 04/29/19 10:02 Dose: 50 mg Documented by: Sitagliptin Phosphate (Januvia) 100 mg PO DAILY [facility] Last Admin: 04/29/19 10:19 Dose: 100 mg Documented by: Sodium Chloride (Saline Flush) 10 ml IV Q8 [facility] Last Admin: 04/29/19 05:45 Dose: 10 ml Documented by: Sodium Chloride (Saline Flush) 10 ml IV Q12 [facility] Last Admin: 04/29/19 10:05 Dose: 10 ml Documented by: Spironolactone (Aldactone) 50 mg PO DAILY [facility] Last Admin: 04/29/19 10:02 Dose: 50 mg Documented by: Tramadol HCl (Ultram) 50 mg PO QIDP PRN PRN Reason: Pain Medical - PN: A/P - Time Spent With Patient Total time spent is greater than 50% in coordination of care (as documented) at patient's floor/unit and/or counseling patient: 25 - 35 minutes (1) Septic shock Status: Acute Assessment and plan: * Recurrent aspiration pneumonia due to pharyngeal muscle incoordination. ST recommends modified barium swallow in 48 hours. GI recommends against upper endoscopy as she has had 3 scopes in the last 1 year without clear evidence of stricture. Continue aspiration precautions/frequent CoughAssist/ST eval. * Acute hypoxic respiratory failure-secondary to aspiration. Clinically improving. Now on 1 L oxygen. * Complicated hardware related Pseudomonas UTI-continue antibiotic coverage and de-escalate based on cultures * Anasarca-65% EF, diastolic dysfunction * Nutrition per Dobbhoff feeding at 20 cc/hr for 48 hours followed by modified barium swallow once patient able to physically participate * Decubitus pressure ulcer gluteal area-continue offloading/close monitoring/wound care consult * Thrombocytopenia-chronic since 2014. 49, no evidence of bleeding. Continue Arixtra for DVT prophylaxis * DM type II-blood sugars at goal on basal prandial insulin/sitagliptin/CCd * Anxiety disorder continue sertraline * History of paraplegia continue baclofen for spasm * GERD continue PPI * Full code * Prophylaxis fondaparinux Plan * Modified barium in 48 hours. * Dobbhoff nutrition * Continue CoughAssist/elevate HOB/aspiration precautions/deep breathing exercises * Discontinue antibiotics in 24 hours * Continue diuresis * Electrolyte replacement as indicated * Sequential nephron blockade diuresis with Diuril/Lasix and Diamox as needed * Wound care/decubitus care * Clinically stable Current Visit: Yes Medical - PN: Qual - VTE Deep Vein Thrombosis/Pulmonary Embolism Present on Admission: No
[2019-04-29] MEDS ORDERED: CHLOROTHIAZIDE SODIUM 500 MG VIAL IV ONE (10:44)
[2019-04-29] MEDS: traMADol 50 MG TABLET PO PRN ×2 (12:18→20:38)
--- NOTE | 2019-04-29 14:03 | Internal Med Progress Note ---
Medical - PN: Subj Patient information: Note initiated : 04/29/19 at 1:47 pm Service Date, if different from initiated Date: [] Patient: Ebony Arroyo a 54 y/o F admitted on 04/24/19 for shortness of breathe. Chief Complaint: [] Interval history: Ms. Arroyo is a 54 year old F with a history of paraplegia, chronically bedridden with suprapubic catheter and recurrent hardware related UTIs who presents with her Franky with shortness of breath, weakness and weight gain over 20 pounds in the last 1 month. Symptoms associated with increasing bilateral flank pain. She was recently in the ER for above symptoms however has failed to improve. During today's visit work-up was consistent with elevated lactate,/pyuria consistent with complicated UTI. Hospitalist service was consulted for as above At the time evaluation patient is accompanied with her . She was able to answer most the question. She endorses to increasing fluid stimulation and weight gain. Endorses to history as above. Denies recent medication changes. Denies shaking chills fever but endorses loss of appetite. 04/25 worsening hypoxia and increased oxygen requirement. Chest x-ray bibasilar interstitial disease likely worsening aspiration. Nursing staff suctioned excessive oral secretions. Patient started on CoughAssist maneuvers to prevent further aspiration. Ongoing diuresis. Platelets of 50 white count 3.8, lactate 3.3, BUN 33, replace magnesium today. Continue PT OT/nutrition support 04/26- Pt doing well, no overnight events. Flat affect. No telemetry events. Blood pressure stable. Lockhart is draining clear urine. Persistent lymphedema. Diminished breath sounds bases. No family at bedside. Ongoing wound care. 04/27-patient had major aspiration episode. Aggressive suctioning performed. However patient hypoxic requiring 8 L oxygen. No family at bedside. White count 2.7. Continue antibiotic coverage. Continue PT OT. Lockhart is draining clear urine 04/28 patient continues to aspirate intermittently. Currently n.p.o. Modified barium swallow today per ST recommendations. On IV potassium/diuretics. Dobbhoff tube feeding to start in light of esophageal stricture. GI consult for esophageal dilatation. Continuing antibiotic coverage/CoughAssist and aspiration precautions. On 2 L oxygen. Repeat chest imaging today. Improving lymphedema. Potassium 2.8. Continue diuresis with aggressive potassium replacement. Start liquid potassium placement per Dobbhoff tube. Lockhart is draining clear urine. Abdominal ultrasound shows cirrhotic changes with moderate ascites. Echocardiogram EF 60% with normal LV function. Would not be a good candidate for PEG placement in light of ascites/cirrhosis 04/29-patient doing well. Currently on tube feeds 20 cc an hour. White count 3.2. More alert and respond to commands. Nonlabored breathing. No overnight episodes of aspiration. On 1 L oxygen. Continue PT OT, potassium improved to 3.7. Ongoing diuresis. Creatinine stable. Net negative fluid balance over 5000 cc. Continue diuresing. at bedside. Also discussed case with GI, patient has had 3 endoscopies in the last year and GI does not recommend any further evaluation. In light of ascites she would not be a candidate for PEG tube placement. Goal is to provide nutrition and rehab for the next few days followed by discontinuation of Dobbhoff, swallow eval/barium studies and initiation of oral diet. - Constitutional Vitals: Vital Signs Temp Pulse Resp BP Pulse Ox 98.9 F 73 15 108/54 96 04/29/19 12:01 04/29/19 11:47 04/29/19 13:01 04/29/19 13:01 04/29/19 13:01 Period Temp Pulse Resp BP Sys/Porter Pulse Ox Last 24 Hr 97.1 F-98.9 F 73-113 11-22 82-126/43-63 92-100 Intake and Output 04/28/19 04/29/19 04/29/19 21:59 05:59 13:59 Intake Total 640 461 585 Output Total 1700 1120 Balance -1060 -659 585 Weight 81.42 kg 79.923 kg Intake & Output: Intake & Output 04/28/19 04/29/19 04/29/19 21:59 05:59 13:59 Intake Total 640 461 585 Output Total 1700 1120 Balance -1060 -659 585 Weight 81.42 kg 79.923 kg Intake: IV 640 100 315 Potassium Chloride 80 Meq In 540 Dextrose 5% in Water 500 ml @ 67.5 mls/hr IV ONCE ONE Rx#: [id number] Tube Feeding 271 220 GI Tube Flush 90 50 Output: Urine Catheter Amount 1700 1120 Other: Urine Appearance Clear Sediment Sediment Suprapubic Clear Sediment Sediment Urine Color Dark Yellow Bright Yellow Bright Yellow Suprapubic Pale Bright Yellow Bright Yellow Urine Odor Normal Normal Suprapubic Normal Normal Stool Size Large Large Stool Color Brown Brown Stool Consistency Soft Soft Loose Loose # Bowel Movements 1 1 Exam: General: awake, No acute Distress Eyes/N/T: EOMI, Head/Neck: neck supple, normocephalic atraumatic CV: RRR, No murmurs, Pulm: no wheezing Abd: soft, nontender, +BS x4, dobhoff in place Ext: no clubbing/cyanosis, + b/l LE edema and UE edema Neuro: alert, mentation good, paraplegic lower extremities Skin: warm/dry Medical - PN: Obj Da - Labs CBC & Chem 7: 04/29/19 05:00 04/29/19 05:00 Labs: Abnormal Lab Results 04/29/19 04/29/19 04/28/19 05:00 05:00 20:35 WBC 3.2 L RBC 3.20 L Hgb 8.1 L Hct 26.5 L MCH 25.3 L MCHC 30.6 L RDW 17.0 H Plt Count 54 L Seg Neutrophils % 79 H Lymphocytes % 9 L Platelet Estimate RBC Morphology Abnorm A Hypochromasia 1+ A Anisocytosis 1+ A Microcytosis 1+ A Potassium Chloride 93 L 94 L Carbon Dioxide 31 H 31 H BUN 33 H 32 H Creatinine Glucose 129 H 114 H Calcium 8.5 L 8.4 L Direct Bilirubin 0.4 H 0.4 H GGT 181 H 170 H Alkaline Phosphatase 190 H 173 H Total Protein 4.5 L 4.7 L Albumin 2.3 L 2.5 L 04/28/19 04/28/19 04/27/19 05:30 05:30 05:00 WBC 3.1 L RBC 3.27 L Hgb 8.3 L Hct 27.1 L MCH 25.4 L MCHC 30.6 L RDW 16.8 H Plt Count 50 L* Seg Neutrophils % Lymphocytes % Platelet Estimate RBC Morphology Abnorm A Hypochromasia 1+ A Anisocytosis 1+ A Microcytosis Few A Potassium 2.8 L* Chloride Carbon Dioxide BUN 34 H 34 H Creatinine 0.5 L 0.5 L Glucose 111 H 227 H Calcium 8.1 L 8.1 L Direct Bilirubin 0.4 H 0.4 H GGT 173 H 196 H Alkaline Phosphatase 182 H 224 H Total Protein 4.7 L 4.7 L Albumin 2.3 L 2.3 L 04/27/19 05:00 WBC 2.7 L RBC 3.26 L Hgb 8.3 L Hct 27.2 L MCH 25.5 L MCHC 30.5 L RDW 16.5 H Plt Count 48 L* Seg Neutrophils % 80 H Lymphocytes % 11 L Platelet Estimate Mk decr A RBC Morphology Abnorm A Hypochromasia 1+ A Anisocytosis 1+ A Microcytosis Potassium Chloride Carbon Dioxide BUN Creatinine Glucose Calcium Direct Bilirubin GGT Alkaline Phosphatase Total Protein Albumin Meds: Medications Acetaminophen (Tylenol) 650 mg PO Q4-6HP PRN; Protocol PRN Reason: Per Pain Protocol/Fever > 101 Last Admin: 04/29/19 10:03 Dose: 650 mg Documented by: Albuterol/Ipratropium (Duoneb) 3 ml NEB Q4-6HP PRN PRN Reason: Shortness Of Breath Baclofen (Lioresal) 20 mg PO TID [facility] Last Admin: 04/29/19 10:04 Dose: Not Given Documented by: Benzonatate (Tessalon) 100 mg PO BIDP PRN PRN Reason: Cough Bisacodyl (Dulcolax) 10 mg ND Q2-3DAYS PRN PRN Reason: Constipation Chlorhexidine Gluconate (Peridex) 15 ml SWABMOUTH BID [facility] Last Admin: 04/29/19 10:00 Dose: 15 ml Documented by: Diagnostic Test (Pha) (Accu-Chek) 1 each FS ACHS [facility] Last Admin: 04/29/19 12:21 Dose: 1 each Documented by: Docusate Sodium (Colace) 100 mg PO BID [facility] Last Admin: 04/29/19 07:18 Dose: Not Given Documented by: Ferrous Sulfate (Ferrous Sulfate) 325 mg PO BIDCC [facility] Last Admin: 04/29/19 10:19 Dose: 325 mg Documented by: Fondaparinux (Arixtra) 2.5 mg SQ DAILY [facility] Last Admin: 04/29/19 10:19 Dose: 2.5 mg Documented by: Furosemide (Lasix) 40 mg IV Q8 [facility] Last Admin: 04/29/19 06:24 Dose: 40 mg Documented by: Heparin Sodium (Porcine) (Heparin Flush) 2 ml IV Q12 [facility] Last Admin: 04/29/19 10:02 Dose: 2 ml Documented by: Magnesium Sulfate (Magnesium Sulfate) 2 gm in 50 mls @ 50 mls/hr IV UD PRN PRN Reason: MG = or < 1.7 Last Infusion: 04/28/19 08:30 Dose: Infused Documented by: Metronidazole (Flagyl) 500 mg in 100 mls @ 100 mls/hr IV Q8H [facility] Last Infusion: 04/29/19 07:25 Dose: Infused Documented by: Norepinephrine Bitartrate 16 (mg/ Sodium Chloride) 250 mls @ 9.375 mls/hr IV Q24HP PRN; Protocol PRN Reason: Hypotension Acetaminophen (Ofirmev) 650 mg in 65 mls @ 130 mls/hr IV Q6HP PRN; Protocol PRN Reason: Per Pain Protocol/Fever > 101 Last Infusion: 04/29/19 06:23 Dose: Infused Documented by: Levofloxacin (Levaquin) 750 mg in 150 mls @ 100 mls/hr IV DAILY [facility] Last Infusion: 04/29/19 10:30 Dose: Infused Documented by: Insulin Glargine (Lantus) 15 unit SQ DAILY [facility] Last Admin: 04/29/19 10:02 Dose: 15 unit Documented by: Insulin Human Lispro (Humalog) 0 unit SQ ACHS [facility]; Protocol Last Admin: 04/29/19 12:42 Dose: 1 unit Documented by: Loperamide HCl (Imodium) 2 mg PO PRN PRN PRN Reason: Diarrhea Melatonin (Melatonin 3mg Tablet) 3 mg PO HSP PRN PRN Reason: Insomnia Metoclopramide HCl (Reglan) 5 mg PO QIDP PRN PRN Reason: Nausea Omeprazole (Prilosec) 20 mg PO BIDAC [facility] Last Admin: 04/29/19 10:03 Dose: Not Given Documented by: Ondansetron HCl (Zofran) 4 mg IV Q4-6HP PRN PRN Reason: Nausea And Vomiting Last Admin: 04/27/19 05:53 Dose: 4 mg Documented by: Ondansetron HCl (Zofran Odt) 4 mg SL Q4-6HP PRN; Protocol PRN Reason: Nausea And Vomiting Last Admin: 04/29/19 10:20 Dose: 4 mg Documented by: Oxybutynin Chloride (Ditropan Xl) 5 mg PO QDAY [facility] Last Admin: 04/29/19 10:19 Dose: 5 mg Documented by: Oxycodone HCl (Roxicodone) 5 mg PO Q6HP PRN PRN Reason: Pain Last Admin: 04/27/19 05:40 Dose: 5 mg Documented by: Polyethylene Glycol (Miralax) 17 gm PO DAILYP PRN PRN Reason: Constipation Last Admin: 04/26/19 17:17 Dose: 17 gm Documented by: Potassium Chloride (Klor-Con) 40 meq PO DAILYP PRN PRN Reason: K+ < 3.5 Pregabalin (Lyrica) 50 mg PO QID [facility] Last Admin: 04/29/19 12:19 Dose: Not Given Documented by: Senna/Docusate Sodium (Senna Plus Tablet) 1 tab PO HS [facility] Last Admin: 04/28/19 22:05 Dose: Not Given Documented by: Sertraline HCl (Zoloft) 50 mg PO DAILY [facility] Last Admin: 04/29/19 10:02 Dose: 50 mg Documented by: Sitagliptin Phosphate (Januvia) 100 mg PO DAILY [facility] Last Admin: 04/29/19 10:19 Dose: 100 mg Documented by: Sodium Chloride (Saline Flush) 10 ml IV Q8 [facility] Last Admin: 04/29/19 12:20 Dose: 10 ml Documented by: Sodium Chloride (Saline Flush) 10 ml IV Q12 [facility] Last Admin: 04/29/19 10:05 Dose: 10 ml Documented by: Spironolactone (Aldactone) 50 mg PO DAILY [facility] Last Admin: 04/29/19 10:02 Dose: 50 mg Documented by: Tramadol HCl (Ultram) 50 mg PO QIDP PRN PRN Reason: Pain Last Admin: 04/29/19 12:18 Dose: 50 mg Documented by: Medical - PN: A/P - Time Spent With Patient Total time spent is greater than 50% in coordination of care (as documented) at patient's floor/unit and/or counseling patient: - Narrative A/P Narrative: A: *Recurrent Asp PNA: 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 EGD in 2019 with spasms *Acute hypoxic respiratory failure: -on bipap initially, now on room air *UTI, suprapubic cath: *Anasarca: 65% EF, diastolic dysfunction *Decubitus pressure ulcer gluteal area: *Hypokalemia: resolved *Paraplegic lower extremities with neurogenic bladder (suprapubic catheter): *cirrhosis w/thrombocytopenia: *DM: *Anemia, chronic: *Anxiety/depression: *GERD: P: -may try diltiazem or isosorbide dinitrate before meals or imipramine if BP low and after meal hot beverage -modified diet, -Continue CoughAssist/elevate HOB/aspiration precautions/deep breathing exercises -levaquin/flagyl -IS/Acapella -Sequential nephron blockade diuresis with Diuril/Lasix and Diamox as needed -narcotics held for sedation -basal and SSI -wound care -ST following; Nutrition per Dobbhoff feeding for now -f/u with GI outpt,Veronica or Arleen walters/Dr. Tovar outpt -ppx: fondaparinux (hold for PLT<50k), SCD/home ppi full code Medical - PN: Qual - VTE Deep Vein Thrombosis/Pulmonary Embolism Present on Admission: No
[2019-04-29] MEDS: SENNOSIDES/DOCUSATE SODIUM 1 TAB TABLET PO SCH (20:23)
[2019-04-30] MEDS: ONDANSETRON 4 MG/2 ML VIAL IV PRN (02:39)
[2019-04-30] MEDS: traMADol 50 MG TABLET PO PRN ×2 (02:39→08:42)
[2019-04-30] MEDS: FUROSEMIDE 40 MG/4 ML VIAL IV SCH ×2 (05:38→16:59)
[2019-04-30] MEDS: metroNIDAZOLE 500 MG/100 ML BAG IV SCH ×3 (05:38→22:05)
[2019-04-30] MEDS: 0.9 % SODIUM CHLORIDE 10 ML SYRINGE IV SCH ×5 (05:38→22:06)
[2019-04-30 07:20] LABS: ALT/SGPT 5 U/l (0-40); AST/SGOT 20 U/l (0-37); Albumin 2.4 gm/dL (3.2-5.2); Albumin/Globulin Ratio 1.1 (1.0-2.3); Alkaline Phosphatase 181 U/L (39-117); Bilirubin,Total 0.7 mg/dL (0.0-1.0); Blood Urea Nitrogen 36 mg/dl (6-20); Calcium 8.3 mg/dl (8.6-10.4); Carbon Dioxide 33 mmol/L (22-30); Globulin 2.1 gm/dL (2.2-3.7); Glomerular Filtration Rate 109; Glucose 111 mg/dL (70-105); Lactate Dehydrogenase 139 U/L (94-250); Phosphorous 3.6 mg/dL (2.7-4.5); Triglycerides 85 mg/dl (<150); Uric Acid 7.2 mg/dL (2.5-8.0)
[2019-04-30 07:22] LABS: Bilirubin,Direct 0.3 mg/dL (0.0-0.3); Chloride 92 mmol/L (96-108)
[2019-04-30] MEDS ORDERED: acetaZOLAMIDE SOD 500 MG VIAL IV ONE (08:32)
[2019-04-30] MEDS ORDERED: ALBUMIN HUMAN 12.5 GM/50 ML BAG IV ONE ×2 (08:32→21:16)
--- NOTE | 2019-04-30 08:35 | Internal Med Progress Note ---
Medical - PN: Subj Patient information: Note initiated : 04/30/19 at 8:23 am Service Date, if different from initiated Date: [] Patient: Ebony Arroyo a 54 y/o F admitted on 04/24/19 for shortness of breathe. Chief Complaint: [] Interval history: Ms. Arroyo is a 54 year old F with a history of paraplegia, chronically bedridden with suprapubic catheter and recurrent hardware related UTIs who presents with her Franky with shortness of breath, weakness and weight gain over 20 pounds in the last 1 month. Symptoms associated with increasing bilateral flank pain. She was recently in the ER for above symptoms however has failed to improve. During today's visit work-up was consistent with elevated lactate,/pyuria consistent with complicated UTI. Hospitalist service was consulted for as above At the time evaluation patient is accompanied with her . She was able to answer most the question. She endorses to increasing fluid stimulation and weight gain. Endorses to history as above. Denies recent medication changes. Denies shaking chills fever but endorses loss of appetite. 04/25 worsening hypoxia and increased oxygen requirement. Chest x-ray bibasilar interstitial disease likely worsening aspiration. Nursing staff suctioned excessive oral secretions. Patient started on CoughAssist maneuvers to prevent further aspiration. Ongoing diuresis. Platelets of 50 white count 3.8, lactate 3.3, BUN 33, replace magnesium today. Continue PT OT/nutrition support 04/26- Pt doing well, no overnight events. Flat affect. No telemetry events. Blood pressure stable. Lockhart is draining clear urine. Persistent lymphedema. Diminished breath sounds bases. No family at bedside. Ongoing wound care. 04/27-patient had major aspiration episode. Aggressive suctioning performed. However patient hypoxic requiring 8 L oxygen. No family at bedside. White count 2.7. Continue antibiotic coverage. Continue PT OT. Lockhart is draining clear urine 04/28 patient continues to aspirate intermittently. Currently n.p.o. Modified barium swallow today per ST recommendations. On IV potassium/diuretics. Dobbhoff tube feeding to start in light of esophageal stricture. GI consult for esophageal dilatation. Continuing antibiotic coverage/CoughAssist and aspiration precautions. On 2 L oxygen. Repeat chest imaging today. Improving lymphedema. Potassium 2.8. Continue diuresis with aggressive potassium replacement. Start liquid potassium placement per Dobbhoff tube. Lockhart is draining clear urine. Abdominal ultrasound shows cirrhotic changes with moderate ascites. Echocardiogram EF 60% with normal LV function. Would not be a good candidate for PEG placement in light of ascites/cirrhosis 04/29-patient doing well. Currently on tube feeds 20 cc an hour. White count 3.2. More alert and respond to commands. Nonlabored breathing. No overnight episodes of aspiration. On 1 L oxygen. Continue PT OT, potassium improved to 3.7. Ongoing diuresis. Creatinine stable. Net negative fluid balance over 5000 cc. Continue diuresing. at bedside. Also discussed case with GI, patient has had 3 endoscopies in the last year and GI does not recommend any further evaluation. In light of ascites she would not be a candidate for PEG tube placement. Goal is to provide nutrition and rehab for the next few days followed by discontinuation of Dobbhoff, swallow eval/barium studies and initiation of oral diet. 04/30 This morning patient had some coughing and felt like she could not get some phlegm down in her oxygen saturations dropped ended up putting her on BiPAP. Appears pretty comfortable at this point only however on 40% FiO2 and she is has good saturations. She notes her has to feeling about the same as yesterday. Good diuresis. at bedside. - Constitutional Vitals: Vital Signs Temp Pulse Resp BP Pulse Ox 97.6 F 98 H 14 122/72 94 04/30/19 04:01 04/29/19 14:00 04/30/19 07:01 04/30/19 07:01 04/30/19 07:01 Period Temp Pulse Resp BP Sys/Porter Pulse Ox Last 24 Hr 97.6 F-99.4 F 73-104 01-28 82-126/45-72 90-98 Intake and Output 04/29/19 04/30/19 04/30/19 21:59 05:59 13:59 Intake Total 340 387 Output Total 575 940 Balance -235 -553 Weight 78.471 kg Intake & Output: Intake & Output 04/29/19 04/30/19 04/30/19 21:59 05:59 13:59 Intake Total 340 387 Output Total 575 940 Balance -235 -553 Weight 78.471 kg Intake: IV 100 100 Tube Feeding 160 227 GI Tube Flush 80 60 Output: Urine Catheter Amount 575 940 Other: Urine Appearance Clear Small Blood Clots Suprapubic Small Blood Clots Clear Urine Color Bright Yellow Dark Yellow Suprapubic Bright Yellow Bright Yellow Urine Odor Normal Normal Suprapubic Normal Normal Stool Size Moderate Small Stool Color Brown Brown Green Stool Consistency Loose Loose # of times incontinent of 1 1 Bowels Exam: General: awake, No acute Distress Eyes/N/T: EOMI, Head/Neck: neck supple, normocephalic atraumatic CV: RRR, No murmurs, Pulm: mild rhonchi, mo wheezing/rales Abd: soft, nontender, +BS x4, dobhoff in place Ext: no clubbing/cyanosis, 2-3+ b/l LE edema and 1+ b/l UE edema Neuro: alert, mentation good, paraplegic lower extremities Skin: warm/dry Medical - PN: Obj Da - Labs CBC & Chem 7: 04/29/19 05:00 04/30/19 05:00 Labs: Abnormal Lab Results 04/30/19 04/29/19 04/29/19 05:00 05:00 05:00 WBC 3.2 L RBC 3.20 L Hgb 8.1 L Hct 26.5 L MCH 25.3 L MCHC 30.6 L RDW 17.0 H Plt Count 54 L Seg Neutrophils % 79 H Lymphocytes % 9 L RBC Morphology Abnorm A Hypochromasia 1+ A Anisocytosis 1+ A Microcytosis 1+ A Potassium 3.2 L Chloride 92 L 93 L Carbon Dioxide 33 H 31 H BUN 36 H 33 H Creatinine 0.5 L Glucose 111 H 129 H Calcium 8.3 L 8.5 L Direct Bilirubin 0.4 H GGT 191 H 181 H Alkaline Phosphatase 181 H 190 H Total Protein 4.5 L 4.5 L Albumin 2.4 L 2.3 L Globulin 2.1 L 04/28/19 04/28/19 04/28/19 20:35 05:30 05:30 WBC 3.1 L RBC 3.27 L Hgb 8.3 L Hct 27.1 L MCH 25.4 L MCHC 30.6 L RDW 16.8 H Plt Count 50 L* Seg Neutrophils % Lymphocytes % RBC Morphology Abnorm A Hypochromasia 1+ A Anisocytosis 1+ A Microcytosis Few A Potassium 2.8 L* Chloride 94 L Carbon Dioxide 31 H BUN 32 H 34 H Creatinine 0.5 L Glucose 114 H 111 H Calcium 8.4 L 8.1 L Direct Bilirubin 0.4 H 0.4 H GGT 170 H 173 H Alkaline Phosphatase 173 H 182 H Total Protein 4.7 L 4.7 L Albumin 2.5 L 2.3 L Globulin Meds: Medications Acetaminophen (Tylenol) 650 mg PO Q4-6HP PRN; Protocol PRN Reason: Per Pain Protocol/Fever > 101 Last Admin: 04/29/19 17:20 Dose: 650 mg Documented by: Albuterol/Ipratropium (Duoneb) 3 ml NEB Q4-6HP PRN PRN Reason: Shortness Of Breath Baclofen (Lioresal) 20 mg PO TID [facility] Last Admin: 04/29/19 20:39 Dose: 20 mg Documented by: Benzonatate (Tessalon) 100 mg PO BIDP PRN PRN Reason: Cough Bisacodyl (Dulcolax) 10 mg WA Q2-3DAYS PRN PRN Reason: Constipation Chlorhexidine Gluconate (Peridex) 15 ml SWABMOUTH BID [facility] Last Admin: 04/29/19 20:40 Dose: 15 ml Documented by: Diagnostic Test (Pha) (Accu-Chek) 1 each FS ACHS [facility] Last Admin: 04/29/19 20:38 Dose: 1 each Documented by: Docusate Sodium (Colace) 100 mg PO BID [facility] Last Admin: 04/29/19 20:23 Dose: Not Given Documented by: Ferrous Sulfate (Ferrous Sulfate) 325 mg PO BIDCC [facility] Last Admin: 04/29/19 17:27 Dose: 325 mg Documented by: Fondaparinux (Arixtra) 2.5 mg SQ DAILY [facility] Last Admin: 04/29/19 10:19 Dose: 2.5 mg Documented by: Furosemide (Lasix) 40 mg IV Q8 [facility] Last Admin: 04/30/19 05:38 Dose: 40 mg Documented by: Magnesium Sulfate (Magnesium Sulfate) 2 gm in 50 mls @ 50 mls/hr IV UD PRN PRN Reason: MG = or < 1.7 Last Infusion: 04/28/19 08:30 Dose: Infused Documented by: Metronidazole (Flagyl) 500 mg in 100 mls @ 100 mls/hr IV Q8H [facility] Last Admin: 04/30/19 05:38 Dose: 100 mls/hr Documented by: Norepinephrine Bitartrate 16 (mg/ Sodium Chloride) 250 mls @ 9.375 mls/hr IV Q24HP PRN; Protocol PRN Reason: Hypotension Acetaminophen (Ofirmev) 650 mg in 65 mls @ 130 mls/hr IV Q6HP PRN; Protocol PRN Reason: Per Pain Protocol/Fever > 101 Last Infusion: 04/29/19 06:23 Dose: Infused Documented by: Levofloxacin (Levaquin) 750 mg in 150 mls @ 100 mls/hr IV DAILY [facility] Last Infusion: 04/29/19 10:30 Dose: Infused Documented by: Insulin Glargine (Lantus) 15 unit SQ DAILY [facility] Last Admin: 04/29/19 10:02 Dose: 15 unit Documented by: Insulin Human Lispro (Humalog) 0 unit SQ ACHS [facility]; Protocol Last Admin: 04/29/19 20:41 Dose: Not Given Documented by: Loperamide HCl (Imodium) 2 mg PO PRN PRN PRN Reason: Diarrhea Melatonin (Melatonin 3mg Tablet) 3 mg PO HSP PRN PRN Reason: Insomnia Metoclopramide HCl (Reglan) 5 mg PO QIDP PRN PRN Reason: Nausea Omeprazole (Prilosec) 20 mg PO BIDAC [facility] Last Admin: 04/29/19 15:45 Dose: Not Given Documented by: Ondansetron HCl (Zofran) 4 mg IV Q4-6HP PRN PRN Reason: Nausea And Vomiting Last Admin: 04/30/19 02:39 Dose: 4 mg Documented by: Ondansetron HCl (Zofran Odt) 4 mg SL Q4-6HP PRN; Protocol PRN Reason: Nausea And Vomiting Last Admin: 04/29/19 10:20 Dose: 4 mg Documented by: Oxybutynin Chloride (Ditropan Xl) 5 mg PO QDAY [facility] Last Admin: 04/29/19 10:19 Dose: 5 mg Documented by: Oxycodone HCl (Roxicodone) 5 mg PO Q6HP PRN PRN Reason: Pain Last Admin: 04/27/19 05:40 Dose: 5 mg Documented by: Polyethylene Glycol (Miralax) 17 gm PO DAILYP PRN PRN Reason: Constipation Last Admin: 04/26/19 17:17 Dose: 17 gm Documented by: Potassium Chloride (Klor-Con) 40 meq PO DAILYP PRN PRN Reason: K+ < 3.5 Pregabalin (Lyrica) 50 mg PO QID [facility] Last Admin: 04/29/19 20:13 Dose: Not Given Documented by: Senna/Docusate Sodium (Senna Plus Tablet) 1 tab PO HS [facility] Last Admin: 04/29/19 20:23 Dose: Not Given Documented by: Sertraline HCl (Zoloft) 50 mg PO DAILY [facility] Last Admin: 04/29/19 10:02 Dose: 50 mg Documented by: Sitagliptin Phosphate (Januvia) 100 mg PO DAILY [facility] Last Admin: 04/29/19 10:19 Dose: 100 mg Documented by: Sodium Chloride (Saline Flush) 10 ml IV Q8 [facility] Last Admin: 04/30/19 05:38 Dose: 10 ml Documented by: Sodium Chloride (Saline Flush) 10 ml IV Q12 [facility] Last Admin: 04/29/19 22:16 Dose: Not Given Documented by: Spironolactone (Aldactone) 50 mg PO DAILY [facility] Last Admin: 04/29/19 10:02 Dose: 50 mg Documented by: Tramadol HCl (Ultram) 50 mg PO QIDP PRN PRN Reason: Pain Last Admin: 04/30/19 02:39 Dose: 50 mg Documented by: Medical - PN: A/P - Time Spent With Patient Total time spent is greater than 50% in coordination of care (as documented) at patient's floor/unit and/or counseling patient: - Narrative A/P Narrative: A: *Recurrent Asp PNA: 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 EGD in 2019 with spasms *Acute hypoxic respiratory failure: -placed on bipap temporarily good sats 40% fio2, remove in several hours *UTI, suprapubic cath: *Anasarca: 65% EF, diastolic dysfunction *hypoalbuminemia: *Decubitus pressure ulcer gluteal area: *Hypokalemia: resolved *Paraplegic lower extremities with neurogenic bladder (suprapubic catheter): *cirrhosis w/thrombocytopenia: *DM: *Anemia, chronic: *Anxiety/depression: *GERD: P: -consider diltiazem vs isosorbide dinitrate before meals or imipramine if BP low and after meal hot beverage -Continue Cough Assist/elevate HOB/aspiration precautions/deep breathing exercises -levaquin/flagyl -IS/Acapella -wean oxygen -Sequential nephron blockade diuresis with Diuril/Lasix and Diamox as needed -narcotics held for sedation -basal and SSI -wound care -ST following; Nutrition per Dobbhoff feeding for now -f/u with GI outpt, Veronica or Arleen walters/Dr. Tovar outpt -ppx: fondaparinux (hold for PLT<50k), SCD/home ppi full code Medical - PN: Qual - VTE Deep Vein Thrombosis/Pulmonary Embolism Present on Admission: No
[2019-04-30] MEDS: INSULIN LISPRO 1 UNIT/0.01 ML UNIT SQ SCH ×4 (08:37→21:11)
[2019-04-30] MEDS: CHLORHEXIDINE GLUCONATE 1 ML ORAL.SOL SWABMOUTH SCH ×2 (08:42→21:13)
[2019-04-30] MEDS: SPIRONOLACTONE 25 MG TABLET PO SCH (08:42)
[2019-04-30] MEDS: INSULIN GLARGINE, HUMAN 1 UNIT/0.01 ML SQ SCH (08:42)
[2019-04-30] MEDS: ONDANSETRON 4 MG ODT TABLET SL PRN (08:43)
[2019-04-30] MEDS: ACETAMINOPHEN 325 MG TABLET PO PRN ×2 (08:43→16:59)
[2019-04-30] MEDS: SERTRALINE 50 MG TABLET PO SCH (08:44)
[2019-04-30] MEDS: OMEPRAZOLE 20 MG CAPSULE PO SCH ×2 (08:44→16:53)
[2019-04-30] MEDS: DOCUSATE SODIUM 100 MG CAPSULE PO SCH ×2 (08:45→21:11)
[2019-04-30] MEDS: PREGABALIN 25 MG CAPSULE PO SCH ×4 (08:46→21:11)
[2019-04-30] MEDS: LEVOFLOXACIN 750 MG/150 ML BAG IV SCH (08:49)
[2019-04-30] MEDS: sitaGLIPtin 100 MG TABLET PO SCH (08:55)
[2019-04-30] MEDS: BACLOFEN 10 MG TABLET PO SCH ×3 (08:55→21:11)
[2019-04-30] MEDS: FONDAPARINUX SODIUM 2.5 MG/0.5 ML SYRINGE SQ SCH (08:55)
[2019-04-30] MEDS: OXYBUTYNIN CHLORIDE 5 MG TAB.XL.24H PO SCH (08:55)
[2019-04-30] MEDS: FERROUS SULFATE 325 MG TABLET PO SCH ×2 (08:55→16:59)
[2019-04-30] MEDS ORDERED: HYDROCHLOROTHIAZIDE 25 MG TABLET PT SCH (09:00)
[2019-04-30] MEDS ORDERED: LORazepam 2 MG/ML VIAL IV ONE (09:40)
--- NOTE | 2019-04-30 11:39 | XRay Report ---
CLINICAL INFORMATION: Hypoxia COMPARISON: 04/26/2019 FINDINGS: Heart size, mediastinum and pulmonary vessels are normal for technique. Small infiltrate is developing in the left base. Scattered calcified granulomas as before. No effusions. Feeding tube has been placed since previous exam - the tip overlies the gastric antrum. PICC line remains in stable satisfactory position. IMPRESSION: Small patchy infiltrate developing in the left base. Interpreted and Authenticated by: David Neal 04/30/19
[2019-04-30] MEDS: ISOSORBIDE DINITRATE 10 MG TABLET PO SCH ×2 (12:30→16:54)
[2019-04-30] MEDS: POTASSIUM CHLORIDE 20 MEQ/15 ML ML PT SCH (16:59)
[2019-04-30] MEDS: ACETAMINOPHEN 650 MG/65 ML BOTTLE IV PRN (21:07)
[2019-04-30] MEDS: SENNOSIDES/DOCUSATE SODIUM 1 TAB TABLET PO SCH (21:13)
[2019-05-01 00:10] LABS: POC Blood Urea Nitrogen 34 mg/dl (6-20); POC CO2 33 mmol/L (22-30); POC Calcium, Ionized 1.15 mmol/L (1.16-1.32); POC Chloride 88 mmol/L (96-108); POC Creatinine 0.7 mg/dl (0.6-1.1); POC Glucose, Random 76 mg/dL (70-105); POC Potassium 3.6 mmol/L (3.3-5.1); POC Sodium 134 mmol/L (133-145)
[2019-05-01] MEDS: NOREPINEPHRINE BITARTRATE 16 MG in 0.9 % SODIUM CHLORIDE 234 ML IV PRN (00:30)
[2019-05-01] MEDS ORDERED: 0.9 % SODIUM CHLORIDE 250 ML IV SCH (00:30)
[2019-05-01] MEDS ORDERED: NOREPINEPHRINE BITARTRATE 4 MG/4 ML VIAL IV ONE (00:33)
[2019-05-01] MEDS: INSULIN LISPRO 1 UNIT/0.01 ML UNIT SQ SCH ×4 (01:02→16:57)
[2019-05-01] MEDS: ACETAMINOPHEN 650 MG/65 ML BOTTLE IV PRN ×2 (01:44→09:04)
[2019-05-01] MEDS: 0.9 % SODIUM CHLORIDE 10 ML SYRINGE IV SCH ×6 (05:20→22:12)
[2019-05-01] MEDS: metroNIDAZOLE 500 MG/100 ML BAG IV SCH ×3 (05:48→22:12)
[2019-05-01 06:46] LABS: ALT/SGPT 7 U/l (0-40); AST/SGOT 26 U/l (0-37); Albumin 2.9 gm/dL (3.2-5.2); Albumin/Globulin Ratio 1.3 (1.0-2.3); Alkaline Phosphatase 185 U/L (39-117); Basophils # (Auto) 0.03 K/mcL (0.00-0.30); Basophils % (Auto) 0.3 % (0.0-2.0); Bilirubin,Total 2.2 mg/dL (0.0-1.0); Blood Urea Nitrogen 37 mg/dl (6-20); Calcium 8.8 mg/dl (8.6-10.4); Carbon Dioxide 31 mmol/L (22-30); Globulin 2.3 gm/dL (2.2-3.7); Glomerular Filtration Rate 109; Glucose 105 mg/dL (70-105); Granulocytes % (Auto) 75.5 % (38.0-78.0); Hematocrit 35.9 % (34.1-44.9); Hemoglobin 11.3 g/dL (11.2-15.7); Lactate Dehydrogenase 177 U/L (94-250); Lymphocytes # (Auto) 0.92 K/mcL (1.50-4.80); Lymphocytes % (Auto) 9.6 % (15.5-49.0); Mean Cell Volume 83.9 fL (80.0-100.0); Mean Corpuscular HGB Conc 31.5 g/dL (31.0-36.0); Monocytes # (Auto) 1.31 K/mcL (0.10-0.90); Monocytes % (Auto) 13.6 % (1.0-12.0); Phosphorous 3.9 mg/dL (2.7-4.5); Platelet Count 68 K/mcL (140-440); RBC 4.28 M/mcL (3.59-5.38); Triglycerides 128 mg/dl (<150); Uric Acid 6.7 mg/dL (2.5-8.0); WBC 9.6 K/mcL (4.50-11.00)
[2019-05-01 06:47] LABS: Bilirubin,Direct 0.8 mg/dL (0.0-0.3); Chloride 93 mmol/L (96-108)
[2019-05-01] MEDS: OMEPRAZOLE 20 MG CAPSULE PO SCH ×2 (07:52→16:40)
[2019-05-01] MEDS: POTASSIUM CHLORIDE 20 MEQ/15 ML ML PT SCH (07:54)
[2019-05-01] MEDS: DOCUSATE SODIUM 100 MG CAPSULE PO SCH ×2 (07:55→20:11)
[2019-05-01] MEDS: FUROSEMIDE 40 MG/4 ML VIAL IV SCH ×2 (07:55→17:00)
[2019-05-01] MEDS: ONDANSETRON 4 MG/2 ML VIAL IV PRN ×2 (07:55→23:29)
[2019-05-01] MEDS: PREGABALIN 25 MG CAPSULE PO SCH ×4 (07:57→20:11)
[2019-05-01] MEDS ORDERED: ALBUMIN HUMAN 12.5 GM/50 ML BAG IV ONE ×2 (08:38→16:00)
--- NOTE | 2019-05-01 08:42 | Internal Med Progress Note ---
Medical - PN: Subj Patient information: Note initiated : 05/01/19 at 8:35 am Service Date, if different from initiated Date: [] Patient: Ebony Arroyo a 54 y/o F admitted on 04/24/19 for shortness of breathe. Chief Complaint: [] Interval history: Ms. Arroyo is a 54 year old F with a history of paraplegia, chronically bedridden with suprapubic catheter and recurrent hardware related UTIs who presents with her Franky with shortness of breath, weakness and weight gain over 20 pounds in the last 1 month. Symptoms associated with increasing bilateral flank pain. She was recently in the ER for above symptoms however has failed to improve. During today's visit work-up was consistent with elevated lactate,/pyuria consistent with complicated UTI. Hospitalist service was consulted for as above At the time evaluation patient is accompanied with her . She was able to answer most the question. She endorses to increasing fluid stimulation and weight gain. Endorses to history as above. Denies recent medication changes. Denies shaking chills fever but endorses loss of appetite. 04/25 worsening hypoxia and increased oxygen requirement. Chest x-ray bibasilar interstitial disease likely worsening aspiration. Nursing staff suctioned excessive oral secretions. Patient started on CoughAssist maneuvers to prevent further aspiration. Ongoing diuresis. Platelets of 50 white count 3.8, lactate 3.3, BUN 33, replace magnesium today. Continue PT OT/nutrition support 04/26- Pt doing well, no overnight events. Flat affect. No telemetry events. Blood pressure stable. [place] is draining clear urine. Persistent lymphedema. Diminished breath sounds bases. No family at bedside. Ongoing wound care. 04/27-patient had major aspiration episode. Aggressive suctioning performed. However patient hypoxic requiring 8 L oxygen. No family at bedside. White count 2.7. Continue antibiotic coverage. Continue PT OT. [place] is draining clear urine 04/28 patient continues to aspirate intermittently. Currently n.p.o. Modified barium swallow today per ST recommendations. On IV potassium/diuretics. Dobbhoff tube feeding to start in light of esophageal stricture. GI consult for esophageal dilatation. Continuing antibiotic coverage/CoughAssist and aspiration precautions. On 2 L oxygen. Repeat chest imaging today. Improving lymphedema. Potassium 2.8. Continue diuresis with aggressive potassium replacement. Start liquid potassium placement per Dobbhoff tube. [place] is draining clear urine. Abdominal ultrasound shows cirrhotic changes with moderate ascites. Echocardiogram EF 60% with normal LV function. Would not be a good candidate for PEG placement in light of ascites/cirrhosis 04/29-patient doing well. Currently on tube feeds 20 cc an hour. White count 3.2. More alert and respond to commands. Nonlabored breathing. No overnight episodes of aspiration. On 1 L oxygen. Continue PT OT, potassium improved to 3.7. Ongoing diuresis. Creatinine stable. Net negative fluid balance over 5000 cc. Continue diuresing. at bedside. Also discussed case with GI, patient has had 3 endoscopies in the last year and GI does not recommend any further evaluation. In light of ascites she would not be a candidate for PEG tube placement. Goal is to provide nutrition and rehab for the next few days followed by discontinuation of Dobbhoff, swallow eval/barium studies and initiation of oral diet. 04/30 This morning patient had some coughing and felt like she could not get some phlegm down in her oxygen saturations dropped ended up putting her on BiPAP. Appears pretty comfortable at this point only however on 40% FiO2 and she is has good saturations. She notes her has to feeling about the same as yesterday. Good diuresis. at bedside. 05/01 Is tired this morning a little anxious. But no new complaints other than poor sleep. Blood pressure was low last night and did put her on Levophed temporarily she is on very minimal dose and should be able to discontinue shortly. Alert and awake today. Dropped her oxygen down to 1.5 L and is maintaining saturations. Chest x-ray no change. Review of Systems: denies headache/fever/chills/nausea/vomiting/chest or abdominal pain/diarrhea. Otherwise see above. - Constitutional Vitals: Vital Signs Temp Pulse Resp BP Pulse Ox 99.0 F 81 20 108/53 94 05/01/19 04:01 04/30/19 14:00 05/01/19 07:01 05/01/19 07:01 05/01/19 07:01 Period Temp Pulse Resp BP Sys/Porter Pulse Ox Last 24 Hr 97.5 F-100.1 F 81-100 9-22 77-141/39-71 86-100 Intake and Output 0105/01/19 05/01/19 21:59 05:59 13:59 Intake Total 195 950 100 Output Total 1095 120 Balance -900 830 100 Weight 77.61 kg Intake & Output: Intake & Output 04/30/19 05/01/19 05/01/19 21:59 05:59 13:59 Intake Total 195 950 100 Output Total 1095 120 Balance -900 830 100 Weight 77.61 kg Intake: IV 165 278 100 Sodium Chloride 0.9% 250 ml @ 38 20 mls/hr IV .[id number] LEWIS Rx#: [id number] Levophed 16 mg In Sodium 25 Chloride 0.9% 234 ml @ 10 MCG/ MIN 9.375 mls/hr IV Q24HP PRN Rx#:[id number] Oral 0 Tube Feeding 0 287 Blood Product 325 GI Tube Flush 30 60 Output: Urine Catheter Amount 1095 120 Other: Urine Appearance Sediment Suprapubic Clear Clear Urine Color Blood Tinged Suprapubic Blood Tinged Bright Yellow Urine Odor Normal Suprapubic Normal Stool Size Copious Stool Color Brown Stool Consistency Loose # Bowel Movements 0 Exam: General: awake, No acute Distress Eyes/N/T: EOMI, Head/Neck: neck supple, normocephalic atraumatic CV: RRR, No murmurs, Pulm: mild rhonchi b/l that clears with subsequent deep breaths, no wheezing/rales Abd: soft, nontender, +BS x4, dobhoff in place Ext: no clubbing/cyanosis, 2+ b/l LE edema and b/l UE edema Neuro: alert, mentation good, paraplegic lower extremities Skin: warm/dry Medical - PN: Obj Da - Labs CBC & Chem 7: 05/01/19 05:00 05/01/19 05:00 Labs: Abnormal Lab Results 05/01/19 05/01/19 05/01/19 05:00 05:00 00:03 WBC RBC Hgb Hct POC Hct 24.0 L MCH MCHC RDW 17.0 H Plt Count 68 L Lymph % (Auto) 9.6 L [place] % (Auto) 13.6 H Lymph # (Auto) 0.92 L [place] # (Auto) 1.31 H Seg Neutrophils % Lymphocytes % RBC Morphology Hypochromasia Anisocytosis Microcytosis Potassium POC Chloride 88 L Chloride 93 L Carbon Dioxide 31 H POC Total CO2 33 H POC BUN 34 H BUN 37 H Creatinine 0.5 L Glucose Calcium POC WB Ioniz Calcium 1.15 L Total Bilirubin 2.2 H Direct Bilirubin 0.8 H GGT 221 H Alkaline Phosphatase 185 H Total Protein 5.2 L Albumin 2.9 L Globulin Prealbumin 04/30/19 04/30/19 04/29/19 11:20 05:00 05:00 WBC RBC Hgb Hct POC Hct MCH MCHC RDW Plt Count Lymph % (Auto) [place] % (Auto) Lymph # (Auto) [place] # (Auto) Seg Neutrophils % Lymphocytes % RBC Morphology Hypochromasia Anisocytosis Microcytosis Potassium 3.2 L POC Chloride Chloride 92 L 93 L Carbon Dioxide 33 H 31 H POC Total CO2 POC BUN BUN 36 H 33 H Creatinine 0.5 L Glucose 111 H 129 H Calcium 8.3 L 8.5 L POC WB Ioniz Calcium Total Bilirubin Direct Bilirubin 0.4 H GGT 191 H 181 H Alkaline Phosphatase 181 H 190 H Total Protein 4.5 L 4.5 L Albumin 2.4 L 2.3 L Globulin 2.1 L Prealbumin 8.4 L 04/29/19 04/28/19 05:00 20:35 WBC 3.2 L RBC 3.20 L Hgb 8.1 L Hct 26.5 L POC Hct MCH 25.3 L MCHC 30.6 L RDW 17.0 H Plt Count 54 L Lymph % (Auto) [place] % (Auto) Lymph # (Auto) [place] # (Auto) Seg Neutrophils % 79 H Lymphocytes % 9 L RBC Morphology Abnorm A Hypochromasia 1+ A Anisocytosis 1+ A Microcytosis 1+ A Potassium POC Chloride Chloride 94 L Carbon Dioxide 31 H POC Total CO2 POC BUN BUN 32 H Creatinine Glucose 114 H Calcium 8.4 L POC WB Ioniz Calcium Total Bilirubin Direct Bilirubin 0.4 H GGT 170 H Alkaline Phosphatase 173 H Total Protein 4.7 L Albumin 2.5 L Globulin Prealbumin Meds: Medications Acetaminophen (Tylenol) 650 mg PO Q4-6HP PRN; Protocol PRN Reason: Per Pain Protocol/Fever > 101 Last Admin: 04/30/19 16:59 Dose: 650 mg Documented by: Albuterol/Ipratropium (Duoneb) 3 ml NEB Q4-6HP PRN PRN Reason: Shortness Of Breath Benzonatate (Tessalon) 100 mg PO BIDP PRN PRN Reason: Cough Bisacodyl (Dulcolax) 10 mg ME Q2-3DAYS PRN PRN Reason: Constipation Chlorhexidine Gluconate (Peridex) 15 ml SWABMOUTH BID [facility] Last Admin: 04/30/19 21:13 Dose: 15 ml Documented by: Diagnostic Test (Pha) (Accu-Chek) 1 each FS Q6H [facility] Last Admin: 05/01/19 05:19 Dose: 1 each Documented by: Docusate Sodium (Colace) 100 mg PO BID [facility] Last Admin: 05/01/19 07:55 Dose: Not Given Documented by: Fondaparinux (Arixtra) 2.5 mg SQ DAILY [facility] Last Admin: 04/30/19 08:55 Dose: 2.5 mg Documented by: Furosemide (Lasix) 40 mg IV BIDD [facility] Last Admin: 05/01/19 07:55 Dose: 40 mg Documented by: Magnesium Sulfate (Magnesium Sulfate) 2 gm in 50 mls @ 50 mls/hr IV UD PRN PRN Reason: MG = or < 1.7 Last Infusion: 04/28/19 08:30 Dose: Infused Documented by: Metronidazole (Flagyl) 500 mg in 100 mls @ 100 mls/hr IV Q8H [facility] Last Infusion: 05/01/19 06:50 Dose: Infused Documented by: Norepinephrine Bitartrate 16 (mg/ Sodium Chloride) 250 mls @ 9.375 mls/hr IV Q24HP PRN; Protocol PRN Reason: Hypotension Last Titration: 05/01/19 05:44 Dose: 3.2 mcg/min, 3 mls/hr Documented by: Acetaminophen (Ofirmev) 650 mg in 65 mls @ 130 mls/hr IV Q6HP PRN; Protocol PRN Reason: Per Pain Protocol/Fever > 101 Last Infusion: 05/01/19 02:48 Dose: Infused Documented by: Levofloxacin (Levaquin) 750 mg in 150 mls @ 100 mls/hr IV DAILY [facility] Last Infusion: 04/30/19 10:30 Dose: Infused Documented by: Sodium Chloride (Sodium Chloride 0.9%) 250 mls @ 20 mls/hr IV .[id number] [facility] Stop: 05/01/19 12:59 Last Infusion: 05/01/19 04:30 Dose: Infused Documented by: Insulin Glargine (Lantus) 15 unit SQ DAILY [facility] Last Admin: 04/30/19 08:42 Dose: 15 unit Documented by: Insulin Human Lispro (Humalog) 0 unit SQ Q6H [facility]; Protocol Last Admin: 05/01/19 05:19 Dose: Not Given Documented by: Loperamide HCl (Imodium) 2 mg PO PRN PRN PRN Reason: Diarrhea Melatonin (Melatonin 3mg Tablet) 3 mg PO HSP PRN PRN Reason: Insomnia Metoclopramide HCl (Reglan) 5 mg PO QIDP PRN PRN Reason: Nausea Omeprazole (Prilosec) 20 mg PO BIDAC [facility] Last Admin: 05/01/19 07:52 Dose: Not Given Documented by: Ondansetron HCl (Zofran) 4 mg IV Q4-6HP PRN PRN Reason: Nausea And Vomiting Last Admin: 05/01/19 07:55 Dose: 4 mg Documented by: Ondansetron HCl (Zofran Odt) 4 mg SL Q4-6HP PRN; Protocol PRN Reason: Nausea And Vomiting Last Admin: 04/30/19 08:43 Dose: 4 mg Documented by: Oxybutynin Chloride (Ditropan Xl) 5 mg PO QDAY [facility] Last Admin: 04/30/19 08:55 Dose: 5 mg Documented by: Oxycodone HCl (Roxicodone) 5 mg PO Q6HP PRN PRN Reason: Pain Last Admin: 04/27/19 05:40 Dose: 5 mg Documented by: Polyethylene Glycol (Miralax) 17 gm PO DAILYP PRN PRN Reason: Constipation Last Admin: 04/26/19 17:17 Dose: 17 gm Documented by: Potassium Chloride (Klor-Con) 40 meq PO DAILYP PRN PRN Reason: K+ < 3.5 Last Admin: 04/30/19 08:43 Dose: 40 meq Documented by: Pregabalin (Lyrica) 50 mg PO QID [facility] Last Admin: 05/01/19 07:57 Dose: Not Given Documented by: Senna/Docusate Sodium (Senna Plus Tablet) 1 tab PO HS [facility] Last Admin: 04/30/19 21:13 Dose: Not Given Documented by: Sertraline HCl (Zoloft) 50 mg PO DAILY [facility] Last Admin: 04/30/19 08:44 Dose: 50 mg Documented by: Sitagliptin Phosphate (Januvia) 100 mg PO DAILY [facility] Last Admin: 04/30/19 08:55 Dose: 100 mg Documented by: Sodium Chloride (Saline Flush) 10 ml IV Q8 [facility] Last Admin: 05/01/19 05:20 Dose: 10 ml Documented by: Sodium Chloride (Saline Flush) 10 ml IV Q12 [facility] Last Admin: 04/30/19 21:13 Dose: Not Given Documented by: Spironolactone (Aldactone) 50 mg PO DAILY [facility] Last Admin: 04/30/19 08:42 Dose: 50 mg Documented by: Tramadol HCl (Ultram) 50 mg PO QIDP PRN PRN Reason: Pain Last Admin: 04/30/19 08:42 Dose: 50 mg Documented by: Medical - PN: A/P - Time Spent With Patient Total time spent is greater than 50% in coordination of care (as documented) at patient's floor/unit and/or counseling patient: - Narrative A/P Narrative: A: *Recurrent Asp PNA: 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 EGD in 2019 with spasms *Acute hypoxic respiratory failure: -placed on bipap temporarily yesterday morning and then placed back on oxymask, now down to 1.5L this morning *UTI, suprapubic cath: *Anasarca: 65% EF, diastolic dysfunction -good diuresis *hypoalbuminemia: *Decubitus pressure ulcer gluteal area: *Hypokalemia: resolved *Paraplegic lower extremities with neurogenic bladder (suprapubic catheter): *cirrhosis w/thrombocytopenia: *DM: *Anemia, chronic: *Anxiety/depression: *GERD: *Debility/poor functional state: tenuous at baseline P: -consider diltiazem vs isosorbide dinitrate before meals but BP low, or imipramine, and after meal hot beverages -Continue Cough Assist/elevate HOB/aspiration precautions/deep breathing exercises -levaquin/flagyl -IS/Acapella -wean oxygen -IV diuresis -narcotics held for sedation -basal and SSI -wound care -ST following; Nutrition per Dobbhoff feeding for now -f/u with GI outpt, Veronica or Arleen walters/Dr. Tovar outpt -ppx: fondaparinux (hold for PLT<50k), SCD/home ppi full code Medical - PN: Qual - VTE Deep Vein Thrombosis/Pulmonary Embolism Present on Admission: No
[2019-05-01] MEDS: INSULIN GLARGINE, HUMAN 1 UNIT/0.01 ML SQ SCH (09:04)
[2019-05-01] MEDS: SERTRALINE 50 MG TABLET PO SCH (09:05)
[2019-05-01] MEDS: CHLORHEXIDINE GLUCONATE 1 ML ORAL.SOL SWABMOUTH SCH ×2 (09:09→20:12)
[2019-05-01] MEDS: LEVOFLOXACIN 750 MG/150 ML BAG IV SCH (09:10)
[2019-05-01] MEDS: traMADol 50 MG TABLET PO PRN ×2 (09:24→20:10)
[2019-05-01] MEDS: OXYBUTYNIN CHLORIDE 5 MG TAB.XL.24H PO SCH (09:24)
[2019-05-01] MEDS: sitaGLIPtin 100 MG TABLET PO SCH (09:24)
[2019-05-01] MEDS: SPIRONOLACTONE 25 MG TABLET PO SCH (09:25)
[2019-05-01] MEDS: FONDAPARINUX SODIUM 2.5 MG/0.5 ML SYRINGE SQ SCH (09:26)
--- NOTE | 2019-05-01 13:42 | XRay Report ---
CLINICAL INFORMATION: Left basilar infiltrate COMPARISON: 04/30/2019 FINDINGS: Heart size, mediastinum and pulmonary vessels are unremarkable. Minor airspace disease in the left basilar, either infiltrate or atelectasis, has progressed slightly. The left diaphragm mildly elevated. Lungs are clear. Feeding tube tip overlies the gastric antrum in stable position IMPRESSION: Small left basilar atelectasis or infiltrate progressing from yesterday. Left diaphragm mildly elevated Interpreted and Authenticated by: David Neal 05/01/19
[2019-05-01] MEDS: SENNOSIDES/DOCUSATE SODIUM 1 TAB TABLET PO SCH (20:10)
[2019-05-01 21:28] LABS: Hematocrit 27.4 % (34.1-44.9); Hemoglobin 8.4 g/dL (11.2-15.7)
[2019-05-02] MEDS: INSULIN LISPRO 1 UNIT/0.01 ML UNIT SQ SCH ×5 (00:19→23:53)
[2019-05-02 01:22] LABS: Hematocrit 25.7 % (34.1-44.9); Hemoglobin 8.1 g/dL (11.2-15.7)
[2019-05-02 01:25] LABS: Fibrinogen 364 mg/dL (200-400); INR 1.3 (0.9-1.1); Partial Thromboplastin Time 42 sec (20-37); Prothrombin Time 16.4 sec (11.9-14.5); Thrombin Time 15.3 SEC (13.7-20.9)
[2019-05-02] MEDS: ACETAMINOPHEN 650 MG/65 ML BOTTLE IV PRN ×3 (01:45→19:23)
[2019-05-02] MEDS: traMADol 50 MG TABLET PO PRN ×3 (01:46→20:30)
[2019-05-02] MEDS: ONDANSETRON 4 MG/2 ML VIAL IV PRN ×3 (03:15→13:04)
[2019-05-02] MEDS ORDERED: NOREPINEPHRINE BITARTRATE 4 MG/4 ML VIAL IV ONE (03:49)
[2019-05-02] MEDS: NOREPINEPHRINE BITARTRATE 16 MG in 0.9 % SODIUM CHLORIDE 234 ML IV PRN (03:54)
[2019-05-02 05:00] LABS: Basophils # (Auto) 0.01 K/mcL (0.00-0.30); Basophils % (Auto) 0.3 % (0.0-2.0); Eosinophils # (Auto) 0.02 K/mcL (0.00-0.70); Eosinophils % (Auto) 0.5 % (0.0-7.0); Granulocytes % (Auto) 73.7 % (38.0-78.0); Hematocrit 25.4 % (34.1-44.9); Hemoglobin 7.9 g/dL (11.2-15.7); Lymphocytes # (Auto) 0.51 K/mcL (1.50-4.80); Lymphocytes % (Auto) 13.7 % (15.5-49.0); Mean Cell Volume 84.4 fL (80.0-100.0); Mean Corpuscular HGB Conc 31.1 g/dL (31.0-36.0); Monocytes # (Auto) 0.44 K/mcL (0.10-0.90); Monocytes % (Auto) 11.8 % (1.0-12.0); Platelet Count 32 K/mcL (140-440); RBC 3.01 M/mcL (3.59-5.38); Red Cell Distribution Width 17.2 % (11.5-14.5); WBC 3.7 K/mcL (4.50-11.00)
[2019-05-02] MEDS: metroNIDAZOLE 500 MG/100 ML BAG IV SCH ×3 (05:08→22:01)
[2019-05-02] MEDS ORDERED: 0.9 % SODIUM CHLORIDE 250 ML IV SCH (05:15)
[2019-05-02 05:20] LABS: ALT/SGPT 5 U/l (0-40); AST/SGOT 21 U/l (0-37); Albumin 2.6 gm/dL (3.2-5.2); Albumin/Globulin Ratio 1.6 (1.0-2.3); Alkaline Phosphatase 148 U/L (39-117); Bilirubin,Direct 0.6 mg/dL (0.0-0.3); Bilirubin,Total 1.1 mg/dL (0.0-1.0); Blood Urea Nitrogen 48 mg/dl (6-20); Calcium 8.6 mg/dl (8.6-10.4); Carbon Dioxide 31 mmol/L (22-30); Chloride 94 mmol/L (96-108); Globulin 1.6 gm/dL (2.2-3.7); Glomerular Filtration Rate 103; Glucose 142 mg/dL (70-105); Lactate Dehydrogenase 139 U/L (94-250); Phosphorous 3.5 mg/dL (2.7-4.5); Triglycerides 116 mg/dl (<150); Uric Acid 6.3 mg/dL (2.5-8.0)
[2019-05-02] MEDS: 0.9 % SODIUM CHLORIDE 10 ML SYRINGE IV SCH ×5 (05:34→20:30)
[2019-05-02] MEDS: SPIRONOLACTONE 25 MG TABLET PO SCH (07:26)
[2019-05-02] MEDS: OMEPRAZOLE 20 MG CAPSULE PO SCH ×2 (07:26→17:05)
[2019-05-02] MEDS: PREGABALIN 25 MG CAPSULE PO SCH ×3 (07:27→17:06)
[2019-05-02] MEDS: CHLORHEXIDINE GLUCONATE 1 ML ORAL.SOL SWABMOUTH SCH ×2 (07:32→20:30)
[2019-05-02] MEDS ORDERED: ALBUMIN HUMAN 12.5 GM/50 ML BAG IV ONE (07:35)
--- NOTE | 2019-05-02 07:35 | Internal Med Progress Note ---
Medical - PN: Subj Patient information: Note initiated : 05/02/19 at 7:25 am Service Date, if different from initiated Date: [] Patient: Ebony Arroyo a 54 y/o F admitted on 04/24/19 for shortness of breathe. Chief Complaint: [] Interval history: Ms. Arroyo is a 54 year old F with a history of paraplegia, chronically bedridden with suprapubic catheter and recurrent hardware related UTIs who presents with her Franky with shortness of breath, weakness and weight gain over 20 pounds in the last 1 month. Symptoms associated with increasing bilateral flank pain. She was recently in the ER for above symptoms however has failed to improve. During today's visit work-up was consistent with elevated lactate,/pyuria consistent with complicated UTI. Hospitalist service was consulted for as above At the time evaluation patient is accompanied with her . She was able to answer most the question. She endorses to increasing fluid stimulation and weight gain. Endorses to history as above. Denies recent medication changes. Denies shaking chills fever but endorses loss of appetite. 04/25 worsening hypoxia and increased oxygen requirement. Chest x-ray bibasilar interstitial disease likely worsening aspiration. Nursing staff suctioned excessive oral secretions. Patient started on CoughAssist maneuvers to prevent further aspiration. Ongoing diuresis. Platelets of 50 white count 3.8, lactate 3.3, BUN 33, replace magnesium today. Continue PT OT/nutrition support 04/26- Pt doing well, no overnight events. Flat affect. No telemetry events. Blood pressure stable. Lockhart is draining clear urine. Persistent lymphedema. Diminished breath sounds bases. No family at bedside. Ongoing wound care. 04/27-patient had major aspiration episode. Aggressive suctioning performed. However patient hypoxic requiring 8 L oxygen. No family at bedside. White count 2.7. Continue antibiotic coverage. Continue PT OT. Lockhart is draining clear urine 04/28 patient continues to aspirate intermittently. Currently n.p.o. Modified barium swallow today per ST recommendations. On IV potassium/diuretics. Dobbhoff tube feeding to start in light of esophageal stricture. GI consult for esophageal dilatation. Continuing antibiotic coverage/CoughAssist and aspiration precautions. On 2 L oxygen. Repeat chest imaging today. Improving lymphedema. Potassium 2.8. Continue diuresis with aggressive potassium replacement. Start liquid potassium placement per Dobbhoff tube. Lockhart is draining clear urine. Abdominal ultrasound shows cirrhotic changes with moderate ascites. Echocardiogram EF 60% with normal LV function. Would not be a good candidate for PEG placement in light of ascites/cirrhosis 04/29-patient doing well. Currently on tube feeds 20 cc an hour. White count 3.2. More alert and respond to commands. Nonlabored breathing. No overnight episodes of aspiration. On 1 L oxygen. Continue PT OT, potassium improved to 3.7. Ongoing diuresis. Creatinine stable. Net negative fluid balance over 5000 cc. Continue diuresing. at bedside. Also discussed case with GI, patient has had 3 endoscopies in the last year and GI does not recommend any further evaluation. In light of ascites she would not be a candidate for PEG tube placement. Goal is to provide nutrition and rehab for the next few days followed by discontinuation of Dobbhoff, swallow eval/barium studies and initiation of oral diet. 04/30 This morning patient had some coughing and felt like she could not get some phlegm down in her oxygen saturations dropped ended up putting her on BiPAP. Appears pretty comfortable at this point only however on 40% FiO2 and she is has good saturations. She notes her has to feeling about the same as yesterday. Good diuresis. at bedside. 05/01 Is tired this morning a little anxious. But no new complaints other than poor sleep. Blood pressure was low last night and did put her on Levophed temporarily she is on very minimal dose and should be able to discontinue shortly. Alert and awake today. Dropped her oxygen down to 1.5 L and is maintaining saturations. Chest x-ray no change. 05/02 Nurse reports dark tarry stool last night. Hemoglobin was 8.4 yesterday at 9 and is down to 7.9 today. Will obtain fecal occult blood test and likely need to consult general surgeon for possible endoscopy or transfer for GI. Patient slept poorly last night. She seemed to have an event last night where she required increased oxygen but/subsequently improved and is only on 1 L and currently. Review of Systems: denies headache/fever/chills/nausea/vomiting/chest or abdominal pain/diarrhea. Otherwise see above. - Constitutional Vitals: Vital Signs Temp Pulse Resp BP Pulse Ox 97.9 F 92 H 20 119/61 94 05/02/19 03:01 05/02/19 00:40 05/02/19 00:40 05/02/19 07:01 05/02/19 07:01 Period Temp Pulse Resp BP Sys/Porter Pulse Ox Last 24 Hr 97.9 F-99.5 F 81-97 16- 84-152/40-72 9-99 Intake and Output 05/01/19 05/02/19 05/02/19 21:59 05:59 13:59 Intake Total 350 202 Output Total 1125 700 Balance -775 -498 Weight 77.065 kg Intake & Output: Intake & Output 05/01/19 05/02/19 05/02/19 21:59 05:59 13:59 Intake Total 350 202 Output Total 1125 700 Balance -775 -498 Weight 77.065 kg Intake: IV 150 172 Levophed 16 mg In Sodium 7 Chloride 0.9% 234 ml @ 10 MCG/ MIN 9.375 mls/hr IV Q24HP PRN Rx#:[id number] Tube Feeding 120 0 GI Tube Flush 80 30 Output: Urine Catheter Amount 1125 700 Other: Urine Appearance Clear Suprapubic Clear Urine Color Dark Yellow Suprapubic Bright Yellow Urine Odor Normal Stool Size Moderate Stool Color Black Stool Consistency Liquid # Bowel Movements 1 # of times incontinent of 1 Bowels Exam: General: awake, No acute Distress Eyes/N/T: EOMI, Head/Neck: neck supple, normocephalic atraumatic CV: RRR, No murmurs, Pulm: mild rhonchi b/l that clears with subsequent deep breaths, no whee zing/rales Abd: soft, nontender, +BS x4, dobhoff in place Ext: no clubbing/cyanosis, 2+ b/l LE edema and b/l UE edema Neuro: alert, mentation good, paraplegic lower extremities Skin: warm/dry Medical - PN: Obj Da - Labs CBC & Chem 7: 05/02/19 04:00 05/02/19 04:00 Labs: Abnormal Lab Results 05/02/19 05/02/19 05/02/19 04:00 04:00 00:55 WBC 3.7 L RBC 3.01 L Hgb 7.9 L Hct 25.4 L POC Hct RDW 17.2 H Plt Count 32 L* Lymph % (Auto) 13.7 L [place] % (Auto) Lymph # (Auto) 0.51 L [place] # (Auto) PT INR APTT Potassium POC Chloride Chloride 94 L Carbon Dioxide 31 H POC Total CO2 POC BUN BUN 48 H Creatinine Glucose 142 H Calcium POC WB Ioniz Calcium Total Bilirubin 1.1 H Direct Bilirubin 0.6 H GGT 178 H Alkaline Phosphatase 148 H Total Protein 4.2 L Albumin 2.6 L Globulin 1.6 L Prealbumin Stool Occult Bld Immuno Positive A 05/02/19 05/01/19 05/01/19 00:00 23:59 21:00 WBC RBC Hgb 8.1 L 8.4 L Hct 25.7 L 27.4 L POC Hct RDW Plt Count 33 L* Lymph % (Auto) [place] % (Auto) Lymph # (Auto) [place] # (Auto) PT 16.4 H INR 1.3 H APTT 42 H Potassium POC Chloride Chloride Carbon Dioxide POC Total CO2 POC BUN BUN Creatinine Glucose Calcium POC WB Ioniz Calcium Total Bilirubin Direct Bilirubin GGT Alkaline Phosphatase Total Protein Albumin Globulin Prealbumin Stool Occult Bld Immuno 05/01/19 05/01/19 05/01/19 05:00 05:00 00:03 WBC RBC Hgb Hct POC Hct 24.0 L RDW 17.0 H Plt Count 68 L Lymph % (Auto) 9.6 L [place] % (Auto) 13.6 H Lymph # (Auto) 0.92 L [place] # (Auto) 1.31 H PT INR APTT Potassium POC Chloride 88 L Chloride 93 L Carbon Dioxide 31 H POC Total CO2 33 H POC BUN 34 H BUN 37 H Creatinine 0.5 L Glucose Calcium POC WB Ioniz Calcium 1.15 L Total Bilirubin 2.2 H Direct Bilirubin 0.8 H GGT 221 H Alkaline Phosphatase 185 H Total Protein 5.2 L Albumin 2.9 L Globulin Prealbumin Stool Occult Bld Immuno 04/30/19 04/30/19 11:20 05:00 WBC RBC Hgb Hct POC Hct RDW Plt Count Lymph % (Auto) [place] % (Auto) Lymph # (Auto) [place] # (Auto) PT INR APTT Potassium 3.2 L POC Chloride Chloride 92 L Carbon Dioxide 33 H POC Total CO2 POC BUN BUN 36 H Creatinine 0.5 L Glucose 111 H Calcium 8.3 L POC WB Ioniz Calcium Total Bilirubin Direct Bilirubin GGT 191 H Alkaline Phosphatase 181 H Total Protein 4.5 L Albumin 2.4 L Globulin 2.1 L Prealbumin 8.4 L Stool Occult Bld Immuno Meds: Medications Acetaminophen (Tylenol) 650 mg PO Q4-6HP PRN; Protocol PRN Reason: Per Pain Protocol/Fever > 101 Last Admin: 04/30/19 16:59 Dose: 650 mg Documented by: Albuterol/Ipratropium (Duoneb) 3 ml NEB Q4-6HP PRN PRN Reason: Shortness Of Breath Benzonatate (Tessalon) 100 mg PO BIDP PRN PRN Reason: Cough Bisacodyl (Dulcolax) 10 mg ME Q2-3DAYS PRN PRN Reason: Constipation Chlorhexidine Gluconate (Peridex) 15 ml SWABMOUTH BID REPLACED BY [facility] Last Admin: 05/01/19 20:12 Dose: 15 ml Documented by: Diagnostic Test (Pha) (Accu-Chek) 1 each FS Q6H REPLACED BY [facility] Last Admin: 05/02/19 05:33 Dose: 1 each Documented by: Fondaparinux (Arixtra) 2.5 mg SQ DAILY REPLACED BY [facility] Last Admin: 05/01/19 09:26 Dose: 2.5 mg Documented by: Furosemide (Lasix) 40 mg IV BIDD REPLACED BY [facility] Last Admin: 05/01/19 17:00 Dose: 40 mg Documented by: Magnesium Sulfate (Magnesium Sulfate) 2 gm in 50 mls @ 50 mls/hr IV UD PRN PRN Reason: MG = or < 1.7 Last Infusion: 04/28/19 08:30 Dose: Infused Documented by: Metronidazole (Flagyl) 500 mg in 100 mls @ 100 mls/hr IV Q8H REPLACED BY [facility] Last Admin: 05/02/19 05:08 Dose: 100 mls/hr Documented by: Norepinephrine Bitartrate 16 (mg/ Sodium Chloride) 250 mls @ 9.375 mls/hr IV Q24HP PRN; Protocol PRN Reason: Hypotension Last Titration: 05/02/19 05:13 Dose: 3.2 mcg/min, 3 mls/hr Documented by: Acetaminophen (Ofirmev) 650 mg in 65 mls @ 130 mls/hr IV Q6HP PRN; Protocol PRN Reason: Per Pain Protocol/Fever > 101 Last Infusion: 05/02/19 02:55 Dose: Infused Documented by: Levofloxacin (Levaquin) 750 mg in 150 mls @ 100 mls/hr IV DAILY REPLACED BY [facility] Last Infusion: 05/01/19 10:40 Dose: Infused Documented by: Sodium Chloride (Sodium Chloride 0.9%) 250 mls @ 20 mls/hr IV .[id number] REPLACED BY [facility] Stop: 05/02/19 17:44 Insulin Glargine (Lantus) 15 unit SQ DAILY REPLACED BY [facility] Last Admin: 05/01/19 09:04 Dose: 15 unit Documented by: Insulin Human Lispro (Humalog) 0 unit SQ Q6H REPLACED BY [facility]; Protocol Last Admin: 05/02/19 05:34 Dose: Not Given Documented by: Loperamide HCl (Imodium) 2 mg PO PRN PRN PRN Reason: Diarrhea Melatonin (Melatonin 3mg Tablet) 3 mg PO HSP PRN PRN Reason: Insomnia Metoclopramide HCl (Reglan) 5 mg PO QIDP PRN PRN Reason: Nausea Omeprazole (Prilosec) 20 mg PO BIDAC REPLACED BY [facility] Last Admin: 05/01/19 16:40 Dose: Not Given Documented by: Ondansetron HCl (Zofran) 4 mg IV Q4-6HP PRN PRN Reason: Nausea And Vomiting Last Admin: 05/02/19 03:15 Dose: 4 mg Documented by: Ondansetron HCl (Zofran Odt) 4 mg SL Q4-6HP PRN; Protocol PRN Reason: Nausea And Vomiting Last Admin: 04/30/19 08:43 Dose: 4 mg Documented by: Oxybutynin Chloride (Ditropan Xl) 5 mg PO QDAY REPLACED BY [facility] Last Admin: 05/01/19 09:24 Dose: 5 mg Documented by: Oxycodone HCl (Roxicodone) 5 mg PO Q6HP PRN PRN Reason: Pain Last Admin: 04/27/19 05:40 Dose: 5 mg Documented by: Polyethylene Glycol (Miralax) 17 gm PO DAILYP PRN PRN Reason: Constipation Last Admin: 04/26/19 17:17 Dose: 17 gm Documented by: Potassium Chloride (Klor-Con) 40 meq PO DAILYP PRN PRN Reason: K+ < 3.5 Last Admin: 04/30/19 08:43 Dose: 40 meq Documented by: Pregabalin (Lyrica) 50 mg PO QID REPLACED BY [facility] Last Admin: 05/01/19 20:11 Dose: Not Given Documented by: Senna/Docusate Sodium (Senna Plus Tablet) 1 tab PO HS REPLACED BY [facility] Last Admin: 05/01/19 20:10 Dose: 1 tab Documented by: Sertraline HCl (Zoloft) 50 mg PO DAILY REPLACED BY [facility] Last Admin: 05/01/19 09:05 Dose: 50 mg Documented by: Sitagliptin Phosphate (Januvia) 100 mg PO DAILY REPLACED BY [facility] Last Admin: 05/01/19 09:24 Dose: 100 mg Documented by: Sodium Chloride (Saline Flush) 10 ml IV Q8 REPLACED BY [facility] Last Admin: 05/02/19 05:34 Dose: 10 ml Documented by: Sodium Chloride (Saline Flush) 10 ml IV Q12 REPLACED BY [facility] Last Admin: 05/01/19 20:11 Dose: 10 ml Documented by: Spironolactone (Aldactone) 50 mg PO DAILY REPLACED BY [facility] Last Admin: 05/01/19 09:25 Dose: Not Given Documented by: Tramadol HCl (Ultram) 50 mg PO QIDP PRN PRN Reason: Pain Last Admin: 05/02/19 01:46 Dose: 50 mg Documented by: Medical - PN: A/P - Time Spent With Patient Total time spent is greater than 50% in coordination of care (as documented) at patient's floor/unit and/or counseling patient: - Narrative A/P Narrative: A: *Recurrent Asp PNA: 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: *DM: *Anemia, chronic: *Anxiety/depression: *GERD: *Debility/poor functional state: tenuous at baseline *Goals of care: P: -cont gen surg vs transfer for GI eval/endoscopy -consider diltiazem vs isosorbide dinitrate before meals but BP low, or imipramine, and after meal hot beverages -Continue Cough Assist/elevate HOB/aspiration precautions/deep breathing exercises -levaquin/flagyl -IS/Acapella -wean oxygen -IV diuresis hold today -vasopressors wean off -narcotics held for sedation -basal and SSI -wound care -ST following; Nutrition per Dobbhoff feeding for now -f/u with GI outpt, Veronica or Arleen walters/Dr. Tovar outpt -ppx: fondaparinux stopped (hold for PLT<50k), SCD/home ppi full code Medical - PN: Qual - VTE Deep Vein Thrombosis/Pulmonary Embolism Present on Admission: No
[2019-05-02] MEDS: LEVOFLOXACIN 750 MG/150 ML BAG IV SCH (07:37)
[2019-05-02] MEDS: SERTRALINE 50 MG TABLET PO SCH (07:39)
[2019-05-02] MEDS: INSULIN GLARGINE, HUMAN 1 UNIT/0.01 ML SQ SCH (07:39)
[2019-05-02] MEDS: OXYBUTYNIN CHLORIDE 5 MG TAB.XL.24H PO SCH (08:12)
[2019-05-02] MEDS: sitaGLIPtin 100 MG TABLET PO SCH (08:12)
[2019-05-02] MEDS ORDERED: PEG 3350/NA SULF,BICARB,CL/KCL 4,000 ML ORAL.SOL PT ONE ×2 (10:10→13:00)
[2019-05-02] MEDS: PANTOPRAZOLE 40 MG VIAL IV SCH (19:23)
[2019-05-02] MEDS: METOCLOPRAMIDE 10 MG/2 ML VIAL IV SCH ×2 (19:24→23:54)
[2019-05-02] MEDS: SUCRALFATE 1 GM/10 ML ORAL.SUSP PO SCH (23:54)
[2019-05-03] MEDS: ACETAMINOPHEN 650 MG/65 ML BOTTLE IV PRN ×2 (04:23→18:46)
[2019-05-03] MEDS: SUCRALFATE 1 GM/10 ML ORAL.SUSP PO SCH ×4 (06:03→23:35)
[2019-05-03] MEDS: metroNIDAZOLE 500 MG/100 ML BAG IV SCH (06:04)
[2019-05-03] MEDS: METOCLOPRAMIDE 10 MG/2 ML VIAL IV SCH ×4 (06:04→23:35)
[2019-05-03] MEDS: INSULIN LISPRO 1 UNIT/0.01 ML UNIT SQ SCH ×4 (06:05→23:47)
[2019-05-03] MEDS: 0.9 % SODIUM CHLORIDE 10 ML SYRINGE IV SCH ×5 (06:05→21:01)
[2019-05-03 06:50] LABS: ALT/SGPT 6 U/l (0-40); AST/SGOT 23 U/l (0-37); Albumin 2.7 gm/dL (3.2-5.2); Albumin/Globulin Ratio 1.5 (1.0-2.3); Alkaline Phosphatase 138 U/L (39-117); Bilirubin,Direct 0.5 mg/dL (0.0-0.3); Bilirubin,Total 1.2 mg/dL (0.0-1.0); Blood Urea Nitrogen 49 mg/dl (6-20); Calcium 8.3 mg/dl (8.6-10.4); Carbon Dioxide 31 mmol/L (22-30); Globulin 1.8 gm/dL (2.2-3.7); Glomerular Filtration Rate 109; Glucose 118 mg/dL (70-105); Lactate Dehydrogenase 137 U/L (94-250); Phosphorous 3.1 mg/dL (2.7-4.5); Triglycerides 122 mg/dl (<150); Uric Acid 6.2 mg/dL (2.5-8.0)
[2019-05-03 06:51] LABS: Chloride 94 mmol/L (96-108)
[2019-05-03 07:00] LABS: Basophils # (Auto) 0.01 K/mcL (0.00-0.30); Basophils % (Auto) 0.2 % (0.0-2.0); Eosinophils # (Auto) 0.04 K/mcL (0.00-0.70); Eosinophils % (Auto) 0.8 % (0.0-7.0); Granulocytes % (Auto) 76.6 % (38.0-78.0); Hematocrit 31.1 % (34.1-44.9); Lymphocytes # (Auto) 0.63 K/mcL (1.50-4.80); Lymphocytes % (Auto) 13.3 % (15.5-49.0); Mean Cell Volume 84.1 fL (80.0-100.0); Mean Corpuscular HGB Conc 32.2 g/dL (31.0-36.0); Monocytes # (Auto) 0.43 K/mcL (0.10-0.90); Monocytes % (Auto) 9.1 % (1.0-12.0); Platelet Count 38 K/mcL (140-440); Red Cell Distribution Width 17.1 % (11.5-14.5); WBC 4.7 K/mcL (4.50-11.00)
--- NOTE | 2019-05-03 07:10 | Internal Med Progress Note ---
Medical - PN: Subj Patient information: Note initiated : 05/03/19 at 7:05 am Service Date, if different from initiated Date: [] Patient: Ebony Arroyo a 54 y/o F admitted on 04/24/19 for shortness of breathe. Chief Complaint: [] Interval history: Ms. Arroyo is a 54 year old F with a history of paraplegia, chronically bedridden with suprapubic catheter and recurrent hardware related UTIs who presents with her Franky with shortness of breath, weakness and weight gain over 20 pounds in the last 1 month. Symptoms associated with increasing bilateral flank pain. She was recently in the ER for above symptoms however has failed to improve. During today's visit work-up was consistent with elevated lactate,/pyuria consistent with complicated UTI. Hospitalist service was consulted for as above At the time evaluation patient is accompanied with her . She was able to answer most the question. She endorses to increasing fluid stimulation and weight gain. Endorses to history as above. Denies recent medication changes. Denies shaking chills fever but endorses loss of appetite. 04/25 worsening hypoxia and increased oxygen requirement. Chest x-ray bibasilar interstitial disease likely worsening aspiration. Nursing staff suctioned excessive oral secretions. Patient started on CoughAssist maneuvers to prevent further aspiration. Ongoing diuresis. Platelets of 50 white count 3.8, lactate 3.3, BUN 33, replace magnesium today. Continue PT OT/nutrition support 04/26- Pt doing well, no overnight events. Flat affect. No telemetry events. Blood pressure stable. [place] is draining clear urine. Persistent lymphedema. Diminished breath sounds bases. No family at bedside. Ongoing wound care. 04/27-patient had major aspiration episode. Aggressive suctioning performed. However patient hypoxic requiring 8 L oxygen. No family at bedside. White count 2.7. Continue antibiotic coverage. Continue PT OT. [place] is draining clear urine 04/28 patient continues to aspirate intermittently. Currently n.p.o. Modified barium swallow today per ST recommendations. On IV potassium/diuretics. Dobbhoff tube feeding to start in light of esophageal stricture. GI consult for esophageal dilatation. Continuing antibiotic coverage/CoughAssist and aspiration precautions. On 2 L oxygen. Repeat chest imaging today. Improving lymphedema. Potassium 2.8. Continue diuresis with aggressive potassium replacement. Start liquid potassium placement per Dobbhoff tube. [place] is draining clear urine. Abdominal ultrasound shows cirrhotic changes with moderate ascites. Echocardiogram EF 60% with normal LV function. Would not be a good candidate for PEG placement in light of ascites/cirrhosis 04/29-patient doing well. Currently on tube feeds 20 cc an hour. White count 3.2. More alert and respond to commands. Nonlabored breathing. No overnight episodes of aspiration. On 1 L oxygen. Continue PT OT, potassium improved to 3.7. Ongoing diuresis. Creatinine stable. Net negative fluid balance over 5000 cc. Continue diuresing. at bedside. Also discussed case with GI, patient has had 3 endoscopies in the last year and GI does not recommend any further evaluation. In light of ascites she would not be a candidate for PEG tube placement. Goal is to provide nutrition and rehab for the next few days followed by discontinuation of Dobbhoff, swallow eval/barium studies and initiation of oral diet. 04/30 This morning patient had some coughing and felt like she could not get some phlegm down in her oxygen saturations dropped ended up putting her on BiPAP. Appears pretty comfortable at this point only however on 40% FiO2 and she is has good saturations. She notes her has to feeling about the same as yesterday. Good diuresis. at bedside. 05/01 Is tired this morning a little anxious. But no new complaints other than poor sleep. Blood pressure was low last night and did put her on Levophed temporarily she is on very minimal dose and should be able to discontinue shortly. Alert and awake today. Dropped her oxygen down to 1.5 L and is maintaining saturations. Chest x-ray no change. 05/02 Nurse reports dark tarry stool last night. Hemoglobin was 8.4 yesterday at 9 and is down to 7.9 today. Will obtain fecal occult blood test and likely need to consult general surgeon for possible endoscopy or transfer for GI. Patient slept poorly last night. She seemed to have an event last night where she required increased oxygen but/subsequently improved and is only on 1 L and currently. 05/03 Poor sleep last night. Intermittent confusion. Oxygen saturations good on 0.5 L, blood pressure stable. Plan for for endoscopy in the morning. Review of Systems: denies headache/fever/chills/nausea/vomiting/chest or abdominal pain/diarrhea. Otherwise see above. - Constitutional Vitals: Vital Signs Temp Pulse Resp BP Pulse Ox 97.9 F 95 H 16 118/59 97 05/03/19 04:19 05/02/19 14:00 05/03/19 04:19 05/03/19 04:19 05/03/19 04:19 Period Temp Pulse Resp BP Sys/Porter Pulse Ox Last 24 Hr 97.2 F-98.8 F 95-109 16-20 85-126/43-62 91-100 Intake and Output 05/02/19 05/03/19 05/03/19 21:59 05:59 13:59 Intake Total 416 1695 Output Total 1750 450 Balance -1334 1245 Weight 77.655 kg Intake & Output: Intake & Output 05/02/19 05/03/19 05/03/19 21:59 05:59 13:59 Intake Total 416 1695 Output Total 1750 450 Balance -1334 1245 Weight 77.655 kg Intake: IV 116 230 Sodium Chloride 0.9% 250 ml @ 116 20 mls/hr IV .[id number] [facility] Rx#: [id number] Oral 1000 Tube Feeding 0 375 Blood Product 300 GI Tube Flush 90 Output: Urine Catheter Amount 750 450 Stool 1000 Other: Urine Appearance Clear Suprapubic Clear Urine Color Dark Yellow Suprapubic Bright Yellow Urine Odor Normal Stool Size Moderate Stool Color Black Stool Consistency Liquid Exam: General: awake, No acute Distress Eyes/N/T: EOMI, Head/Neck: neck supple, normocephalic atraumatic CV: RRR, No murmurs, Pulm: no rhonchi today, no wheezing/rales Abd: soft, nontender, +BS x4, dobhoff in place Ext: no clubbing/cyanosis, 3+ b/l LE edema and also edema b/l UE Neuro: alert, mentation good, paraplegic lower extremities Skin: warm/dry Medical - PN: Obj Da - Labs CBC & Chem 7: 05/03/19 05:10 05/03/19 05:10 Labs: Abnormal Lab Results 05/03/19 05/03/19 05/02/19 05:10 05:10 04:00 WBC 3.7 L RBC 3.01 L Hgb 10.0 L 7.9 L Hct 31.1 L 25.4 L POC Hct RDW 17.1 H 17.2 H Plt Count 38 L* 32 L* Lymph % (Auto) 13.3 L 13.7 L [place] % (Auto) Lymph # (Auto) 0.63 L 0.51 L [place] # (Auto) PT INR APTT Potassium POC Chloride Chloride 94 L Carbon Dioxide 31 H POC Total CO2 POC BUN BUN 49 H Creatinine 0.5 L Glucose 118 H Calcium 8.3 L POC WB Ioniz Calcium Total Bilirubin 1.2 H Direct Bilirubin 0.5 H GGT 192 H Alkaline Phosphatase 138 H Total Protein 4.5 L Albumin 2.7 L Globulin 1.8 L Prealbumin Stool Occult Bld Immuno 05/02/19 05/02/19 05/02/19 04:00 00:55 00:00 WBC RBC Hgb Hct POC Hct RDW Plt Count Lymph % (Auto) [place] % (Auto) Lymph # (Auto) [place] # (Auto) PT 16.4 H INR 1.3 H APTT 42 H Potassium POC Chloride Chloride 94 L Carbon Dioxide 31 H POC Total CO2 POC BUN BUN 48 H Creatinine Glucose 142 H Calcium POC WB Ioniz Calcium Total Bilirubin 1.1 H Direct Bilirubin 0.6 H GGT 178 H Alkaline Phosphatase 148 H Total Protein 4.2 L Albumin 2.6 L Globulin 1.6 L Prealbumin Stool Occult Bld Immuno Positive A 05/01/19 05/01/19 05/01/19 23:59 21:00 05:00 WBC RBC Hgb 8.1 L 8.4 L Hct 25.7 L 27.4 L POC Hct RDW 17.0 H Plt Count 33 L* 68 L Lymph % (Auto) 9.6 L [place] % (Auto) 13.6 H Lymph # (Auto) 0.92 L [place] # (Auto) 1.31 H PT INR APTT Potassium POC Chloride Chloride Carbon Dioxide POC Total CO2 POC BUN BUN Creatinine Glucose Calcium POC WB Ioniz Calcium Total Bilirubin Direct Bilirubin GGT Alkaline Phosphatase Total Protein Albumin Globulin Prealbumin Stool Occult Bld Immuno 05/01/19 05/01/19 04/30/19 05:00 00:03 11:20 WBC RBC Hgb Hct POC Hct 24.0 L RDW Plt Count Lymph % (Auto) [place] % (Auto) Lymph # (Auto) [place] # (Auto) PT INR APTT Potassium POC Chloride 88 L Chloride 93 L Carbon Dioxide 31 H POC Total CO2 33 H POC BUN 34 H BUN 37 H Creatinine 0.5 L Glucose Calcium POC WB Ioniz Calcium 1.15 L Total Bilirubin 2.2 H Direct Bilirubin 0.8 H GGT 221 H Alkaline Phosphatase 185 H Total Protein 5.2 L Albumin 2.9 L Globulin Prealbumin 8.4 L Stool Occult Bld Immuno 04/30/19 05:00 WBC RBC Hgb Hct POC Hct RDW Plt Count Lymph % (Auto) [place] % (Auto) Lymph # (Auto) [place] # (Auto) PT INR APTT Potassium 3.2 L POC Chloride Chloride 92 L Carbon Dioxide 33 H POC Total CO2 POC BUN BUN 36 H Creatinine 0.5 L Glucose 111 H Calcium 8.3 L POC WB Ioniz Calcium Total Bilirubin Direct Bilirubin GGT 191 H Alkaline Phosphatase 181 H Total Protein 4.5 L Albumin 2.4 L Globulin 2.1 L Prealbumin Stool Occult Bld Immuno Meds: Medications Acetaminophen (Tylenol) 650 mg PO Q4-6HP PRN; Protocol PRN Reason: Per Pain Protocol/Fever > 101 Last Admin: 04/30/19 16:59 Dose: 650 mg Documented by: Albuterol/Ipratropium (Duoneb) 3 ml NEB Q4-6HP PRN PRN Reason: Shortness Of Breath Benzonatate (Tessalon) 100 mg PO BIDP PRN PRN Reason: Cough Bisacodyl (Dulcolax) 10 mg OK Q2-3DAYS PRN PRN Reason: Constipation Chlorhexidine Gluconate (Peridex) 15 ml SWABMOUTH BID [facility] Last Admin: 05/02/19 20:30 Dose: 15 ml Documented by: Diagnostic Test (Pha) (Accu-Chek) 1 each FS Q6H [facility] Last Admin: 05/03/19 06:05 Dose: 1 each Documented by: Magnesium Sulfate (Magnesium Sulfate) 2 gm in 50 mls @ 50 mls/hr IV UD PRN PRN Reason: MG = or < 1.7 Last Infusion: 04/28/19 08:30 Dose: Infused Documented by: Metronidazole (Flagyl) 500 mg in 100 mls @ 100 mls/hr IV Q8H [facility] Last Admin: 05/03/19 06:04 Dose: 100 mls/hr Documented by: Norepinephrine Bitartrate 16 (mg/ Sodium Chloride) 250 mls @ 9.375 mls/hr IV Q24HP PRN; Protocol PRN Reason: Hypotension Last Titration: 05/02/19 07:00 Dose: 0 mcg/min, 0 mls/hr Documented by: Acetaminophen (Ofirmev) 650 mg in 65 mls @ 130 mls/hr IV Q6HP PRN; Protocol PRN Reason: Per Pain Protocol/Fever > 101 Last Infusion: 05/03/19 05:04 Dose: Infused Documented by: Levofloxacin (Levaquin) 750 mg in 150 mls @ 100 mls/hr IV DAILY [facility] Last Infusion: 05/02/19 09:12 Dose: Infused Documented by: Insulin Glargine (Lantus) 15 unit SQ DAILY [facility] Last Admin: 05/02/19 07:39 Dose: 15 unit Documented by: Insulin Human Lispro (Humalog) 0 unit SQ Q6H [facility]; Protocol Last Admin: 05/03/19 06:05 Dose: Not Given Documented by: Loperamide HCl (Imodium) 2 mg PO PRN PRN PRN Reason: Diarrhea Metoclopramide HCl (Reglan) 5 mg IV Q6 [facility] Last Admin: 05/03/19 06:04 Dose: 5 mg Documented by: Ondansetron HCl (Zofran) 4 mg IV Q4-6HP PRN PRN Reason: Nausea And Vomiting Last Admin: 05/02/19 13:04 Dose: 4 mg Documented by: Oxycodone HCl (Roxicodone) 5 mg PO Q6HP PRN PRN Reason: Pain Last Admin: 04/27/19 05:40 Dose: 5 mg Documented by: Pantoprazole Sodium (Protonix) 40 mg IV BIDAC [facility] Last Admin: 05/02/19 19:23 Dose: 40 mg Documented by: Polyethylene Glycol (Miralax) 17 gm PO DAILYP PRN PRN Reason: Constipation Last Admin: 04/26/19 17:17 Dose: 17 gm Documented by: Potassium Chloride (Klor-Con) 40 meq PO DAILYP PRN PRN Reason: K+ < 3.5 Last Admin: 04/30/19 08:43 Dose: 40 meq Documented by: Sertraline HCl (Zoloft) 50 mg PO DAILY [facility] Last Admin: 05/02/19 07:39 Dose: 50 mg Documented by: Sitagliptin Phosphate (Januvia) 100 mg PO DAILY [facility] Last Admin: 05/02/19 08:12 Dose: 100 mg Documented by: Sodium Chloride (Saline Flush) 10 ml IV Q8 [facility] Last Admin: 05/03/19 06:05 Dose: 10 ml Documented by: Sodium Chloride (Saline Flush) 10 ml IV Q12 [facility] Last Admin: 05/02/19 20:30 Dose: Not Given Documented by: Spironolactone (Aldactone) 50 mg PO DAILY [facility] Last Admin: 05/02/19 07:26 Dose: Not Given Documented by: Sucralfate (Carafate) 1 gm PO Q6 [facility] Last Admin: 05/03/19 06:03 Dose: 1 gm Documented by: Tramadol HCl (Ultram) 50 mg PO QIDP PRN PRN Reason: Pain Last Admin: 05/02/19 20:30 Dose: 50 mg Documented by: Medical - PN: A/P - Time Spent With Patient Total time spent is greater than 50% in coordination of care (as documented) at patient's floor/unit and/or counseling patient: - Narrative A/P Narrative: A: *Recurrent Asp PNA: 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: *DM: *Anemia, acute blood loss on chronic: -1PRBC(04/30), 2 (05/02) *Anxiety/depression: *GERD: *Debility/poor functional state: tenuous at baseline *Hospital Delerium: *Goals of care: P: -cont gen surg for endoscopy -consider diltiazem vs isosorbide dinitrate before meals but BP low precludes, or imipramine, and after meal hot beverages -Continue Cough Assist/elevate HOB/aspiration precautions/deep breathing exercises -levaquin/flagyl -IS/Acapella -wean oxygen -home lasix and prn IV diuresis -narcotics held for sedation -basal and SSI -wound care -ST following; Nutrition per Dobbhoff feeding for now -f/u with GI outpt, Veronica or Arleen walters/Dr. Tovar outpt -ppx: fondaparinux stopped (hold for PLT<50k), SCD/home ppi DNR Medical - PN: Qual - VTE Deep Vein Thrombosis/Pulmonary Embolism Present on Admission: No
[2019-05-03] MEDS: PANTOPRAZOLE 40 MG VIAL IV SCH ×2 (07:48→18:46)
[2019-05-03] MEDS: sitaGLIPtin 100 MG TABLET PO SCH (08:24)
[2019-05-03] MEDS: SERTRALINE 50 MG TABLET PO SCH (08:24)
[2019-05-03] MEDS: SPIRONOLACTONE 25 MG TABLET PO SCH (08:25)
[2019-05-03] MEDS: CHLORHEXIDINE GLUCONATE 1 ML ORAL.SOL SWABMOUTH SCH ×2 (08:26→21:00)
[2019-05-03] MEDS ORDERED: diphenhydrAMINE 25 MG CAPSULE PO PRN (08:59)
[2019-05-03] MEDS ORDERED: ALBUMIN HUMAN 12.5 GM/50 ML BAG IV ONE (08:59)
[2019-05-03] MEDS ORDERED: FUROSEMIDE 40 MG/4 ML VIAL IV ONE (08:59)
[2019-05-03] MEDS: FUROSEMIDE 20 MG TABLET PO SCH (09:20)
[2019-05-03] MEDS: INSULIN GLARGINE, HUMAN 1 UNIT/0.01 ML SQ SCH (10:00)
[2019-05-03] MEDS: traMADol 50 MG TABLET PO PRN ×2 (14:58→23:32)
--- NOTE | 2019-05-03 16:11 | General Surgery Consult Note ---
History of Present Illness Patient information: Note initiated : 05/03/19 at 4:10 pm Service Date, if different from initiated Date: [] Patient: Ebony Arroyo 54 y/o F admitted on 04/24/19 for shortness of breathe. Chief Complaint: [] Reason for consult: other (gastrointestinal bleeding) Requesting physician: Joshua Colvin History of present illness: 54-year-old female with multiple medical problems and comorbidities who presented 24 April. Acute sepsis due to UTI. 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 She has had worsening difficulty with progressive hypoxia due to recurrent aspiration since 27 April. She is presently on tube feeds isn't up off And tolerating this at a low infusion rate. Patient developed melena and I was asked to see the patient for possible upper endoscopy. Patient has significant hypotension. She has marginal respiratory reserve. Review of her records from [facility] shows that she has had at least 3 upper endoscopies in the past year with the finding of presbyesophagus but no other pathology. Her hemoglobin has been maintained with transfusion 2. Her average hemoglobin has been in the 8-9 range. She also has thrombocytopenia which is long-term with platelet counts in the 30-50 range. Review of her present status suggests that she is not a good candidate for upper endoscopy at this time. She has nonalcoholic cirrhotic liver disease with ascites that has required paracentesis in the past. She also has evidence of extensive , varices and documented portal hypertension. I will discuss her situation with anesthesiology for scheduling her for endoscopy. Since the findings on endoscopy are to be treated medically;, it may be best to treat her with PPI and Carafate and monitor her status rather than subjecting her to anesthesia, with the potential that she would not be weaned him both from Assisted ventilatory status. Review of Systems ROS unobtainable: due to mental status Past History Past medical history: Chronic anemia. Diffuse presbyesophagus. Chronic thrombocytopenia. Nonalcoholic fatty liver cirrhosis and ascites. Recurrent pulmonary aspiration pneumonia. 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 Postprocedure Uncontrolled diabetes mellitus. Past surgical history: Shoulder surgery. Prior knee surgery. Cholecystectomy. Spinal cord tumor resection 2009 Past family history: Not obtainable Past social history: No tobacco use. No alcohol use No drug use Medications and Allergies Home Medications Medication Instructions Recorded Confirmed Type Baclofen 20 mg PO TID 01/23/15 04/24/19 History Insulin Aspart [Novolog] 0 unit SQ ACHS 01/23/15 04/24/19 History Metoclopramide [Reglan] 5 mg PO QID PRN 01/23/15 04/24/19 History Omeprazole [Prilosec] 20 mg PO BIDAC 01/23/15 04/24/19 History Pregabalin [Lyrica] 50 mg PO QIDP 01/23/15 04/24/19 History metFORMIN [Glucophage] 500 mg PO BIDCC 01/23/15 04/24/19 History nystatin 100,000 unit/gram topical 1 applic TOPICAL BID 10/22/17 04/24/19 Histo ry ointment sertraline 25 mg tablet 25 mg PO BID 09/29/18 04/24/19 History oxybutynin chloride 5 mg 5 mg PO QDAY #30 tab 12/13/18 04/24/19 Rx tablet,extended release 24 hr Furosemide [Lasix] 20 mg PO DAILY 03/12/19 04/24/19 History Ipratropium/Albuterol [Duoneb] 3 ml NEB Q4-6HP PRN 03/12/19 04/24/19 History Spironolactone [Aldactone] 50 mg PO DAILY 03/12/19 04/24/19 History oxyCODONE HCL [Oxycodone HCl] 5 mg PO Q6HP PRN 03/12/19 04/24/19 History Adhesive Tape [Durapore] 0 unit .ROUTE .MEDSUPPLY 03/13/19 04/24/19 History Benzonatate [Tessalon] 100 mg PO BID PRN 03/13/19 04/24/19 History Ferrous Sulfate [Iron] 325 mg PO BID 03/13/19 04/24/19 History Gauze Bandage [Band-Aid Gauze Pads] 0 unit .ROUTE .MEDSUPPLY MDD 4 03/13/19 04/27/19 History Insulin Glargine,Hum.rec.anlog 15 unit SQ DAILY 03/13/19 04/24/19 History [Basaglar Kwikpen U-100] Urinary Bag [[id number] Leg Bag 0 units .ROUTE .MEDSUPPLY 03/13/19 04/27/19 History Small] Fluconazole [Diflucan] 150 mg PO 2-3XW 04/08/19 04/24/19 History Pen Needle, Diabetic [Carefine Pen 1 each MISC DAILY 04/08/19 04/27/19 History Needle] traMADol [Ultram] 50 mg PO QIDP PRN 04/08/19 04/24/19 History Amoxicillin/Potassium Clav 875 mg PO Q12H #5 tab 04/12/19 04/24/19 Rx [Augmentin] Allergies Allergy/AdvReac Type Severity Reaction Status Date / Time azithromycin AdvReac Mild Nausea Verified 03/11/19 09:42 cefuroxime AdvReac Mild Nausea Verified 03/11/19 09:42 Erythromycin Base AdvReac Mild Vomiting Verified 03/11/19 09:42 nitrofurantoin AdvReac Mild Nausea Verified 03/11/19 09:42 Penicillins AdvReac Mild Nausea Verified 03/11/19 09:42 Exam Temp Pulse Resp BP Pulse Ox 98.3 F 93 H 18 130/67 94 05/03/19 12:03 05/03/19 07:32 05/03/19 12:03 05/03/19 11:38 05/03/19 12:03 - General physical appearance moderate distress, chronically ill, obese - Eyes PERRL, normal ocular movement - ENT normal pinna, normal nares, normal mucosa, no hearing loss, no congestion - Head Head exam IM: Present: atraumatic, normocephalic - Neck no masses, no bruits, trachea midline, no lymphadenopathy, no venous distension - Cardiovascular Cardiovascular exam IM: Present: normal rate and rhythm, RRR, +S1, +S2. Absent: JVD, tachycardia - Respiratory normal expansion, other (coarse tubular breath sounds with poor and movement) - Abdomen Abdomen: Present: bowel sounds, distended (, distended abdomen, with ballotable ascites; no tenderness or mass) Hernia: Present: none - Genitourinary Present: other (. Suprapubic catheter) - Rectum Rectum: Present: other (. Extensive excoriation of perineum with edema) - Integumentary Present: no rash, no growths, no abnormal pigmentation - Neurologic Present: other (. Paraplegia of the lower extremities) - Musculoskeletal Present: other (. Paraplegia) - Psychiatric Present: oriented to person Results - Labs 05/03/19 05:10 05/03/19 05:10 Abnormal lab results 05/03/19 05/03/19 Range/Units 05:10 05:10 Hgb 10.0 L (11.2-15.7) g/dL Hct 31.1 L (34.1-44.9) % RDW 17.1 H (11.5-14.5) % Plt Count 38 L* (140-440) K/mcL Lymph % (Auto) 13.3 L (15.5-49.0) % Lymph # (Auto) 0.63 L (1.50-4.80) K/mcL Chloride 94 L (96-108) mmol/L Carbon Dioxide 31 H (22-30) mmol/L BUN 49 H (6-20) mg/dl Creatinine 0.5 L (0.6-1.1) mg/dl Glucose 118 H (70-105) mg/dL Calcium 8.3 L (8.6-10.4) mg/dl Total Bilirubin 1.2 H (0.0-1.0) mg/dL Direct Bilirubin 0.5 H (0.0-0.3) mg/dL GGT 192 H (5-36) U/L Alkaline Phosphatase 138 H (39-117) U/L Total Protein 4.5 L (5.9-8.4) gm/dL Albumin 2.7 L (3.2-5.2) gm/dL Globulin 1.8 L (2.2-3.7) gm/dL Diabetes panel 05/03/19 Range/Units 05:10 Sodium 138 (133-145) mmol/L Potassium 3.3 (3.3-5.1) mmol/L Chloride 94 L (96-108) mmol/L Carbon Dioxide 31 H (22-30) mmol/L BUN 49 H (6-20) mg/dl Creatinine 0.5 L (0.6-1.1) mg/dl Glucose 118 H (70-105) mg/dL Calcium 8.3 L (8.6-10.4) mg/dl AST 23 (0-37) U/l ALT 6 (0-40) U/l Alkaline Phosphatase 138 H (39-117) U/L Total Protein 4.5 L (5.9-8.4) gm/dL Albumin 2.7 L (3.2-5.2) gm/dL Triglycerides 122 (<150) mg/dl Calcium panel 05/03/19 Range/Units 05:10 Calcium 8.3 L (8.6-10.4) mg/dl Phosphorus 3.1 (2.7-4.5) mg/dL Albumin 2.7 L (3.2-5.2) gm/dL Pituitary panel 05/03/19 Range/Units 05:10 Sodium 138 (133-145) mmol/L Potassium 3.3 (3.3-5.1) mmol/L Chloride 94 L (96-108) mmol/L Carbon Dioxide 31 H (22-30) mmol/L BUN 49 H (6-20) mg/dl Creatinine 0.5 L (0.6-1.1) mg/dl Glucose 118 H (70-105) mg/dL Calcium 8.3 L (8.6-10.4) mg/dl Adrenal panel 05/03/19 Range/Units 05:10 Sodium 138 (133-145) mmol/L Potassium 3.3 (3.3-5.1) mmol/L Chloride 94 L (96-108) mmol/L Carbon Dioxide 31 H (22-30) mmol/L BUN 49 H (6-20) mg/dl Creatinine 0.5 L (0.6-1.1) mg/dl Glucose 118 H (70-105) mg/dL Calcium 8.3 L (8.6-10.4) mg/dl Total Bilirubin 1.2 H (0.0-1.0) mg/dL AST 23 (0-37) U/l ALT 6 (0-40) U/l Alkaline Phosphatase 138 H (39-117) U/L Total Protein 4.5 L (5.9-8.4) gm/dL Albumin 2.7 L (3.2-5.2) gm/dL All other labs normal. Assessment and Plan (1) Upper gastrointestinal hemorrhage due to gastritis Since the patient has had multiple endoscopies in the past year without any findings other than presbyesophagus; It is probable that she has acute stress related ulcerative gastritis or duodenitis. She has minimal reserve and is a poor candidate for diagnostic endoscopy without the need for probable long-term assisted ventilation. I've asked the anesthesia service to evaluate her to get their opinion about the risk of upper endoscopy with intubation and anesthesia. It is my opinion that she is at extreme risk for worsening respiratory failure as she already has DNI, DNR status. Status: Acute (2) Acute on chronic blood loss anemia Transfuse as needed until patient Family makes decision about comfort care Status: Acute (3) Chronic idiopathic thrombocytopenia Status: Acute (4) Acute aspiration pneumonia Potential for recurrent pulmonary aspiration is extremely high set she has no other methods of feeding available to her Status: Acute (5) Severe sepsis with acute organ dysfunction Status: Acute (6) Diabetes mellitus type II, controlled Status: Chronic (7) NAFLD (nonalcoholic fatty liver disease) The patient has significant cirrhosis with ascites and is not a candidate for percutaneous gastrostomy placement. This would in essence limit her method of feeding except for the Dobbhoff tube which will lead to more aspiration and worsening pulmonary status. Status: Chronic
--- NOTE | 2019-05-03 16:34 | General Surgery Progress Note ---
Surgical - Auxillary Note - Subjective Patient Information: Note initiated : 05/03/19 at 4:14 pm Service Date, if different from initiated Date: [] Patient: Ebony Arroyo 54 y/o F admitted on 04/24/19 for shortness of breathe. Chief Complaint: [GIB Dr Diane request for preanesthetic eval of patient. 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 Presumed UGI source based on sxs, prior mult EGD in recent past all neg. Now pt transfused with H&H holding per RN and hemodynamically improved. Still requires supp O2, generalized weakness. Eval of pt reveals pt profoundly weak and deconditioned, unable to move without profound exhaustion/dyspnea. Same with RN assist movement. Pt unable to phonate barely above whisper level, tidal volumes shallow and rapid. Pt unable to stay visually focused and fixed due to fatigue. Spoke with family/ who voiced concern about pt's ability to tolerated sedation/procedure at this time. D/W Dr Diane who feels that patient has stabilized with regard to any acute blood loss but is profoundly deconditioned/weak. Rec: Anesthesia recommends that this patient is unable to safely proceed with procedural sedation due to profound deconditioning and weakness. It is a certainty that this patient would require ventilatory support for any amount of sedation which could easy require intubation and mechanical ventilation. Once this occurs, it is extremely unlikely that she could achieve pulmonary strength adequate for extubation. The patient and (Franky) both reject this potential eventuality. Thank you DIETER]
[2019-05-03] MEDS: LEVOFLOXACIN 750 MG/150 ML BAG IV SCH (18:27)
--- NOTE | 2019-05-03 20:16 | Discharge Summary ---
Medical - DS: Prov Patient information: Note initiated : 05/03/19 at 8:08 pm Service Date, if different from initiated Date: [] Patient: Ebony Arroyo 54 y/o F admitted on 04/24/19 for shortness of breathe. Chief Complaint: [] Date of admission: 04/24/19 05:23 Discharge date: 05/05/19 Primary care physician: Carole Carrero Consults: 04/24/19 Consult to Physician [CONS] Stat Comment: Consulting Provider: Robert Laguna Reason For Exam: Physician to Consult 04/28/19 10:55 Consult to Physician [CONS] Routine Comment: Consulting Provider: aDvid Martin Reason For Exam: Physician to Consult 05/02/19 10:10 Consult to Physician [CONS] Routine Comment: GI bleed, Esophageal stricture vs Spasm Consulting Provider: Billy Diane Reason For Exam: Physician to Consult Medical - DS: Meds - Discharge Medications Prescriptions: LORazepam [Ativan] 1 - 2 mg PO Q2HP PRN #20 ml PRN Reason: Anxiety Prescription Printed Hyoscyamine Sulfate [Levsin-Sl] 0.125 mg SL 3-4XD #10 tab.subl Prescription Printed morphine SULFATE [Morphine Sulfate] 10 mg PO Q1-2HP PRN #15 ml PRN Reason: Pain Prescription Printed Ondansetron [Zofran ODT] 4 mg SL Q4-6HP PRN #30 tab PRN Reason: Nausea Prescription Printed Active and Home Medications: Home Medications Baclofen 20 mg PO TID 01/23/15 [History Confirmed 04/24/19 Last Taken 02/27/16] Insulin Aspart [Novolog] 0 unit SQ ACHS 01/23/15 [History Confirmed 04/24/19 Last Taken 02/27/16] Metoclopramide [Reglan] 5 mg PO QID PRN 01/23/15 [History Confirmed 04/24/19 Last Taken 02/27/16] Omeprazole [Prilosec] 20 mg PO BIDAC 01/23/15 [History Confirmed 04/24/19 Last Taken 02/27/16] Pregabalin [Lyrica] 50 mg PO QIDP 01/23/15 [History Confirmed 04/24/19 Last Taken 02/27/16] metFORMIN [Glucophage] 500 mg PO BIDCC 01/23/15 [History Confirmed 04/24/19 Last Taken 02/27/16] nystatin 100,000 unit/gram topical ointment 1 applic TOPICAL BID 10/22/17 [History Confirmed 04/24/19 Last Taken Unknown] sertraline 25 mg tablet 25 mg PO BID 09/29/18 [History Confirmed 04/24/19 Last Taken Unknown] oxybutynin chloride 5 mg tablet,extended release 24 hr 5 mg PO QDAY #30 tab 12/13/18 [Rx Confirmed 04/24/19 Last Taken Unknown] Furosemide [Lasix] 20 mg PO DAILY 03/12/19 [History Confirmed 04/24/19 Last Taken Unknown] Ipratropium/Albuterol [Duoneb] 3 ml NEB Q4-6HP PRN 03/12/19 [History Confirmed 04/24/19 Last Taken Unknown] Spironolactone [Aldactone] 50 mg PO DAILY 03/12/19 [History Confirmed 04/24/19 Last Taken Unknown] oxyCODONE HCL [Oxycodone HCl] 5 mg PO Q6HP PRN 03/12/19 [History Confirmed 04/24/19 Last Taken Unknown] Adhesive Tape [Durapore] 0 unit .ROUTE .MEDSUPPLY 03/13/19 [History Confirmed 04/24/19 Last Taken Unknown] Benzonatate [Tessalon] 100 mg PO BID PRN 03/13/19 [History Confirmed 04/24/19 Last Taken Unknown] Ferrous Sulfate [Iron] 325 mg PO BID 03/13/19 [History Confirmed 04/24/19 Last Taken Unknown] Gauze Bandage [Band-Aid Gauze Pads] 0 unit .ROUTE .MEDSUPPLY MDD 4 03/13/19 [History Confirmed 04/27/19 Last Taken Unknown] Insulin Glargine,Hum.rec.anlog [Basaglar Kwikpen U-100] 15 unit SQ DAILY 03/13/19 [History Confirmed 04/24/19 Last Taken Unknown] Urinary Bag [Guwavd-Q-Mpt Leg Bag Small] 0 units .ROUTE .MEDSUPPLY 03/13/19 [History Confirmed 04/27/19 Last Taken Unknown] Fluconazole [Diflucan] 150 mg PO 2-3XW 04/08/19 [History Confirmed 04/24/19 Last Taken Unknown] Pen Needle, Diabetic [Carefine Pen Needle] 1 each MISC DAILY 04/08/19 [History Confirmed 04/27/19 Last Taken Unknown] traMADol [Ultram] 50 mg PO QIDP PRN 04/08/19 [History Confirmed 04/24/19 Last Taken Unknown] Amoxicillin/Potassium Clav [Augmentin] 875 mg PO Q12H #5 tab 04/12/19 [Rx Confirmed 04/24/19 Last Taken Unknown] Medical - DS: Hosp Hospital Course: Ms. Arroyo is a 54 year old F with a history of paraplegia, chronically bedridden with suprapubic catheter and recurrent hardware related UTIs who presents with her Franky with shortness of breath, weakness and weight gain over 20 pounds in the last 1 month. Symptoms associated with increasing bilateral flank pain. She was recently in the ER for above symptoms however has failed to improve. During today's visit work-up was consistent with elevated lactate,/pyuria consistent with complicated UTI. Hospitalist service was consulted for as above At the time evaluation patient is accompanied with her . She was able to answer most the question. She endorses to increasing fluid stimulation and weight gain. Endorses to history as above. Denies recent medication changes. Denies shaking chills fever but endorses loss of appetite. 04/25 worsening hypoxia and increased oxygen requirement. Chest x-ray bibasilar interstitial disease likely worsening aspiration. Nursing staff suctioned excessive oral secretions. Patient started on CoughAssist maneuvers to prevent further aspiration. Ongoing diuresis. Platelets of 50 white count 3.8, lactate 3.3, BUN 33, replace magnesium today. Continue PT OT/nutrition support 04/26- Pt doing well, no overnight events. Flat affect. No telemetry events. Blood pressure stable. Lockhart is draining clear urine. Persistent lymphedema. Diminished breath sounds bases. No family at bedside. Ongoing wound care. 04/27-patient had major aspiration episode. Aggressive suctioning performed. However patient hypoxic requiring 8 L oxygen. No family at bedside. White count 2.7. Continue antibiotic coverage. Continue PT OT. Lockhart is draining clear urine 04/28 patient continues to aspirate intermittently. Currently n.p.o. Modified barium swallow today per ST recommendations. On IV potassium/diuretics. Dobbhoff tube feeding to start in light of esophageal stricture. GI consult for esophageal dilatation. Continuing antibiotic coverage/CoughAssist and aspiration precautions. On 2 L oxygen. Repeat chest imaging today. Improving lymphedema. Potassium 2.8. Continue diuresis with aggressive potassium replacement. Start liquid potassium placement per Dobbhoff tube. Lockhart is draining clear urine. Abdominal ultrasound shows cirrhotic changes with moderate ascites. Echocardiogram EF 60% with normal LV function. Would not be a good candidate for PEG placement in light of ascites/cirrhosis 04/29-patient doing well. Currently on tube feeds 20 cc an hour. White count 3.2. More alert and respond to commands. Nonlabored breathing. No overnight episodes of aspiration. On 1 L oxygen. Continue PT OT, potassium improved to 3.7. Ongoing diuresis. Creatinine stable. Net negative fluid balance over 5000 cc. Continue diuresing. at bedside. Also discussed case with GI, patient has had 3 endoscopies in the last year and GI does not recommend any further evaluation. In light of ascites she would not be a candidate for PEG tube placement. Goal is to provide nutrition and rehab for the next few days followed by discontinuation of Dobbhoff, swallow eval/barium studies and init iation of oral diet. 04/30 This morning patient had some coughing and felt like she could not get some phlegm down in her oxygen saturations dropped ended up putting her on BiPAP. Appears pretty comfortable at this point only however on 40% FiO2 and she is has good saturations. She notes her has to feeling about the same as yesterday. Good diuresis. at bedside. 05/01 Is tired this morning a little anxious. But no new complaints other than poor sleep. Blood pressure was low last night and did put her on Levophed temporarily she is on very minimal dose and should be able to discontinue shortly. Alert and awake today. Dropped her oxygen down to 1.5 L and is maintaining saturations. Chest x-ray no change. 05/02 Nurse reports dark tarry stool last night. Hemoglobin was 8.4 yesterday at 9 and is down to 7.9 today. Will obtain fecal occult blood test and likely need to consult general surgeon for possible endoscopy or transfer for GI. Patient slept poorly last night. She seemed to have an event last night where she required increased oxygen but/subsequently improved and is only on 1 L and currently. 05/03 Poor sleep last night. Intermittent confusion. Oxygen saturations good on 0.5 L, blood pressure stable. Plan for for endoscopy in the morning. Case was evaluated by gastroenterology and anesthesia prior to initial plan for EGD. And is determined patient too high risk for endoscopy. Patient also not a candidate for PEG tube. His physicians I discussed this with the patient and family, long conversation. Had another conversation with the family, fidelina raygoza. It was felt that it be best to get hospice involved. Plan is for discharge home with hospice tomorrow. Speech therapy reevaluated the least risky diet for which she she will be discharged on. 05/04 No overnight events. Patient status unchanged. Hospice set up for tomorrow morning at home. 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: *DM: *Anemia, acute blood loss on chronic: *Anxiety/depression: *GERD: *Debility/poor functional state: tenuous at baseline *Hospital Delerium: Discharge diagnosis: Recurrent aspiration pneumonia hypoxic respiratory failure GI bleed Secondary discharge diagnosis: UTI anasarca hypoalbuminemia decubitus pressure ulcers paraplegia cirrhosis diabetes anemia acute on chronic anxiety depression GERD debility poor functional status - Time Spent with Patient Total time spent providing and/or coordinating discharge services: Greater than 30 minutes Medical - DS: Exam - Constitutional Vitals: Vital Signs Temp Pulse Resp BP Pulse Ox 05/03/19 18:58 95 05/03/19 16:21 96 05/03/19 15:25 123/61 95 05/03/19 14:00 93 H 96 05/03/19 12:03 98.3 F 18 94 05/03/19 11:38 130/67 05/03/19 09:14 121/61 95 05/03/19 09:03 99.4 F H 97 05/03/19 07:32 93 H 96 05/03/19 04:19 97.9 F 16 118/59 97 05/02/19 23:48 96 05/02/19 23:35 98.3 F 16 110/57 94 Intake and Output 05/03/19 05/03/19 05/03/19 05:59 13:59 21:59 Intake Total 1695 739 544 Output Total 450 700 Balance 1245 739 -156 Intake: IV 230 100 50 Oral 1000 Tube Feeding 375 609 464 GI Tube Flush 90 30 30 Output: Urine Catheter Amount 450 700 Other: Urine Appearance Clear Clear Suprapubic Clear Urine Color Dark Yellow Dark Yellow Suprapubic Dark Yellow Urine Odor Normal Normal Stool Color Black Stool Consistency Liquid Medical - DS: Data Labs on day of discharge: Labs from last 24 hours 05/03/19 05/03/19 05:10 05:10 WBC 4.7 RBC 3.70 Hgb 10.0 L Hct 31.1 L MCV 84.1 MCH 27.0 MCHC 32.2 RDW 17.1 H Plt Count 38 L* MPV TNP Gran % 76.6 Lymph % (Auto) 13.3 L [place] % (Auto) 9.1 Eos % (Auto) 0.8 Baso % (Auto) 0.2 Gran # 3.63 Lymph # (Auto) 0.63 L [place] # (Auto) 0.43 Eos # (Auto) 0.04 Baso # (Auto) 0.01 Sodium 138 Potassium 3.3 Chloride 94 L Carbon Dioxide 31 H Anion Gap 13.0 BUN 49 H Creatinine 0.5 L GFR Calculation 109 Glucose 118 H Uric Acid 6.2 Calcium 8.3 L Phosphorus 3.1 Magnesium 2.0 Total Bilirubin 1.2 H Direct Bilirubin 0.5 H GGT 192 H AST 23 ALT 6 Alkaline Phosphatase 138 H Lactate Dehydrogenase 137 Total Protein 4.5 L Albumin 2.7 L Globulin 1.8 L Albumin/Globulin Ratio 1.5 Triglycerides 122 Medical - DS: A/P - Patient/Caregiver Discharge Instructions Activity: increase activity as tolerated Diet: Dysphagia Level 4 Pureed Foods (moderately thick liquids via teaspoon) Prescriptions: LORazepam [Ativan] 1 - 2 mg PO Q2HP PRN #20 ml PRN Reason: Anxiety Prescription Printed Hyoscyamine Sulfate [Levsin-Sl] 0.125 mg SL 3-4XD #10 tab.subl Prescription Printed morphine SULFATE [Morphine Sulfate] 10 mg PO Q1-2HP PRN #15 ml PRN Reason: Pain Prescription Printed Ondansetron [Zofran ODT] 4 mg SL Q4-6HP PRN #30 tab PRN Reason: Nausea Prescription Printed - Follow up Plan Follow up with: Carole Carrero MD [Primary Care Provider] - Disposition: Hospice - Home Care Plan Goals: This discharge packet is provided to you to help keep you informed about your care. We want to ensure you get everything you need when you go home. You will also be receiving a call from us in a few days to follow up with you and see how you are doing since your discharge. This gives us a chance to listen to any concerns you maybe experiencing since you were discharged or any additional needs you may have, as well as providing us feedback on your care experience. We strive to always provide excellent care and thank you for your feedback and for choosing [facility]. Prognosis: Serious Rehab Potential: Undetermined Medical - DS: Qual - VTE Deep Vein Thrombosis/Pulmonary Embolism Present on Admission: No
[2019-05-03] MEDS: MELATONIN 3 MG TABLET PO SCH (21:00)
[2019-05-04] MEDS: ACETAMINOPHEN 650 MG/65 ML BOTTLE IV PRN (00:42)
[2019-05-04] MEDS: SUCRALFATE 1 GM/10 ML ORAL.SUSP PO SCH ×3 (05:35→17:54)
[2019-05-04] MEDS: 0.9 % SODIUM CHLORIDE 10 ML SYRINGE IV SCH ×5 (05:35→22:01)
[2019-05-04] MEDS: METOCLOPRAMIDE 10 MG/2 ML VIAL IV SCH ×3 (05:35→17:52)
[2019-05-04] MEDS: INSULIN LISPRO 1 UNIT/0.01 ML UNIT SQ SCH ×3 (05:42→17:54)
[2019-05-04] MEDS: PANTOPRAZOLE 40 MG VIAL IV SCH ×2 (07:16→17:52)
[2019-05-04 07:18] LABS: Blood Urea Nitrogen 46 mg/dl (6-20); Calcium 8.4 mg/dl (8.6-10.4); Carbon Dioxide 32 mmol/L (22-30); Chloride 94 mmol/L (96-108); Glomerular Filtration Rate 109; Glucose 122 mg/dL (70-105)
[2019-05-04 07:26] LABS: Basophils # (Auto) 0.01 K/mcL (0.00-0.30); Basophils % (Auto) 0.2 % (0.0-2.0); Eosinophils # (Auto) 0.05 K/mcL (0.00-0.70); Granulocytes % (Auto) 75.9 % (38.0-78.0); Hematocrit 32.6 % (34.1-44.9); Hemoglobin 10.4 g/dL (11.2-15.7); Lymphocytes # (Auto) 0.69 K/mcL (1.50-4.80); Lymphocytes % (Auto) 13.5 % (15.5-49.0); Mean Cell Volume 85.3 fL (80.0-100.0); Mean Corpuscular HGB Conc 31.9 g/dL (31.0-36.0); Monocytes # (Auto) 0.48 K/mcL (0.10-0.90); Monocytes % (Auto) 9.4 % (1.0-12.0); Platelet Count 43 K/mcL (140-440); RBC 3.82 M/mcL (3.59-5.38); WBC 5.1 K/mcL (4.50-11.00)
[2019-05-04] MEDS: sitaGLIPtin 100 MG TABLET PO SCH (08:36)
[2019-05-04] MEDS: INSULIN GLARGINE, HUMAN 1 UNIT/0.01 ML SQ SCH (08:36)
[2019-05-04] MEDS: CHLORHEXIDINE GLUCONATE 1 ML ORAL.SOL SWABMOUTH SCH ×2 (08:37→22:01)
[2019-05-04] MEDS: traMADol 50 MG TABLET PO PRN (08:37)
[2019-05-04] MEDS: SPIRONOLACTONE 25 MG TABLET PO SCH (08:38)
[2019-05-04] MEDS: FUROSEMIDE 20 MG TABLET PO SCH (08:39)
[2019-05-04] MEDS: SERTRALINE 50 MG TABLET PO SCH (08:39)
--- NOTE | 2019-05-04 10:41 | Internal Med Progress Note ---
Medical - PN: Subj Patient information: Note initiated : 05/04/19 at 10:39 am Service Date, if different from initiated Date: [] Patient: Ebony Arroyo a 54 y/o F admitted on 04/24/19 for shortness of breathe. Chief Complaint: [] Interval history: Ms. Arroyo is a 54 year old F with a history of paraplegia, chronically bedridden with suprapubic catheter and recurrent hardware related UTIs who presents with her Franky with shortness of breath, weakness and weight gain over 20 pounds in the last 1 month. Symptoms associated with increasing bilateral flank pain. She was recently in the ER for above symptoms however has failed to improve. During today's visit work-up was consistent with elevated lactate,/pyuria consistent with complicated UTI. Hospitalist service was consulted for as above At the time evaluation patient is accompanied with her . She was able to answer most the question. She endorses to increasing fluid stimulation and weight gain. Endorses to history as above. Denies recent medication changes. Denies shaking chills fever but endorses loss of appetite. 04/25 worsening hypoxia and increased oxygen requirement. Chest x-ray bibasilar interstitial disease likely worsening aspiration. Nursing staff suctioned excessive oral secretions. Patient started on CoughAssist maneuvers to prevent further aspiration. Ongoing diuresis. Platelets of 50 white count 3.8, lactate 3.3, BUN 33, replace magnesium today. Continue PT OT/nutrition support 04/26- Pt doing well, no overnight events. Flat affect. No telemetry events. Blood pressure stable. Lockhart is draining clear urine. Persistent lymphedema. Diminished breath sounds bases. No family at bedside. Ongoing wound care. 04/27-patient had major aspiration episode. Aggressive suctioning performed. However patient hypoxic requiring 8 L oxygen. No family at bedside. White count 2.7. Continue antibiotic coverage. Continue PT OT. Lockhart is draining clear urine 04/28 patient continues to aspirate intermittently. Currently n.p.o. Modified barium swallow today per ST recommendations. On IV potassium/diuretics. Dobbhoff tube feeding to start in light of esophageal stricture. GI consult for esophageal dilatation. Continuing antibiotic coverage/CoughAssist and aspiration precautions. On 2 L oxygen. Repeat chest imaging today. Improving lymphedema. Potassium 2.8. Continue diuresis with aggressive potassium replacement. Start liquid potassium placement per Dobbhoff tube. Lockhart is draining clear urine. Abdominal ultrasound shows cirrhotic changes with moderate ascites. Echocardiogram EF 60% with normal LV function. Would not be a good candidate for PEG placement in light of ascites/cirrhosis 04/29-patient doing well. Currently on tube feeds 20 cc an hour. White count 3.2. More alert and respond to commands. Nonlabored breathing. No overnight episodes of aspiration. On 1 L oxygen. Continue PT OT, potassium improved to 3.7. Ongoing diuresis. Creatinine stable. Net negative fluid balance over 5000 cc. Continue diuresing. at bedside. Also discussed case with GI, patient has had 3 endoscopies in the last year and GI does not recommend any further evaluation. In light of ascites she would not be a candidate for PEG tube placement. Goal is to provide nutrition and rehab for the next few days followed by discontinuation of Dobbhoff, swallow eval/barium studies and initiation of oral diet. 04/30 This morning patient had some coughing and felt like she could not get some phlegm down in her oxygen saturations dropped ended up putting her on BiPAP. Appears pretty comfortable at this point only however on 40% FiO2 and she is has good saturations. She notes her has to feeling about the same as yesterday. Good diuresis. at bedside. 05/01 Is tired this morning a little anxious. But no new complaints other than poor sleep. Blood pressure was low last night and did put her on Levophed temporarily she is on very minimal dose and should be able to discontinue shortly. Alert and awake today. Dropped her oxygen down to 1.5 L and is maintaining saturations. Chest x-ray no change. 05/02 Nurse reports dark tarry stool last night. Hemoglobin was 8.4 yesterday at 9 and is down to 7.9 today. Will obtain fecal occult blood test and likely need to consult general surgeon for possible endoscopy or transfer for GI. Patient slept poorly last night. She seemed to have an event last night where she required increased oxygen but/subsequently improved and is only on 1 L and currently. 05/03 Poor sleep last night. Intermittent confusion. Oxygen saturations good on 0.5 L, blood pressure stable. Plan for for endoscopy in the morning. Case was evaluated by gastroenterology and anesthesia prior to initial plan for EGD. And is determined patient too high risk for endoscopy. Patient also not a candidate for PEG tube. His physicians I discussed this with the patient and family, long conversation. Had another conversation with the family, . It was felt that it be best to get hospice involved. Plan is for discharge home with hospice tomorrow. Speech therapy reevaluated the least risky diet for which she she will be discharged on. 05/04 Stable, minimal oxygen use. Little bit nauseous but otherwise no other complaints. Hospice set up for tomorrow. Review of Systems: denies headache/fever/chills/nausea/vomiting/chest or abdominal pain/diarrhea. Otherwise see above. - Constitutional Vitals: Vital Signs Temp Pulse Resp BP Pulse Ox 97.9 F 93 H 20 110/57 95 05/04/19 03:37 05/04/19 08:00 05/04/19 03:37 05/04/19 03:37 05/04/19 08:00 Period Temp Pulse Resp BP Sys/Porter Pulse Ox Last 24 Hr 97.7 F-98.3 F 93-93 18-22 107-130/48-67 94-97 Intake and Output 05/03/19 05/04/19 05/04/19 21:59 05:59 13:59 Intake Total 669 360 265 Output Total 700 450 Balance -31 -90 265 Weight 76.975 kg Intake & Output: Intake & Output 05/03/19 05/04/19 05/04/19 21:59 05:59 13:59 Intake Total 669 360 265 Output Total 700 450 Balance -31 -90 265 Weight 76.975 kg Intake: IV 115 65 Oral 0 0 Tube Feeding 464 235 235 GI Tube Flush 90 60 30 Output: Urine Catheter Amount 700 450 Other: Urine Appearance Clear Clear Suprapubic Clear Clear Clear Urine Color Dark Yellow Dark Yellow Suprapubic Dark Yellow Straw Straw Urine Odor Normal Normal Stool Color Black Green Black Stool Consistency Liquid Liquid Exam: General: awake, No acute Distress Eyes/N/T: EOMI, Head/Neck: neck supple, normocephalic atraumatic CV: RRR, No murmurs, Pulm: no rhonchi today, no wheezing/rales Abd: soft, nontender, +BS x4, dobhoff in place Ext: no clubbing/cyanosis, 3+ b/l LE edema and also edema b/l UE Neuro: alert, mentation good, paraplegic lower extremities Skin: warm/dry Medical - PN: Obj Da - Labs CBC & Chem 7: 05/04/19 05:10 05/04/19 05:10 Labs: Abnormal Lab Results 05/04/19 05/04/19 05/03/19 05:10 05:10 05:10 WBC RBC Hgb 10.4 L Hct 32.6 L RDW 18.0 H Plt Count 43 L* Lymph % (Auto) 13.5 L Lymph # (Auto) 0.69 L PT INR APTT Chloride 94 L 94 L Carbon Dioxide 32 H 31 H BUN 46 H 49 H Creatinine 0.5 L 0.5 L Glucose 122 H 118 H Calcium 8.4 L 8.3 L Total Bilirubin 1.2 H Direct Bilirubin 0.5 H GGT 192 H Alkaline Phosphatase 138 H Total Protein 4.5 L Albumin 2.7 L Globulin 1.8 L Stool Occult Bld Immuno 05/03/19 05/02/19 05/02/19 05:10 04:00 04:00 WBC 3.7 L RBC 3.01 L Hgb 10.0 L 7.9 L Hct 31.1 L 25.4 L RDW 17.1 H 17.2 H Plt Count 38 L* 32 L* Lymph % (Auto) 13.3 L 13.7 L Lymph # (Auto) 0.63 L 0.51 L PT INR APTT Chloride 94 L Carbon Dioxide 31 H BUN 48 H Creatinine Glucose 142 H Calcium Total Bilirubin 1.1 H Direct Bilirubin 0.6 H GGT 178 H Alkaline Phosphatase 148 H Total Protein 4.2 L Albumin 2.6 L Globulin 1.6 L Stool Occult Bld Immuno 05/02/19 05/02/19 05/01/19 00:55 00:00 23:59 WBC RBC Hgb 8.1 L Hct 25.7 L RDW Plt Count 33 L* Lymph % (Auto) Lymph # (Auto) PT 16.4 H INR 1.3 H APTT 42 H Chloride Carbon Dioxide BUN Creatinine Glucose Calcium Total Bilirubin Direct Bilirubin GGT Alkaline Phosphatase Total Protein Albumin Globulin Stool Occult Bld Immuno Positive A 05/01/19 21:00 WBC RBC Hgb 8.4 L Hct 27.4 L RDW Plt Count Lymph % (Auto) Lymph # (Auto) PT INR APTT Chloride Carbon Dioxide BUN Creatinine Glucose Calcium Total Bilirubin Direct Bilirubin GGT Alkaline Phosphatase Total Protein Albumin Globulin Stool Occult Bld Immuno Meds: Medications Acetaminophen (Tylenol) 650 mg PO Q4-6HP PRN; Protocol PRN Reason: Per Pain Protocol/Fever > 101 Last Admin: 04/30/19 16:59 Dose: 650 mg Documented by: Albuterol/Ipratropium (Duoneb) 3 ml NEB Q4-6HP PRN PRN Reason: Shortness Of Breath Benzonatate (Tessalon) 100 mg PO BIDP PRN PRN Reason: Cough Bisacodyl (Dulcolax) 10 mg AR Q2-3DAYS PRN PRN Reason: Constipation Chlorhexidine Gluconate (Peridex) 15 ml SWABMOUTH BID [facility] Last Admin: 05/04/19 08:37 Dose: 15 ml Documented by: Diagnostic Test (Pha) (Accu-Chek) 1 each FS Q6H [facility] Last Admin: 05/04/19 05:41 Dose: 1 each Documented by: Diphenhydramine HCl (Benadryl) 25 mg PO HSP PRN PRN Reason: Insomnia Stop: 05/04/19 12:00 Last Admin: 05/03/19 21:00 Dose: 25 mg Documented by: Furosemide (Lasix) 20 mg PO DAILY [facility] Last Admin: 05/04/19 08:39 Dose: 20 mg Documented by: Magnesium Sulfate (Magnesium Sulfate) 2 gm in 50 mls @ 50 mls/hr IV UD PRN PRN Reason: MG = or < 1.7 Last Infusion: 04/28/19 08:30 Dose: Infused Documented by: Norepinephrine Bitartrate 16 (mg/ Sodium Chloride) 250 mls @ 9.375 mls/hr IV Q24HP PRN; Protocol PRN Reason: Hypotension Last Titration: 05/02/19 07:00 Dose: 0 mcg/min, 0 mls/hr Documented by: Acetaminophen (Ofirmev) 650 mg in 65 mls @ 130 mls/hr IV Q6HP PRN; Protocol PRN Reason: Per Pain Protocol/Fever > 101 Last Infusion: 05/04/19 01:37 Dose: Infused Documented by: Insulin Glargine (Lantus) 15 unit SQ DAILY [facility] Last Admin: 05/04/19 08:36 Dose: 15 unit Documented by: Insulin Human Lispro (Humalog) 0 unit SQ Q6H [facility]; Protocol Last Admin: 05/04/19 05:42 Dose: Not Given Documented by: Loperamide HCl (Imodium) 2 mg PO PRN PRN PRN Reason: Diarrhea Melatonin (Melatonin 3mg Tablet) 3 mg PO QHS [facility] Last Admin: 05/03/19 21:00 Dose: 3 mg Documented by: Metoclopramide HCl (Reglan) 5 mg IV Q6 [facility] Last Admin: 05/04/19 05:35 Dose: 5 mg Documented by: Ondansetron HCl (Zofran) 4 mg IV Q4-6HP PRN PRN Reason: Nausea And Vomiting Last Admin: 05/02/19 13:04 Dose: 4 mg Documented by: Oxycodone HCl (Roxicodone) 5 mg PO Q6HP PRN PRN Reason: Pain Last Admin: 04/27/19 05:40 Dose: 5 mg Documented by: Pantoprazole Sodium (Protonix) 40 mg IV BIDAC [facility] Last Admin: 05/04/19 07:16 Dose: 40 mg Documented by: Polyethylene Glycol (Miralax) 17 gm PO DAILYP PRN PRN Reason: Constipation Last Admin: 04/26/19 17:17 Dose: 17 gm Documented by: Potassium Chloride (Klor-Con) 40 meq PO DAILYP PRN PRN Reason: K+ < 3.5 Last Admin: 04/30/19 08:43 Dose: 40 meq Documented by: Sertraline HCl (Zoloft) 50 mg PO DAILY [facility] Last Admin: 05/04/19 08:39 Dose: 50 mg Documented by: Sitagliptin Phosphate (Januvia) 100 mg PO DAILY [facility] Last Admin: 05/04/19 08:36 Dose: 100 mg Documented by: Sodium Chloride (Saline Flush) 10 ml IV Q8 [facility] Last Admin: 05/04/19 05:35 Dose: 10 ml Documented by: Sodium Chloride (Saline Flush) 10 ml IV Q12 [facility] Last Admin: 05/04/19 08:39 Dose: 10 ml Documented by: Spironolactone (Aldactone) 50 mg PO DAILY [facility] Last Admin: 05/04/19 08:38 Dose: 50 mg Documented by: Sucralfate (Carafate) 1 gm PO Q6 [facility] Last Admin: 05/04/19 05:35 Dose: 1 gm Documented by: Tramadol HCl (Ultram) 50 mg PO QIDP PRN PRN Reason: Pain Last Admin: 05/04/19 08:37 Dose: 50 mg Documented by: Medical - PN: A/P - Time Spent With Patient Total time spent is greater than 50% in coordination of care (as documented) at patient's floor/unit and/or counseling patient: - Narrative A/P Narrative: A: *Recurrent Asp PNA: Hypercontractile esophagus. 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 Medical - PN: Qual - VTE Deep Vein Thrombosis/Pulmonary Embolism Present on Admission: No
[2019-05-04] MEDS: ONDANSETRON 4 MG/2 ML VIAL IV PRN (10:46)
[2019-05-04] MEDS: MELATONIN 3 MG TABLET PO SCH (22:01)
[2019-05-05] MEDS: SUCRALFATE 1 GM/10 ML ORAL.SUSP PO SCH ×2 (00:43→05:43)
[2019-05-05] MEDS: METOCLOPRAMIDE 10 MG/2 ML VIAL IV SCH ×2 (00:43→05:43)
[2019-05-05] MEDS: INSULIN LISPRO 1 UNIT/0.01 ML UNIT SQ SCH ×2 (01:00→06:07)
[2019-05-05] MEDS: ACETAMINOPHEN 650 MG/65 ML BOTTLE IV PRN (04:16)
[2019-05-05] MEDS: 0.9 % SODIUM CHLORIDE 10 ML SYRINGE IV SCH (05:44)
[2019-05-05] MEDS: PANTOPRAZOLE 40 MG VIAL IV SCH (07:50)
== END 2019-05-05 10:00 | disposition hospice, home (50) | DRG 177 ==
LOC: ED 21:26 → ICU 04-24 05:23
PROVIDERS: ADMIT Internal Medicine; ATTEND Internal Medicine